=== PATIENT | female | born 1950 | race Caucasian/White ===

== ENCOUNTER 2016-06-11 10:02 | Inpatient (IN) | payer MEDICARE, BC, OTHER ==
[~2016-06-11] VITALS: Ht 154.9 cm; Wt 110.7 kg
[~2016-06-11 10:02] MED LIST: BETH25TA PO; CARB1TAB43 PO; CEPH-263 PO; COLE625T2 PO; DAPA5TAB PO; DIPH25CA58 PO; DOCU-27 PO; GLIP10TA13 PO; HYDR-2672 PO; INSU100C SQ; INSU100I27 SQ; INSU100V SQ; INSU100V13 SQ; INSU100V8 SQ; LEVO100T5 PO; LEVO125T5 PO; LIPA1CAP12 PO; LOVA40TA2 PO; MAGN400C PO; MULT-246 PO; Methocarbamol PO; OMEP40CA5 PO; Oxycodone Hcl/Acetaminophen PO; POTA10TA5 PO; PRAM0.255 PO; PROP60TA PO; SITA100T PO; TEMA30CA PO; TOPI100T90 PO; TORS20TA PO; TORS20TA2 PO
[2016-06-11] MEDS ORDERED: MORPHINE SULFATE 4 MG/ML DISP.SYRIN. IV/SQ PRN (10:45)
--- NOTE | 2016-06-11 10:54 | PHYS DOC ---
Past Medical History Past Medical History: Cancer, Diabetes-Type II, GERD, Hypothyroid, Pancreatitis , Other Additional Past Medical Histor: VERTIGO,PARKONISM,PSEUDO TUMOR CEREBI, breast cancer Past Surgical History: Cholecystectomy, Hysterectomy, Tonsillectomy, Other Additional Past Surgical Histo: SEE ATTACHED SHEET,MULTIPLE SURGERIES, BX MASTECTOMY 04/27/2016 Alcohol Use: None Drug Use: None Adult General Chief Complaint Chief Complaint: POST-OP PROBLEM HPI HPI Patient is a 66 year old female who had bilateral mastectomy on 04/27/16 who presents with post-op infection of the left mastectomy site. She has been on Keflex 500mg qid since 06/02/16. She saw Dr. Lima, her surgeon, yesterday. He did not feel that it was infected at that time. He instructed her to go to the hospital for evaluation if she felt that the pain, redness, or swelling worsened. The patient states that it has gotten worse. She denies fevers or drainage from the wounds. Both sides had been affected, but the right side is improving with the antibiotics. The left side, however, is worsening. She denies any shortness of breath or chest pain other than the chest wall pain. Her PCP is Dr. Betty Oropeza. Review of Systems Review of Systems Constitutional: Denies fever or chills. [] Respiratory: Denies cough or shortness of breath. Reports left chest wall pain. Cardiovascular: Denies chest pain, palpitations. Reports chronic, stable BLE edema. GI: Denies abdominal pain, nausea, vomiting, bloody stools or diarrhea. [] : Denies dysuria, hematuria or urinary frequency. [] Musculoskeletal: Denies back pain or joint pain. [] Integument: Reports increasing erythema of the left chest wall extending from surgical incision. Neurologic: Denies headache, focal weakness or sensory changes. [] All systems reviewed and negative unless otherwise stated in the HPI. Current Medications Current Medications Current Medications Medications (Trade) Dose Ordered Sig/Haim Start Time Stop Time Status Last Admin Dose Admin Morphine Sulfate 4 mg PRN Q15MIN PRN 06/11/16 10:45 06/12/16 10:44 06/11/16 10:45 4 MG Ondansetron HCl (Zofran) 4 mg 1X ONCE 06/11/16 11:00 06/11/16 11:01 DC 06/11/16 11:02 4 MG Allergies Allergies Allergies Coded Allergies Type Severity Reaction Last Updated Verified Sulfa (Sulfonamide Antibiotics) Allergy Severe 04/27/16 Yes insulin aspart Allergy Severe ANAPHYLAXIS 04/27/16 Yes venom-honey bee Allergy Severe Anaphylaxis 04/27/16 Yes escitalopram Allergy Intermediate 04/27/16 Yes lisinopril Allergy Intermediate Rash 04/27/16 Yes metformin Allergy Intermediate Diarrhea 04/27/16 Yes mold Allergy Intermediate 04/27/16 Yes pantoprazole Allergy Intermediate 04/27/16 Yes ranitidine Allergy Intermediate Nausea and Vomiting 04/27/16 Yes sertraline Allergy Intermediate 04/27/16 Yes Physical Exam Physical Exam Constitutional: Well developed, well nourished, no acute distress, non-toxic appearance. [] HENT: Normocephalic, atraumatic, oropharynx moist. [] Eyes: PERRLA, EOMI, conjunctiva normal, no discharge. [] Neck: Normal range of motion, no tenderness, supple, no stridor. [] Cardiovascular: Heart rate regular rhythm, no murmur. [] Lungs & Thorax: Bilateral breath sounds clear to auscultation without wheezes, rales, or rhonchi. Left chest wall tenderness over the area of erythema, extending into the left axilla. Abdomen: Bowel sounds normal, soft, no tenderness, no masses, no pulsatile masses. [] Skin: Warm, dry, no rash. There is an area of erythema and warmth on the left chest wall extending superiorly from the mastectomy incision, measuring 12 x 7 cm. Extremities: No tenderness, ROM intact, 1+ BLE edema, chronic according to the patient. 2+ DP pulses bilaterally. [] Neurologic: Alert and oriented X 3, normal motor function, normal sensory function, no focal deficits noted. [] Psychologic: Affect normal, judgement normal, mood normal. [] Current Patient Data Vital Signs Vital Signs Date Time Temp Pulse Resp B/P Pulse Ox O2 Delivery O2 Flow Rate FiO2 06/11/16 11:41 78 18 130/61 93 06/11/16 10:18 99.0 Room Air 99.0 Lab Values Laboratory Tests Test 06/11/16 10:35 White Blood Count 5.6x10^3/uL (4.0-11.0) Red Blood Count 4.00x10^6/uL (3.50-5.40) Hemoglobin 10.8g/dL (12.0-15.5) L Hematocrit 34.0% (36.0-47.0) L Mean Corpuscular Volume 85fL (79-100) Mean Corpuscular Hemoglobin 27pg (25-35) Mean Corpuscular Hemoglobin Concent 32g/dL (31-37) Red Cell Distribution Width 15.2% (11.5-14.5) H Platelet Count 133x10^3/uL (140-400) L Neutrophils (%) (Auto) 65% (31-73) Lymphocytes (%) (Auto) 21% (24-48) L Monocytes (%) (Auto) 9% (0-9) Eosinophils (%) (Auto) 5% (0-3) H Basophils (%) (Auto) 1% (0-3) Neutrophils # (Auto) 3.7x10^3uL (1.8-7.7) Lymphocytes # (Auto) 1.2x10^3/uL (1.0-4.8) Monocytes # (Auto) 0.5x10^3/uL (0.0-1.1) Eosinophils # (Auto) 0.3x10^3/uL (0.0-0.7) Basophils # (Auto) 0.1x10^3/uL (0.0-0.2) Sodium Level 143mmol/L (136-145) Potassium Level 4.0mmol/L (3.5-5.1) Chloride Level 108mmol/L (98-107) H Carbon Dioxide Level 27mmol/L (21-32) Anion Gap 8 (6-14) Blood Urea Nitrogen 13mg/dL (7-20) Creatinine 1.1mg/dL (0.6-1.0) H Estimated GFR (Cockcroft-Gault) 50.0 BUN/Creatinine Ratio 12 (6-20) Glucose Level 117mg/dL (70-99) H Lactic Acid Level 1.2mmol/L (0.4-2.0) Calcium Level 8.8mg/dL (8.5-10.1) Total Bilirubin 0.9mg/dL (0.2-1.0) Aspartate Amino Transferase (AST) 31U/L (15-37) Alanine Aminotransferase (ALT) 18U/L (14-59) Alkaline Phosphatase 250U/L (46-116) H Total Protein 6.2g/dL (6.4-8.2) L Albumin 2.6g/dL (3.4-5.0) L Albumin/Globulin Ratio 0.7 (1.0-1.7) L Laboratory Tests 06/11/16 10:35 Laboratory Tests 06/11/16 10:35 EKG EKG EKG at 1014. Heart rate 82 bpm. Sinus rhythm without acute ischemic changes or STEMI, as interpreted by Dr. Burnett. Radiology/Procedures Radiology/Procedures [] Course & Med Decision Making Course & Med Decision Making Pertinent Labs and Imaging studies reviewed. (See chart for details) Patient presents with increased pain and redness at left mastectomy postoperative incision after 9 days of oral antibiotics. On exam, there is a large area of erythema with induration and warmth over the left anterior chest wall consistent with cellulitis. Patient's vital signs are stable. There are no significant laboratory abnormalities. I discussed the patient's case with Dr. Reyes, on-call for the patient's surgeon, Dr. Lima. He agrees with plan to admit the patient to the hospital for outpatient treatment failure of post- operative wound infection. He requests infectious disease consultation with Dr. Kern initiation of IV vancomycin in the emergency department. She is admitted under Dr. Lima's service. The patient is in agreement with this plan. She remained stable in the emergency department. Dragon Disclaimer Dragon Disclaimer This electronic medical record was generated, in whole or in part, using a voice recognition dictation system. Departure Departure Impression: Primary Impression: Post-operative infection Additional Impression: Cellulitis of chest wall Disposition: ADMITTED INPATIENT Admitting Physician: Other (Dr. Lima) Condition: STABLE Referrals: BETTY OROPEZA MD (PCP) Problem Qualifiers VASQUEZ DICKSON Jun 11, 2016 10:54
[2016-06-11] MEDS ORDERED: ONDANSETRON PF 4 MG/2 ML VIAL. IV ONE (11:00)
[2016-06-11 11:15] LABS: BASO # 0.1 x10^3/uL (0.0-0.2); BASO % 1 % (0-3); EOS % 5 % (0-3); HEMOGLOBIN 10.8 g/dL (12.0-15.5); LYMPH # 1.2 x10^3/uL (1.0-4.8); LYMPH % 21 % (24-48); MEAN CORPUSCULAR HEMOGLOBIN 27 pg (25-35); MEAN CORPUSCULAR HGB CONC 32 g/dL (31-37); MEAN CORPUSCULAR VOLUME 85 fL (79-100); MONO % 9 % (0-9); NEUT % 65 % (31-73); PLATELET COUNT 133 x10^3/uL (140-400); RED CELL DISTRIBUTION WIDTH 15.2 % (11.5-14.5); WHITE BLOOD COUNT 5.6 x10^3/uL (4.0-11.0)
[2016-06-11 11:22] LABS: CALCIUM 8.8 mg/dL (8.5-10.1); CREATININE 1.1 mg/dL (0.6-1.0)
[2016-06-11 11:37] LABS: ALBUMIN 2.6 g/dL (3.4-5.0); ALBUMIN/GLOBULIN RATIO 0.7 (1.0-1.7); TOTAL BILIRUBIN 0.9 mg/dL (0.2-1.0); TOTAL PROTEIN 6.2 g/dL (6.4-8.2)
--- NOTE | 2016-06-11 12:29 | EKG ---
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
[2016-06-11] MEDS ORDERED: VANCOMYCIN 2 GM in IV NORMAL SALINE 500ML BAG 500 ML IV ONE (12:30)
[2016-06-11 13:00] VITALS: BP 164/75
[2016-06-11] MEDS: VANCOMYCIN PER PHARMACY MC PRN (14:06)
[2016-06-11] MEDS: MORPHINE SULFATE 4 MG/ML DISP.SYRIN. IV PRN ×2 (14:58→20:28)
[2016-06-11 15:00] VITALS: BP 108/49
[2016-06-11] MEDS: ONDANSETRON PF 4 MG/2 ML VIAL. IV PRN (15:02)
[2016-06-11] MEDS ORDERED: PIP/TAZO PER PHARMACY MC PRN (16:30)
[2016-06-11] MEDS ORDERED: INSU100C SQ (16:43)
--- NOTE | 2016-06-11 16:59 | ACF ---
Admission Forms Criteria WOUND COMPLICATIONS Clinical Indications for Inpatient Care (Place 'X' for any and all applicable criteria): Ongoing inpatient care may be indicated for wound complications with ANY ONE of the following (1) (15): [X]I. Infection with ANY ONE of the following(32)(33): [ ]a) Temperature greater than 38.5 C (101.3 F) [ ]b) Evidence of tissue necrosis [ ]c) Erythema diameter expanding around wound despite treatment [ ]d) Mental status changes [ ]e) Dehydration [ ]f) Bacteremia [ ]g) Hemodynamic instability [ ]h) Suspected necrotizing fasciitis [ ]i) Rapidly spreading lesions [ ]j) High-risk location (eg, perineum, sternum, orbit) [X]k) High-risk coexisting clinical condition as indicated by ANY ONE of the following: [X]i) Poorly controlled diabetes [ ]ii) Cirrhosis [ ]iii) Renal failure [ ]iv) Neutropenia [ ] v) Asplenia [ ]vi) Immunosuppression (eg, AIDS, chronic corticosteroid use) [ ]viii) Other high-risk medical comorbidities [ ] II. Dehiscence requiring frequent monitoring or immediate treatment [ ] III. Hematoma with ANY ONE of the following: [ ]a) Hemodynamic instability or acute anemia due to rapid development of hematoma [ ]b) Neck hematoma causing airway compression [ ]c) Retroperitoneal hematoma [ ]d) Uncontrolled coagulopathy [ ]IV. Seroma with evidence of secondary infection and requirement for IV antibiotics [D](31) [ ]V. Pain that cannot be managed at lower level of care Extended stay beyond goal length of stay for primary condition may be needed until ALL of the following are present(1)(33)(34): [ ]a) Afebrile or fever resolving [ ]b) Hemodynamic stability [ ]c) Pain resolving [ ]d) Wound closed, continuity adequately restored, or wound manageable at lower level of care [ ]e) No drain needed or drain care manageable at lower level of care [ ]f) Wound hematoma or seroma resolving [ ]g) Antibiotics not needed or regimen manageable at lower level of care(38) [ ]h) Dressing care manageable at lower level of care [ ]i) Coagulopathy absent, resolved, or treatable at lower level of care [ ]j) Medical comorbidities resolved or treatable at lower level of care The original [employer] content created by [facility] has been revised. The portions of the content which have been revised are identified through the use of italic text or in bold, and [facility] has neither reviewed nor approved the modified material. All other unmodified content is copyright [facility]. Please see references footnoted in the original [facility] edition 2016 Admission Criteria Met?: Yes SHANTA CROWELL. Jun 11, 2016 16:59
[2016-06-11] MEDS ORDERED: POTASSIUM CHLORIDE 20 MEQ TABLET.ER. PO SCH (17:00)
[2016-06-11] MEDS: PIPERACILLIN/TAZOBACTAM 3.375 GM in IV NORMAL SALINE 50ML 50 ML IV SCH (17:34)
[2016-06-11] MEDS: LIPASE/PROTEAS/AMYLAS 10/34/55 CAPSULE.DR. PO SCH (17:39)
[2016-06-11] MEDS: INSULIN LISPRO 30 UNIT SQ SCH (17:42)
[2016-06-11 19:20] VITALS: BP 104/49
[2016-06-11] MEDS: DIPHENHYDRAMINE HCL 25 MG CAPSULE PO SCH (21:10)
[2016-06-11] MEDS: BETHANECHOL CHLORIDE 25 MG TABLET PO SCH (21:10)
[2016-06-11] MEDS: TOPIRAMATE 100 MG TABLET. PO SCH (21:10)
[2016-06-11] MEDS: ATORVASTATIN CALCIUM 10 MG TABLET. PO SCH (21:10)
[2016-06-11] MEDS: POTASSIUM CHLORIDE 10 MEQ TABLET.ER. PO SCH (21:11)
[2016-06-11] MEDS: CARBIDOPA/LEVODOPA CR 25/100MG TABLET.SA PO SCH (21:11)
[2016-06-11] MEDS: PRAMIPEXOLE 0.25 MG TABLET. PO SCH (21:11)
[2016-06-11] MEDS: PROPRANOLOL ER 60 MG CAP.SA.24H. PO SCH (21:16)
[2016-06-11] MEDS: INSULIN DETEMIR 300 UNITS/3 ML INSULN.PEN. SQ SCH (21:19)
[2016-06-11 23:11] VITALS: BP 114/48
[2016-06-12] MEDS: PIPERACILLIN/TAZOBACTAM 3.375 GM in IV NORMAL SALINE 50ML 50 ML IV SCH ×4 (00:04→17:10)
[2016-06-12 03:28] VITALS: BP 123/62
[2016-06-12] MEDS: ONDANSETRON PF 4 MG/2 ML VIAL. IV PRN (04:52)
[2016-06-12] MEDS: MORPHINE SULFATE 4 MG/ML DISP.SYRIN. IV PRN ×2 (04:54→11:00)
[2016-06-12 07:00] VITALS: BP 107/41
[2016-06-12] MEDS ORDERED: PANTOPRAZOLE 40 MG TABLET. PO SCH (07:30)
[2016-06-12] MEDS: POTASSIUM CHLORIDE 20 MEQ TABLET.ER. PO SCH (08:03)
[2016-06-12] MEDS: LIPASE/PROTEAS/AMYLAS 10/34/55 CAPSULE.DR. PO SCH ×2 (08:03→17:07)
--- NOTE | 2016-06-12 08:22 | PDOC ---
Infectious Disease Note Vital Sign Vital Signs Vital Signs Date Time Temp Pulse Resp B/P Pulse Ox O2 Delivery O2 Flow Rate FiO2 06/12/16 07:00 98.7 86 20 107/41 96 Room Air 98.7 Labs Lab Laboratory Tests Test 06/11/16 10:35 06/11/16 17:40 06/11/16 21:06 06/12/16 07:40 White Blood Count 5.6x10^3/uL (4.0-11.0) Red Blood Count 4.00x10^6/uL (3.50-5.40) Hemoglobin 10.8g/dL (12.0-15.5) Hematocrit 34.0% (36.0-47.0) Mean Corpuscular Volume 85fL (79-100) Mean Corpuscular Hemoglobin 27pg (25-35) Mean Corpuscular Hemoglobin Concent 32g/dL (31-37) Red Cell Distribution Width 15.2% (11.5-14.5) Platelet Count 133x10^3/uL (140-400) Neutrophils (%) (Auto) 65% (31-73) Lymphocytes (%) (Auto) 21% (24-48) Monocytes (%) (Auto) 9% (0-9) Eosinophils (%) (Auto) 5% (0-3) Basophils (%) (Auto) 1% (0-3) Neutrophils # (Auto) 3.7x10^3uL (1.8-7.7) Lymphocytes # (Auto) 1.2x10^3/uL (1.0-4.8) Monocytes # (Auto) 0.5x10^3/uL (0.0-1.1) Eosinophils # (Auto) 0.3x10^3/uL (0.0-0.7) Basophils # (Auto) 0.1x10^3/uL (0.0-0.2) Sodium Level 143mmol/L (136-145) Potassium Level 4.0mmol/L (3.5-5.1) Chloride Level 108mmol/L (98-107) Carbon Dioxide Level 27mmol/L (21-32) Anion Gap 8 (6-14) Blood Urea Nitrogen 13mg/dL (7-20) Creatinine 1.1mg/dL (0.6-1.0) Estimated GFR (Cockcroft-Gault) 50.0 BUN/Creatinine Ratio 12 (6-20) Glucose Level 117mg/dL (70-99) Lactic Acid Level 1.2mmol/L (0.4-2.0) Calcium Level 8.8mg/dL (8.5-10.1) Total Bilirubin 0.9mg/dL (0.2-1.0) Aspartate Amino Transf (AST/SGOT) 31U/L (15-37) Alanine Aminotransferase (ALT/SGPT) 18U/L (14-59) Alkaline Phosphatase 250U/L (46-116) Total Protein 6.2g/dL (6.4-8.2) Albumin 2.6g/dL (3.4-5.0) Albumin/Globulin Ratio 0.7 (1.0-1.7) Glucose (Fingerstick) 193mg/dL (70-99) 157mg/dL (70-99) 147mg/dL (70-99) Objective Assessment Cellulitis of chest wall -Failed OP Keflex. Invasive lobular carcinoma of left breast s/p bilat simple mastectomies w/ left SLN bx, 04/27/2016. CKD Diabetes Obesity Plan Plan of Care Patient reports improvement since admission Continue vanc and Zosyn for now f/u Supportive care Thank you [id number] Attending Co-Sign Attending Co-Sign The patient was seen and interviewed as well as examined at the bedside. The chart was reviewed. The case was discussed. Agree with the plan of care. KELLEY AMARAL APRN Jun 12, 2016 08:22 AYESHA BROWN MD Jun 12, 2016 15:20
[2016-06-12] MEDS: OMEPRAZOLE 40 MG CAPSULE PO SCH (08:34)
[2016-06-12] MEDS: NON FORMULARY ITEM (Dapagliflozin Propanediol (Farxiga) 5 MG) PO SCH (08:35)
[2016-06-12] MEDS: LEVOTHYROXINE 100 MCG TABLET PO SCH (08:36)
[2016-06-12] MEDS: TOPIRAMATE 100 MG TABLET. PO SCH ×2 (08:36→21:26)
[2016-06-12] MEDS: BETHANECHOL CHLORIDE 25 MG TABLET PO SCH ×2 (08:36→21:26)
[2016-06-12] MEDS: CARBIDOPA/LEVODOPA CR 25/100MG TABLET.SA PO SCH ×2 (08:36→21:26)
[2016-06-12] MEDS: TORSEMIDE 20 MG TABLET. PO SCH (08:36)
[2016-06-12] MEDS: INSULIN LISPRO 30 UNIT SQ SCH (08:39)
[2016-06-12] MEDS: INSULIN DETEMIR 300 UNITS/3 ML INSULN.PEN. SQ SCH ×2 (08:41→21:35)
[2016-06-12] MEDS: INSULIN LISPRO 25 UNIT SQ SCH (08:42)
[2016-06-12] MEDS ORDERED: LIPASE/PROTEAS/AMYLAS 10/34/55 CAPSULE.DR. PO SCH (09:00)
--- NOTE | 2016-06-12 10:07 | PDOC1 ---
History and Physical Date of Admission Date of Admission DATE: 06/12/16 TIME: 10:02 History of Present Illness History of Present Illness The patient is a 66 year old female who underwent a bilateral mastectomy by Dr Lima in Apr 2016. She had been on keflex for several days but states the pain and redness of the left chest wound have worsened prompting her to report to the ER. Past Medical History Cardiovascular: HTN, Hyperlipidemia Pulmonary: Other GI: Diverticulosis, Peptic Ulcer disease, Other Heme/Onc: Other Hepatobiliary: Other Psych: Depression Endocrine: Diabetes Past Surgical History Past Surgical History: Other Family History Family History: No Significant Social History ALCOHOL: none Drugs: None Current Problem List Problem List Problems Medical Problems: (1) Cellulitis of chest wall Status: Acute (2) Post-operative infection Status: Acute Problems: Current Medications Current Medications Current Medications Morphine Sulfate 4 mg PRN Q15MIN PRN IV/SQ PAIN GREATER THAN 3/10 Last administered on 06/11/16 10:45; Start 06/11/16 at 10:45; Stop 06/12/16 at 10:44 Ondansetron HCl (Zofran) 4 mg 1X ONCE IV Last administered on 06/11/16 11:02 ; Start 06/11/16 at 11:00; Stop 06/11/16 at 11:01; Status DC Ondansetron HCl (Zofran) 4 mg PRN Q8HRS PRN IV NAUSEA/VOMITING Last administered on 06/12/16 04:52; Start 06/11/16 at 12:30; Stop 06/12/16 at 12:29 Morphine Sulfate 4 mg PRN Q2HR PRN IV PAIN Last administered on 06/12/16 04:54 ; Start 06/11/16 at 12:30; Stop 06/12/16 at 12:29 Vancomycin HCl 1 each 1 each PRN DAILY PRN MC SEE COMMENTS Last administered on 06/11/16 14:06; Start 06/11/16 at 12:30 Vancomycin HCl 2 gm/Sodium Chloride 500 ml @ 250 mls/hr 1X ONCE IV Last administered on 06/11/16 12:34; Start 06/11/16 at 12:30; Stop 06/11/16 at 14:29 ; Status DC Vancomycin HCl/ Sodium Chloride (Iv Sodium Chloride 0.9% 500ml Bag) 500 ml @ 250 mls/hr Q24H IV ; Start 06/12/16 at 12:00 Vancomycin HCl 1 each 1X ONCE MC ; Start 06/13/16 at 11:30; Stop 06/13/16 at 11 :31 Piperacillin Sod/ Tazobactam Sod 1 each 1 each PRN DAILY PRN MC SEE COMMENTS; Start 06/11/16 at 16:30 Piperacillin Sod/ Tazobactam Sod/ Sodium Chloride (Zosyn/Iv Sodium Chloride 0.9 % 50ml) 50 ml @ 100 mls/hr Q6HRS IV Last administered on 06/12/16 06:01; Start 06/11/16 at 17:00 Bethanechol Chloride (Urecholine) 25 mg BID PO Last administered on 06/12/16 08:36; Start 06/11/16 at 21:00 Carbidopa/Levodopa (Sinemet Cr) 1 tab.sa BID PO Last administered on 06/12/16 08:36; Start 06/11/16 at 21:00 Colesevelam HCl (Welchol) 625 mg PRN QID PRN PO DIARRHEA; Start 06/11/16 at 16: 45 Diphenhydramine HCl (Benadryl) 25 mg HS PO Last administered on 06/11/16 21:10 ; Start 06/11/16 at 21:00 Acetaminophen/ Hydrocodone Bitart (Lortab 10/325) 1 tab PRN Q4HRS PRN PO PAIN; Start 06/11/16 at 16:45 Levothyroxine Sodium (Synthroid) 100 mcg DAILY PO Last administered on 08:36; Start 06/12/16 at 09:00 Amylase/Lipase/ Protease (Zenpep 10,000) 1 cap DAILYWBKFT PO ; Start 06/12/16 at 09:00; Stop 06/12/16 at 09:00; Status DC Pramipexole Dihydrochloride (miraPEX) 1 mg HS PO Last administered on 21:11; Start 06/11/16 at 21:00 Topiramate (Topamax) 100 mg BID PO Last administered on 06/12/16 08:36; Start 06/11/16 at 21:00 Torsemide (Demadex) 20 mg DAILY PO Last administered on 06/12/16 08:36; Start 06/12/16 at 09:00 Non-Formulary Medication 5 mg DAILY PO blood sugar Last administered on 08:35; Start 06/12/16 at 09:00 Glipizide (Glucotrol) 10 mg BIDBFRMEAL PO ; Start 06/12/16 at 17:00 Insulin Detemir (Levemir) 40 units Q12H SQ Last administered on 06/12/16 08:41 ; Start 06/11/16 at 21:00 Non-Formulary Medication 25 units DAILY SQ Last administered on 06/12/16 08:42 ; Start 06/12/16 at 09:00 Atorvastatin Calcium (Lipitor) 10 mg QHS PO Last administered on 06/11/16 21: 10; Start 06/11/16 at 21:00 Pantoprazole Sodium (Protonix) 40 mg DAILYAC PO ; Start 06/12/16 at 07:30; Status Cancel Potassium Chloride (Klor-Con) 20 meq BIDWMEALS PO ; Start 06/11/16 at 17:00; Status Cancel Propranolol HCl (Inderal La) 60 mg HS PO Last administered on 06/11/16 21:16; Start 06/11/16 at 21:00 Non-Formulary Medication 30 unit DAILYWSUP SQ Last administered on 06/12/16 08 :39; Start 06/11/16 at 17:00 Non-Formulary Medication 1 ea DAILY PO Last administered on 06/12/16 08:34; Start 06/12/16 at 09:00 Amylase/Lipase/ Protease (Zenpep 10,000) 1 cap BIDWMEALS PO Last administered on 06/12/16 08:03; Start 06/11/16 at 17:30 Potassium Chloride (Klor-Con) 20 meq DAILYWBKFT PO Last administered on 08:03; Start 06/12/16 at 08:00 Potassium Chloride (Klor-Con) 10 meq HS PO Last administered on 06/11/16 21:11 ; Start 06/11/16 at 21:00 Active Scripts Active Demadex (Torsemide) 20 Mg Tablet 20 Mg PO DAILY Reported Humalog (Insulin Lispro) 100 Unit/1 Ml Cartridge 30 Unit SQ DAILYWSUP Omeprazole 40 Mg Capsule.dr 1 Cap PO DAILY Zenpep Dr 10,000 Units Capsule (Lipase/Protease/Amylase) 1 Each Capsule.dr 1 Each PO DAILY Humalog (Insulin Lispro) 100 Unit/1 Ml Cartridge 0 SQ 25UAM-30UPM Mirapex (Pramipexole Di-Hcl) 0.25 Mg Tablet 1 Mg PO HS Levothyroxine Sodium 100 Mcg Tablet 1 Tab PO DAILY Levemir (Insulin Detemir) 100 Unit/1 Ml Vial 40 Unit SQ BID-AM AND HS Farxiga (Dapagliflozin Propanediol) 5 Mg Tablet 5 Mg PO DAILY Carbidopa-Levo Er 25-100 Tab (Carbidopa/Levodopa) 1 Each Tablet.er 1 Each PO BID Hydrocodone-Apap 10-325 (Hydrocodone Bit/Acetaminophen) 1 Each Tablet 1 Tab PO PRN Benadryl (Diphenhydramine Hcl) 25 Mg Capsule 25 Mg PO HS Propranolol Hcl 60 Mg Tablet 60 Mg PO HS Bethanechol Chloride 25 Mg Tablet 25 Mg PO BID Klor-Con 10 (Potassium Chloride) 10 Meq Tablet.er 20 Meq PO BID Welchol (Colesevelam Hcl) 625 Mg Tablet 625 Mg PO PRN QID PRN Glipizide 10 Mg Tablet 10 Mg PO BID Topiramate 100 Mg Tablet 100 Mg PO BID Lovastatin 40 Mg Tablet 40 Mg PO HS Allergies Allergies: Coded Allergies: Sulfa (Sulfonamide Antibiotics) (Verified Allergy, Severe, 04/27/16) cough insulin aspart (Verified Allergy, Severe, ANAPHYLAXIS, 04/27/16) venom-honey bee (Verified Allergy, Severe, Anaphylaxis, 04/27/16) escitalopram (Verified Allergy, Intermediate, 04/27/16) lisinopril (Verified Allergy, Intermediate, Rash, 04/27/16) metformin (Verified Allergy, Intermediate, Diarrhea, 04/27/16) mold (Verified Allergy, Intermediate, 04/27/16) pantoprazole (Verified Allergy, Intermediate, 04/27/16) breast ranitidine (Verified Allergy, Intermediate, Nausea and Vomiting, 04/27/16) sertraline (Verified Allergy, Intermediate, 04/27/16) depression Physical Exam General: Alert, Oriented X3, Cooperative HEENT: Atraumatic Lungs: Clear to auscultation Heart: RRR Breasts: Surgical scars noted (erythema present in left chest at mastectomy wound, no fluctuance, no drainage) Abdomen: Soft, No tenderness Skin: No rashes, No breakdown Neuro: Normal speech Vitals Vitals Vital Signs Date Time Temp Pulse Resp B/P Pulse Ox O2 Delivery O2 Flow Rate FiO2 06/12/16 07:00 98.7 86 20 107/41 96 Room Air 98.7 Labs Labs Laboratory Tests Test 06/11/16 10:35 06/11/16 17:40 06/11/16 21:06 06/12/16 07:40 White Blood Count 5.6x10^3/uL (4.0-11.0) Red Blood Count 4.00x10^6/uL (3.50-5.40) Hemoglobin 10.8g/dL (12.0-15.5) Hematocrit 34.0% (36.0-47.0) Mean Corpuscular Volume 85fL (79-100) Mean Corpuscular Hemoglobin 27pg (25-35) Mean Corpuscular Hemoglobin Concent 32g/dL (31-37) Red Cell Distribution Width 15.2% (11.5-14.5) Platelet Count 133x10^3/uL (140-400) Neutrophils (%) (Auto) 65% (31-73) Lymphocytes (%) (Auto) 21% (24-48) Monocytes (%) (Auto) 9% (0-9) Eosinophils (%) (Auto) 5% (0-3) Basophils (%) (Auto) 1% (0-3) Neutrophils # (Auto) 3.7x10^3uL (1.8-7.7) Lymphocytes # (Auto) 1.2x10^3/uL (1.0-4.8) Monocytes # (Auto) 0.5x10^3/uL (0.0-1.1) Eosinophils # (Auto) 0.3x10^3/uL (0.0-0.7) Basophils # (Auto) 0.1x10^3/uL (0.0-0.2) Sodium Level 143mmol/L (136-145) Potassium Level 4.0mmol/L (3.5-5.1) Chloride Level 108mmol/L (98-107) Carbon Dioxide Level 27mmol/L (21-32) Anion Gap 8 (6-14) Blood Urea Nitrogen 13mg/dL (7-20) Creatinine 1.1mg/dL (0.6-1.0) Estimated GFR (Cockcroft-Gault) 50.0 BUN/Creatinine Ratio 12 (6-20) Glucose Level 117mg/dL (70-99) Lactic Acid Level 1.2mmol/L (0.4-2.0) Calcium Level 8.8mg/dL (8.5-10.1) Total Bilirubin 0.9mg/dL (0.2-1.0) Aspartate Amino Transf (AST/SGOT) 31U/L (15-37) Alanine Aminotransferase (ALT/SGPT) 18U/L (14-59) Alkaline Phosphatase 250U/L (46-116) Total Protein 6.2g/dL (6.4-8.2) Albumin 2.6g/dL (3.4-5.0) Albumin/Globulin Ratio 0.7 (1.0-1.7) Glucose (Fingerstick) 193mg/dL (70-99) 157mg/dL (70-99) 147mg/dL (70-99) Laboratory Tests Test 06/11/16 10:35 06/11/16 17:40 06/11/16 21:06 06/12/16 07:40 White Blood Count 5.6x10^3/uL (4.0-11.0) Red Blood Count 4.00x10^6/uL (3.50-5.40) Hemoglobin 10.8g/dL (12.0-15.5) Hematocrit 34.0% (36.0-47.0) Mean Corpuscular Volume 85fL (79-100) Mean Corpuscular Hemoglobin 27pg (25-35) Mean Corpuscular Hemoglobin Concent 32g/dL (31-37) Red Cell Distribution Width 15.2% (11.5-14.5) Platelet Count 133x10^3/uL (140-400) Neutrophils (%) (Auto) 65% (31-73) Lymphocytes (%) (Auto) 21% (24-48) Monocytes (%) (Auto) 9% (0-9) Eosinophils (%) (Auto) 5% (0-3) Basophils (%) (Auto) 1% (0-3) Neutrophils # (Auto) 3.7x10^3uL (1.8-7.7) Lymphocytes # (Auto) 1.2x10^3/uL (1.0-4.8) Monocytes # (Auto) 0.5x10^3/uL (0.0-1.1) Eosinophils # (Auto) 0.3x10^3/uL (0.0-0.7) Basophils # (Auto) 0.1x10^3/uL (0.0-0.2) Sodium Level 143mmol/L (136-145) Potassium Level 4.0mmol/L (3.5-5.1) Chloride Level 108mmol/L (98-107) Carbon Dioxide Level 27mmol/L (21-32) Anion Gap 8 (6-14) Blood Urea Nitrogen 13mg/dL (7-20) Creatinine 1.1mg/dL (0.6-1.0) Estimated GFR (Cockcroft-Gault) 50.0 BUN/Creatinine Ratio 12 (6-20) Glucose Level 117mg/dL (70-99) Lactic Acid Level 1.2mmol/L (0.4-2.0) Calcium Level 8.8mg/dL (8.5-10.1) Total Bilirubin 0.9mg/dL (0.2-1.0) Aspartate Amino Transf (AST/SGOT) 31U/L (15-37) Alanine Aminotransferase (ALT/SGPT) 18U/L (14-59) Alkaline Phosphatase 250U/L (46-116) Total Protein 6.2g/dL (6.4-8.2) Albumin 2.6g/dL (3.4-5.0) Albumin/Globulin Ratio 0.7 (1.0-1.7) Glucose (Fingerstick) 193mg/dL (70-99) 157mg/dL (70-99) 147mg/dL (70-99) VTE Prophylaxis Ordered VTE Prophylaxis Devices: No VTE Pharmacological Prophylaxi: Yes Assessment/Plan Assessment/Plan L chest cellulitis, S/P mastectomy; ID consulted, on vancomycin SUSANA BLUM MD Jun 12, 2016 10:07
[2016-06-12 11:00] VITALS: BP 136/61
[2016-06-12] MEDS ORDERED: VANCOMYCIN 2 GM in IV NORMAL SALINE 500ML BAG 500 ML IV SCH (12:00)
[2016-06-12] MEDS: VANCOMYCIN PER PHARMACY MC PRN (12:09)
[2016-06-12 15:00] VITALS: BP 163/66
[2016-06-12] MEDS: GLIPIZIDE 5 MG TABLET PO SCH (17:07)
[2016-06-12] MEDS: HYDROCODONE/APAP 10/325 TABLET. PO PRN (17:35)
[2016-06-12 19:15] VITALS: BP 118/60
[2016-06-12] MEDS: ATORVASTATIN CALCIUM 10 MG TABLET. PO SCH (21:26)
[2016-06-12] MEDS: POTASSIUM CHLORIDE 10 MEQ TABLET.ER. PO SCH (21:26)
[2016-06-12] MEDS: PRAMIPEXOLE 0.25 MG TABLET. PO SCH (21:26)
[2016-06-12] MEDS: DIPHENHYDRAMINE HCL 25 MG CAPSULE PO SCH (21:26)
[2016-06-12] MEDS: PROPRANOLOL ER 60 MG CAP.SA.24H. PO SCH (21:26)
[2016-06-12 22:59] VITALS: BP 107/48
[2016-06-13] MEDS: PIPERACILLIN/TAZOBACTAM 3.375 GM in IV NORMAL SALINE 50ML 50 ML IV SCH ×4 (00:07→18:28)
--- NOTE | 2016-06-13 01:07 | CONS ---
DATE OF CONSULTATION: 06/11/2016 INFECTIOUS DISEASE CONSULTATION REFERRING PHYSICIAN: Dr. Pendleton. REASON FOR CONSULTATION: Postop infection, chest wall cellulitis. HISTORY OF PRESENT ILLNESS: The patient is a 66-year-old woman with history of obesity, chronic kidney disease and diabetes mellitus. She underwent bilateral simple mastectomies with left sentinel lymph node biopsy for left invasive lobular carcinoma on 04/27/2016. She was to start on adjuvant radiation, when about 2 weeks ago, she noticed a small area of redness and warmth along the left surgical incision that progressively worsened and spread to the right side. She was prescribed Keflex without improvement. She denies having fevers, chills or sweats. She has since been admitted and was started on IV antibiotics consisting of vancomycin and Zosyn. She reports already seeing improvement. The area is less red, but still painful. PAST MEDICAL HISTORY: Recent diagnosis of left invasive lobular carcinoma. 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 PAST SURGICAL HISTORY: Bilateral simple mastectomies with left sentinel lymph node biopsy on 04/27/2016, tonsillectomy, adenoidectomy, ACD with fusion of C3, C5, C6 in 2014, cholecystectomy, hysterectomy, bilateral carpal tunnel repair, left thyroidectomy. SOCIAL HISTORY: The patient is and lives at home. Nonsmoker. FAMILY HISTORY: Positive for breast cancer, hepatitis C, hypertension, Graves disease, cardiovascular disease, chronic obstructive pulmonary disease, and diabetes mellitus. ALLERGIES: Sulfa causing welts. Escitalopram, insulin aspart, lisinopril, metformin, mold, pantoprazole, ranitidine, sertraline and venom honey bee. MEDICATIONS: Vancomycin, Zosyn. Other medications are available and have been reviewed on the JUN. REVIEW OF SYSTEMS: The patient denies headache, nasal/sinus congestion or sore throat. Denies cough, shortness of air or wheezing. Denies chest pain or palpitations. She notices that her legs swell on occasion and is currently on diuretics. Denies dysuria. Denies rash. Denies muscle aches or joint pains. Her appetite is okay. Denies significant weight loss. PHYSICAL EXAMINATION: GENERAL: Pleasant woman in no apparent distress. VITAL SIGNS: Temperature is 98.7, blood pressure 107/41, heart rate 86, respiratory rate 20, pulse oximetry is 96% on room air. Weight is 244 pounds. HEENT: Pupils equally round and reactive. Normal conjunctivae. She wears eyeglasses. Oropharynx and cavity pink and moist. No lesions seen. NECK: Supple, no adenopathy present. LUNGS: Clear to auscultation bilaterally. CHEST: There is well demarcated erythema on the left chest wall above the surgical incision. The area is warm and tender. No drainage noted. The right surgical incision is well approximated. There is no redness, swelling, drainage or warmth noted. HEART: Normal S1 and S2. ABDOMEN: Obese, bowel sounds are present, soft, nontender. EXTREMITIES: Bilateral lower extremity trace edema. No cyanosis. SKIN: Without rash. NEUROLOGIC: Alert and oriented x 3. Moves all extremities. She is ambulatory. LABORATORY DATA: WBC 5600, hemoglobin 10.8, hematocrit 34.0, platelet count 133,000. Sodium 143, potassium 4.0, creatinine 1.1, BUN 13, glucose 117. Lactic acid 1.2. Total bilirubin is 0.9, AST 31, ALT 18, albumin 2.6. Blood cultures pending. IMPRESSION: 1. Cellulitis of chest wall. 2. Invasive lobular carcinoma of left breast, status post bilateral simple mastectomies with left sentinel node biopsy on 04/27/2016. 3. Chronic kidney disease. 4. Diabetes mellitus. 5. Obesity. PLAN: The patient is reporting improvement of symptoms since admission. Continue the vancomycin and Zosyn for now. Await blood culture results. Supportive care. Thank you, Dr. Pendleton for asking us to participate in this patient's care. Should you have further questions or concerns, please call. AYESHA BROWN MD DR: MARLEY/elina JOB#: [id number] / [id number]
[2016-06-13] MEDS: HYDROCODONE/APAP 10/325 TABLET. PO PRN ×4 (02:04→21:43)
[2016-06-13 03:00] VITALS: BP 99/44
[2016-06-13 07:00] VITALS: BP 110/59
[2016-06-13] MEDS: LIPASE/PROTEAS/AMYLAS 10/34/55 CAPSULE.DR. PO SCH ×2 (08:18→18:28)
[2016-06-13] MEDS: CARBIDOPA/LEVODOPA CR 25/100MG TABLET.SA PO SCH ×2 (08:18→21:41)
[2016-06-13] MEDS: POTASSIUM CHLORIDE 20 MEQ TABLET.ER. PO SCH (08:19)
[2016-06-13] MEDS: GLIPIZIDE 5 MG TABLET PO SCH ×2 (08:19→18:28)
[2016-06-13] MEDS: BETHANECHOL CHLORIDE 25 MG TABLET PO SCH ×2 (08:20→21:42)
[2016-06-13] MEDS: TORSEMIDE 20 MG TABLET. PO SCH (08:20)
[2016-06-13] MEDS: TOPIRAMATE 100 MG TABLET. PO SCH ×2 (08:20→21:40)
[2016-06-13] MEDS: LEVOTHYROXINE 100 MCG TABLET PO SCH (08:20)
[2016-06-13] MEDS: OMEPRAZOLE 40 MG CAPSULE PO SCH (08:21)
[2016-06-13] MEDS: NON FORMULARY ITEM (Dapagliflozin Propanediol (Farxiga) 5 MG) PO SCH (08:21)
[2016-06-13] MEDS: INSULIN LISPRO 25 UNIT SQ SCH (09:00)
--- NOTE | 2016-06-13 09:07 | PDOC ---
LUZ MARIA MEDELLIN COLLAR SETTER OVERLOCK 06/13/16 0907: SURGICAL PROGRESS NOTE Subjective feeling better just showered reports the redness is greatly improved Vital Signs Vital Signs Date Time Temp Pulse Resp B/P Pulse Ox O2 Delivery O2 Flow Rate FiO2 06/13/16 03:04 18 Nasal Cannula 3.0 06/13/16 03:00 98.0 70 99/44 97 98.0 I&O Intake and Output 06/13/16 07:00 Intake Total 480 ml Balance 480 ml Intake Oral 480 ml # Voids 3 General: Alert, Oriented X3, Cooperative, No acute distress Skin: Other (left chest erythema, no induration) Labs Laboratory Tests Test 06/11/16 10:35 06/11/16 17:40 06/11/16 21:06 06/12/16 07:40 White Blood Count 5.6x10^3/uL (4.0-11.0) Red Blood Count 4.00x10^6/uL (3.50-5.40) Hemoglobin 10.8g/dL (12.0-15.5) Hematocrit 34.0% (36.0-47.0) Mean Corpuscular Volume 85fL (79-100) Mean Corpuscular Hemoglobin 27pg (25-35) Mean Corpuscular Hemoglobin Concent 32g/dL (31-37) Red Cell Distribution Width 15.2% (11.5-14.5) Platelet Count 133x10^3/uL (140-400) Neutrophils (%) (Auto) 65% (31-73) Lymphocytes (%) (Auto) 21% (24-48) Monocytes (%) (Auto) 9% (0-9) Eosinophils (%) (Auto) 5% (0-3) Basophils (%) (Auto) 1% (0-3) Neutrophils # (Auto) 3.7x10^3uL (1.8-7.7) Lymphocytes # (Auto) 1.2x10^3/uL (1.0-4.8) Monocytes # (Auto) 0.5x10^3/uL (0.0-1.1) Eosinophils # (Auto) 0.3x10^3/uL (0.0-0.7) Basophils # (Auto) 0.1x10^3/uL (0.0-0.2) Sodium Level 143mmol/L (136-145) Potassium Level 4.0mmol/L (3.5-5.1) Chloride Level 108mmol/L (98-107) Carbon Dioxide Level 27mmol/L (21-32) Anion Gap 8 (6-14) Blood Urea Nitrogen 13mg/dL (7-20) Creatinine 1.1mg/dL (0.6-1.0) Estimated GFR (Cockcroft-Gault) 50.0 BUN/Creatinine Ratio 12 (6-20) Glucose Level 117mg/dL (70-99) Lactic Acid Level 1.2mmol/L (0.4-2.0) Calcium Level 8.8mg/dL (8.5-10.1) Total Bilirubin 0.9mg/dL (0.2-1.0) Aspartate Amino Transf (AST/SGOT) 31U/L (15-37) Alanine Aminotransferase (ALT/SGPT) 18U/L (14-59) Alkaline Phosphatase 250U/L (46-116) Total Protein 6.2g/dL (6.4-8.2) Albumin 2.6g/dL (3.4-5.0) Albumin/Globulin Ratio 0.7 (1.0-1.7) Glucose (Fingerstick) 193mg/dL (70-99) 157mg/dL (70-99) 147mg/dL (70-99) Test 06/12/16 11:41 06/12/16 16:45 06/12/16 21:10 06/13/16 07:42 Glucose (Fingerstick) 221mg/dL (70-99) 163mg/dL (70-99) 163mg/dL (70-99) 59mg/dL (70-99) Laboratory Tests Test 06/12/16 11:41 06/12/16 16:45 06/12/16 21:10 06/13/16 07:42 Glucose (Fingerstick) 221mg/dL (70-99) 163mg/dL (70-99) 163mg/dL (70-99) 59mg/dL (70-99) Problem List Problems Medical Problems: (1) Cellulitis of chest wall Status: Acute (2) Post-operative infection Status: Acute Assessment/Plan continue abx improving Problems: NADJA MARY MD 06/13/16 1652: SURGICAL PROGRESS NOTE Assessment/Plan called by RN earlier she had concerns about Yesenia she woke up from a nap and was pleasantly confused, didn't know where she was did not recognize me despite being my surgical patient have asked IPC and neurology to see no new surgical recs her left chest looks a little less erythematous Problems: LUZ MARIA MEDELLIN APRN Jun 13, 2016 09:07 NADJA MARY MD Jun 13, 2016 16:52
[2016-06-13 11:00] VITALS: BP 90/31
--- NOTE | 2016-06-13 11:13 | PDOC ---
AYESHA BROWN MD Jun 13, 2016 11:13
[2016-06-13 11:35] LABS: CALCIUM 8.3 mg/dL (8.5-10.1); CREATININE 1.4 mg/dL (0.6-1.0); GFR 37.9; POTASSIUM 4.4 mmol/L (3.5-5.1)
--- NOTE | 2016-06-13 11:49 | PDOC ---
Infectious Disease Note Subjective Subjective Pt reports improving cellulitis. but not quite right today. States has episodes at home like this Has styie in right eye lid Denies fever, nausea, abd pain or diarrhea at this time. ROS ROS GEN: Denies fevers, chills, sweats HEENT: Denies blurred vision, sore throat CV: Denies chest pain RESP: Denies shortness of air, cough GI: Denies n/v/d NEURO: Denies confusion, dizziness MSK: Denies weakness, joint pain/swelling Vital Sign Vital Signs Vital Signs Date Time Temp Pulse Resp B/P Pulse Ox O2 Delivery O2 Flow Rate FiO2 06/13/16 11:00 98.3 64 14 90/31 95 Nasal Cannula 2.0 98.3 Physical Exam PHYSICAL EXAM GENERAL: NAD, Alert HEENT: PERRL, OC/OP -clear NECK: Supple, no JVD, no LN LUNGS: Clear HEART: S1S2, no gallop, no murmur ABD: Soft, NT, no organomegaly, no rebound, obese EXT: No edema, no cyanosis MATERIALS MANAGEMENT MANAGER: Alert, 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 Chest wall cellulitis improving with less erythema IV: ok Labs Lab Laboratory Tests Test 06/12/16 16:45 06/12/16 21:10 06/13/16 07:42 06/13/16 10:49 Glucose (Fingerstick) 163mg/dL (70-99) 163mg/dL (70-99) 59mg/dL (70-99) 138mg/dL (70-99) Test 06/13/16 11:15 Sodium Level 143mmol/L (136-145) Potassium Level 4.4mmol/L (3.5-5.1) Chloride Level 108mmol/L (98-107) Carbon Dioxide Level 27mmol/L (21-32) Anion Gap 8 (6-14) Blood Urea Nitrogen 19mg/dL (7-20) Creatinine 1.4mg/dL (0.6-1.0) Estimated GFR (Cockcroft-Gault) 37.9 Glucose Level 139mg/dL (70-99) Calcium Level 8.3mg/dL (8.5-10.1) Vancomycin Level Trough 17.9mcg/mL (10.0-20.0) Vancomycin Last Dose Date 06/12/16 Vancomycin Last Dose Time 1200 Objective Assessment Cellulitis of chest wall -Failed OP Keflex. Invasive lobular carcinoma of left breast s/p bilat simple mastectomies w/ left SLN bx, 04/27/2016. CKD Diabetes Obesity Plan Plan of Care Warm compress for Styie Consult Anthony bal begin Doxy Cont Zosyn f/u BC Supportive care AYESHA BROWN MD Jun 13, 2016 11:49
[2016-06-13] MEDS: DOXYCYCLINE HYCLATE 100 MG TABLET PO SCH ×2 (12:11→21:41)
[2016-06-13] MEDS: INSULIN DETEMIR 300 UNITS/3 ML INSULN.PEN. SQ SCH ×2 (12:17→21:00)
[2016-06-13 15:00] VITALS: BP 123/59
--- NOTE | 2016-06-13 15:31 | EKG ---
[facility] [address] [place] [address] Test Date: 2016-06-13 Test Time: 15:29:35 Pat Name: ERIN GUERRA Department: Room: [facility] Gender: F Arcade Technician: LUC : 1950 Requested By: NADJA MARY Order Number: [id number] Reading MD: Audra Lucio Measurements Intervals [place] Rate: 76 P: 47 OH: 148 QRS: 81 QRSD: 86 T: 24 QT: 382 QTc: 434 Interpretive Statements SINUS RHYTHM NORMAL ECG RI6.01 Compared to ECG 04/13/2016 03:39:00 No significant changes Electronically Signed On 06-18-2016 19:30:57 SOCIAL WELFARE ADMINISTRATOR by Audra Lucio
[2016-06-13] MEDS ORDERED: POLYETHYLENE GLYCOL 3350 17 GM PACKET. PO PRN (16:00)
[2016-06-13] MEDS ORDERED: MORPHINE SULFATE 2 MG/ML DISP.SYRIN. IV PRN (16:00)
--- NOTE | 2016-06-13 16:12 | PDOC2 ---
CONSULT Date of Consult Date of Consult DATE: 06/13/16 TIME: 16:12 Reason for Consult Reason for Consult: AMS Referring Physician Referring Physician: Clarence Identification/Chief Complaint Chief Complaint confusion Source Source: Chart review, Patient History of Present Illness Reason for Visit: Ms Amaya, s/p Bilat mastectomy 1 mo ago. Admit for infection, cellulitis. Today, post a nap, awoke confused to place and time, was disoriented. RN concerned, family reports mult similar instances in the past few months, and Ms. Amaya reports the same. "I get confused sometimes" she is aware of being in a hospital in , cannot name Past Medical History Cardiovascular: HTN, Hyperlipidemia Pulmonary: Other GI: Diverticulosis, Peptic Ulcer disease, Other Heme/Onc: Other Hepatobiliary: Other Psych: Depression Musculoskeletal: low back pain Infectious disease: No pertinent hx Endocrine: Diabetes Past Surgical History Past Surgical History: Other Family History Family History: No Significant Social History No ALCOHOL: none Drugs: None Lives: with Family Current Problem List Problem List Problems Medical Problems: (1) Cellulitis of chest wall Status: Acute (2) Post-operative infection Status: Acute Current Medications Current Medications Current Medications Morphine Sulfate 4 mg PRN Q15MIN PRN IV/SQ PAIN GREATER THAN 3/10 Last administered on 06/11/16 10:45; Start 06/11/16 at 10:45; Stop 06/12/16 at 10:44 ; Status DC Ondansetron HCl (Zofran) 4 mg 1X ONCE IV Last administered on 06/11/16 11:02 ; Start 06/11/16 at 11:00; Stop 06/11/16 at 11:01; Status DC Ondansetron HCl (Zofran) 4 mg PRN Q8HRS PRN IV NAUSEA/VOMITING Last administered on 06/12/16 04:52; Start 06/11/16 at 12:30; Stop 06/12/16 at 12:29 ; Status DC Morphine Sulfate 4 mg PRN Q2HR PRN IV PAIN Last administered on 06/12/16 11:00 ; Start 06/11/16 at 12:30; Stop 06/12/16 at 12:29; Status DC Vancomycin HCl 1 each 1 each PRN DAILY PRN MC SEE COMMENTS Last administered on 06/12/16 12:09; Start 06/11/16 at 12:30; Stop 06/13/16 at 11:47; Status DC Vancomycin HCl 2 gm/Sodium Chloride 500 ml @ 250 mls/hr 1X ONCE IV Last administered on 06/11/16 12:34; Start 06/11/16 at 12:30; Stop 06/11/16 at 14:29 ; Status DC Vancomycin HCl/ Sodium Chloride (Iv Sodium Chloride 0.9% 500ml Bag) 500 ml @ 250 mls/hr Q24H IV Last administered on 06/12/16 11:43; Start 06/12/16 at 12: 00; Stop 06/13/16 at 11:47; Status DC Vancomycin HCl 1 each 1X ONCE MC Last administered on 06/13/16 11:30; Start 06/13/16 at 11:30; Stop 06/13/16 at 11:31; Status DC Piperacillin Sod/ Tazobactam Sod 1 each 1 each PRN DAILY PRN MC SEE COMMENTS; Start 06/11/16 at 16:30; Stop 06/13/16 at 11:18; Status DC Piperacillin Sod/ Tazobactam Sod/ Sodium Chloride (Zosyn/Iv Sodium Chloride 0.9 % 50ml) 50 ml @ 100 mls/hr Q6HRS IV Last administered on 06/13/16 12:12; Start 06/11/16 at 17:00 Bethanechol Chloride (Urecholine) 25 mg BID PO Last administered on 06/13/16 08:20; Start 06/11/16 at 21:00 Carbidopa/Levodopa (Sinemet Cr) 1 tab.sa BID PO Last administered on 06/13/16 08:18; Start 06/11/16 at 21:00 Colesevelam HCl (Welchol) 625 mg PRN QID PRN PO DIARRHEA; Start 06/11/16 at 16: 45 Diphenhydramine HCl (Benadryl) 25 mg HS PO Last administered on 06/12/16 21:26 ; Start 06/11/16 at 21:00 Acetaminophen/ Hydrocodone Bitart (Lortab 10/325) 1 tab PRN Q4HRS PRN PO PAIN Last administered on 06/13/16 14:02; Start 06/11/16 at 16:45 Levothyroxine Sodium (Synthroid) 100 mcg DAILY PO Last administered on 08:20; Start 06/12/16 at 09:00 Amylase/Lipase/ Protease (Zenpep 10,000) 1 cap DAILYWBKFT PO ; Start 06/12/16 at 09:00; Stop 06/12/16 at 09:00; Status DC Pramipexole Dihydrochloride (miraPEX) 1 mg HS PO Last administered on 21:26; Start 06/11/16 at 21:00 Topiramate (Topamax) 100 mg BID PO Last administered on 06/13/16 08:20; Start 06/11/16 at 21:00 Torsemide (Demadex) 20 mg DAILY PO Last administered on 06/13/16 08:20; Start 06/12/16 at 09:00 Non-Formulary Medication 5 mg DAILY PO blood sugar Last administered on 08:21; Start 06/12/16 at 09:00 Glipizide (Glucotrol) 10 mg BIDBFRMEAL PO Last administered on 06/13/16 08:19 ; Start 06/12/16 at 17:00 Insulin Detemir (Levemir) 40 units Q12H SQ Last administered on 06/13/16 12:17 ; Start 06/11/16 at 21:00 Non-Formulary Medication 25 units DAILY SQ Last administered on 06/12/16 08:42 ; Start 06/12/16 at 09:00 Atorvastatin Calcium (Lipitor) 10 mg QHS PO Last administered on 06/12/16 21: 26; Start 06/11/16 at 21:00 Pantoprazole Sodium (Protonix) 40 mg DAILYAC PO ; Start 06/12/16 at 07:30; Status Cancel Potassium Chloride (Klor-Con) 20 meq BIDWMEALS PO ; Start 06/11/16 at 17:00; Status Cancel Propranolol HCl (Inderal La) 60 mg HS PO Last administered on 06/12/16 21:26; Start 06/11/16 at 21:00 Non-Formulary Medication 30 unit DAILYWSUP SQ Last administered on 06/12/16 08 :39; Start 06/11/16 at 17:00 Non-Formulary Medication 1 ea DAILY PO Last administered on 06/13/16 08:21; Start 06/12/16 at 09:00 Amylase/Lipase/ Protease (Zenpep 10,000) 1 cap BIDWMEALS PO Last administered on 06/13/16 08:18; Start 06/11/16 at 17:30 Potassium Chloride (Klor-Con) 20 meq DAILYWBKFT PO Last administered on 08:19; Start 06/12/16 at 08:00 Potassium Chloride (Klor-Con) 10 meq HS PO Last administered on 06/12/16 21:26 ; Start 06/11/16 at 21:00 Doxycycline Hyclate (Vibra-Tab) 100 mg BID PO Last administered on 06/13/16 12 :11; Start 06/13/16 at 12:00 Morphine Sulfate 2 mg PRN Q2HR PRN IV PAIN; Start 06/13/16 at 16:00 Polyethylene Glycol (miraLAX PACKET) 17 gm PRN DAILY PRN PO CONSTIPATION; Start 06/13/16 at 16:00 Active Scripts Active Demadex (Torsemide) 20 Mg Tablet 20 Mg PO DAILY Reported Humalog (Insulin Lispro) 100 Unit/1 Ml Cartridge 30 Unit SQ DAILYWSUP Omeprazole 40 Mg Capsule.dr 1 Cap PO DAILY Zenpep Dr 10,000 Units Capsule (Lipase/Protease/Amylase) 1 Each Capsule.dr 1 Each PO DAILY Humalog (Insulin Lispro) 100 Unit/1 Ml Cartridge 0 SQ 25UAM-30UPM Mirapex (Pramipexole Di-Hcl) 0.25 Mg Tablet 1 Mg PO HS Levothyroxine Sodium 100 Mcg Tablet 1 Tab PO DAILY Levemir (Insulin Detemir) 100 Unit/1 Ml Vial 40 Unit SQ BID-AM AND HS Farxiga (Dapagliflozin Propanediol) 5 Mg Tablet 5 Mg PO DAILY Carbidopa-Levo Er 25-100 Tab (Carbidopa/Levodopa) 1 Each Tablet.er 1 Each PO BID Hydrocodone-Apap 10-325 (Hydrocodone Bit/Acetaminophen) 1 Each Tablet 1 Tab PO PRN Benadryl (Diphenhydramine Hcl) 25 Mg Capsule 25 Mg PO HS Propranolol Hcl 60 Mg Tablet 60 Mg PO HS Bethanechol Chloride 25 Mg Tablet 25 Mg PO BID Klor-Con 10 (Potassium Chloride) 10 Meq Tablet.er 20 Meq PO BID Welchol (Colesevelam Hcl) 625 Mg Tablet 625 Mg PO PRN QID PRN Glipizide 10 Mg Tablet 10 Mg PO BID Topiramate 100 Mg Tablet 100 Mg PO BID Lovastatin 40 Mg Tablet 40 Mg PO HS Allergies Allergies: Coded Allergies: Sulfa (Sulfonamide Antibiotics) (Verified Allergy, Severe, 04/27/16) cough insulin aspart (Verified Allergy, Severe, ANAPHYLAXIS, 04/27/16) venom-honey bee (Verified Allergy, Severe, Anaphylaxis, 04/27/16) escitalopram (Verified Allergy, Intermediate, 04/27/16) lisinopril (Verified Allergy, Intermediate, Rash, 04/27/16) metformin (Verified Allergy, Intermediate, Diarrhea, 04/27/16) mold (Verified Allergy, Intermediate, 04/27/16) pantoprazole (Verified Allergy, Intermediate, 04/27/16) breast ranitidine (Verified Allergy, Intermediate, Nausea and Vomiting, 04/27/16) sertraline (Verified Allergy, Intermediate, 04/27/16) depression ROS General: YES: Fatigue, No: Appetite, Chills, Malaise, Night Sweats, Other PSYCHOLOGICAL ROS: YES: Memory difficulties, No: Behavioral Disorder, Concentration difficultie, Decreased libido, Depression, Disorientation, Hallucinations, Hostility, Irritablity, Mood Swings , Obsessive thoughts, Other, Physical abuse, Sexual abuse, Sleep disturbances, Suicidal ideation Eyes: No Blurry vision, No Decreased vision, No Double vision, No Dry eyes, No Excessive tearing, No Eye Pain, No Itchy Eyes, No Loss of vision, No Other, No Photophobia, No Scotomata, No Uses contacts, No Uses glasses HEENT: No: Epistaxis, Hearing change, Nasal congestion, Nasal discharge, Oral lesions, Other, Sinus pain, Sneezing, Snoring, Sore Throat, Tinnitus, Vertigo, Visual Changes, Vocal changes Respiratory: No: Cough, Hemoptysis, Orthopnea, Other, Pleuritic Pain, SOB with excertion, Shortness of breath, Sputum Changes, Stridor, Tachypnea, Wheezing Cardiovascular: yes Chest Pain, No Edema, No Lt Headedness, No Orthopnea, No Other, No Palpitations, No Paroxysmal Noc. Dyspnea Gastrointestinal: No Abdominal Pain, No Constipation, No Diarrhea, No Hematochezia, No Melena, No Nausea, No Other, No Vomiting Genitourinary: No , No , No , No , No , No , No , No Discharge, No Dysuria, No Flank Pain, No Frequency, No Hematuria, No Incontinence, No Other, No Pain, No Retention, No Urgency Musculoskeletal: Yes Joint Stiffness, Yes Pain In:, No Gait Disturbance, No Joint Pain, No Joint Swelling, No Muscle Pain, No Muscular Weakness, No Other, No Swelling In: Neurological: Yes Confusion, Yes Dizziness, Yes Gait Disturbance, No Behavorial Changes, No Headaches, No Impaired Coord/balance, No Memory Loss, No Numbness/Tingling, No Other, No Seizures, No Speech Problems, No Tremors, No Visual Changes, No Weakness Skin: No Acne, No Dry Skin, No Eczema, No Hair Changes, No Lumps, No Mole Changes, No Mottling, No Nail Changes, No Other, No Pruritus, No Rash, No Skin Lesion Changes Physical Exam General: Alert, Cooperative, No acute distress, Other (2/4 oriented) Lungs: Normal air movement Heart: No murmurs Abdomen: Normal bowel sounds, Soft, No tenderness Extremities: No clubbing, No edema Skin: No rashes, No significant lesion Psych/Mental Status: Mental status NL, Mood NL Vitals VITALS Vital Signs Date Time Temp Pulse Resp B/P Pulse Ox O2 Delivery O2 Flow Rate FiO2 06/13/16 15:25 Room Air 06/13/16 15:00 98.4 79 14 123/59 93 2.0 98.4 Labs Labs Laboratory Tests Test 06/11/16 17:40 06/11/16 21:06 06/12/16 07:40 06/12/16 11:41 Glucose (Fingerstick) 193mg/dL (70-99) 157mg/dL (70-99) 147mg/dL (70-99) 221mg/dL (70-99) Test 06/12/16 16:45 06/12/16 21:10 06/13/16 07:42 06/13/16 10:49 Glucose (Fingerstick) 163mg/dL (70-99) 163mg/dL (70-99) 59mg/dL (70-99) 138mg/dL (70-99) Test 06/13/16 11:15 06/13/16 14:51 Sodium Level 143mmol/L (136-145) Potassium Level 4.4mmol/L (3.5-5.1) Chloride Level 108mmol/L (98-107) Carbon Dioxide Level 27mmol/L (21-32) Anion Gap 8 (6-14) Blood Urea Nitrogen 19mg/dL (7-20) Creatinine 1.4mg/dL (0.6-1.0) Estimated GFR (Cockcroft-Gault) 37.9 Glucose Level 139mg/dL (70-99) Calcium Level 8.3mg/dL (8.5-10.1) Vancomycin Level Trough 17.9mcg/mL (10.0-20.0) Vancomycin Last Dose Date 06/12/16 Vancomycin Last Dose Time 1200 Glucose (Fingerstick) 155mg/dL (70-99) Laboratory Tests Test 06/12/16 16:45 06/12/16 21:10 06/13/16 07:42 06/13/16 10:49 Glucose (Fingerstick) 163mg/dL (70-99) 163mg/dL (70-99) 59mg/dL (70-99) 138mg/dL (70-99) Test 06/13/16 11:15 06/13/16 14:51 Sodium Level 143mmol/L (136-145) Potassium Level 4.4mmol/L (3.5-5.1) Chloride Level 108mmol/L (98-107) Carbon Dioxide Level 27mmol/L (21-32) Anion Gap 8 (6-14) Blood Urea Nitrogen 19mg/dL (7-20) Creatinine 1.4mg/dL (0.6-1.0) Estimated GFR (Cockcroft-Gault) 37.9 Glucose Level 139mg/dL (70-99) Calcium Level 8.3mg/dL (8.5-10.1) Vancomycin Level Trough 17.9mcg/mL (10.0-20.0) Vancomycin Last Dose Date 06/12/16 Vancomycin Last Dose Time 1200 Glucose (Fingerstick) 155mg/dL (70-99) Assessment/Plan Assessment/Plan Delirium, acute HX CVA, poss some cognitive decline, Cellulitis GERD Morbid obesity, BMI 46, w/ moderaet malnutrition on Admit DM2, w/ hypoglycemia Htn, transient hypotension CKD w. poss vasomotor nephropathy this AM Decrease doses of Lantus and glipizide, hypoglycemic this AM and afternoon Pain meds, I was called for additional, will do X1 TSH low, overdosed on synthroid, will decrease, will check T4, and t3 in AM needs TSH checked again in 6 wks will follow АЛЕКСАНДР HERNANDEZ MD Jun 13, 2016 16:12
--- NOTE | 2016-06-13 17:52 | PDOC2 ---
NEUROLOGY CONSULT Date of Admission Date of Admission DATE: 06/13/16 TIME: 17:40 Reason for Consult Reason for Consult: IMPRESSION: Acute mental status changes. Confusion. Hypotension event, BP 90/31 (50). Old right cerebellar lacunar infarct. Chest wall cellulitis. S/p bilateral mastectomy on 04/27/16; left site infection. Hypothyroidism DM Pancreatitis. GERD Cancer Obesity. RECOMMENDATIONS/PLAN: Brain MRI w/o contrast. ASA 81 mg daily Continue medical treatment. EEG in am. Lab: see orders. OT/PT HISTORY OF THE PRESENT ILLNESS: 66-y-old female patient with above medical diseases had left side chest wall infection s/p bilateral mastectomy on 04/27/16. She was reportedly to have acute MS changes, decreased response, confusion and decreased movements, so Neurology was called for consultation. She had an event of hypotension event and BP dropped to 90/31 mmHg. PAST MEDICAL HISTORY: Please see above. PAST SURGERY HISTORY: Tonsillectomy Bilateral mastectomy Cholecystectomy Hysterectomy ALLERGY: Unknown MEDICATIONS: Refer to [facility] FAMILY HISTORY: H Non contributory. SOCIAL HISTORY: Denies smoking, drinking, and illicit drug use. REVIEW OF SYSTEMS: Constitutional: No malnutrition, weight loss, cachexia. Head: No traumatic brain or head injury. Skin: No edema, or rash. Ear: No infection, tinnitus. Eyes: No vision loss or color blindness. Nose: No bleeding or purulent discharges. Hearing: No hearing decrease. Neck: No injury. Breast: NS/p mastectomy Cardiac: No OH, arrhythmia. Pulmonary: No COPD. GI: ERD. Urinary/genital: UTI. Endocrinologic: Diabetes Mellitus, obesity Skeletomuscular: No muscular atrophy, deformity. Neurological: see HP. Psychiatric: Denies drug use/abuse. Otherwise, not -gkhkc review of systems. PHYSICAL EXAMINATION: General appearance is in subacute distress. HEENT: Normocephalic and nontraumatic. Eyes, nose, ears, and throat are unremarkable. Neck is supple. No lymphadenopathy. No crepitus. Cardiovascular: S1, S2, regular rate and rhythm. Pulmonary: Clear to auscultation bilaterally. Abdomen: Bowel sounds are positive. Extremities: No rash, lesions, or edema. No restriction of range of motion NEUROLOGICAL EXAMINATION: Drowsiness but able to communicate. Oriented to place and person but not accurate to time. PERRL. EOMI. CN: no focal findings. Muscle tone: within normal. Muscle strength: 4+ DTR: 1 Plantar reflex: Flexor response bilaterally Gait: not examined in bed. Sensory exam: no abnormal findings. No obvious cerebellar signs elicited. F-T-N test fine. Current Medications Current Medications Current Medications Morphine Sulfate 4 mg PRN Q15MIN PRN IV/SQ PAIN GREATER THAN 3/10 Last administered on 06/11/16 10:45; Start 06/11/16 at 10:45; Stop 06/12/16 at 10:44 ; Status DC Ondansetron HCl (Zofran) 4 mg 1X ONCE IV Last administered on 06/11/16 11:02 ; Start 06/11/16 at 11:00; Stop 06/11/16 at 11:01; Status DC Ondansetron HCl (Zofran) 4 mg PRN Q8HRS PRN IV NAUSEA/VOMITING Last administered on 06/12/16 04:52; Start 06/11/16 at 12:30; Stop 06/12/16 at 12:29 ; Status DC Morphine Sulfate 4 mg PRN Q2HR PRN IV PAIN Last administered on 06/12/16 11:00 ; Start 06/11/16 at 12:30; Stop 06/12/16 at 12:29; Status DC Vancomycin HCl 1 each 1 each PRN DAILY PRN MC SEE COMMENTS Last administered on 06/12/16 12:09; Start 06/11/16 at 12:30; Stop 06/13/16 at 11:47; Status DC Vancomycin HCl 2 gm/Sodium Chloride 500 ml @ 250 mls/hr 1X ONCE IV Last administered on 06/11/16 12:34; Start 06/11/16 at 12:30; Stop 06/11/16 at 14:29 ; Status DC Vancomycin HCl/ Sodium Chloride (Iv Sodium Chloride 0.9% 500ml Bag) 500 ml @ 250 mls/hr Q24H IV Last administered on 06/12/16 11:43; Start 06/12/16 at 12: 00; Stop 06/13/16 at 11:47; Status DC Vancomycin HCl 1 each 1X ONCE MC Last administered on 06/13/16 11:30; Start 06/13/16 at 11:30; Stop 06/13/16 at 11:31; Status DC Piperacillin Sod/ Tazobactam Sod 1 each 1 each PRN DAILY PRN MC SEE COMMENTS; Start 06/11/16 at 16:30; Stop 06/13/16 at 11:18; Status DC Piperacillin Sod/ Tazobactam Sod/ Sodium Chloride (Zosyn/Iv Sodium Chloride 0.9 % 50ml) 50 ml @ 100 mls/hr Q6HRS IV Last administered on 06/13/16 12:12; Start 06/11/16 at 17:00 Bethanechol Chloride (Urecholine) 25 mg BID PO Last administered on 06/13/16 08:20; Start 06/11/16 at 21:00 Carbidopa/Levodopa (Sinemet Cr) 1 tab.sa BID PO Last administered on 06/13/16 08:18; Start 06/11/16 at 21:00 Colesevelam HCl (Welchol) 625 mg PRN QID PRN PO DIARRHEA; Start 06/11/16 at 16: 45 Diphenhydramine HCl (Benadryl) 25 mg HS PO Last administered on 06/12/16 21:26 ; Start 06/11/16 at 21:00 Acetaminophen/ Hydrocodone Bitart (Lortab 10/325) 1 tab PRN Q4HRS PRN PO PAIN Last administered on 06/13/16 14:02; Start 06/11/16 at 16:45 Levothyroxine Sodium (Synthroid) 100 mcg DAILY PO Last administered on 08:20; Start 06/12/16 at 09:00 Amylase/Lipase/ Protease (Zenpep 10,000) 1 cap DAILYWBKFT PO ; Start 06/12/16 at 09:00; Stop 06/12/16 at 09:00; Status DC Pramipexole Dihydrochloride (miraPEX) 1 mg HS PO Last administered on 21:26; Start 06/11/16 at 21:00 Topiramate (Topamax) 100 mg BID PO Last administered on 06/13/16 08:20; Start 06/11/16 at 21:00 Torsemide (Demadex) 20 mg DAILY PO Last administered on 06/13/16 08:20; Start 06/12/16 at 09:00 Non-Formulary Medication 5 mg DAILY PO blood sugar Last administered on 08:21; Start 06/12/16 at 09:00 Glipizide (Glucotrol) 10 mg BIDBFRMEAL PO Last administered on 06/13/16 08:19 ; Start 06/12/16 at 17:00 Insulin Detemir (Levemir) 40 units Q12H SQ Last administered on 06/13/16 12:17 ; Start 06/11/16 at 21:00 Non-Formulary Medication 25 units DAILY SQ Last administered on 06/12/16 08:42 ; Start 06/12/16 at 09:00 Atorvastatin Calcium (Lipitor) 10 mg QHS PO Last administered on 06/12/16 21: 26; Start 06/11/16 at 21:00 Pantoprazole Sodium (Protonix) 40 mg DAILYAC PO ; Start 06/12/16 at 07:30; Status Cancel Potassium Chloride (Klor-Con) 20 meq BIDWMEALS PO ; Start 06/11/16 at 17:00; Status Cancel Propranolol HCl (Inderal La) 60 mg HS PO Last administered on 06/12/16 21:26; Start 06/11/16 at 21:00 Non-Formulary Medication 30 unit DAILYWSUP SQ Last administered on 06/12/16 08 :39; Start 06/11/16 at 17:00 Non-Formulary Medication 1 ea DAILY PO Last administered on 06/13/16 08:21; Start 06/12/16 at 09:00 Amylase/Lipase/ Protease (Zenpep 10,000) 1 cap BIDWMEALS PO Last administered on 06/13/16 08:18; Start 06/11/16 at 17:30 Potassium Chloride (Klor-Con) 20 meq DAILYWBKFT PO Last administered on 08:19; Start 06/12/16 at 08:00 Potassium Chloride (Klor-Con) 10 meq HS PO Last administered on 06/12/16 21:26 ; Start 06/11/16 at 21:00 Doxycycline Hyclate (Vibra-Tab) 100 mg BID PO Last administered on 06/13/16 12 :11; Start 06/13/16 at 12:00 Morphine Sulfate 2 mg PRN Q2HR PRN IV PAIN; Start 06/13/16 at 16:00 Polyethylene Glycol (miraLAX PACKET) 17 gm PRN DAILY PRN PO CONSTIPATION; Start 06/13/16 at 16:00 Active Scripts Active Demadex (Torsemide) 20 Mg Tablet 20 Mg PO DAILY Reported Humalog (Insulin Lispro) 100 Unit/1 Ml Cartridge 30 Unit SQ DAILYWSUP Omeprazole 40 Mg Capsule.dr 1 Cap PO DAILY Zenpep Dr 10,000 Units Capsule (Lipase/Protease/Amylase) 1 Each Capsule.dr 1 Each PO DAILY Humalog (Insulin Lispro) 100 Unit/1 Ml Cartridge 0 SQ 25UAM-30UPM Mirapex (Pramipexole Di-Hcl) 0.25 Mg Tablet 1 Mg PO HS Levothyroxine Sodium 100 Mcg Tablet 1 Tab PO DAILY Levemir (Insulin Detemir) 100 Unit/1 Ml Vial 40 Unit SQ BID-AM AND HS Farxiga (Dapagliflozin Propanediol) 5 Mg Tablet 5 Mg PO DAILY Carbidopa-Levo Er 25-100 Tab (Carbidopa/Levodopa) 1 Each Tablet.er 1 Each PO BID Hydrocodone-Apap 10-325 (Hydrocodone Bit/Acetaminophen) 1 Each Tablet 1 Tab PO PRN Benadryl (Diphenhydramine Hcl) 25 Mg Capsule 25 Mg PO HS Propranolol Hcl 60 Mg Tablet 60 Mg PO HS Bethanechol Chloride 25 Mg Tablet 25 Mg PO BID Klor-Con 10 (Potassium Chloride) 10 Meq Tablet.er 20 Meq PO BID Welchol (Colesevelam Hcl) 625 Mg Tablet 625 Mg PO PRN QID PRN Glipizide 10 Mg Tablet 10 Mg PO BID Topiramate 100 Mg Tablet 100 Mg PO BID Lovastatin 40 Mg Tablet 40 Mg PO HS Allergies Allergies: Coded Allergies: Sulfa (Sulfonamide Antibiotics) (Verified Allergy, Severe, 04/27/16) cough insulin aspart (Verified Allergy, Severe, ANAPHYLAXIS, 04/27/16) venom-honey bee (Verified Allergy, Severe, Anaphylaxis, 04/27/16) escitalopram (Verified Allergy, Intermediate, 04/27/16) lisinopril (Verified Allergy, Intermediate, Rash, 04/27/16) metformin (Verified Allergy, Intermediate, Diarrhea, 04/27/16) mold (Verified Allergy, Intermediate, 04/27/16) pantoprazole (Verified Allergy, Intermediate, 04/27/16) breast ranitidine (Verified Allergy, Intermediate, Nausea and Vomiting, 04/27/16) sertraline (Verified Allergy, Intermediate, 04/27/16) depression Vitals VITALS Vital Signs Date Time Temp Pulse Resp B/P Pulse Ox O2 Delivery O2 Flow Rate FiO2 06/13/16 15:25 Room Air 06/13/16 15:00 98.4 79 14 123/59 93 2.0 98.4 Labs Labs Laboratory Tests Test 06/11/16 21:06 06/12/16 07:40 06/12/16 11:41 06/12/16 16:45 Glucose (Fingerstick) 157mg/dL (70-99) 147mg/dL (70-99) 221mg/dL (70-99) 163mg/dL (70-99) Test 06/12/16 21:10 06/13/16 07:42 06/13/16 10:49 06/13/16 11:15 Glucose (Fingerstick) 163mg/dL (70-99) 59mg/dL (70-99) 138mg/dL (70-99) Sodium Level 143mmol/L (136-145) Potassium Level 4.4mmol/L (3.5-5.1) Chloride Level 108mmol/L (98-107) Carbon Dioxide Level 27mmol/L (21-32) Anion Gap 8 (6-14) Blood Urea Nitrogen 19mg/dL (7-20) Creatinine 1.4mg/dL (0.6-1.0) Estimated GFR (Cockcroft-Gault) 37.9 Glucose Level 139mg/dL (70-99) Calcium Level 8.3mg/dL (8.5-10.1) Thyroid Stimulating Hormone (TSH) 0.009uIU/mL (0.358-3.74) Vancomycin Level Trough 17.9mcg/mL (10.0-20.0) Vancomycin Last Dose Date 06/12/16 Vancomycin Last Dose Time 1200 Test 06/13/16 14:51 06/13/16 16:15 Glucose (Fingerstick) 155mg/dL (70-99) 141mg/dL (70-99) Laboratory Tests Test 06/12/16 21:10 06/13/16 07:42 06/13/16 10:49 06/13/16 11:15 Glucose (Fingerstick) 163mg/dL (70-99) 59mg/dL (70-99) 138mg/dL (70-99) Sodium Level 143mmol/L (136-145) Potassium Level 4.4mmol/L (3.5-5.1) Chloride Level 108mmol/L (98-107) Carbon Dioxide Level 27mmol/L (21-32) Anion Gap 8 (6-14) Blood Urea Nitrogen 19mg/dL (7-20) Creatinine 1.4mg/dL (0.6-1.0) Estimated GFR (Cockcroft-Gault) 37.9 Glucose Level 139mg/dL (70-99) Calcium Level 8.3mg/dL (8.5-10.1) Thyroid Stimulating Hormone (TSH) 0.009uIU/mL (0.358-3.74) Vancomycin Level Trough 17.9mcg/mL (10.0-20.0) Vancomycin Last Dose Date 06/12/16 Vancomycin Last Dose Time 1200 Test 06/13/16 14:51 06/13/16 16:15 Glucose (Fingerstick) 155mg/dL (70-99) 141mg/dL (70-99) SERGIO CARTER MD Jun 13, 2016 17:51
[2016-06-13] MEDS: INSULIN LISPRO 30 UNIT SQ SCH (18:29)
[2016-06-13 19:15] VITALS: BP 110/55
[2016-06-13 21:30] LABS: BARBITURATES NEG (NEG); BENZODIAZEPINES NEG (NEG); CANNABINOIDS NEG (NEG); COCAINE NEG (NEG); ETHANOL, URINE NEG (NEG); METHADONE NEG (NEG); OPIATES POS (NEG); PHENCYCLIDINE NEG (NEG)
[2016-06-13] MEDS: DIPHENHYDRAMINE HCL 25 MG CAPSULE PO SCH (21:40)
[2016-06-13] MEDS: PROPRANOLOL ER 60 MG CAP.SA.24H. PO SCH (21:41)
[2016-06-13] MEDS: ATORVASTATIN CALCIUM 10 MG TABLET. PO SCH (21:41)
[2016-06-13] MEDS: POTASSIUM CHLORIDE 10 MEQ TABLET.ER. PO SCH (21:41)
[2016-06-13] MEDS: PRAMIPEXOLE 0.25 MG TABLET. PO SCH (21:42)
[2016-06-13] MEDS: COLESEVELAM HCL 625 MG TABLET PO PRN (21:59)
[2016-06-13] MEDS ORDERED: OXYCODONE IR 5 MG TABLET. PO ONE (22:15)
[2016-06-13 23:00] VITALS: BP 107/54
[2016-06-14] MEDS: PIPERACILLIN/TAZOBACTAM 3.375 GM in IV NORMAL SALINE 50ML 50 ML IV SCH ×5 (00:06→23:20)
[2016-06-14 01:11] LABS: VITAMIN D25(OH)TOTAL 10.6 ng/mL (30.0-100.0)
--- NOTE | 2016-06-14 03:05 | CONS ---
DATE OF CONSULTATION: 06/13/2016 REQUESTING PHYSICIAN: Dr. Kenneth Reyes. REASON FOR CONSULTATION: Breast cancer. HISTORY OF PRESENT ILLNESS: The patient is a 66-year-old female who was diagnosed with breast cancer in 2015. She noticed a mass in the left breast in 02/2016, measuring almost 9 cm. She underwent a biopsy by Dr. Lima on 04/06/2016 that revealed invasive mammary carcinoma with lobular features. 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 CT scan of the chest on 04/13/2016 revealed no acute abnormality and a bone scan on 04/13/2016 did not reveal any bone metastasis. She underwent left simple mastectomy and sentinel lymph node biopsy and right simple mastectomy on 04/27/[address] Lima. The pathology revealed invasive lobular carcinoma grade 2, T3 N1 Mi M0, stage 3A. ER positive 90%, NJ positive 22.8%, and HER2/josh negative. Oncotype DX revealed intermediate risk score of 24 and hence it was decided not to proceed with adjuvant chemotherapy. The plan was to proceed with radiation therapy followed by anastrozole. She developed cellulitis of the left chest wall area and she was given Keflex, which did not help her and hence [facility] and started on IV antibiotics. She was initially started on vancomycin and Zosyn and subsequently she continues on Zosyn. Infectious Disease consultation has been obtained. I was asked to see the patient for further management of breast cancer. PAST MEDICAL HISTORY: Hyperlipidemia, hypertension, diverticulosis, peptic ulcer disease, depression, diabetes. FAMILY HISTORY: Positive for breast cancer in her sister at the age of 40. SOCIAL HISTORY: No smoking or alcohol abuse. REVIEW OF SYSTEMS: A 12-point review of system was performed. Pertinent positives are mentioned in the history of present illness. Rest of the system review is negative. PHYSICAL EXAMINATION: GENERAL APPEARANCE: The patient is a 66-year-old female who is in no acute cardiorespiratory distress. VITAL SIGNS: Blood pressure 123/59, temperature 98.4. HEENT: Head atraumatic, normocephalic. Eyes: No icterus. NECK: Supple. CHEST: Bilaterally symmetrical. HEART: S1, S2 normal. ABDOMEN: Soft, nontender. CENTRAL NERVOUS SYSTEM: No focal deficits. LYMPHATICS: No lymphadenopathy. SKIN: She has cellulitis of the left chest wall. MUSCULOSKELETAL: No joint effusions. LABORATORY DATA: WBC 5.6, hemoglobin 10.8, platelet count 133. Creatinine 1.4. IMPRESSION AND PLAN: 1. T3 N1 Mi M0, stage 3A invasive lobular carcinoma of the left breast, outer lower quadrant, status post biopsy on 04/06/2016 and followed by bilateral mastectomy on 04/27/2016, ER positive, NJ positive, HER-2/josh negative. Oncotype DX score reveals an intermediate risk score of 24. She has multiple comorbid conditions and low benefit with intermediate score Oncotype DX, and hence chemotherapy was not offered after detailed discussion with the patient and her . My plan was to proceed with anastrozole after radiation therapy. The patient is now concerned with the radiation has been delayed because of cellulitis. Hence, I offered her the option of starting anastrozole. I reviewed the risks and benefits. She wants to discuss with her and then make a decision. 2. Cellulitis of the left mastectomy site. Appreciate ID consultation, she is on antibiotics. 3. Splenomegaly, thought to be due to fatty liver disease. 4. Thrombocytopenia due to splenomegaly. Continue to monitor platelet count. 5. Pseudotumor cerebri. DREW TALAMANTES MD DR: SANTO/elina JOB#: [id number] / [id number]
[2016-06-14 03:27] VITALS: BP 115/61
[2016-06-14] MEDS: LEVOTHYROXINE 88 MCG TABLET PO SCH (06:12)
[2016-06-14 06:13] LABS: BASO # 0.1 x10^3/uL (0.0-0.2); BASO % 1 % (0-3); EOS % 9 % (0-3); HEMATOCRIT 34.3 % (36.0-47.0); HEMOGLOBIN 10.7 g/dL (12.0-15.5); LYMPH # 1.1 x10^3/uL (1.0-4.8); LYMPH % 19 % (24-48); MEAN CORPUSCULAR HEMOGLOBIN 27 pg (25-35); MEAN CORPUSCULAR HGB CONC 31 g/dL (31-37); MEAN CORPUSCULAR VOLUME 87 fL (79-100); MONO % 13 % (0-9); NEUT % 58 % (31-73); PLATELET COUNT 121 x10^3/uL (140-400); RED BLOOD COUNT 3.94 x10^6/uL (3.50-5.40); RED CELL DISTRIBUTION WIDTH 16.1 % (11.5-14.5); WHITE BLOOD COUNT 5.8 x10^3/uL (4.0-11.0)
[2016-06-14 06:45] LABS: ALBUMIN 2.4 g/dL (3.4-5.0); ALBUMIN/GLOBULIN RATIO 0.5 (1.0-1.7); ALK PHOS 198 U/L (46-116); ANION GAP 10 (6-14); AST (SGOT) 32 U/L (15-37); BLOOD UREA NITROGEN 19 mg/dL (7-20); BUN/CREATININE RATIO 14 (6-20); CALCIUM 8.7 mg/dL (8.5-10.1); CARBON DIOXIDE 24 mmol/L (21-32); CHLORIDE 109 mmol/L (98-107); CREATININE 1.4 mg/dL (0.6-1.0); GFR 37.9; GLUCOSE 41 mg/dL (70-99); POTASSIUM 4.2 mmol/L (3.5-5.1); SODIUM 143 mmol/L (136-145); TOTAL BILIRUBIN 0.9 mg/dL (0.2-1.0); TOTAL PROTEIN 6.8 g/dL (6.4-8.2)
[2016-06-14 06:58] LABS: ALT (SGPT) < 6 U/L (14-59)
[2016-06-14 07:00] VITALS: BP 108/59
[2016-06-14 07:26] LABS: FREE T4 1.1 ng/dL (0.76-1.46)
[2016-06-14] MEDS: DEXTROSE 50% 25 GM / 50ML DISP.SYRIN. IV ONE ×2 (07:28→23:12)
[2016-06-14] MEDS ORDERED: DEXTROSE 50% 25 GM / 50ML DISP.SYRIN. IV ONE ×2 (07:30→23:30)
[2016-06-14] MEDS ORDERED: GLIPIZIDE 5 MG TABLET PO SCH (07:30)
[2016-06-14] MEDS: ASPIRIN 81 MG TAB.CHEW PO SCH (08:00)
--- NOTE | 2016-06-14 08:21 | PDOC ---
Infectious Disease Note Subjective Subjective Had episode of dizziness and confusion. Has happened before. States thought it was 1969 for 4 days before Mild SOA ROS ROS GEN: Denies fevers, chills, sweats HEENT: Denies blurred vision, sore throat CV: Denies chest pain RESP: Denies shortness of air, cough GI: Denies n/v/d NEURO: Denies confusion, dizziness MSK: Denies weakness, joint pain/swelling Vital Sign Vital Signs Vital Signs Date Time Temp Pulse Resp B/P Pulse Ox O2 Delivery O2 Flow Rate FiO2 06/14/16 03:27 98.5 66 18 115/61 98 Room Air 2.0 98.5 Physical Exam PHYSICAL EXAM GENERAL: NAD, Alert, in chair and eating HEENT: PERRL, OC/OP -clear NECK: Supple, no JVD, no LN LUNGS: Clear HEART: S1S2, no gallop, no murmur ABD: Soft, NT, no organomegaly, no rebound, obese EXT: trace edema, no cyanosis [employer]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 Chest wall cellulitis improving with less erythema IV: ok Labs Lab Laboratory Tests Test 06/13/16 10:49 06/13/16 11:15 06/13/16 14:51 06/13/16 16:15 Glucose (Fingerstick) 138mg/dL (70-99) 155mg/dL (70-99) 141mg/dL (70-99) Sodium Level 143mmol/L (136-145) Potassium Level 4.4mmol/L (3.5-5.1) Chloride Level 108mmol/L (98-107) Carbon Dioxide Level 27mmol/L (21-32) Anion Gap 8 (6-14) Blood Urea Nitrogen 19mg/dL (7-20) Creatinine 1.4mg/dL (0.6-1.0) Estimated GFR (Cockcroft-Gault) 37.9 Glucose Level 139mg/dL (70-99) Calcium Level 8.3mg/dL (8.5-10.1) Vitamin B12 Level 563pg/mL (211-946) 25-Hydroxy Vitamin D Total 10.6ng/mL (30.0-100.0) Thyroid Stimulating Hormone (TSH) 0.009uIU/mL (0.358-3.74) Vancomycin Level Trough 17.9mcg/mL (10.0-20.0) Vancomycin Last Dose Date 06/12/16 Vancomycin Last Dose Time 1200 Test 06/13/16 20:30 06/13/16 21:34 06/13/16 22:16 06/14/16 05:15 Urine Opiates Screen Pos (NEG) Urine Methadone Screen Neg (NEG) Urine Barbiturates Neg (NEG) Urine Phencyclidine Screen Neg (NEG) Urine Amphetamine/Methamphetamine Neg (NEG) Urine Benzodiazepines Screen Neg (NEG) Urine Cocaine Screen Neg (NEG) Urine Cannabinoids Screen Neg (NEG) Urine Ethyl Alcohol Neg (NEG) Glucose (Fingerstick) 67mg/dL (70-99) 71mg/dL (70-99) White Blood Count 5.8x10^3/uL (4.0-11.0) Red Blood Count 3.94x10^6/uL (3.50-5.40) Hemoglobin 10.7g/dL (12.0-15.5) Hematocrit 34.3% (36.0-47.0) Mean Corpuscular Volume 87fL (79-100) Mean Corpuscular Hemoglobin 27pg (25-35) Mean Corpuscular Hemoglobin Concent 31g/dL (31-37) Red Cell Distribution Width 16.1% (11.5-14.5) Platelet Count 121x10^3/uL (140-400) Neutrophils (%) (Auto) 58% (31-73) Lymphocytes (%) (Auto) 19% (24-48) Monocytes (%) (Auto) 13% (0-9) Eosinophils (%) (Auto) 9% (0-3) Basophils (%) (Auto) 1% (0-3) Neutrophils # (Auto) 3.4x10^3uL (1.8-7.7) Lymphocytes # (Auto) 1.1x10^3/uL (1.0-4.8) Monocytes # (Auto) 0.8x10^3/uL (0.0-1.1) Eosinophils # (Auto) 0.5x10^3/uL (0.0-0.7) Basophils # (Auto) 0.1x10^3/uL (0.0-0.2) Sodium Level 143mmol/L (136-145) Potassium Level 4.2mmol/L (3.5-5.1) Chloride Level 109mmol/L (98-107) Carbon Dioxide Level 24mmol/L (21-32) Anion Gap 10 (6-14) Blood Urea Nitrogen 19mg/dL (7-20) Creatinine 1.4mg/dL (0.6-1.0) Estimated GFR (Cockcroft-Gault) 37.9 BUN/Creatinine Ratio 14 (6-20) Glucose Level 41mg/dL (70-99) Calcium Level 8.7mg/dL (8.5-10.1) Total Bilirubin 0.9mg/dL (0.2-1.0) Aspartate Amino Transf (AST/SGOT) 32U/L (15-37) Alanine Aminotransferase (ALT/SGPT) < 6U/L (14-59) Alkaline Phosphatase 198U/L (46-116) Total Protein 6.8g/dL (6.4-8.2) Albumin 2.4g/dL (3.4-5.0) Albumin/Globulin Ratio 0.5 (1.0-1.7) Free Thyroxine 1.10ng/dL (0.76-1.46) Free Triiodothyronine (T3) pg/mL 1.71pg/mL (2.18-3.98) Test 06/14/16 07:23 Glucose (Fingerstick) 34mg/dL (70-99) Objective Assessment Cellulitis of chest wall - some better -Failed OP Keflex. Invasive lobular carcinoma of left breast s/p bilat simple mastectomies w/ left SLN bx, 04/27/2016. CKD Diabetes- hypoglycemia Obesity Plan Plan of Care F/u MRI and w/u Cont Zosyn/Doxy f/u Supportive care AYESHA BROWN MD Jun 14, 2016 08:21
[2016-06-14] MEDS: DOXYCYCLINE HYCLATE 100 MG TABLET PO SCH ×2 (08:42→22:04)
[2016-06-14] MEDS: TORSEMIDE 20 MG TABLET. PO SCH (08:42)
[2016-06-14] MEDS: LIPASE/PROTEAS/AMYLAS 10/34/55 CAPSULE.DR. PO SCH ×2 (08:42→17:32)
[2016-06-14] MEDS: TOPIRAMATE 100 MG TABLET. PO SCH ×2 (08:42→22:04)
[2016-06-14] MEDS: HYDROCODONE/APAP 10/325 TABLET. PO PRN ×3 (08:42→22:04)
[2016-06-14] MEDS: POTASSIUM CHLORIDE 20 MEQ TABLET.ER. PO SCH (08:42)
[2016-06-14] MEDS: BETHANECHOL CHLORIDE 25 MG TABLET PO SCH ×2 (08:42→22:16)
[2016-06-14] MEDS: CARBIDOPA/LEVODOPA CR 25/100MG TABLET.SA PO SCH ×2 (08:42→22:06)
[2016-06-14] MEDS: OMEPRAZOLE 40 MG CAPSULE PO SCH (08:43)
[2016-06-14] MEDS: NON FORMULARY ITEM (Dapagliflozin Propanediol (Farxiga) 5 MG) PO SCH (08:43)
--- NOTE | 2016-06-14 08:44 | RAD ---
BRAIN W/O CONTRAST Indication: prior study sent...PT C/O HEADACHE WITH MEMORY LOSS...PT HAS HX PSUEDOTUMOR CERIBRI Reason: Change in mental status / Spl. Instructions: / History: COMPARISON: July 17, 2014 TECHNIQUE: Axial diffusion weighted imaging was obtained. Additional sagittal T1, axial T1, axial FLAIR, and axial T2 weighted imaging of the brain was also performed. FINDINGS: There is some increased T1 signal within the basal ganglia which is an unchanged finding compared to the previous exam from July 17, 2014. no evidence of acute intracranial hemorrhage. No restricted diffusion to indicate acute infarct. No extra-axial fluid collections. No midline shift or mass effect. Ventricular size is appropriate. Midline structures have a normal anatomic configuration. Basal cisterns are patent. Arterial flow voids at the skull base and major dural venous sinuses are maintained. Globes and orbits are unremarkable. Paranasal sinuses and mastoid air cells are clear. IMPRESSION: - No acute or recent infarct. No acute intracranial abnormality. - There is unchanged T1 hyperintense signal within the basal ganglia in a symmetric fashion. This is nonspecific but can be associated with chronic liver disease, mineral deposition, or calcification. Electronically signed by: Porfirio Carlton (Jun 14, 2016 08:42:32)
[2016-06-14] MEDS: INSULIN LISPRO 25 UNIT SQ SCH (08:58)
[2016-06-14] MEDS ORDERED: INSULIN DETEMIR 300 UNITS/3 ML INSULN.PEN. SQ SCH (09:00)
--- NOTE | 2016-06-14 10:51 | PDOC ---
SURGICAL PROGRESS NOTE Subjective remembers me from yesterday, not from before and daughter at bedside Vital Signs Vital Signs Date Time Temp Pulse Resp B/P Pulse Ox O2 Delivery O2 Flow Rate FiO2 06/14/16 08:42 18 Room Air 06/14/16 07:00 97.8 75 108/59 97 97.8 06/14/16 03:27 2.0 I&O Intake and Output 06/14/16 07:00 Intake Total 50 ml Output Total 800 ml Balance -750 ml IV Total 50 ml Tube Feeding 0 ml Output Urine Total 800 ml # Voids 1 # Bowel Movements 1 PATIENT HAS A RAMIREZ: No General: Alert, Cooperative Skin: Other (left chest erythema persists but looks a little less angry) Labs Laboratory Tests Test 06/12/16 11:41 06/12/16 16:45 06/12/16 21:10 06/13/16 07:42 Glucose (Fingerstick) 221mg/dL (70-99) 163mg/dL (70-99) 163mg/dL (70-99) 59mg/dL (70-99) Test 06/13/16 10:49 06/13/16 11:15 06/13/16 14:51 06/13/16 16:15 Glucose (Fingerstick) 138mg/dL (70-99) 155mg/dL (70-99) 141mg/dL (70-99) Sodium Level 143mmol/L (136-145) Potassium Level 4.4mmol/L (3.5-5.1) Chloride Level 108mmol/L (98-107) Carbon Dioxide Level 27mmol/L (21-32) Anion Gap 8 (6-14) Blood Urea Nitrogen 19mg/dL (7-20) Creatinine 1.4mg/dL (0.6-1.0) Estimated GFR (Cockcroft-Gault) 37.9 Glucose Level 139mg/dL (70-99) Calcium Level 8.3mg/dL (8.5-10.1) Vitamin B12 Level 563pg/mL (211-946) 25-Hydroxy Vitamin D Total 10.6ng/mL (30.0-100.0) Thyroid Stimulating Hormone (TSH) 0.009uIU/mL (0.358-3.74) Vancomycin Level Trough 17.9mcg/mL (10.0-20.0) Vancomycin Last Dose Date 06/12/16 Vancomycin Last Dose Time 1200 Test 06/13/16 20:30 06/13/16 21:34 06/13/16 22:16 06/14/16 05:15 Urine Opiates Screen Pos (NEG) Urine Methadone Screen Neg (NEG) Urine Barbiturates Neg (NEG) Urine Phencyclidine Screen Neg (NEG) Urine Amphetamine/Methamphetamine Neg (NEG) Urine Benzodiazepines Screen Neg (NEG) Urine Cocaine Screen Neg (NEG) Urine Cannabinoids Screen Neg (NEG) Urine Ethyl Alcohol Neg (NEG) Glucose (Fingerstick) 67mg/dL (70-99) 71mg/dL (70-99) White Blood Count 5.8x10^3/uL (4.0-11.0) Red Blood Count 3.94x10^6/uL (3.50-5.40) Hemoglobin 10.7g/dL (12.0-15.5) Hematocrit 34.3% (36.0-47.0) Mean Corpuscular Volume 87fL (79-100) Mean Corpuscular Hemoglobin 27pg (25-35) Mean Corpuscular Hemoglobin Concent 31g/dL (31-37) Red Cell Distribution Width 16.1% (11.5-14.5) Platelet Count 121x10^3/uL (140-400) Neutrophils (%) (Auto) 58% (31-73) Lymphocytes (%) (Auto) 19% (24-48) Monocytes (%) (Auto) 13% (0-9) Eosinophils (%) (Auto) 9% (0-3) Basophils (%) (Auto) 1% (0-3) Neutrophils # (Auto) 3.4x10^3uL (1.8-7.7) Lymphocytes # (Auto) 1.1x10^3/uL (1.0-4.8) Monocytes # (Auto) 0.8x10^3/uL (0.0-1.1) Eosinophils # (Auto) 0.5x10^3/uL (0.0-0.7) Basophils # (Auto) 0.1x10^3/uL (0.0-0.2) Sodium Level 143mmol/L (136-145) Potassium Level 4.2mmol/L (3.5-5.1) Chloride Level 109mmol/L (98-107) Carbon Dioxide Level 24mmol/L (21-32) Anion Gap 10 (6-14) Blood Urea Nitrogen 19mg/dL (7-20) Creatinine 1.4mg/dL (0.6-1.0) Estimated GFR (Cockcroft-Gault) 37.9 BUN/Creatinine Ratio 14 (6-20) Glucose Level 41mg/dL (70-99) Calcium Level 8.7mg/dL (8.5-10.1) Total Bilirubin 0.9mg/dL (0.2-1.0) Aspartate Amino Transf (AST/SGOT) 32U/L (15-37) Alanine Aminotransferase (ALT/SGPT) < 6U/L (14-59) Alkaline Phosphatase 198U/L (46-116) Total Protein 6.8g/dL (6.4-8.2) Albumin 2.4g/dL (3.4-5.0) Albumin/Globulin Ratio 0.5 (1.0-1.7) Free Thyroxine 1.10ng/dL (0.76-1.46) Free Triiodothyronine (T3) pg/mL 1.71pg/mL (2.18-3.98) Test 06/14/16 07:23 06/14/16 08:16 Glucose (Fingerstick) 34mg/dL (70-99) 241mg/dL (70-99) Laboratory Tests Test 06/13/16 11:15 06/13/16 14:51 06/13/16 16:15 06/13/16 20:30 Sodium Level 143mmol/L (136-145) Potassium Level 4.4mmol/L (3.5-5.1) Chloride Level 108mmol/L (98-107) Carbon Dioxide Level 27mmol/L (21-32) Anion Gap 8 (6-14) Blood Urea Nitrogen 19mg/dL (7-20) Creatinine 1.4mg/dL (0.6-1.0) Estimated GFR (Cockcroft-Gault) 37.9 Glucose Level 139mg/dL (70-99) Calcium Level 8.3mg/dL (8.5-10.1) Vitamin B12 Level 563pg/mL (211-946) 25-Hydroxy Vitamin D Total 10.6ng/mL (30.0-100.0) Thyroid Stimulating Hormone (TSH) 0.009uIU/mL (0.358-3.74) Vancomycin Level Trough 17.9mcg/mL (10.0-20.0) Vancomycin Last Dose Date 06/12/16 Vancomycin Last Dose Time 1200 Glucose (Fingerstick) 155mg/dL (70-99) 141mg/dL (70-99) Urine Opiates Screen Pos (NEG) Urine Methadone Screen Neg (NEG) Urine Barbiturates Neg (NEG) Urine Phencyclidine Screen Neg (NEG) Urine Amphetamine/Methamphetamine Neg (NEG) Urine Benzodiazepines Screen Neg (NEG) Urine Cocaine Screen Neg (NEG) Urine Cannabinoids Screen Neg (NEG) Urine Ethyl Alcohol Neg (NEG) Test 06/13/16 21:34 06/13/16 22:16 06/14/16 05:15 06/14/16 07:23 Glucose (Fingerstick) 67mg/dL (70-99) 71mg/dL (70-99) 34mg/dL (70-99) White Blood Count 5.8x10^3/uL (4.0-11.0) Red Blood Count 3.94x10^6/uL (3.50-5.40) Hemoglobin 10.7g/dL (12.0-15.5) Hematocrit 34.3% (36.0-47.0) Mean Corpuscular Volume 87fL (79-100) Mean Corpuscular Hemoglobin 27pg (25-35) Mean Corpuscular Hemoglobin Concent 31g/dL (31-37) Red Cell Distribution Width 16.1% (11.5-14.5) Platelet Count 121x10^3/uL (140-400) Neutrophils (%) (Auto) 58% (31-73) Lymphocytes (%) (Auto) 19% (24-48) Monocytes (%) (Auto) 13% (0-9) Eosinophils (%) (Auto) 9% (0-3) Basophils (%) (Auto) 1% (0-3) Neutrophils # (Auto) 3.4x10^3uL (1.8-7.7) Lymphocytes # (Auto) 1.1x10^3/uL (1.0-4.8) Monocytes # (Auto) 0.8x10^3/uL (0.0-1.1) Eosinophils # (Auto) 0.5x10^3/uL (0.0-0.7) Basophils # (Auto) 0.1x10^3/uL (0.0-0.2) Sodium Level 143mmol/L (136-145) Potassium Level 4.2mmol/L (3.5-5.1) Chloride Level 109mmol/L (98-107) Carbon Dioxide Level 24mmol/L (21-32) Anion Gap 10 (6-14) Blood Urea Nitrogen 19mg/dL (7-20) Creatinine 1.4mg/dL (0.6-1.0) Estimated GFR (Cockcroft-Gault) 37.9 BUN/Creatinine Ratio 14 (6-20) Glucose Level 41mg/dL (70-99) Calcium Level 8.7mg/dL (8.5-10.1) Total Bilirubin 0.9mg/dL (0.2-1.0) Aspartate Amino Transf (AST/SGOT) 32U/L (15-37) Alanine Aminotransferase (ALT/SGPT) < 6U/L (14-59) Alkaline Phosphatase 198U/L (46-116) Total Protein 6.8g/dL (6.4-8.2) Albumin 2.4g/dL (3.4-5.0) Albumin/Globulin Ratio 0.5 (1.0-1.7) Free Thyroxine 1.10ng/dL (0.76-1.46) Free Triiodothyronine (T3) pg/mL 1.71pg/mL (2.18-3.98) Test 06/14/16 08:16 Glucose (Fingerstick) 241mg/dL (70-99) Problem List Problems Medical Problems: (1) Cellulitis of chest wall Status: Acute (2) Post-operative infection Status: Acute Assessment/Plan s/p bilateral mastectomies, cellulitis left chest upper skin flap continue present care appreciate consultants input Problems: NADJA MARY MD Jun 14, 2016 10:50
[2016-06-14 11:00] VITALS: BP 97/46
[2016-06-14] MEDS ORDERED: CHOLECALCIFEROL (VITAMIN D3) 5,000 UNIT CAPSULE PO SCH (11:00)
--- NOTE | 2016-06-14 11:23 | PDOC ---
PROGRESS NOTES Subjective Subjective c/c - f/u of breast ca Objective Objective Vital Signs Date Time Temp Pulse Resp B/P Pulse Ox O2 Delivery O2 Flow Rate FiO2 06/14/16 08:42 18 Room Air 06/14/16 07:00 97.8 75 108/59 97 97.8 06/14/16 03:27 2.0 Intake and Output 06/14/16 07:00 Intake Total 50 ml Output Total 800 ml Balance -750 ml IV Total 50 ml Tube Feeding 0 ml Output Urine Total 800 ml # Voids 1 # Bowel Movements 1 Physical Exam General: Alert, Oriented X3 Neuro: Normal speech Psych/Mental Status: Mental status NL Assessment Assessment Problems Medical Problems: (1) Cellulitis of chest wall Status: Acute (2) Post-operative infection Status: Acute IMPRESSION AND PLAN: 1. T3 N1 Mi M0, stage 3A invasive lobular carcinoma of the left breast, outer lower quadrant, status post biopsy on 04/06/2016 and followed by bilateral mastectomy on 04/27/2016, ER positive, DC positive, HER-2/josh negative. Oncotype DX score reveals an intermediate risk score of 24. She has multiple comorbid conditions and low benefit with intermediate score Oncotype DX, and hence chemotherapy was not offered after detailed discussion with the patient and her . My plan was to proceed with anastrozole after radiation therapy. The patient is now concerned with the radiation has been delayed because of cellulitis. Hence, I offered her the option of starting anastrozole. I reviewed the risks and benefits. She wants to discuss with her and then make a decision. 2. Cellulitis of the left mastectomy site. Appreciate ID consultation, she is on antibiotics. 3. Splenomegaly, thought to be due to fatty liver disease. 4. Thrombocytopenia due to splenomegaly. Continue to monitor platelet count. 5. Pseudotumor cerebri. MRI brain 06/13/16 is negative for mets. Comment Review of Relevant I have reviewed the following items halle (where applicable) has been applied. Labs Laboratory Tests Test 06/12/16 11:41 06/12/16 16:45 06/12/16 21:10 06/13/16 07:42 Glucose (Fingerstick) 221mg/dL (70-99) 163mg/dL (70-99) 163mg/dL (70-99) 59mg/dL (70-99) Test 06/13/16 10:49 06/13/16 11:15 06/13/16 14:51 06/13/16 16:15 Glucose (Fingerstick) 138mg/dL (70-99) 155mg/dL (70-99) 141mg/dL (70-99) Sodium Level 143mmol/L (136-145) Potassium Level 4.4mmol/L (3.5-5.1) Chloride Level 108mmol/L (98-107) Carbon Dioxide Level 27mmol/L (21-32) Anion Gap 8 (6-14) Blood Urea Nitrogen 19mg/dL (7-20) Creatinine 1.4mg/dL (0.6-1.0) Estimated GFR (Cockcroft-Gault) 37.9 Glucose Level 139mg/dL (70-99) Calcium Level 8.3mg/dL (8.5-10.1) Vitamin B12 Level 563pg/mL (211-946) 25-Hydroxy Vitamin D Total 10.6ng/mL (30.0-100.0) Thyroid Stimulating Hormone (TSH) 0.009uIU/mL (0.358-3.74) Vancomycin Level Trough 17.9mcg/mL (10.0-20.0) Vancomycin Last Dose Date 06/12/16 Vancomycin Last Dose Time 1200 Test 06/13/16 20:30 06/13/16 21:34 06/13/16 22:16 06/14/16 05:15 Urine Opiates Screen Pos (NEG) Urine Methadone Screen Neg (NEG) Urine Barbiturates Neg (NEG) Urine Phencyclidine Screen Neg (NEG) Urine Amphetamine/Methamphetamine Neg (NEG) Urine Benzodiazepines Screen Neg (NEG) Urine Cocaine Screen Neg (NEG) Urine Cannabinoids Screen Neg (NEG) Urine Ethyl Alcohol Neg (NEG) Glucose (Fingerstick) 67mg/dL (70-99) 71mg/dL (70-99) White Blood Count 5.8x10^3/uL (4.0-11.0) Red Blood Count 3.94x10^6/uL (3.50-5.40) Hemoglobin 10.7g/dL (12.0-15.5) Hematocrit 34.3% (36.0-47.0) Mean Corpuscular Volume 87fL (79-100) Mean Corpuscular Hemoglobin 27pg (25-35) Mean Corpuscular Hemoglobin Concent 31g/dL (31-37) Red Cell Distribution Width 16.1% (11.5-14.5) Platelet Count 121x10^3/uL (140-400) Neutrophils (%) (Auto) 58% (31-73) Lymphocytes (%) (Auto) 19% (24-48) Monocytes (%) (Auto) 13% (0-9) Eosinophils (%) (Auto) 9% (0-3) Basophils (%) (Auto) 1% (0-3) Neutrophils # (Auto) 3.4x10^3uL (1.8-7.7) Lymphocytes # (Auto) 1.1x10^3/uL (1.0-4.8) Monocytes # (Auto) 0.8x10^3/uL (0.0-1.1) Eosinophils # (Auto) 0.5x10^3/uL (0.0-0.7) Basophils # (Auto) 0.1x10^3/uL (0.0-0.2) Sodium Level 143mmol/L (136-145) Potassium Level 4.2mmol/L (3.5-5.1) Chloride Level 109mmol/L (98-107) Carbon Dioxide Level 24mmol/L (21-32) Anion Gap 10 (6-14) Blood Urea Nitrogen 19mg/dL (7-20) Creatinine 1.4mg/dL (0.6-1.0) Estimated GFR (Cockcroft-Gault) 37.9 BUN/Creatinine Ratio 14 (6-20) Glucose Level 41mg/dL (70-99) Calcium Level 8.7mg/dL (8.5-10.1) Total Bilirubin 0.9mg/dL (0.2-1.0) Aspartate Amino Transf (AST/SGOT) 32U/L (15-37) Alanine Aminotransferase (ALT/SGPT) < 6U/L (14-59) Alkaline Phosphatase 198U/L (46-116) Total Protein 6.8g/dL (6.4-8.2) Albumin 2.4g/dL (3.4-5.0) Albumin/Globulin Ratio 0.5 (1.0-1.7) Free Thyroxine 1.10ng/dL (0.76-1.46) Free Triiodothyronine (T3) pg/mL 1.71pg/mL (2.18-3.98) Test 06/14/16 07:23 06/14/16 08:16 Glucose (Fingerstick) 34mg/dL (70-99) 241mg/dL (70-99) Laboratory Tests Test 06/13/16 14:51 06/13/16 16:15 06/13/16 20:30 06/13/16 21:34 Glucose (Fingerstick) 155mg/dL (70-99) 141mg/dL (70-99) 67mg/dL (70-99) Urine Opiates Screen Pos (NEG) Urine Methadone Screen Neg (NEG) Urine Barbiturates Neg (NEG) Urine Phencyclidine Screen Neg (NEG) Urine Amphetamine/Methamphetamine Neg (NEG) Urine Benzodiazepines Screen Neg (NEG) Urine Cocaine Screen Neg (NEG) Urine Cannabinoids Screen Neg (NEG) Urine Ethyl Alcohol Neg (NEG) Test 06/13/16 22:16 06/14/16 05:15 06/14/16 07:23 06/14/16 08:16 Glucose (Fingerstick) 71mg/dL (70-99) 34mg/dL (70-99) 241mg/dL (70-99) White Blood Count 5.8x10^3/uL (4.0-11.0) Red Blood Count 3.94x10^6/uL (3.50-5.40) Hemoglobin 10.7g/dL (12.0-15.5) Hematocrit 34.3% (36.0-47.0) Mean Corpuscular Volume 87fL (79-100) Mean Corpuscular Hemoglobin 27pg (25-35) Mean Corpuscular Hemoglobin Concent 31g/dL (31-37) Red Cell Distribution Width 16.1% (11.5-14.5) Platelet Count 121x10^3/uL (140-400) Neutrophils (%) (Auto) 58% (31-73) Lymphocytes (%) (Auto) 19% (24-48) Monocytes (%) (Auto) 13% (0-9) Eosinophils (%) (Auto) 9% (0-3) Basophils (%) (Auto) 1% (0-3) Neutrophils # (Auto) 3.4x10^3uL (1.8-7.7) Lymphocytes # (Auto) 1.1x10^3/uL (1.0-4.8) Monocytes # (Auto) 0.8x10^3/uL (0.0-1.1) Eosinophils # (Auto) 0.5x10^3/uL (0.0-0.7) Basophils # (Auto) 0.1x10^3/uL (0.0-0.2) Sodium Level 143mmol/L (136-145) Potassium Level 4.2mmol/L (3.5-5.1) Chloride Level 109mmol/L (98-107) Carbon Dioxide Level 24mmol/L (21-32) Anion Gap 10 (6-14) Blood Urea Nitrogen 19mg/dL (7-20) Creatinine 1.4mg/dL (0.6-1.0) Estimated GFR (Cockcroft-Gault) 37.9 BUN/Creatinine Ratio 14 (6-20) Glucose Level 41mg/dL (70-99) Calcium Level 8.7mg/dL (8.5-10.1) Total Bilirubin 0.9mg/dL (0.2-1.0) Aspartate Amino Transf (AST/SGOT) 32U/L (15-37) Alanine Aminotransferase (ALT/SGPT) < 6U/L (14-59) Alkaline Phosphatase 198U/L (46-116) Total Protein 6.8g/dL (6.4-8.2) Albumin 2.4g/dL (3.4-5.0) Albumin/Globulin Ratio 0.5 (1.0-1.7) Free Thyroxine 1.10ng/dL (0.76-1.46) Free Triiodothyronine (T3) pg/mL 1.71pg/mL (2.18-3.98) Microbiology 06/11/16 Blood Culture - Preliminary, Resulted NO GROWTH AFTER 2 DAYS Medications Current Medications Morphine Sulfate 4 mg PRN Q15MIN PRN IV/SQ PAIN GREATER THAN 3/10 Last administered on 06/11/16 10:45; Start 06/11/16 at 10:45; Stop 06/12/16 at 10:44 ; Status DC Ondansetron HCl (Zofran) 4 mg 1X ONCE IV Last administered on 06/11/16 11:02 ; Start 06/11/16 at 11:00; Stop 06/11/16 at 11:01; Status DC Ondansetron HCl (Zofran) 4 mg PRN Q8HRS PRN IV NAUSEA/VOMITING Last administered on 06/12/16 04:52; Start 06/11/16 at 12:30; Stop 06/12/16 at 12:29 ; Status DC Morphine Sulfate 4 mg PRN Q2HR PRN IV PAIN Last administered on 06/12/16 11:00 ; Start 06/11/16 at 12:30; Stop 06/12/16 at 12:29; Status DC Vancomycin HCl 1 each 1 each PRN DAILY PRN MC SEE COMMENTS Last administered on 06/12/16 12:09; Start 06/11/16 at 12:30; Stop 06/13/16 at 11:47; Status DC Vancomycin HCl 2 gm/Sodium Chloride 500 ml @ 250 mls/hr 1X ONCE IV Last administered on 06/11/16 12:34; Start 06/11/16 at 12:30; Stop 06/11/16 at 14:29 ; Status DC Vancomycin HCl/ Sodium Chloride (Iv Sodium Chloride 0.9% 500ml Bag) 500 ml @ 250 mls/hr Q24H IV Last administered on 06/12/16 11:43; Start 06/12/16 at 12: 00; Stop 06/13/16 at 11:47; Status DC Vancomycin HCl 1 each 1X ONCE MC Last administered on 06/13/16 11:30; Start 06/13/16 at 11:30; Stop 06/13/16 at 11:31; Status DC Piperacillin Sod/ Tazobactam Sod 1 each 1 each PRN DAILY PRN MC SEE COMMENTS; Start 06/11/16 at 16:30; Stop 06/13/16 at 11:18; Status DC Piperacillin Sod/ Tazobactam Sod/ Sodium Chloride (Zosyn/Iv Sodium Chloride 0.9 % 50ml) 50 ml @ 100 mls/hr Q6HRS IV Last administered on 06/14/16 06:13; Start 06/11/16 at 17:00 Bethanechol Chloride (Urecholine) 25 mg BID PO Last administered on 06/14/16 08:42; Start 06/11/16 at 21:00 Carbidopa/Levodopa (Sinemet Cr) 1 tab.sa BID PO Last administered on 06/14/16 08:42; Start 06/11/16 at 21:00 Colesevelam HCl (Welchol) 625 mg PRN QID PRN PO DIARRHEA Last administered on 21:59; Start 06/11/16 at 16:45 Diphenhydramine HCl (Benadryl) 25 mg HS PO Last administered on 06/13/16 21:40 ; Start 06/11/16 at 21:00 Acetaminophen/ Hydrocodone Bitart (Lortab 10/325) 1 tab PRN Q4HRS PRN PO PAIN Last administered on 06/14/16 08:42; Start 06/11/16 at 16:45 Levothyroxine Sodium (Synthroid) 100 mcg DAILY PO Last administered on 08:20; Start 06/12/16 at 09:00; Stop 06/13/16 at 22:07; Status DC Amylase/Lipase/ Protease (Zenpep 10,000) 1 cap DAILYWBKFT PO ; Start 06/12/16 at 09:00; Stop 06/12/16 at 09:00; Status DC Pramipexole Dihydrochloride (miraPEX) 1 mg HS PO Last administered on 21:42; Start 06/11/16 at 21:00 Topiramate (Topamax) 100 mg BID PO Last administered on 06/14/16 08:42; Start 06/11/16 at 21:00 Torsemide (Demadex) 20 mg DAILY PO Last administered on 06/14/16 08:42; Start 06/12/16 at 09:00 Non-Formulary Medication 5 mg DAILY PO blood sugar Last administered on 08:43; Start 06/12/16 at 09:00 Glipizide (Glucotrol) 10 mg BIDBFRMEAL PO Last administered on 06/13/16 18:28 ; Start 06/12/16 at 17:00; Stop 06/13/16 at 21:54; Status DC Insulin Detemir (Levemir) 40 units Q12H SQ Last administered on 06/13/16 12:17 ; Start 06/11/16 at 21:00; Stop 06/13/16 at 21:53; Status DC Non-Formulary Medication 25 units DAILY SQ Last administered on 06/14/16 08:58 ; Start 06/12/16 at 09:00 Atorvastatin Calcium (Lipitor) 10 mg QHS PO Last administered on 06/13/16 21: 41; Start 06/11/16 at 21:00 Pantoprazole Sodium (Protonix) 40 mg DAILYAC PO ; Start 06/12/16 at 07:30; Status Cancel Potassium Chloride (Klor-Con) 20 meq BIDWMEALS PO ; Start 06/11/16 at 17:00; Status Cancel Propranolol HCl (Inderal La) 60 mg HS PO Last administered on 06/13/16 21:41; Start 06/11/16 at 21:00 Non-Formulary Medication 30 unit DAILYWSUP SQ Last administered on 06/13/16 18 :29; Start 06/11/16 at 17:00 Non-Formulary Medication 1 ea DAILY PO Last administered on 06/14/16 08:43; Start 06/12/16 at 09:00 Amylase/Lipase/ Protease (Zenpep 10,000) 1 cap BIDWMEALS PO Last administered on 06/14/16 08:42; Start 06/11/16 at 17:30 Potassium Chloride (Klor-Con) 20 meq DAILYWBKFT PO Last administered on 08:42; Start 06/12/16 at 08:00 Potassium Chloride (Klor-Con) 10 meq HS PO Last administered on 06/13/16 21:41 ; Start 06/11/16 at 21:00 Doxycycline Hyclate (Vibra-Tab) 100 mg BID PO Last administered on 06/14/16 08 :42; Start 06/13/16 at 12:00 Morphine Sulfate 2 mg PRN Q2HR PRN IV PAIN; Start 06/13/16 at 16:00 Polyethylene Glycol (miraLAX PACKET) 17 gm PRN DAILY PRN PO CONSTIPATION; Start 06/13/16 at 16:00 Aspirin (Children'S Aspirin) 81 mg DAILYWBKFT PO ; Start 06/14/16 at 08:00 Insulin Detemir (Levemir) 35 units Q12H SQ Last administered on 06/14/16 08:53 ; Start 06/14/16 at 09:00; Stop 06/14/16 at 11:15; Status DC Glipizide (Glucotrol) 5 mg BIDBFRMEAL PO Last administered on 06/14/16 08:42; Start 06/14/16 at 07:30; Stop 06/14/16 at 11:15; Status DC Oxycodone HCl (Roxicodone) 10 mg 1X ONCE PO Last administered on 06/13/16 22: 00; Start 06/13/16 at 22:15; Stop 06/13/16 at 22:16; Status DC Levothyroxine Sodium (Synthroid) 88 mcg DAILY07 PO Last administered on 06:12; Start 06/14/16 at 07:00 Dextrose 25 gm 1X ONCE IV Last administered on 06/14/16 07:29; Start at 07:30; Stop 06/14/16 at 07:31; Status DC Dextrose 25 gm STK-MED ONCE IV ; Start 06/14/16 at 07:28; Stop 06/14/16 at 10:08 ; Status DC Vitamin D (Vitamin D3) 5,000 unit DAILY PO ; Start 06/14/16 at 11:00; Stop 06/14 at 11:17; Status DC Calcium Carbonate/ Glycine (Oscal) 500 mg BIDAFTMEAL PO ; Start 06/14/16 at 11: 00 Insulin Detemir (Levemir) 15 units HS SQ ; Start 06/14/16 at 21:00 Ergocalciferol (Vitamin D2) 50,000 unit WEEKLY PO ; Start 06/14/16 at 11:30 Active Scripts Active Demadex (Torsemide) 20 Mg Tablet 20 Mg PO DAILY Reported Humalog (Insulin Lispro) 100 Unit/1 Ml Cartridge 30 Unit SQ DAILYWSUP Omeprazole 40 Mg Capsule.dr 1 Cap PO DAILY Zenpep Dr 10,000 Units Capsule (Lipase/Protease/Amylase) 1 Each Capsule.dr 1 Each PO DAILY Humalog (Insulin Lispro) 100 Unit/1 Ml Cartridge 0 SQ 25UAM-30UPM Mirapex (Pramipexole Di-Hcl) 0.25 Mg Tablet 1 Mg PO HS Levothyroxine Sodium 100 Mcg Tablet 1 Tab PO DAILY Levemir (Insulin Detemir) 100 Unit/1 Ml Vial 40 Unit SQ BID-AM AND HS Farxiga (Dapagliflozin Propanediol) 5 Mg Tablet 5 Mg PO DAILY Carbidopa-Levo Er 25-100 Tab (Carbidopa/Levodopa) 1 Each Tablet.er 1 Each PO BID Hydrocodone-Apap 10-325 (Hydrocodone Bit/Acetaminophen) 1 Each Tablet 1 Tab PO PRN Benadryl (Diphenhydramine Hcl) 25 Mg Capsule 25 Mg PO HS Propranolol Hcl 60 Mg Tablet 60 Mg PO HS Bethanechol Chloride 25 Mg Tablet 25 Mg PO BID Klor-Con 10 (Potassium Chloride) 10 Meq Tablet.er 20 Meq PO BID Welchol (Colesevelam Hcl) 625 Mg Tablet 625 Mg PO PRN QID PRN Glipizide 10 Mg Tablet 10 Mg PO BID Topiramate 100 Mg Tablet 100 Mg PO BID Lovastatin 40 Mg Tablet 40 Mg PO HS Vitals/I & O Vital Sign - Last 24 Hours 06/13/16 06/13/16 06/13/16 06/13/16 14:02 15:00 15:25 19:15 Temp 98.4 98.6 98.4 98.6 Pulse 79 79 Resp 14 18 B/P 123/59 110/55 Pulse Ox 93 95 O2 Delivery Room Air Nasal Cannula Room Air Room Air O2 Flow Rate 2.0 06/13/16 06/13/16 06/13/16 06/13/16 20:00 21:41 21:43 22:00 Pulse 79 Resp 18 18 B/P 110/55 O2 Delivery Room Air Room Air Room Air 06/13/16 06/14/16 06/14/16 06/14/16 23:00 03:27 07:00 07:50 Temp 98.6 98.5 97.8 98.6 98.5 97.8 Pulse 73 66 75 Resp 18 18 18 B/P 107/54 115/61 108/59 Pulse Ox 96 98 97 O2 Delivery Nasal Cannula Room Air Room Air Room Air O2 Flow Rate 2.0 2.0 06/14/16 08:42 Resp 18 O2 Delivery Room Air Intake and Output 06/13/16 06/13/16 06/14/16 15:00 23:00 07:00 Intake Total 50 ml Output Total 300 ml 500 ml Balance -300 ml -450 ml DREW TALAMANTES MD Jun 14, 2016 11:23
[2016-06-14] MEDS ORDERED: ERGOCALCIFEROL (VITAMIN D2) 50,000 UNIT CAPSULE PO SCH (11:30)
[2016-06-14] MEDS: CALCIUM CARBONATE 500 MG TABLET PO SCH ×2 (13:18→17:32)
--- NOTE | 2016-06-14 13:50 | PDOC ---
PROGRESS NOTES Assessment Assessment Metabolic encephalopathy. Confusion episodes. Hypotension event, BP 90/31 (50). Hypoglycemia, glucose 34 Hyperglycemia, glucose 241 Old right cerebellar lacunar infarct. Chest wall cellulitis. S/p bilateral mastectomy on 04/27/16; left site infection. Hypothyroidism DM Pancreatitis. GERD Cancer Obesity. Vit D deficiency. No evidence of acute CVA this time. RECOMMENDATIONS/PLAN: Continue medical and surgical treatment. Vit D and calcium supplement. ASA 81 mg daily Continue medical treatment. EEG on 06/14. Lab for ceruloplasmin, zinc and copper. OT/PT Brain MRI: No evidence of acute CVA, but increased signal in GB bilaterally. HISTORY OF THE PRESENT ILLNESS: 66-y-old female patient with above medical diseases had left side chest wall infection s/p bilateral mastectomy on 04/27/16. She was reportedly to have acute MS changes, decreased response, confusion and decreased movements, so Neurology was called for consultation. She had an event of hypotension event and BP dropped to 90/31 mmHg. She stated she is doing better on 06/14. PAST MEDICAL HISTORY: Please see above. PAST SURGERY HISTORY: Tonsillectomy Bilateral mastectomy Cholecystectomy Hysterectomy ALLERGY: Unknown MEDICATIONS: Refer to [facility] FAMILY HISTORY: H Non contributory. SOCIAL HISTORY: Denies smoking, drinking, and illicit drug use. REVIEW OF SYSTEMS: Constitutional: No malnutrition, weight loss, cachexia. Head: No traumatic brain or head injury. Skin: No edema, or rash. Ear: No infection, tinnitus. Eyes: No vision loss or color blindness. Nose: No bleeding or purulent discharges. Hearing: No hearing decrease. Neck: No injury. Breast: NS/p mastectomy Cardiac: No MT, arrhythmia. Pulmonary: No COPD. GI: ERD. Urinary/genital: UTI. Endocrinologic: Diabetes Mellitus, obesity Skeletomuscular: No muscular atrophy, deformity. Neurological: see HP. Psychiatric: Denies drug use/abuse. Otherwise, not [id number] review of systems. PHYSICAL EXAMINATION: General appearance is in subacute distress. HEENT: Normocephalic and nontraumatic. Eyes, nose, ears, and throat are unremarkable. Neck is supple. No lymphadenopathy. No crepitus. Cardiovascular: S1, S2, regular rate and rhythm. Pulmonary: Clear to auscultation bilaterally. Abdomen: Bowel sounds are positive. Extremities: No rash, lesions, or edema. No restriction of range of motion NEUROLOGICAL EXAMINATION: Awake Oriented to place and person but not to time. PERRL. EOMI. CN: no focal findings. Muscle tone: within normal. Muscle strength: 4+ DTR: 1 Plantar reflex: Flexor response bilaterally Gait: not examined in bed. Sensory exam: no abnormal findings. No obvious cerebellar signs elicited. F-T-N test fine. Objective Objective Vital Signs Date Time Temp Pulse Resp B/P Pulse Ox O2 Delivery O2 Flow Rate FiO2 06/14/16 13:19 20 Room Air 06/14/16 11:00 98.4 73 97/46 91 98.4 06/14/16 03:27 2.0 Intake and Output 06/14/16 07:00 Intake Total 50 ml Output Total 800 ml Balance -750 ml IV Total 50 ml Tube Feeding 0 ml Output Urine Total 800 ml # Voids 1 # Bowel Movements 1 Vitals Signs Vitals VS - Last 72 Hours, by Label Date Time Temp Pulse Resp B/P Pulse Ox O2 Delivery O2 Flow Rate FiO2 06/14/16 13:19 20 Room Air 06/14/16 11:00 98.4 73 18 97/46 91 Room Air 98.4 06/14/16 09:45 20 Room Air 06/14/16 08:42 18 Room Air 06/14/16 07:50 Room Air 06/14/16 07:00 97.8 75 18 108/59 97 Room Air 97.8 06/14/16 03:27 98.5 66 18 115/61 98 Room Air 2.0 98.5 06/13/16 23:00 98.6 73 18 107/54 96 Nasal Cannula 2.0 98.6 06/13/16 22:00 18 Room Air 06/13/16 21:43 18 Room Air 06/13/16 21:41 79 110/55 06/13/16 20:00 Room Air 06/13/16 19:15 98.6 79 18 110/55 95 Room Air 98.6 06/13/16 15:00 98.4 79 14 123/59 93 Nasal Cannula 2.0 98.4 06/13/16 14:02 Room Air 06/13/16 11:00 98.3 64 14 90/31 95 Nasal Cannula 2.0 98.3 06/13/16 10:10 Room Air 06/13/16 08:00 Nasal Cannula 2.0 06/13/16 07:00 98.1 75 14 110/59 91 Nasal Cannula 2.0 98.1 Laboratory Laboratory Laboratory Tests Test 06/13/16 14:51 06/13/16 16:15 06/13/16 20:30 06/13/16 21:34 Glucose (Fingerstick) 155mg/dL (70-99) 141mg/dL (70-99) 67mg/dL (70-99) Urine Opiates Screen Pos (NEG) Urine Methadone Screen Neg (NEG) Urine Barbiturates Neg (NEG) Urine Phencyclidine Screen Neg (NEG) Urine Amphetamine/Methamphetamine Neg (NEG) Urine Benzodiazepines Screen Neg (NEG) Urine Cocaine Screen Neg (NEG) Urine Cannabinoids Screen Neg (NEG) Urine Ethyl Alcohol Neg (NEG) Test 06/13/16 22:16 06/14/16 05:15 06/14/16 07:23 06/14/16 08:16 Glucose (Fingerstick) 71mg/dL (70-99) 34mg/dL (70-99) 241mg/dL (70-99) White Blood Count 5.8x10^3/uL (4.0-11.0) Red Blood Count 3.94x10^6/uL (3.50-5.40) Hemoglobin 10.7g/dL (12.0-15.5) Hematocrit 34.3% (36.0-47.0) Mean Corpuscular Volume 87fL (79-100) Mean Corpuscular Hemoglobin 27pg (25-35) Mean Corpuscular Hemoglobin Concent 31g/dL (31-37) Red Cell Distribution Width 16.1% (11.5-14.5) Platelet Count 121x10^3/uL (140-400) Neutrophils (%) (Auto) 58% (31-73) Lymphocytes (%) (Auto) 19% (24-48) Monocytes (%) (Auto) 13% (0-9) Eosinophils (%) (Auto) 9% (0-3) Basophils (%) (Auto) 1% (0-3) Neutrophils # (Auto) 3.4x10^3uL (1.8-7.7) Lymphocytes # (Auto) 1.1x10^3/uL (1.0-4.8) Monocytes # (Auto) 0.8x10^3/uL (0.0-1.1) Eosinophils # (Auto) 0.5x10^3/uL (0.0-0.7) Basophils # (Auto) 0.1x10^3/uL (0.0-0.2) Sodium Level 143mmol/L (136-145) Potassium Level 4.2mmol/L (3.5-5.1) Chloride Level 109mmol/L (98-107) Carbon Dioxide Level 24mmol/L (21-32) Anion Gap 10 (6-14) Blood Urea Nitrogen 19mg/dL (7-20) Creatinine 1.4mg/dL (0.6-1.0) Estimated GFR (Cockcroft-Gault) 37.9 BUN/Creatinine Ratio 14 (6-20) Glucose Level 41mg/dL (70-99) Calcium Level 8.7mg/dL (8.5-10.1) Total Bilirubin 0.9mg/dL (0.2-1.0) Aspartate Amino Transf (AST/SGOT) 32U/L (15-37) Alanine Aminotransferase (ALT/SGPT) < 6U/L (14-59) Alkaline Phosphatase 198U/L (46-116) Total Protein 6.8g/dL (6.4-8.2) Albumin 2.4g/dL (3.4-5.0) Albumin/Globulin Ratio 0.5 (1.0-1.7) Free Thyroxine 1.10ng/dL (0.76-1.46) Free Triiodothyronine (T3) pg/mL 1.71pg/mL (2.18-3.98) Test 06/14/16 11:32 Glucose (Fingerstick) 162mg/dL (70-99) Microbiology 06/11/16 Blood Culture - Preliminary, Resulted NO GROWTH AFTER 3 DAYS Medication Medications Current Medications Aspirin (Children'S Aspirin) 81 mg DAILYWBKFT PO ; Start 06/14/16 at 08:00 Calcium Carbonate/ Glycine (Oscal) 500 mg BIDAFTMEAL PO Last administered on 13:18; Start 06/14/16 at 11:00 Dextrose 25 gm 1X ONCE IV Last administered on 06/14/16 07:29; Start at 07:30; Stop 06/14/16 at 07:31; Status DC Dextrose 25 gm STK-MED ONCE IV ; Start 06/14/16 at 07:28; Stop 06/14/16 at 10:08 ; Status DC Ergocalciferol (Vitamin D2) 50,000 unit WEEKLY PO Last administered on 13:19; Start 06/14/16 at 11:30 Glipizide (Glucotrol) 5 mg BIDBFRMEAL PO Last administered on 06/14/16 08:42; Start 06/14/16 at 07:30; Stop 06/14/16 at 11:15; Status DC Insulin Detemir (Levemir) 15 units HS SQ ; Start 06/14/16 at 21:00 Insulin Detemir (Levemir) 35 units Q12H SQ Last administered on 06/14/16 08:53 ; Start 06/14/16 at 09:00; Stop 06/14/16 at 11:15; Status DC Levothyroxine Sodium (Synthroid) 88 mcg DAILY07 PO Last administered on 06:12; Start 06/14/16 at 07:00 Morphine Sulfate 2 mg PRN Q2HR PRN IV PAIN; Start 06/13/16 at 16:00 Oxycodone HCl (Roxicodone) 10 mg 1X ONCE PO Last administered on 06/13/16 22: 00; Start 06/13/16 at 22:15; Stop 06/13/16 at 22:16; Status DC Polyethylene Glycol (miraLAX PACKET) 17 gm PRN DAILY PRN PO CONSTIPATION; Start 06/13/16 at 16:00 Vitamin D (Vitamin D3) 5,000 unit DAILY PO ; Start 06/14/16 at 11:00; Stop 06/14 at 11:17; Status DC Comment Review of Relevant I have reviewed the following items halle (where applicable) has been applied. SERGIO CARTER MD Jun 14, 2016 13:50
--- NOTE | 2016-06-14 14:47 | PDOC ---
PROGRESS NOTES Chief Complaint Chief Complaint metabolic encephalopathy, hypoglycemia Delirium, acute HX CVA, poss some cognitive decline, Cellulitis GERD Morbid obesity, BMI 46, w/ moderaet malnutrition on Admit DM2, w/ hypoglycemia Htn, transient hypotension hypothyroid, had been over treated CKD 3 History of Present Illness History of Present Illness Decrease doses of Lantus and DC glipizide, hypoglycemic again this AM mental status today about the same w/u heme, liver Vitals Vitals Vital Signs Date Time Temp Pulse Resp B/P Pulse Ox O2 Delivery O2 Flow Rate FiO2 06/14/16 14:20 18 Room Air 06/14/16 11:00 98.4 73 97/46 91 98.4 06/14/16 03:27 2.0 Physical Exam General: Alert, Oriented X3, Cooperative, No acute distress Heart: Regular rate, No murmurs Lungs: Clear, Other Abdomen: Normal bowel sounds, Soft, No tenderness Extremities: No clubbing, No edema Skin: Other (left chest erythema persists but looks a little less angry) Labs LABS Laboratory Tests Test 06/13/16 14:51 06/13/16 16:15 06/13/16 20:30 06/13/16 21:34 Glucose (Fingerstick) 155mg/dL (70-99) 141mg/dL (70-99) 67mg/dL (70-99) Urine Opiates Screen Pos (NEG) Urine Methadone Screen Neg (NEG) Urine Barbiturates Neg (NEG) Urine Phencyclidine Screen Neg (NEG) Urine Amphetamine/Methamphetamine Neg (NEG) Urine Benzodiazepines Screen Neg (NEG) Urine Cocaine Screen Neg (NEG) Urine Cannabinoids Screen Neg (NEG) Urine Ethyl Alcohol Neg (NEG) Test 06/13/16 22:16 06/14/16 05:15 06/14/16 07:23 06/14/16 08:16 Glucose (Fingerstick) 71mg/dL (70-99) 34mg/dL (70-99) 241mg/dL (70-99) White Blood Count 5.8x10^3/uL (4.0-11.0) Red Blood Count 3.94x10^6/uL (3.50-5.40) Hemoglobin 10.7g/dL (12.0-15.5) Hematocrit 34.3% (36.0-47.0) Mean Corpuscular Volume 87fL (79-100) Mean Corpuscular Hemoglobin 27pg (25-35) Mean Corpuscular Hemoglobin Concent 31g/dL (31-37) Red Cell Distribution Width 16.1% (11.5-14.5) Platelet Count 121x10^3/uL (140-400) Neutrophils (%) (Auto) 58% (31-73) Lymphocytes (%) (Auto) 19% (24-48) Monocytes (%) (Auto) 13% (0-9) Eosinophils (%) (Auto) 9% (0-3) Basophils (%) (Auto) 1% (0-3) Neutrophils # (Auto) 3.4x10^3uL (1.8-7.7) Lymphocytes # (Auto) 1.1x10^3/uL (1.0-4.8) Monocytes # (Auto) 0.8x10^3/uL (0.0-1.1) Eosinophils # (Auto) 0.5x10^3/uL (0.0-0.7) Basophils # (Auto) 0.1x10^3/uL (0.0-0.2) Sodium Level 143mmol/L (136-145) Potassium Level 4.2mmol/L (3.5-5.1) Chloride Level 109mmol/L (98-107) Carbon Dioxide Level 24mmol/L (21-32) Anion Gap 10 (6-14) Blood Urea Nitrogen 19mg/dL (7-20) Creatinine 1.4mg/dL (0.6-1.0) Estimated GFR (Cockcroft-Gault) 37.9 BUN/Creatinine Ratio 14 (6-20) Glucose Level 41mg/dL (70-99) Calcium Level 8.7mg/dL (8.5-10.1) Total Bilirubin 0.9mg/dL (0.2-1.0) Aspartate Amino Transf (AST/SGOT) 32U/L (15-37) Alanine Aminotransferase (ALT/SGPT) < 6U/L (14-59) Alkaline Phosphatase 198U/L (46-116) Total Protein 6.8g/dL (6.4-8.2) Albumin 2.4g/dL (3.4-5.0) Albumin/Globulin Ratio 0.5 (1.0-1.7) Free Thyroxine 1.10ng/dL (0.76-1.46) Free Triiodothyronine (T3) pg/mL 1.71pg/mL (2.18-3.98) Test 06/14/16 11:32 Glucose (Fingerstick) 162mg/dL (70-99) Review of Systems Review of Systems no n,.v + lethargy, and weakness Assessment and Plan Assessmemt and Plan Problems Medical Problems: (1) Cellulitis of chest wall Status: Acute (2) Post-operative infection Status: Acute Problems: Comment Review of Relevant I have reviewed the following items halle (where applicable) has been applied. Labs Laboratory Tests Test 06/12/16 16:45 06/12/16 21:10 06/13/16 07:42 06/13/16 10:49 Glucose (Fingerstick) 163mg/dL (70-99) 163mg/dL (70-99) 59mg/dL (70-99) 138mg/dL (70-99) Test 06/13/16 11:15 06/13/16 14:51 06/13/16 16:15 06/13/16 20:30 Sodium Level 143mmol/L (136-145) Potassium Level 4.4mmol/L (3.5-5.1) Chloride Level 108mmol/L (98-107) Carbon Dioxide Level 27mmol/L (21-32) Anion Gap 8 (6-14) Blood Urea Nitrogen 19mg/dL (7-20) Creatinine 1.4mg/dL (0.6-1.0) Estimated GFR (Cockcroft-Gault) 37.9 Glucose Level 139mg/dL (70-99) Calcium Level 8.3mg/dL (8.5-10.1) Vitamin B12 Level 563pg/mL (211-946) 25-Hydroxy Vitamin D Total 10.6ng/mL (30.0-100.0) Thyroid Stimulating Hormone (TSH) 0.009uIU/mL (0.358-3.74) Vancomycin Level Trough 17.9mcg/mL (10.0-20.0) Vancomycin Last Dose Date 06/12/16 Vancomycin Last Dose Time 1200 Glucose (Fingerstick) 155mg/dL (70-99) 141mg/dL (70-99) Urine Opiates Screen Pos (NEG) Urine Methadone Screen Neg (NEG) Urine Barbiturates Neg (NEG) Urine Phencyclidine Screen Neg (NEG) Urine Amphetamine/Methamphetamine Neg (NEG) Urine Benzodiazepines Screen Neg (NEG) Urine Cocaine Screen Neg (NEG) Urine Cannabinoids Screen Neg (NEG) Urine Ethyl Alcohol Neg (NEG) Test 06/13/16 21:34 06/13/16 22:16 06/14/16 05:15 06/14/16 07:23 Glucose (Fingerstick) 67mg/dL (70-99) 71mg/dL (70-99) 34mg/dL (70-99) White Blood Count 5.8x10^3/uL (4.0-11.0) Red Blood Count 3.94x10^6/uL (3.50-5.40) Hemoglobin 10.7g/dL (12.0-15.5) Hematocrit 34.3% (36.0-47.0) Mean Corpuscular Volume 87fL (79-100) Mean Corpuscular Hemoglobin 27pg (25-35) Mean Corpuscular Hemoglobin Concent 31g/dL (31-37) Red Cell Distribution Width 16.1% (11.5-14.5) Platelet Count 121x10^3/uL (140-400) Neutrophils (%) (Auto) 58% (31-73) Lymphocytes (%) (Auto) 19% (24-48) Monocytes (%) (Auto) 13% (0-9) Eosinophils (%) (Auto) 9% (0-3) Basophils (%) (Auto) 1% (0-3) Neutrophils # (Auto) 3.4x10^3uL (1.8-7.7) Lymphocytes # (Auto) 1.1x10^3/uL (1.0-4.8) Monocytes # (Auto) 0.8x10^3/uL (0.0-1.1) Eosinophils # (Auto) 0.5x10^3/uL (0.0-0.7) Basophils # (Auto) 0.1x10^3/uL (0.0-0.2) Sodium Level 143mmol/L (136-145) Potassium Level 4.2mmol/L (3.5-5.1) Chloride Level 109mmol/L (98-107) Carbon Dioxide Level 24mmol/L (21-32) Anion Gap 10 (6-14) Blood Urea Nitrogen 19mg/dL (7-20) Creatinine 1.4mg/dL (0.6-1.0) Estimated GFR (Cockcroft-Gault) 37.9 BUN/Creatinine Ratio 14 (6-20) Glucose Level 41mg/dL (70-99) Calcium Level 8.7mg/dL (8.5-10.1) Total Bilirubin 0.9mg/dL (0.2-1.0) Aspartate Amino Transf (AST/SGOT) 32U/L (15-37) Alanine Aminotransferase (ALT/SGPT) < 6U/L (14-59) Alkaline Phosphatase 198U/L (46-116) Total Protein 6.8g/dL (6.4-8.2) Albumin 2.4g/dL (3.4-5.0) Albumin/Globulin Ratio 0.5 (1.0-1.7) Free Thyroxine 1.10ng/dL (0.76-1.46) Free Triiodothyronine (T3) pg/mL 1.71pg/mL (2.18-3.98) Test 06/14/16 08:16 06/14/16 11:32 Glucose (Fingerstick) 241mg/dL (70-99) 162mg/dL (70-99) Laboratory Tests Test 06/13/16 14:51 06/13/16 16:15 06/13/16 20:30 06/13/16 21:34 Glucose (Fingerstick) 155mg/dL (70-99) 141mg/dL (70-99) 67mg/dL (70-99) Urine Opiates Screen Pos (NEG) Urine Methadone Screen Neg (NEG) Urine Barbiturates Neg (NEG) Urine Phencyclidine Screen Neg (NEG) Urine Amphetamine/Methamphetamine Neg (NEG) Urine Benzodiazepines Screen Neg (NEG) Urine Cocaine Screen Neg (NEG) Urine Cannabinoids Screen Neg (NEG) Urine Ethyl Alcohol Neg (NEG) Test 06/13/16 22:16 06/14/16 05:15 06/14/16 07:23 06/14/16 08:16 Glucose (Fingerstick) 71mg/dL (70-99) 34mg/dL (70-99) 241mg/dL (70-99) White Blood Count 5.8x10^3/uL (4.0-11.0) Red Blood Count 3.94x10^6/uL (3.50-5.40) Hemoglobin 10.7g/dL (12.0-15.5) Hematocrit 34.3% (36.0-47.0) Mean Corpuscular Volume 87fL (79-100) Mean Corpuscular Hemoglobin 27pg (25-35) Mean Corpuscular Hemoglobin Concent 31g/dL (31-37) Red Cell Distribution Width 16.1% (11.5-14.5) Platelet Count 121x10^3/uL (140-400) Neutrophils (%) (Auto) 58% (31-73) Lymphocytes (%) (Auto) 19% (24-48) Monocytes (%) (Auto) 13% (0-9) Eosinophils (%) (Auto) 9% (0-3) Basophils (%) (Auto) 1% (0-3) Neutrophils # (Auto) 3.4x10^3uL (1.8-7.7) Lymphocytes # (Auto) 1.1x10^3/uL (1.0-4.8) Monocytes # (Auto) 0.8x10^3/uL (0.0-1.1) Eosinophils # (Auto) 0.5x10^3/uL (0.0-0.7) Basophils # (Auto) 0.1x10^3/uL (0.0-0.2) Sodium Level 143mmol/L (136-145) Potassium Level 4.2mmol/L (3.5-5.1) Chloride Level 109mmol/L (98-107) Carbon Dioxide Level 24mmol/L (21-32) Anion Gap 10 (6-14) Blood Urea Nitrogen 19mg/dL (7-20) Creatinine 1.4mg/dL (0.6-1.0) Estimated GFR (Cockcroft-Gault) 37.9 BUN/Creatinine Ratio 14 (6-20) Glucose Level 41mg/dL (70-99) Calcium Level 8.7mg/dL (8.5-10.1) Total Bilirubin 0.9mg/dL (0.2-1.0) Aspartate Amino Transf (AST/SGOT) 32U/L (15-37) Alanine Aminotransferase (ALT/SGPT) < 6U/L (14-59) Alkaline Phosphatase 198U/L (46-116) Total Protein 6.8g/dL (6.4-8.2) Albumin 2.4g/dL (3.4-5.0) Albumin/Globulin Ratio 0.5 (1.0-1.7) Free Thyroxine 1.10ng/dL (0.76-1.46) Free Triiodothyronine (T3) pg/mL 1.71pg/mL (2.18-3.98) Test 06/14/16 11:32 Glucose (Fingerstick) 162mg/dL (70-99) Microbiology 06/11/16 Blood Culture - Preliminary, Resulted NO GROWTH AFTER 3 DAYS Medications Current Medications Morphine Sulfate 4 mg PRN Q15MIN PRN IV/SQ PAIN GREATER THAN 3/10 Last administered on 06/11/16 10:45; Start 06/11/16 at 10:45; Stop 06/12/16 at 10:44 ; Status DC Ondansetron HCl (Zofran) 4 mg 1X ONCE IV Last administered on 06/11/16 11:02 ; Start 06/11/16 at 11:00; Stop 06/11/16 at 11:01; Status DC Ondansetron HCl (Zofran) 4 mg PRN Q8HRS PRN IV NAUSEA/VOMITING Last administered on 06/12/16 04:52; Start 06/11/16 at 12:30; Stop 06/12/16 at 12:29 ; Status DC Morphine Sulfate 4 mg PRN Q2HR PRN IV PAIN Last administered on 06/12/16 11:00 ; Start 06/11/16 at 12:30; Stop 06/12/16 at 12:29; Status DC Vancomycin HCl 1 each 1 each PRN DAILY PRN MC SEE COMMENTS Last administered on 06/12/16 12:09; Start 06/11/16 at 12:30; Stop 06/13/16 at 11:47; Status DC Vancomycin HCl 2 gm/Sodium Chloride 500 ml @ 250 mls/hr 1X ONCE IV Last administered on 06/11/16 12:34; Start 06/11/16 at 12:30; Stop 06/11/16 at 14:29 ; Status DC Vancomycin HCl/ Sodium Chloride (Iv Sodium Chloride 0.9% 500ml Bag) 500 ml @ 250 mls/hr Q24H IV Last administered on 06/12/16 11:43; Start 06/12/16 at 12: 00; Stop 06/13/16 at 11:47; Status DC Vancomycin HCl 1 each 1X ONCE MC Last administered on 06/13/16 11:30; Start 06/13/16 at 11:30; Stop 06/13/16 at 11:31; Status DC Piperacillin Sod/ Tazobactam Sod 1 each 1 each PRN DAILY PRN MC SEE COMMENTS; Start 06/11/16 at 16:30; Stop 06/13/16 at 11:18; Status DC Piperacillin Sod/ Tazobactam Sod/ Sodium Chloride (Zosyn/Iv Sodium Chloride 0.9 % 50ml) 50 ml @ 100 mls/hr Q6HRS IV Last administered on 06/14/16 12:20; Start 06/11/16 at 17:00 Bethanechol Chloride (Urecholine) 25 mg BID PO Last administered on 06/14/16 08:42; Start 06/11/16 at 21:00 Carbidopa/Levodopa (Sinemet Cr) 1 tab.sa BID PO Last administered on 06/14/16 08:42; Start 06/11/16 at 21:00 Colesevelam HCl (Welchol) 625 mg PRN QID PRN PO DIARRHEA Last administered on 21:59; Start 06/11/16 at 16:45 Diphenhydramine HCl (Benadryl) 25 mg HS PO Last administered on 06/13/16 21:40 ; Start 06/11/16 at 21:00 Acetaminophen/ Hydrocodone Bitart (Lortab 10/325) 1 tab PRN Q4HRS PRN PO PAIN Last administered on 06/14/16 13:19; Start 06/11/16 at 16:45 Levothyroxine Sodium (Synthroid) 100 mcg DAILY PO Last administered on 08:20; Start 06/12/16 at 09:00; Stop 06/13/16 at 22:07; Status DC Amylase/Lipase/ Protease (Zenpep 10,000) 1 cap DAILYWBKFT PO ; Start 06/12/16 at 09:00; Stop 06/12/16 at 09:00; Status DC Pramipexole Dihydrochloride (miraPEX) 1 mg HS PO Last administered on 21:42; Start 06/11/16 at 21:00 Topiramate (Topamax) 100 mg BID PO Last administered on 06/14/16 08:42; Start 06/11/16 at 21:00 Torsemide (Demadex) 20 mg DAILY PO Last administered on 06/14/16 08:42; Start 06/12/16 at 09:00 Non-Formulary Medication 5 mg DAILY PO blood sugar Last administered on 08:43; Start 06/12/16 at 09:00 Glipizide (Glucotrol) 10 mg BIDBFRMEAL PO Last administered on 06/13/16 18:28 ; Start 06/12/16 at 17:00; Stop 06/13/16 at 21:54; Status DC Insulin Detemir (Levemir) 40 units Q12H SQ Last administered on 06/13/16 12:17 ; Start 06/11/16 at 21:00; Stop 06/13/16 at 21:53; Status DC Non-Formulary Medication 25 units DAILY SQ Last administered on 06/14/16 08:58 ; Start 06/12/16 at 09:00 Atorvastatin Calcium (Lipitor) 10 mg QHS PO Last administered on 06/13/16 21: 41; Start 06/11/16 at 21:00 Pantoprazole Sodium (Protonix) 40 mg DAILYAC PO ; Start 06/12/16 at 07:30; Status Cancel Potassium Chloride (Klor-Con) 20 meq BIDWMEALS PO ; Start 06/11/16 at 17:00; Status Cancel Propranolol HCl (Inderal La) 60 mg HS PO Last administered on 06/13/16 21:41; Start 06/11/16 at 21:00 Non-Formulary Medication 30 unit DAILYWSUP SQ Last administered on 06/13/16 18 :29; Start 06/11/16 at 17:00 Non-Formulary Medication 1 ea DAILY PO Last administered on 06/14/16 08:43; Start 06/12/16 at 09:00 Amylase/Lipase/ Protease (Zenpep 10,000) 1 cap BIDWMEALS PO Last administered on 06/14/16 08:42; Start 06/11/16 at 17:30 Potassium Chloride (Klor-Con) 20 meq DAILYWBKFT PO Last administered on 08:42; Start 06/12/16 at 08:00 Potassium Chloride (Klor-Con) 10 meq HS PO Last administered on 06/13/16 21:41 ; Start 06/11/16 at 21:00 Doxycycline Hyclate (Vibra-Tab) 100 mg BID PO Last administered on 06/14/16 08 :42; Start 06/13/16 at 12:00 Morphine Sulfate 2 mg PRN Q2HR PRN IV PAIN; Start 06/13/16 at 16:00 Polyethylene Glycol (miraLAX PACKET) 17 gm PRN DAILY PRN PO CONSTIPATION; Start 06/13/16 at 16:00 Aspirin (Children'S Aspirin) 81 mg DAILYWBKFT PO ; Start 06/14/16 at 08:00 Insulin Detemir (Levemir) 35 units Q12H SQ Last administered on 06/14/16 08:53 ; Start 06/14/16 at 09:00; Stop 06/14/16 at 11:15; Status DC Glipizide (Glucotrol) 5 mg BIDBFRMEAL PO Last administered on 06/14/16 08:42; Start 06/14/16 at 07:30; Stop 06/14/16 at 11:15; Status DC Oxycodone HCl (Roxicodone) 10 mg 1X ONCE PO Last administered on 06/13/16 22: 00; Start 06/13/16 at 22:15; Stop 06/13/16 at 22:16; Status DC Levothyroxine Sodium (Synthroid) 88 mcg DAILY07 PO Last administered on 06:12; Start 06/14/16 at 07:00 Dextrose 25 gm 1X ONCE IV Last administered on 06/14/16 07:29; Start at 07:30; Stop 06/14/16 at 07:31; Status DC Dextrose 25 gm STK-MED ONCE IV ; Start 06/14/16 at 07:28; Stop 06/14/16 at 10:08 ; Status DC Vitamin D (Vitamin D3) 5,000 unit DAILY PO ; Start 06/14/16 at 11:00; Stop 06/14 at 11:17; Status DC Calcium Carbonate/ Glycine (Oscal) 500 mg BIDAFTMEAL PO Last administered on t 13:18; Start 06/14/16 at 11:00 Insulin Detemir (Levemir) 15 units HS SQ ; Start 06/14/16 at 21:00 Ergocalciferol (Vitamin D2) 50,000 unit WEEKLY PO Last administered on t 13:19; Start 06/14/16 at 11:30 Active Scripts Active Demadex (Torsemide) 20 Mg Tablet 20 Mg PO DAILY Reported Humalog (Insulin Lispro) 100 Unit/1 Ml Cartridge 30 Unit SQ DAILYWSUP Omeprazole 40 Mg Capsule.dr 1 Cap PO DAILY Zenpep Dr 10,000 Units Capsule (Lipase/Protease/Amylase) 1 Each Capsule.dr 1 Each PO DAILY Humalog (Insulin Lispro) 100 Unit/1 Ml Cartridge 0 SQ 25UAM-30UPM Mirapex (Pramipexole Di-Hcl) 0.25 Mg Tablet 1 Mg PO HS Levothyroxine Sodium 100 Mcg Tablet 1 Tab PO DAILY Levemir (Insulin Detemir) 100 Unit/1 Ml Vial 40 Unit SQ BID-AM AND HS Farxiga (Dapagliflozin Propanediol) 5 Mg Tablet 5 Mg PO DAILY Carbidopa-Levo Er 25-100 Tab (Carbidopa/Levodopa) 1 Each Tablet.er 1 Each PO BID Hydrocodone-Apap 10-325 (Hydrocodone Bit/Acetaminophen) 1 Each Tablet 1 Tab PO PRN Benadryl (Diphenhydramine Hcl) 25 Mg Capsule 25 Mg PO HS Propranolol Hcl 60 Mg Tablet 60 Mg PO HS Bethanechol Chloride 25 Mg Tablet 25 Mg PO BID Klor-Con 10 (Potassium Chloride) 10 Meq Tablet.er 20 Meq PO BID Welchol (Colesevelam Hcl) 625 Mg Tablet 625 Mg PO PRN QID PRN Glipizide 10 Mg Tablet 10 Mg PO BID Topiramate 100 Mg Tablet 100 Mg PO BID Lovastatin 40 Mg Tablet 40 Mg PO HS Vitals/I & O Vital Sign - Last 24 Hours 06/13/16 06/13/16 06/13/16 06/13/16 15:00 19:15 20:00 21:41 Temp 98.4 98.6 98.4 98.6 Pulse 79 79 79 Resp 14 18 B/P 123/59 110/55 110/55 Pulse Ox 93 95 O2 Delivery Nasal Cannula Room Air Room Air O2 Flow Rate 2.0 06/13/16 06/13/16 06/13/16 06/14/16 21:43 22:00 23:00 03:27 Temp 98.6 98.5 98.6 98.5 Pulse 73 66 Resp 18 18 18 18 B/P 107/54 115/61 Pulse Ox 96 98 O2 Delivery Room Air Room Air Nasal Cannula Room Air O2 Flow Rate 2.0 2.0 06/14/16 06/14/16 06/14/16 06/14/16 07:00 07:50 08:42 11:00 Temp 97.8 98.4 97.8 98.4 Pulse 75 73 Resp 18 B/P 108/59 97/46 Pulse Ox 97 91 O2 Delivery Room Air Room Air Room Air Room Air 06/14/16 06/14/16 13:19 14:20 Resp 18 O2 Delivery Room Air Room Air Intake and Output 06/13/16 06/13/16 06/14/16 15:00 23:00 07:00 Intake Total 50 ml Output Total 300 ml 500 ml Balance -300 ml -450 ml [id number] HERNANDEZ MD Jun 14, 2016 14:47
[2016-06-14 15:00] VITALS: BP 107/53
--- NOTE | 2016-06-14 15:48 | PDOC ---
Provider Note Provider Note 66 yo s/p bilateral mastectomies on 04/27/[address] IIIA (T3 N1 micro M0) lobular carcinoma of left breast. Developed post op cellulitis along left mastectomy incision and chest wall superiorly. Treated with oral Keflex 500mg QQID with progression. Now hospitalized since 06/11/2016. No IV Zosyn and oral doxycycline. She si feeling better with less left chest wall and shoulder pain. Some headache and memory loss. MRI brain 06/14/2016 was clear. PE Left chest wall erythema around mastectomy incision and superiorly Non-tender to palpation. Impression: Post-mastectomy cellulitis. Doing better on broad spectrum ATB. Anticipate beginning post operative chest wall radiation by Monday06/20/2016 if ok with other services. AMITA MAST MD Jun 14, 2016 15:48
[2016-06-14] MEDS: INSULIN LISPRO 30 UNIT SQ SCH (17:40)
[2016-06-14 19:00] VITALS: BP 105/52
--- NOTE | 2016-06-14 19:48 | EEG ---
DATE OF SERVICE: 06/14/2016 EEG NUMBER: [id number] OBJECTIVE: This is a 66-year-old female patient with history of mental status changes and confusion. EEG was requested to evaluate cerebral activity. METHOD: 20 electrodes were applied according to the International 10-20 electrode placement system. EKG monitoring, hyperventilation, intermittent photic stimulation, monopolar and bipolar montages are routinely utilized. The record was obtained on a digital system with video monitoring. FINDINGS: 1. Background: The patient was recorded in the awake, drowsy and sleep states. The overall background amplitude is 10-20 microvolts. A posterior dominant rhythm of 6-7 Hz is observed. 2. Abnormalities: No specific epileptiform discharge or electrographic seizure is seen. No focal or diffuse slowing. 3. Activation: Hyperventilation was performed with good efforts and normal response. Intermittent photic stimulation was performed with photic driving. IMPRESSION: This EEG is an abnormal study for the awake, drowsy and sleep states. The posterior dominant rhythm of 6-7 Hz is slow for age. No focal, lateralizing, specific epileptiform discharge, or electrographic seizure is seen. SERGIO CARTER MD DR: ARABELLA/elina JOB#: [id number] / [id number] PRASANNA
[2016-06-14] MEDS: INSULIN DETEMIR 300 UNITS/3 ML INSULN.PEN. SQ SCH (21:00)
[2016-06-14] MEDS: ATORVASTATIN CALCIUM 10 MG TABLET. PO SCH (22:02)
[2016-06-14] MEDS: PRAMIPEXOLE 0.25 MG TABLET. PO SCH (22:03)
[2016-06-14] MEDS: COLESEVELAM HCL 625 MG TABLET PO PRN (22:03)
[2016-06-14] MEDS: PROPRANOLOL ER 60 MG CAP.SA.24H. PO SCH (22:05)
[2016-06-14] MEDS: DIPHENHYDRAMINE HCL 25 MG CAPSULE PO SCH (22:07)
[2016-06-14] MEDS: POTASSIUM CHLORIDE 10 MEQ TABLET.ER. PO SCH (22:11)
[2016-06-14 23:00] VITALS: BP 103/52
[2016-06-14] MEDS ORDERED: DEXTROSE 50% 25 GM / 50ML DISP.SYRIN. IV PRN (23:15)
[2016-06-15 03:00] VITALS: BP 136/55
[2016-06-15] MEDS: HYDROCODONE/APAP 10/325 TABLET. PO PRN (03:32)
[2016-06-15] MEDS: PIPERACILLIN/TAZOBACTAM 3.375 GM in IV NORMAL SALINE 50ML 50 ML IV SCH ×3 (06:08→17:41)
[2016-06-15] MEDS: LEVOTHYROXINE 88 MCG TABLET PO SCH (06:08)
[2016-06-15 07:00] VITALS: BP 166/60
[2016-06-15] MEDS: ASPIRIN 81 MG TAB.CHEW PO SCH (08:00)
--- NOTE | 2016-06-15 08:36 | PDOC ---
Infectious Disease Note Subjective Subjective at bedside. Doing well this am. Reports feeling bloated all over. + BM times 2 Denies fever, pain or abd issues Mild nausea ROS ROS GEN: Denies fevers, chills, sweats HEENT: Denies blurred vision, sore throat CV: Denies chest pain RESP: Denies shortness of air, cough GI: Denies v/d NEURO: Denies confusion, dizziness MSK: Generalized swelling; Denies weakness, joint pain Sugars better Vital Sign Vital Signs Vital Signs Date Time Temp Pulse Resp B/P Pulse Ox O2 Delivery O2 Flow Rate FiO2 06/15/16 07:00 98.5 76 12 166/60 90 Room Air 98.5 06/15/16 03:32 2.0 Physical Exam PHYSICAL EXAM GENERAL: NAD, Alert HEENT: PERRL, OC/OP - clear NECK: Supple, no JVD, no LN LUNGS: Clear HEART: S1S2, no gallop, no murmur ABD: Soft, NT, no organomegaly, no rebound, obese EXT: B/l UE and LE edema, no cyanosis 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 Left breast area slowly resolving IV: ok Labs Lab Laboratory Tests Test 06/14/16 11:32 06/14/16 16:25 06/14/16 20:45 06/14/16 22:51 Glucose (Fingerstick) 162mg/dL (70-99) 123mg/dL (70-99) 82mg/dL (70-99) 43mg/dL (70-99) Test 06/14/16 23:10 06/14/16 23:35 06/15/16 02:11 06/15/16 07:07 Glucose (Fingerstick) 62mg/dL (70-99) 105mg/dL (70-99) 110mg/dL (70-99) 77mg/dL (70-99) Objective Assessment Cellulitis of chest wall - some better. Abx may have some difficulty penetrating scar tissue but is resolving -Failed OP Keflex. Invasive lobular carcinoma of left breast s/p bilat simple mastectomies w/ left SLN bx, 04/27/2016. CKD Diabetes- hypoglycemia Obesity H/o Pseudotumor Cerebrii MS change - MRI neg for acute Plan Plan of Care Cont Zosyn/Doxy F/u nausea Supportive care D/w AYESHA BROWN MD Jun 15, 2016 08:36
[2016-06-15] MEDS: COLESEVELAM HCL 625 MG TABLET PO PRN ×2 (08:54→21:31)
[2016-06-15] MEDS: CARBIDOPA/LEVODOPA CR 25/100MG TABLET.SA PO SCH ×2 (08:54→21:32)
[2016-06-15] MEDS: LIPASE/PROTEAS/AMYLAS 10/34/55 CAPSULE.DR. PO SCH ×2 (08:55→17:40)
[2016-06-15] MEDS: DOXYCYCLINE HYCLATE 100 MG TABLET PO SCH ×2 (08:55→21:32)
[2016-06-15] MEDS: CALCIUM CARBONATE 500 MG TABLET PO SCH ×2 (08:55→17:40)
[2016-06-15] MEDS: POTASSIUM CHLORIDE 20 MEQ TABLET.ER. PO SCH (08:55)
[2016-06-15] MEDS: OMEPRAZOLE 40 MG CAPSULE PO SCH (08:56)
[2016-06-15] MEDS: NON FORMULARY ITEM (Dapagliflozin Propanediol (Farxiga) 5 MG) PO SCH (08:56)
[2016-06-15] MEDS: BETHANECHOL CHLORIDE 25 MG TABLET PO SCH ×2 (08:56→21:33)
[2016-06-15] MEDS: INSULIN LISPRO 25 UNIT SQ SCH (08:57)
[2016-06-15] MEDS: TORSEMIDE 20 MG TABLET. PO SCH (08:58)
[2016-06-15] MEDS: TOPIRAMATE 100 MG TABLET. PO SCH ×2 (08:58→21:32)
--- NOTE | 2016-06-15 09:35 | PDOC ---
PROGRESS NOTES Chief Complaint Chief Complaint a/p metabolic encephalopathy, hypoglycemia A/P HX CVA, poss some cognitive decline, Cellulitis chest GERD Morbid obesity, BMI 46, DM2, w/ hypoglycemia HTN transient hypotension hypothyroid, CKD 3 Plan UA check for protein CBC/BMP IV ABX US LE R/O DVT OLD RECORDS REVIEWED, RENAL US NO HYDRONEPHROSIS CONTINUE CURRENT ABX ID/NEPHROLOGY/NEUROLOGY FOLLOWING LABS REVIEWED. History of Present Illness History of Present Illness Decrease doses of Lantus and DC glipizide, hypoglycemic again this AM mental status today about the same w/u heme, liver Vitals Vitals Vital Signs Date Time Temp Pulse Resp B/P Pulse Ox O2 Delivery O2 Flow Rate FiO2 06/15/16 07:00 98.5 76 12 166/60 90 Room Air 98.5 06/15/16 03:32 2.0 Physical Exam General: Alert, Oriented X3, Cooperative, No acute distress Heart: Regular rate, No murmurs Lungs: Clear, Other Abdomen: Normal bowel sounds, Soft, No tenderness Extremities: No clubbing, No edema Skin: Other (left chest erythema persists but looks a little less angry) Labs LABS Laboratory Tests Test 06/14/16 11:32 06/14/16 16:25 06/14/16 20:45 06/14/16 22:51 Glucose (Fingerstick) 162mg/dL (70-99) 123mg/dL (70-99) 82mg/dL (70-99) 43mg/dL (70-99) Test 06/14/16 23:10 06/14/16 23:35 06/15/16 02:11 06/15/16 07:07 Glucose (Fingerstick) 62mg/dL (70-99) 105mg/dL (70-99) 110mg/dL (70-99) 77mg/dL (70-99) Assessment and Plan Assessmemt and Plan Problems Medical Problems: (1) Cellulitis of chest wall Status: Acute (2) Post-operative infection Status: Acute Problems: Comment Review of Relevant I have reviewed the following items halle (where applicable) has been applied. Labs Laboratory Tests Test 06/13/16 10:49 06/13/16 11:15 06/13/16 14:51 06/13/16 16:15 Glucose (Fingerstick) 138mg/dL (70-99) 155mg/dL (70-99) 141mg/dL (70-99) Sodium Level 143mmol/L (136-145) Potassium Level 4.4mmol/L (3.5-5.1) Chloride Level 108mmol/L (98-107) Carbon Dioxide Level 27mmol/L (21-32) Anion Gap 8 (6-14) Blood Urea Nitrogen 19mg/dL (7-20) Creatinine 1.4mg/dL (0.6-1.0) Estimated GFR (Cockcroft-Gault) 37.9 Glucose Level 139mg/dL (70-99) Calcium Level 8.3mg/dL (8.5-10.1) Vitamin B12 Level 563pg/mL (211-946) 25-Hydroxy Vitamin D Total 10.6ng/mL (30.0-100.0) Thyroid Stimulating Hormone (TSH) 0.009uIU/mL (0.358-3.74) Vancomycin Level Trough 17.9mcg/mL (10.0-20.0) Vancomycin Last Dose Date 06/12/16 Vancomycin Last Dose Time 1200 Test 06/13/16 20:30 06/13/16 21:34 06/13/16 22:16 06/14/16 05:15 Urine Opiates Screen Pos (NEG) Urine Methadone Screen Neg (NEG) Urine Barbiturates Neg (NEG) Urine Phencyclidine Screen Neg (NEG) Urine Amphetamine/Methamphetamine Neg (NEG) Urine Benzodiazepines Screen Neg (NEG) Urine Cocaine Screen Neg (NEG) Urine Cannabinoids Screen Neg (NEG) Urine Ethyl Alcohol Neg (NEG) Glucose (Fingerstick) 67mg/dL (70-99) 71mg/dL (70-99) White Blood Count 5.8x10^3/uL (4.0-11.0) Red Blood Count 3.94x10^6/uL (3.50-5.40) Hemoglobin 10.7g/dL (12.0-15.5) Hematocrit 34.3% (36.0-47.0) Mean Corpuscular Volume 87fL (79-100) Mean Corpuscular Hemoglobin 27pg (25-35) Mean Corpuscular Hemoglobin Concent 31g/dL (31-37) Red Cell Distribution Width 16.1% (11.5-14.5) Platelet Count 121x10^3/uL (140-400) Neutrophils (%) (Auto) 58% (31-73) Lymphocytes (%) (Auto) 19% (24-48) Monocytes (%) (Auto) 13% (0-9) Eosinophils (%) (Auto) 9% (0-3) Basophils (%) (Auto) 1% (0-3) Neutrophils # (Auto) 3.4x10^3uL (1.8-7.7) Lymphocytes # (Auto) 1.1x10^3/uL (1.0-4.8) Monocytes # (Auto) 0.8x10^3/uL (0.0-1.1) Eosinophils # (Auto) 0.5x10^3/uL (0.0-0.7) Basophils # (Auto) 0.1x10^3/uL (0.0-0.2) Sodium Level 143mmol/L (136-145) Potassium Level 4.2mmol/L (3.5-5.1) Chloride Level 109mmol/L (98-107) Carbon Dioxide Level 24mmol/L (21-32) Anion Gap 10 (6-14) Blood Urea Nitrogen 19mg/dL (7-20) Creatinine 1.4mg/dL (0.6-1.0) Estimated GFR (Cockcroft-Gault) 37.9 BUN/Creatinine Ratio 14 (6-20) Glucose Level 41mg/dL (70-99) Calcium Level 8.7mg/dL (8.5-10.1) Total Bilirubin 0.9mg/dL (0.2-1.0) Aspartate Amino Transf (AST/SGOT) 32U/L (15-37) Alanine Aminotransferase (ALT/SGPT) < 6U/L (14-59) Alkaline Phosphatase 198U/L (46-116) Total Protein 6.8g/dL (6.4-8.2) Albumin 2.4g/dL (3.4-5.0) Albumin/Globulin Ratio 0.5 (1.0-1.7) Free Thyroxine 1.10ng/dL (0.76-1.46) Free Triiodothyronine (T3) pg/mL 1.71pg/mL (2.18-3.98) Test 06/14/16 07:23 06/14/16 08:16 06/14/16 11:32 06/14/16 16:25 Glucose (Fingerstick) 34mg/dL (70-99) 241mg/dL (70-99) 162mg/dL (70-99) 123mg/dL (70-99) Test 06/14/16 20:45 06/14/16 22:51 06/14/16 23:10 06/14/16 23:35 Glucose (Fingerstick) 82mg/dL (70-99) 43mg/dL (70-99) 62mg/dL (70-99) 105mg/dL (70-99) Test 06/15/16 02:11 06/15/16 07:07 Glucose (Fingerstick) 110mg/dL (70-99) 77mg/dL (70-99) Laboratory Tests Test 06/14/16 11:32 06/14/16 16:25 06/14/16 20:45 06/14/16 22:51 Glucose (Fingerstick) 162mg/dL (70-99) 123mg/dL (70-99) 82mg/dL (70-99) 43mg/dL (70-99) Test 06/14/16 23:10 06/14/16 23:35 06/15/16 02:11 06/15/16 07:07 Glucose (Fingerstick) 62mg/dL (70-99) 105mg/dL (70-99) 110mg/dL (70-99) 77mg/dL (70-99) Microbiology 06/11/16 Blood Culture - Preliminary, Resulted NO GROWTH AFTER 3 DAYS Medications Current Medications Morphine Sulfate 4 mg PRN Q15MIN PRN IV/SQ PAIN GREATER THAN 3/10 Last administered on 06/11/16 10:45; Start 06/11/16 at 10:45; Stop 06/12/16 at 10:44 ; Status DC Ondansetron HCl (Zofran) 4 mg 1X ONCE IV Last administered on 06/11/16 11:02 ; Start 06/11/16 at 11:00; Stop 06/11/16 at 11:01; Status DC Ondansetron HCl (Zofran) 4 mg PRN Q8HRS PRN IV NAUSEA/VOMITING Last administered on 06/12/16 04:52; Start 06/11/16 at 12:30; Stop 06/12/16 at 12:29 ; Status DC Morphine Sulfate 4 mg PRN Q2HR PRN IV PAIN Last administered on 06/12/16 11:00 ; Start 06/11/16 at 12:30; Stop 06/12/16 at 12:29; Status DC Vancomycin HCl 1 each 1 each PRN DAILY PRN MC SEE COMMENTS Last administered on 06/12/16 12:09; Start 06/11/16 at 12:30; Stop 06/13/16 at 11:47; Status DC Vancomycin HCl 2 gm/Sodium Chloride 500 ml @ 250 mls/hr 1X ONCE IV Last administered on 06/11/16 12:34; Start 06/11/16 at 12:30; Stop 06/11/16 at 14:29 ; Status DC Vancomycin HCl/ Sodium Chloride (Iv Sodium Chloride 0.9% 500ml Bag) 500 ml @ 250 mls/hr Q24H IV Last administered on 06/12/16 11:43; Start 06/12/16 at 12: 00; Stop 06/13/16 at 11:47; Status DC Vancomycin HCl 1 each 1X ONCE MC Last administered on 06/13/16 11:30; Start 06/13/16 at 11:30; Stop 06/13/16 at 11:31; Status DC Piperacillin Sod/ Tazobactam Sod 1 each 1 each PRN DAILY PRN MC SEE COMMENTS; Start 06/11/16 at 16:30; Stop 06/13/16 at 11:18; Status DC Piperacillin Sod/ Tazobactam Sod/ Sodium Chloride (Zosyn/Iv Sodium Chloride 0.9 % 50ml) 50 ml @ 100 mls/hr Q6HRS IV Last administered on 06/15/16 06:08; Start 06/11/16 at 17:00 Bethanechol Chloride (Urecholine) 25 mg BID PO Last administered on 06/15/16 08:56; Start 06/11/16 at 21:00 Carbidopa/Levodopa (Sinemet Cr) 1 tab.sa BID PO Last administered on 06/15/16 08:54; Start 06/11/16 at 21:00 Colesevelam HCl (Welchol) 625 mg PRN QID PRN PO DIARRHEA Last administered on 08:54; Start 06/11/16 at 16:45 Diphenhydramine HCl (Benadryl) 25 mg HS PO Last administered on 06/14/16 22:07 ; Start 06/11/16 at 21:00 Acetaminophen/ Hydrocodone Bitart (Lortab 10/325) 1 tab PRN Q4HRS PRN PO PAIN Last administered on 06/15/16 03:32; Start 06/11/16 at 16:45 Levothyroxine Sodium (Synthroid) 100 mcg DAILY PO Last administered on 08:20; Start 06/12/16 at 09:00; Stop 06/13/16 at 22:07; Status DC Amylase/Lipase/ Protease (Zenpep 10,000) 1 cap DAILYWBKFT PO ; Start 06/12/16 at 09:00; Stop 06/12/16 at 09:00; Status DC Pramipexole Dihydrochloride (miraPEX) 1 mg HS PO Last administered on 22:03; Start 06/11/16 at 21:00 Topiramate (Topamax) 100 mg BID PO Last administered on 06/15/16 08:58; Start 06/11/16 at 21:00 Torsemide (Demadex) 20 mg DAILY PO Last administered on 06/15/16 08:58; Start 06/12/16 at 09:00 Non-Formulary Medication 5 mg DAILY PO blood sugar Last administered on 08:56; Start 06/12/16 at 09:00 Glipizide (Glucotrol) 10 mg BIDBFRMEAL PO Last administered on 06/13/16 18:28 ; Start 06/12/16 at 17:00; Stop 06/13/16 at 21:54; Status DC Insulin Detemir (Levemir) 40 units Q12H SQ Last administered on 06/13/16 12:17 ; Start 06/11/16 at 21:00; Stop 06/13/16 at 21:53; Status DC Non-Formulary Medication 25 units DAILY SQ Last administered on 06/14/16 08:58 ; Start 06/12/16 at 09:00 Atorvastatin Calcium (Lipitor) 10 mg QHS PO Last administered on 06/14/16 22: 02; Start 06/11/16 at 21:00 Pantoprazole Sodium (Protonix) 40 mg DAILYAC PO ; Start 06/12/16 at 07:30; Status Cancel Potassium Chloride (Klor-Con) 20 meq BIDWMEALS PO ; Start 06/11/16 at 17:00; Status Cancel Propranolol HCl (Inderal La) 60 mg HS PO Last administered on 06/14/16 22:05; Start 06/11/16 at 21:00 Non-Formulary Medication 30 unit DAILYWSUP SQ Last administered on 06/14/16 17 :40; Start 06/11/16 at 17:00 Non-Formulary Medication 1 ea DAILY PO Last administered on 06/15/16 08:56; Start 06/12/16 at 09:00 Amylase/Lipase/ Protease (Zenpep 10,000) 1 cap BIDWMEALS PO Last administered on 06/15/16 08:55; Start 06/11/16 at 17:30 Potassium Chloride (Klor-Con) 20 meq DAILYWBKFT PO Last administered on 08:55; Start 06/12/16 at 08:00 Potassium Chloride (Klor-Con) 10 meq HS PO Last administered on 06/14/16 22:11 ; Start 06/11/16 at 21:00 Doxycycline Hyclate (Vibra-Tab) 100 mg BID PO Last administered on 06/15/16 08 :55; Start 06/13/16 at 12:00 Morphine Sulfate 2 mg PRN Q2HR PRN IV PAIN; Start 06/13/16 at 16:00 Polyethylene Glycol (miraLAX PACKET) 17 gm PRN DAILY PRN PO CONSTIPATION; Start 06/13/16 at 16:00 Aspirin (Children'S Aspirin) 81 mg DAILYWBKFT PO ; Start 06/14/16 at 08:00 Insulin Detemir (Levemir) 35 units Q12H SQ Last administered on 06/14/16 08:53 ; Start 06/14/16 at 09:00; Stop 06/14/16 at 11:15; Status DC Glipizide (Glucotrol) 5 mg BIDBFRMEAL PO Last administered on 06/14/16 08:42; Start 06/14/16 at 07:30; Stop 06/14/16 at 11:15; Status DC Oxycodone HCl (Roxicodone) 10 mg 1X ONCE PO Last administered on 06/13/16 22: 00; Start 06/13/16 at 22:15; Stop 06/13/16 at 22:16; Status DC Levothyroxine Sodium (Synthroid) 88 mcg DAILY07 PO Last administered on 06:08; Start 06/14/16 at 07:00 Dextrose 25 gm 1X ONCE IV Last administered on 06/14/16 07:29; Start at 07:30; Stop 06/14/16 at 07:31; Status DC Dextrose 25 gm STK-MED ONCE IV ; Start 06/14/16 at 07:28; Stop 06/14/16 at 10:08 ; Status DC Vitamin D (Vitamin D3) 5,000 unit DAILY PO ; Start 06/14/16 at 11:00; Stop 06/14 at 11:17; Status DC Calcium Carbonate/ Glycine (Oscal) 500 mg BIDAFTMEAL PO Last administered on 08:55; Start 06/14/16 at 11:00 Insulin Detemir (Levemir) 15 units HS SQ ; Start 06/14/16 at 21:00 Ergocalciferol (Vitamin D2) 50,000 unit WEEKLY PO Last administered on 13:19; Start 06/14/16 at 11:30 Dextrose 25 gm 1X ONCE IV Last administered on 06/14/16 23:18; Start at 23:30; Stop 06/14/16 at 23:31; Status DC Dextrose 12.5 gm PRN Q15MIN PRN IV LOW BLOOD SUGAR; Start 06/14/16 at 23:15 Active Scripts Active Demadex (Torsemide) 20 Mg Tablet 20 Mg PO DAILY Reported Humalog (Insulin Lispro) 100 Unit/1 Ml Cartridge 30 Unit SQ DAILYWSUP Omeprazole 40 Mg Capsule.dr 1 Cap PO DAILY Zenpep 10,000 Units Capsule (Lipase/Protease/Amylase) 1 Each Capsule.dr 1 Each PO DAILY Humalog (Insulin Lispro) 100 Unit/1 Ml Cartridge 0 SQ 25UAM-30UPM Mirapex (Pramipexole Di-Hcl) 0.25 Mg Tablet 1 Mg PO HS Levothyroxine Sodium 100 Mcg Tablet 1 Tab PO DAILY Levemir (Insulin Detemir) 100 Unit/1 Ml Vial 40 Unit SQ BID-AM AND HS Farxiga (Dapagliflozin Propanediol) 5 Mg Tablet 5 Mg PO DAILY Carbidopa-Levo Er 25-100 Tab (Carbidopa/Levodopa) 1 Each Tablet.er 1 Each PO BID Hydrocodone-Apap 10-325 (Hydrocodone Bit/Acetaminophen) 1 Each Tablet 1 Tab PO PRN Benadryl (Diphenhydramine Hcl) 25 Mg Capsule 25 Mg PO HS Propranolol Hcl 60 Mg Tablet 60 Mg PO HS Bethanechol Chloride 25 Mg Tablet 25 Mg PO BID Klor-Con 10 (Potassium Chloride) 10 Meq Tablet.er 20 Meq PO BID Welchol (Colesevelam Hcl) 625 Mg Tablet 625 Mg PO PRN QID PRN Glipizide 10 Mg Tablet 10 Mg PO BID Topiramate 100 Mg Tablet 100 Mg PO BID Lovastatin 40 Mg Tablet 40 Mg PO HS Vitals/I & O Vital Sign - Last 24 Hours 06/14/16 06/14/16 06/14/16 06/14/16 11:00 13:19 15:00 19:00 Temp 98.4 98.3 98.6 98.4 98.3 98.6 Pulse 73 74 79 Resp 18 20 18 20 B/P 97/46 107/53 105/52 Pulse Ox 91 97 96 O2 Delivery Room Air Room Air Room Air Room Air 06/14/16 06/14/16 06/14/16 06/14/16 20:00 22:04 22:05 23:00 Temp 98.4 98.4 Pulse 79 73 Resp 16 20 B/P 105/52 103/52 Pulse Ox 96 98 O2 Delivery Room Air Room Air Room Air 06/15/16 06/15/16 06/15/16 06/15/16 03:00 03:32 04:32 07:00 Temp 98.3 98.5 98.3 98.5 Pulse 78 76 Resp 20 16 16 12 B/P 136/55 166/60 Pulse Ox 91 98 98 90 O2 Delivery Room Air Room Air Room Air Room Air O2 Flow Rate 2.0 Intake and Output 06/14/16 06/14/16 06/15/16 15:00 23:00 07:00 Intake Total 120 ml Output Total 1300 ml Balance -1180 ml HERMAN RICHARD MD Jun 15, 2016 09:35
[2016-06-15 10:00] LABS: CALCIUM 8.4 mg/dL (8.5-10.1); CREATININE 1.5 mg/dL (0.6-1.0); POTASSIUM 4.3 mmol/L (3.5-5.1)
[2016-06-15 10:10] LABS: BASO # 0.1 x10^3/uL (0.0-0.2); BASO % 1 % (0-3); EOS % 9 % (0-3); HEMATOCRIT 30.4 % (36.0-47.0); HEMOGLOBIN 9.6 g/dL (12.0-15.5); LYMPH # 0.9 x10^3/uL (1.0-4.8); LYMPH % 18 % (24-48); MEAN CORPUSCULAR HEMOGLOBIN 27 pg (25-35); MEAN CORPUSCULAR HGB CONC 32 g/dL (31-37); MEAN CORPUSCULAR VOLUME 85 fL (79-100); MONO % 11 % (0-9); NEUT % 61 % (31-73); PLATELET COUNT 118 x10^3/uL (140-400); RED BLOOD COUNT 3.56 x10^6/uL (3.50-5.40); RED CELL DISTRIBUTION WIDTH 16.2 % (11.5-14.5)
--- NOTE | 2016-06-15 10:50 | RAD ---
EXAM: Bilateral lower extremity venous Doppler. HISTORY: Bilateral lower extremity pain/swelling. COMPARISON: None. FINDINGS: Grayscale and Doppler analysis of the both lower extremity deep venous systems was performed with graded compression and augmentation. The common femoral, greater saphenous, superficial femoral, popliteal and calf veins were assessed. There is no evidence of deep venous thrombosis. IMPRESSION: 1. No evidence of deep venous thrombosis.
[2016-06-15 11:00] VITALS: BP 157/60
--- NOTE | 2016-06-15 11:25 | PDOC ---
PROGRESS NOTES Assessment Problems Medical Problems: (1) Cellulitis of chest wall Status: Acute (2) Post-operative infection Status: Acute Metabolic encephalopathy. No evidence of acute CVA this time. Plan Will follow Subjective No complaints Objective Vital Signs Date Time Temp Pulse Resp B/P Pulse Ox O2 Delivery O2 Flow Rate FiO2 06/15/16 11:00 98.3 81 14 157/60 91 Room Air 98.3 06/15/16 03:32 2.0 Intake and Output 06/15/16 07:00 Intake Total 120 ml Output Total 1300 ml Balance -1180 ml Intake Oral 120 ml Output Urine Total 1300 ml # Voids 3 # Bowel Movements 1 PHYSICAL EXAM Alert. Oriented to time, place and person. PERRL. EOMI. CN: no focal findings. Muscle tone: normal. Muscle strength: 4/5 DTR: 1+ Plantar reflex: flexor Gait: not examined in bed. Sensory exam: no abnormal findings. No cerebellar signs elicited. Review of Relevant I have reviewed the following items halle (where applicable) has been applied. Labs Laboratory Tests Test 06/13/16 14:51 06/13/16 16:15 06/13/16 20:30 06/13/16 21:34 Glucose (Fingerstick) 155mg/dL (70-99) 141mg/dL (70-99) 67mg/dL (70-99) Urine Opiates Screen Pos (NEG) Urine Methadone Screen Neg (NEG) Urine Barbiturates Neg (NEG) Urine Phencyclidine Screen Neg (NEG) Urine Amphetamine/Methamphetamine Neg (NEG) Urine Benzodiazepines Screen Neg (NEG) Urine Cocaine Screen Neg (NEG) Urine Cannabinoids Screen Neg (NEG) Urine Ethyl Alcohol Neg (NEG) Test 06/13/16 22:16 06/14/16 05:15 06/14/16 07:23 06/14/16 08:16 Glucose (Fingerstick) 71mg/dL (70-99) 34mg/dL (70-99) 241mg/dL (70-99) White Blood Count 5.8x10^3/uL (4.0-11.0) Red Blood Count 3.94x10^6/uL (3.50-5.40) Hemoglobin 10.7g/dL (12.0-15.5) Hematocrit 34.3% (36.0-47.0) Mean Corpuscular Volume 87fL (79-100) Mean Corpuscular Hemoglobin 27pg (25-35) Mean Corpuscular Hemoglobin Concent 31g/dL (31-37) Red Cell Distribution Width 16.1% (11.5-14.5) Platelet Count 121x10^3/uL (140-400) Neutrophils (%) (Auto) 58% (31-73) Lymphocytes (%) (Auto) 19% (24-48) Monocytes (%) (Auto) 13% (0-9) Eosinophils (%) (Auto) 9% (0-3) Basophils (%) (Auto) 1% (0-3) Neutrophils # (Auto) 3.4x10^3uL (1.8-7.7) Lymphocytes # (Auto) 1.1x10^3/uL (1.0-4.8) Monocytes # (Auto) 0.8x10^3/uL (0.0-1.1) Eosinophils # (Auto) 0.5x10^3/uL (0.0-0.7) Basophils # (Auto) 0.1x10^3/uL (0.0-0.2) Sodium Level 143mmol/L (136-145) Potassium Level 4.2mmol/L (3.5-5.1) Chloride Level 109mmol/L (98-107) Carbon Dioxide Level 24mmol/L (21-32) Anion Gap 10 (6-14) Blood Urea Nitrogen 19mg/dL (7-20) Creatinine 1.4mg/dL (0.6-1.0) Estimated GFR (Cockcroft-Gault) 37.9 BUN/Creatinine Ratio 14 (6-20) Glucose Level 41mg/dL (70-99) Calcium Level 8.7mg/dL (8.5-10.1) Total Bilirubin 0.9mg/dL (0.2-1.0) Aspartate Amino Transf (AST/SGOT) 32U/L (15-37) Alanine Aminotransferase (ALT/SGPT) < 6U/L (14-59) Alkaline Phosphatase 198U/L (46-116) Total Protein 6.8g/dL (6.4-8.2) Albumin 2.4g/dL (3.4-5.0) Albumin/Globulin Ratio 0.5 (1.0-1.7) Free Thyroxine 1.10ng/dL (0.76-1.46) Free Triiodothyronine (T3) pg/mL 1.71pg/mL (2.18-3.98) Test 06/14/16 11:32 06/14/16 16:25 06/14/16 20:45 06/14/16 22:51 Glucose (Fingerstick) 162mg/dL (70-99) 123mg/dL (70-99) 82mg/dL (70-99) 43mg/dL (70-99) Test 06/14/16 23:10 06/14/16 23:35 06/15/16 02:11 06/15/16 04:22 Glucose (Fingerstick) 62mg/dL (70-99) 105mg/dL (70-99) 110mg/dL (70-99) White Blood Count 5.0x10^3/uL (4.0-11.0) Red Blood Count 3.56x10^6/uL (3.50-5.40) Hemoglobin 9.6g/dL (12.0-15.5) Hematocrit 30.4% (36.0-47.0) Mean Corpuscular Volume 85fL (79-100) Mean Corpuscular Hemoglobin 27pg (25-35) Mean Corpuscular Hemoglobin Concent 32g/dL (31-37) Red Cell Distribution Width 16.2% (11.5-14.5) Platelet Count 118x10^3/uL (140-400) Neutrophils (%) (Auto) 61% (31-73) Lymphocytes (%) (Auto) 18% (24-48) Monocytes (%) (Auto) 11% (0-9) Eosinophils (%) (Auto) 9% (0-3) Basophils (%) (Auto) 1% (0-3) Neutrophils # (Auto) 3.0x10^3uL (1.8-7.7) Lymphocytes # (Auto) 0.9x10^3/uL (1.0-4.8) Monocytes # (Auto) 0.6x10^3/uL (0.0-1.1) Eosinophils # (Auto) 0.4x10^3/uL (0.0-0.7) Basophils # (Auto) 0.1x10^3/uL (0.0-0.2) Sodium Level 143mmol/L (136-145) Potassium Level 4.3mmol/L (3.5-5.1) Chloride Level 108mmol/L (98-107) Carbon Dioxide Level 24mmol/L (21-32) Anion Gap 11 (6-14) Blood Urea Nitrogen 20mg/dL (7-20) Creatinine 1.5mg/dL (0.6-1.0) Estimated GFR (Cockcroft-Gault) 35.0 Glucose Level 101mg/dL (70-99) Calcium Level 8.4mg/dL (8.5-10.1) Test 06/15/16 07:07 06/15/16 10:47 Glucose (Fingerstick) 77mg/dL (70-99) 145mg/dL (70-99) Laboratory Tests Test 06/14/16 11:32 06/14/16 16:25 06/14/16 20:45 06/14/16 22:51 Glucose (Fingerstick) 162mg/dL (70-99) 123mg/dL (70-99) 82mg/dL (70-99) 43mg/dL (70-99) Test 06/14/16 23:10 06/14/16 23:35 06/15/16 02:11 06/15/16 04:22 Glucose (Fingerstick) 62mg/dL (70-99) 105mg/dL (70-99) 110mg/dL (70-99) White Blood Count 5.0x10^3/uL (4.0-11.0) Red Blood Count 3.56x10^6/uL (3.50-5.40) Hemoglobin 9.6g/dL (12.0-15.5) Hematocrit 30.4% (36.0-47.0) Mean Corpuscular Volume 85fL (79-100) Mean Corpuscular Hemoglobin 27pg (25-35) Mean Corpuscular Hemoglobin Concent 32g/dL (31-37) Red Cell Distribution Width 16.2% (11.5-14.5) Platelet Count 118x10^3/uL (140-400) Neutrophils (%) (Auto) 61% (31-73) Lymphocytes (%) (Auto) 18% (24-48) Monocytes (%) (Auto) 11% (0-9) Eosinophils (%) (Auto) 9% (0-3) Basophils (%) (Auto) 1% (0-3) Neutrophils # (Auto) 3.0x10^3uL (1.8-7.7) Lymphocytes # (Auto) 0.9x10^3/uL (1.0-4.8) Monocytes # (Auto) 0.6x10^3/uL (0.0-1.1) Eosinophils # (Auto) 0.4x10^3/uL (0.0-0.7) Basophils # (Auto) 0.1x10^3/uL (0.0-0.2) Sodium Level 143mmol/L (136-145) Potassium Level 4.3mmol/L (3.5-5.1) Chloride Level 108mmol/L (98-107) Carbon Dioxide Level 24mmol/L (21-32) Anion Gap 11 (6-14) Blood Urea Nitrogen 20mg/dL (7-20) Creatinine 1.5mg/dL (0.6-1.0) Estimated GFR (Cockcroft-Gault) 35.0 Glucose Level 101mg/dL (70-99) Calcium Level 8.4mg/dL (8.5-10.1) Test 06/15/16 07:07 06/15/16 10:47 Glucose (Fingerstick) 77mg/dL (70-99) 145mg/dL (70-99) Microbiology 06/11/16 Blood Culture - Preliminary, Resulted NO GROWTH AFTER 3 DAYS Medications Current Medications Morphine Sulfate 4 mg PRN Q15MIN PRN IV/SQ PAIN GREATER THAN 3/10 Last administered on 06/11/16 10:45; Start 06/11/16 at 10:45; Stop 06/12/16 at 10:44 ; Status DC Ondansetron HCl (Zofran) 4 mg 1X ONCE IV Last administered on 06/11/16 11:02 ; Start 06/11/16 at 11:00; Stop 06/11/16 at 11:01; Status DC Ondansetron HCl (Zofran) 4 mg PRN Q8HRS PRN IV NAUSEA/VOMITING Last administered on 06/12/16 04:52; Start 06/11/16 at 12:30; Stop 06/12/16 at 12:29 ; Status DC Morphine Sulfate 4 mg PRN Q2HR PRN IV PAIN Last administered on 06/12/16 11:00 ; Start 06/11/16 at 12:30; Stop 06/12/16 at 12:29; Status DC Vancomycin HCl 1 each 1 each PRN DAILY PRN MC SEE COMMENTS Last administered on 06/12/16 12:09; Start 06/11/16 at 12:30; Stop 06/13/16 at 11:47; Status DC Vancomycin HCl 2 gm/Sodium Chloride 500 ml @ 250 mls/hr 1X ONCE IV Last administered on 06/11/16 12:34; Start 06/11/16 at 12:30; Stop 06/11/16 at 14:29 ; Status DC Vancomycin HCl/ Sodium Chloride (Iv Sodium Chloride 0.9% 500ml Bag) 500 ml @ 250 mls/hr Q24H IV Last administered on 06/12/16 11:43; Start 06/12/16 at 12: 00; Stop 06/13/16 at 11:47; Status DC Vancomycin HCl 1 each 1X ONCE MC Last administered on 06/13/16 11:30; Start 06/13/16 at 11:30; Stop 06/13/16 at 11:31; Status DC Piperacillin Sod/ Tazobactam Sod 1 each 1 each PRN DAILY PRN MC SEE COMMENTS; Start 06/11/16 at 16:30; Stop 06/13/16 at 11:18; Status DC Piperacillin Sod/ Tazobactam Sod/ Sodium Chloride (Zosyn/Iv Sodium Chloride 0.9 % 50ml) 50 ml @ 100 mls/hr Q6HRS IV Last administered on 06/15/16 06:08; Start 06/11/16 at 17:00 Bethanechol Chloride (Urecholine) 25 mg BID PO Last administered on 06/15/16 08:56; Start 06/11/16 at 21:00 Carbidopa/Levodopa (Sinemet Cr) 1 tab.sa BID PO Last administered on 06/15/16 08:54; Start 06/11/16 at 21:00 Colesevelam HCl (Welchol) 625 mg PRN QID PRN PO DIARRHEA Last administered on 08:54; Start 06/11/16 at 16:45 Diphenhydramine HCl (Benadryl) 25 mg HS PO Last administered on 06/14/16 22:07 ; Start 06/11/16 at 21:00 Acetaminophen/ Hydrocodone Bitart (Lortab 10/325) 1 tab PRN Q4HRS PRN PO PAIN Last administered on 06/15/16 03:32; Start 06/11/16 at 16:45 Levothyroxine Sodium (Synthroid) 100 mcg DAILY PO Last administered on 08:20; Start 06/12/16 at 09:00; Stop 06/13/16 at 22:07; Status DC Amylase/Lipase/ Protease (Zenpep 10,000) 1 cap DAILYWBKFT PO ; Start 06/12/16 at 09:00; Stop 06/12/16 at 09:00; Status DC Pramipexole Dihydrochloride (miraPEX) 1 mg HS PO Last administered on 22:03; Start 06/11/16 at 21:00 Topiramate (Topamax) 100 mg BID PO Last administered on 06/15/16 08:58; Start 06/11/16 at 21:00 Torsemide (Demadex) 20 mg DAILY PO Last administered on 06/15/16 08:58; Start 06/12/16 at 09:00 Non-Formulary Medication 5 mg DAILY PO blood sugar Last administered on 08:56; Start 06/12/16 at 09:00 Glipizide (Glucotrol) 10 mg BIDBFRMEAL PO Last administered on 06/13/16 18:28 ; Start 06/12/16 at 17:00; Stop 06/13/16 at 21:54; Status DC Insulin Detemir (Levemir) 40 units Q12H SQ Last administered on 06/13/16 12:17 ; Start 06/11/16 at 21:00; Stop 06/13/16 at 21:53; Status DC Non-Formulary Medication 25 units DAILY SQ Last administered on 06/14/16 08:58 ; Start 06/12/16 at 09:00 Atorvastatin Calcium (Lipitor) 10 mg QHS PO Last administered on 06/14/16 22: 02; Start 06/11/16 at 21:00 Pantoprazole Sodium (Protonix) 40 mg DAILYAC PO ; Start 06/12/16 at 07:30; Status Cancel Potassium Chloride (Klor-Con) 20 meq BIDWMEALS PO ; Start 06/11/16 at 17:00; Status Cancel Propranolol HCl (Inderal La) 60 mg HS PO Last administered on 06/14/16 22:05; Start 06/11/16 at 21:00 Non-Formulary Medication 30 unit DAILYWSUP SQ Last administered on 06/14/16 17 :40; Start 06/11/16 at 17:00 Non-Formulary Medication 1 ea DAILY PO Last administered on 06/15/16 08:56; Start 06/12/16 at 09:00 Amylase/Lipase/ Protease (Zenpep 10,000) 1 cap BIDWMEALS PO Last administered on 06/15/16 08:55; Start 06/11/16 at 17:30 Potassium Chloride (Klor-Con) 20 meq DAILYWBKFT PO Last administered on 08:55; Start 06/12/16 at 08:00 Potassium Chloride (Klor-Con) 10 meq HS PO Last administered on 06/14/16 22:11 ; Start 06/11/16 at 21:00 Doxycycline Hyclate (Vibra-Tab) 100 mg BID PO Last administered on 06/15/16 08 :55; Start 06/13/16 at 12:00 Morphine Sulfate 2 mg PRN Q2HR PRN IV PAIN; Start 06/13/16 at 16:00 Polyethylene Glycol (miraLAX PACKET) 17 gm PRN DAILY PRN PO CONSTIPATION; Start 06/13/16 at 16:00 Aspirin (Children'S Aspirin) 81 mg DAILYWBKFT PO ; Start 06/14/16 at 08:00 Insulin Detemir (Levemir) 35 units Q12H SQ Last administered on 06/14/16 08:53 ; Start 06/14/16 at 09:00; Stop 06/14/16 at 11:15; Status DC Glipizide (Glucotrol) 5 mg BIDBFRMEAL PO Last administered on 06/14/16 08:42; Start 06/14/16 at 07:30; Stop 06/14/16 at 11:15; Status DC Oxycodone HCl (Roxicodone) 10 mg 1X ONCE PO Last administered on 06/13/16 22: 00; Start 06/13/16 at 22:15; Stop 06/13/16 at 22:16; Status DC Levothyroxine Sodium (Synthroid) 88 mcg DAILY07 PO Last administered on 06:08; Start 06/14/16 at 07:00 Dextrose 25 gm 1X ONCE IV Last administered on 06/14/16 07:29; Start at 07:30; Stop 06/14/16 at 07:31; Status DC Dextrose 25 gm STK-MED ONCE IV ; Start 06/14/16 at 07:28; Stop 06/14/16 at 10:08 ; Status DC Vitamin D (Vitamin D3) 5,000 unit DAILY PO ; Start 06/14/16 at 11:00; Stop 06/14 at 11:17; Status DC Calcium Carbonate/ Glycine (Oscal) 500 mg BIDAFTMEAL PO Last administered on 08:55; Start 06/14/16 at 11:00 Insulin Detemir (Levemir) 15 units HS SQ ; Start 06/14/16 at 21:00 Ergocalciferol (Vitamin D2) 50,000 unit WEEKLY PO Last administered on 13:19; Start 06/14/16 at 11:30 Dextrose 25 gm 1X ONCE IV Last administered on 06/14/16 23:18; Start at 23:30; Stop 06/14/16 at 23:31; Status DC Dextrose 12.5 gm PRN Q15MIN PRN IV LOW BLOOD SUGAR; Start 06/14/16 at 23:15 Active Scripts Active Demadex (Torsemide) 20 Mg Tablet 20 Mg PO DAILY Reported Humalog (Insulin Lispro) 100 Unit/1 Ml Cartridge 30 Unit SQ DAILYWSUP Omeprazole 40 Mg Capsule.dr 1 Cap PO DAILY Nasirp 10,000 Units Capsule (Lipase/Protease/Amylase) 1 Each Capsule.dr 1 Each PO DAILY Humalog (Insulin Lispro) 100 Unit/1 Ml Cartridge 0 SQ 25UAM-30UPM Mirapex (Pramipexole Di-Hcl) 0.25 Mg Tablet 1 Mg PO HS Levothyroxine Sodium 100 Mcg Tablet 1 Tab PO DAILY Levemir (Insulin Detemir) 100 Unit/1 Ml Vial 40 Unit SQ BID-AM AND HS Farxiga (Dapagliflozin Propanediol) 5 Mg Tablet 5 Mg PO DAILY Carbidopa-Levo Er 25-100 Tab (Carbidopa/Levodopa) 1 Each Tablet.er 1 Each PO BID Hydrocodone-Apap 10-325 (Hydrocodone Bit/Acetaminophen) 1 Each Tablet 1 Tab PO PRN Benadryl (Diphenhydramine Hcl) 25 Mg Capsule 25 Mg PO HS Propranolol Hcl 60 Mg Tablet 60 Mg PO HS Bethanechol Chloride 25 Mg Tablet 25 Mg PO BID Klor-Con 10 (Potassium Chloride) 10 Meq Tablet.er 20 Meq PO BID Welchol (Colesevelam Hcl) 625 Mg Tablet 625 Mg PO PRN QID PRN Glipizide 10 Mg Tablet 10 Mg PO BID Topiramate 100 Mg Tablet 100 Mg PO BID Lovastatin 40 Mg Tablet 40 Mg PO HS Vitals/I & O Vital Sign - Last 24 Hours 06/14/16 06/14/16 06/14/16 06/14/16 13:19 15:00 19:00 20:00 Temp 98.3 98.6 98.3 98.6 Pulse 74 79 Resp 20 18 20 B/P 107/53 105/52 Pulse Ox 97 96 O2 Delivery Room Air Room Air Room Air Room Air 06/14/16 06/14/16 06/14/16 06/15/16 22:04 22:05 23:00 03:00 Temp 98.4 98.3 98.4 98.3 Pulse 79 73 78 Resp 16 20 20 B/P 105/52 103/52 136/55 Pulse Ox 96 98 91 O2 Delivery Room Air Room Air Room Air 06/15/16 06/15/16 06/15/16 06/15/16 03:32 04:32 07:00 11:00 Temp 98.5 98.3 98.5 98.3 Pulse 76 81 Resp 16 16 12 14 B/P 166/60 157/60 Pulse Ox 98 98 90 91 O2 Delivery Room Air Room Air Room Air Room Air O2 Flow Rate 2.0 Intake and Output 06/14/16 06/14/16 06/15/16 15:00 23:00 07:00 Intake Total 120 ml Output Total 1300 ml Balance -1180 ml MERLY JEFFERSON MD Jun 15, 2016 11:25
--- NOTE | 2016-06-15 14:26 | PDOC ---
SURGICAL PROGRESS NOTE Subjective a little more alert no new complaints Vital Signs Vital Signs Date Time Temp Pulse Resp B/P Pulse Ox O2 Delivery O2 Flow Rate FiO2 06/15/16 11:00 98.3 81 14 157/60 91 Room Air 98.3 06/15/16 03:32 2.0 I&O Intake and Output 06/15/16 07:00 Intake Total 120 ml Output Total 1300 ml Balance -1180 ml Intake Oral 120 ml Output Urine Total 1300 ml # Voids 3 # Bowel Movements 1 PATIENT HAS A RAMIREZ: No General: Alert, No acute distress Skin: Other (left chest cellulitis slowly improving) Labs Laboratory Tests Test 06/13/16 14:51 06/13/16 16:15 06/13/16 20:30 06/13/16 21:34 Glucose (Fingerstick) 155mg/dL (70-99) 141mg/dL (70-99) 67mg/dL (70-99) Urine Opiates Screen Pos (NEG) Urine Methadone Screen Neg (NEG) Urine Barbiturates Neg (NEG) Urine Phencyclidine Screen Neg (NEG) Urine Amphetamine/Methamphetamine Neg (NEG) Urine Benzodiazepines Screen Neg (NEG) Urine Cocaine Screen Neg (NEG) Urine Cannabinoids Screen Neg (NEG) Urine Ethyl Alcohol Neg (NEG) Test 06/13/16 22:16 06/14/16 05:15 06/14/16 07:23 06/14/16 08:16 Glucose (Fingerstick) 71mg/dL (70-99) 34mg/dL (70-99) 241mg/dL (70-99) White Blood Count 5.8x10^3/uL (4.0-11.0) Red Blood Count 3.94x10^6/uL (3.50-5.40) Hemoglobin 10.7g/dL (12.0-15.5) Hematocrit 34.3% (36.0-47.0) Mean Corpuscular Volume 87fL (79-100) Mean Corpuscular Hemoglobin 27pg (25-35) Mean Corpuscular Hemoglobin Concent 31g/dL (31-37) Red Cell Distribution Width 16.1% (11.5-14.5) Platelet Count 121x10^3/uL (140-400) Neutrophils (%) (Auto) 58% (31-73) Lymphocytes (%) (Auto) 19% (24-48) Monocytes (%) (Auto) 13% (0-9) Eosinophils (%) (Auto) 9% (0-3) Basophils (%) (Auto) 1% (0-3) Neutrophils # (Auto) 3.4x10^3uL (1.8-7.7) Lymphocytes # (Auto) 1.1x10^3/uL (1.0-4.8) Monocytes # (Auto) 0.8x10^3/uL (0.0-1.1) Eosinophils # (Auto) 0.5x10^3/uL (0.0-0.7) Basophils # (Auto) 0.1x10^3/uL (0.0-0.2) Sodium Level 143mmol/L (136-145) Potassium Level 4.2mmol/L (3.5-5.1) Chloride Level 109mmol/L (98-107) Carbon Dioxide Level 24mmol/L (21-32) Anion Gap 10 (6-14) Blood Urea Nitrogen 19mg/dL (7-20) Creatinine 1.4mg/dL (0.6-1.0) Estimated GFR (Cockcroft-Gault) 37.9 BUN/Creatinine Ratio 14 (6-20) Glucose Level 41mg/dL (70-99) Calcium Level 8.7mg/dL (8.5-10.1) Total Bilirubin 0.9mg/dL (0.2-1.0) Aspartate Amino Transf (AST/SGOT) 32U/L (15-37) Alanine Aminotransferase (ALT/SGPT) < 6U/L (14-59) Alkaline Phosphatase 198U/L (46-116) Total Protein 6.8g/dL (6.4-8.2) Albumin 2.4g/dL (3.4-5.0) Albumin/Globulin Ratio 0.5 (1.0-1.7) Free Thyroxine 1.10ng/dL (0.76-1.46) Free Triiodothyronine (T3) pg/mL 1.71pg/mL (2.18-3.98) Test 06/14/16 11:32 06/14/16 16:25 06/14/16 20:45 06/14/16 22:51 Glucose (Fingerstick) 162mg/dL (70-99) 123mg/dL (70-99) 82mg/dL (70-99) 43mg/dL (70-99) Test 06/14/16 23:10 06/14/16 23:35 06/15/16 02:11 06/15/16 04:22 Glucose (Fingerstick) 62mg/dL (70-99) 105mg/dL (70-99) 110mg/dL (70-99) White Blood Count 5.0x10^3/uL (4.0-11.0) Red Blood Count 3.56x10^6/uL (3.50-5.40) Hemoglobin 9.6g/dL (12.0-15.5) Hematocrit 30.4% (36.0-47.0) Mean Corpuscular Volume 85fL (79-100) Mean Corpuscular Hemoglobin 27pg (25-35) Mean Corpuscular Hemoglobin Concent 32g/dL (31-37) Red Cell Distribution Width 16.2% (11.5-14.5) Platelet Count 118x10^3/uL (140-400) Neutrophils (%) (Auto) 61% (31-73) Lymphocytes (%) (Auto) 18% (24-48) Monocytes (%) (Auto) 11% (0-9) Eosinophils (%) (Auto) 9% (0-3) Basophils (%) (Auto) 1% (0-3) Neutrophils # (Auto) 3.0x10^3uL (1.8-7.7) Lymphocytes # (Auto) 0.9x10^3/uL (1.0-4.8) Monocytes # (Auto) 0.6x10^3/uL (0.0-1.1) Eosinophils # (Auto) 0.4x10^3/uL (0.0-0.7) Basophils # (Auto) 0.1x10^3/uL (0.0-0.2) Sodium Level 143mmol/L (136-145) Potassium Level 4.3mmol/L (3.5-5.1) Chloride Level 108mmol/L (98-107) Carbon Dioxide Level 24mmol/L (21-32) Anion Gap 11 (6-14) Blood Urea Nitrogen 20mg/dL (7-20) Creatinine 1.5mg/dL (0.6-1.0) Estimated GFR (Cockcroft-Gault) 35.0 Glucose Level 101mg/dL (70-99) Calcium Level 8.4mg/dL (8.5-10.1) Test 06/15/16 07:07 06/15/16 10:47 Glucose (Fingerstick) 77mg/dL (70-99) 145mg/dL (70-99) Laboratory Tests Test 06/14/16 16:25 06/14/16 20:45 06/14/16 22:51 06/14/16 23:10 Glucose (Fingerstick) 123mg/dL (70-99) 82mg/dL (70-99) 43mg/dL (70-99) 62mg/dL (70-99) Test 06/14/16 23:35 06/15/16 02:11 06/15/16 04:22 06/15/16 07:07 Glucose (Fingerstick) 105mg/dL (70-99) 110mg/dL (70-99) 77mg/dL (70-99) White Blood Count 5.0x10^3/uL (4.0-11.0) Red Blood Count 3.56x10^6/uL (3.50-5.40) Hemoglobin 9.6g/dL (12.0-15.5) Hematocrit 30.4% (36.0-47.0) Mean Corpuscular Volume 85fL (79-100) Mean Corpuscular Hemoglobin 27pg (25-35) Mean Corpuscular Hemoglobin Concent 32g/dL (31-37) Red Cell Distribution Width 16.2% (11.5-14.5) Platelet Count 118x10^3/uL (140-400) Neutrophils (%) (Auto) 61% (31-73) Lymphocytes (%) (Auto) 18% (24-48) Monocytes (%) (Auto) 11% (0-9) Eosinophils (%) (Auto) 9% (0-3) Basophils (%) (Auto) 1% (0-3) Neutrophils # (Auto) 3.0x10^3uL (1.8-7.7) Lymphocytes # (Auto) 0.9x10^3/uL (1.0-4.8) Monocytes # (Auto) 0.6x10^3/uL (0.0-1.1) Eosinophils # (Auto) 0.4x10^3/uL (0.0-0.7) Basophils # (Auto) 0.1x10^3/uL (0.0-0.2) Sodium Level 143mmol/L (136-145) Potassium Level 4.3mmol/L (3.5-5.1) Chloride Level 108mmol/L (98-107) Carbon Dioxide Level 24mmol/L (21-32) Anion Gap 11 (6-14) Blood Urea Nitrogen 20mg/dL (7-20) Creatinine 1.5mg/dL (0.6-1.0) Estimated GFR (Cockcroft-Gault) 35.0 Glucose Level 101mg/dL (70-99) Calcium Level 8.4mg/dL (8.5-10.1) Test 06/15/16 10:47 Glucose (Fingerstick) 145mg/dL (70-99) Problem List Problems Medical Problems: (1) Cellulitis of chest wall Status: Acute (2) Post-operative infection Status: Acute Assessment/Plan s/p bilateral mastectomies left chest cellulitis continue abx Problems: NADJA MARY MD Jun 15, 2016 14:26
[2016-06-15 14:50] LABS: BILIRUBIN,URINE NEGATIVE (NEG); GLUCOSE,URINE 500 mg/dL (NEG); NITRITE,URINE NEGATIVE (NEG); PROTEIN,URINE NEGATIVE (NEG-TRACE); UROBILINOGEN,URINE 0.2 mg/dL (0.2 mg/dL)
[2016-06-15 15:00] VITALS: BP 149/63
[2016-06-15] MEDS ORDERED: hydrALAZINE 20 MG/ML VIAL. IVP PRN (15:00)
--- NOTE | 2016-06-15 15:10 | PDOC2 ---
CONSULT Date of Consult Date of Consult DATE: 06/15/16 TIME: 15:00 Reason for Consult Reason for Consult: HENRRY Referring Physician Referring Physician: Dr Davis Identification/Chief Complaint Chief Complaint Breast area cellulitis post mastectomy Problems: Source Source: Chart review, Patient History of Present Illness Reason for Visit: as dictated Past Medical History Cardiovascular: HTN, Hyperlipidemia Pulmonary: Other GI: Diverticulosis, Peptic Ulcer disease, Other Heme/Onc: Other Hepatobiliary: Other Psych: Depression Musculoskeletal: low back pain Infectious disease: No pertinent hx Endocrine: Diabetes Past Surgical History Past Surgical History: Other Family History Family History: No Significant, Kidney Disease Social History No ALCOHOL: none Drugs: None Lives: with Family Current Problem List Problem List Problems Medical Problems: (1) Cellulitis of chest wall Status: Acute (2) Post-operative infection Status: Acute Current Medications Current Medications Current Medications Morphine Sulfate 4 mg PRN Q15MIN PRN IV/SQ PAIN GREATER THAN 3/10 Last administered on 06/11/16 10:45; Start 06/11/16 at 10:45; Stop 06/12/16 at 10:44 ; Status DC Ondansetron HCl (Zofran) 4 mg 1X ONCE IV Last administered on 06/11/16 11:02 ; Start 06/11/16 at 11:00; Stop 06/11/16 at 11:01; Status DC Ondansetron HCl (Zofran) 4 mg PRN Q8HRS PRN IV NAUSEA/VOMITING Last administered on 06/12/16 04:52; Start 06/11/16 at 12:30; Stop 06/12/16 at 12:29 ; Status DC Morphine Sulfate 4 mg PRN Q2HR PRN IV PAIN Last administered on 06/12/16 11:00 ; Start 06/11/16 at 12:30; Stop 06/12/16 at 12:29; Status DC Vancomycin HCl 1 each 1 each PRN DAILY PRN MC SEE COMMENTS Last administered on 06/12/16 12:09; Start 06/11/16 at 12:30; Stop 06/13/16 at 11:47; Status DC Vancomycin HCl 2 gm/Sodium Chloride 500 ml @ 250 mls/hr 1X ONCE IV Last administered on 06/11/16 12:34; Start 06/11/16 at 12:30; Stop 06/11/16 at 14:29 ; Status DC Vancomycin HCl/ Sodium Chloride (Iv Sodium Chloride 0.9% 500ml Bag) 500 ml @ 250 mls/hr Q24H IV Last administered on 06/12/16 11:43; Start 06/12/16 at 12: 00; Stop 06/13/16 at 11:47; Status DC Vancomycin HCl 1 each 1X ONCE MC Last administered on 06/13/16 11:30; Start 06/13/16 at 11:30; Stop 06/13/16 at 11:31; Status DC Piperacillin Sod/ Tazobactam Sod 1 each 1 each PRN DAILY PRN MC SEE COMMENTS; Start 06/11/16 at 16:30; Stop 06/13/16 at 11:18; Status DC Piperacillin Sod/ Tazobactam Sod/ Sodium Chloride (Zosyn/Iv Sodium Chloride 0.9 % 50ml) 50 ml @ 100 mls/hr Q6HRS IV Last administered on 06/15/16 13:12; Start 06/11/16 at 17:00 Bethanechol Chloride (Urecholine) 25 mg BID PO Last administered on 06/15/16 08:56; Start 06/11/16 at 21:00 Carbidopa/Levodopa (Sinemet Cr) 1 tab.sa BID PO Last administered on 06/15/16 08:54; Start 06/11/16 at 21:00 Colesevelam HCl (Welchol) 625 mg PRN QID PRN PO DIARRHEA Last administered on 08:54; Start 06/11/16 at 16:45 Diphenhydramine HCl (Benadryl) 25 mg HS PO Last administered on 06/14/16 22:07 ; Start 06/11/16 at 21:00 Acetaminophen/ Hydrocodone Bitart (Lortab 10/325) 1 tab PRN Q4HRS PRN PO PAIN Last administered on 06/15/16 03:32; Start 06/11/16 at 16:45 Levothyroxine Sodium (Synthroid) 100 mcg DAILY PO Last administered on 08:20; Start 06/12/16 at 09:00; Stop 06/13/16 at 22:07; Status DC Amylase/Lipase/ Protease (Zenpep 10,000) 1 cap DAILYWBKFT PO ; Start 06/12/16 at 09:00; Stop 06/12/16 at 09:00; Status DC Pramipexole Dihydrochloride (miraPEX) 1 mg HS PO Last administered on 22:03; Start 06/11/16 at 21:00 Topiramate (Topamax) 100 mg BID PO Last administered on 06/15/16 08:58; Start 06/11/16 at 21:00 Torsemide (Demadex) 20 mg DAILY PO Last administered on 06/15/16 08:58; Start 06/12/16 at 09:00 Non-Formulary Medication 5 mg DAILY PO blood sugar Last administered on 08:56; Start 06/12/16 at 09:00 Glipizide (Glucotrol) 10 mg BIDBFRMEAL PO Last administered on 06/13/16 18:28 ; Start 06/12/16 at 17:00; Stop 06/13/16 at 21:54; Status DC Insulin Detemir (Levemir) 40 units Q12H SQ Last administered on 06/13/16 12:17 ; Start 06/11/16 at 21:00; Stop 06/13/16 at 21:53; Status DC Non-Formulary Medication 25 units DAILY SQ Last administered on 06/14/16 08:58 ; Start 06/12/16 at 09:00 Atorvastatin Calcium (Lipitor) 10 mg QHS PO Last administered on 06/14/16 22: 02; Start 06/11/16 at 21:00 Pantoprazole Sodium (Protonix) 40 mg DAILYAC PO ; Start 06/12/16 at 07:30; Status Cancel Potassium Chloride (Klor-Con) 20 meq BIDWMEALS PO ; Start 06/11/16 at 17:00; Status Cancel Propranolol HCl (Inderal La) 60 mg HS PO Last administered on 06/14/16 22:05; Start 06/11/16 at 21:00 Non-Formulary Medication 30 unit DAILYWSUP SQ Last administered on 06/14/16 17 :40; Start 06/11/16 at 17:00 Non-Formulary Medication 1 ea DAILY PO Last administered on 06/15/16 08:56; Start 06/12/16 at 09:00 Amylase/Lipase/ Protease (Zenpep 10,000) 1 cap BIDWMEALS PO Last administered on 06/15/16 08:55; Start 06/11/16 at 17:30 Potassium Chloride (Klor-Con) 20 meq DAILYWBKFT PO Last administered on 08:55; Start 06/12/16 at 08:00 Potassium Chloride (Klor-Con) 10 meq HS PO Last administered on 06/14/16 22:11 ; Start 06/11/16 at 21:00 Doxycycline Hyclate (Vibra-Tab) 100 mg BID PO Last administered on 06/15/16 08 :55; Start 06/13/16 at 12:00 Morphine Sulfate 2 mg PRN Q2HR PRN IV PAIN; Start 06/13/16 at 16:00 Polyethylene Glycol (miraLAX PACKET) 17 gm PRN DAILY PRN PO CONSTIPATION; Start 06/13/16 at 16:00 Aspirin (Children'S Aspirin) 81 mg DAILYWBKFT PO ; Start 06/14/16 at 08:00 Insulin Detemir (Levemir) 35 units Q12H SQ Last administered on 06/14/16 08:53 ; Start 06/14/16 at 09:00; Stop 06/14/16 at 11:15; Status DC Glipizide (Glucotrol) 5 mg BIDBFRMEAL PO Last administered on 06/14/16 08:42; Start 06/14/16 at 07:30; Stop 06/14/16 at 11:15; Status DC Oxycodone HCl (Roxicodone) 10 mg 1X ONCE PO Last administered on 06/13/16 22: 00; Start 06/13/16 at 22:15; Stop 06/13/16 at 22:16; Status DC Levothyroxine Sodium (Synthroid) 88 mcg DAILY07 PO Last administered on 06:08; Start 06/14/16 at 07:00 Dextrose 25 gm 1X ONCE IV Last administered on 06/14/16 07:29; Start at 07:30; Stop 06/14/16 at 07:31; Status DC Dextrose 25 gm STK-MED ONCE IV ; Start 06/14/16 at 07:28; Stop 06/14/16 at 10:08 ; Status DC Vitamin D (Vitamin D3) 5,000 unit DAILY PO ; Start 06/14/16 at 11:00; Stop 06/14 at 11:17; Status DC Calcium Carbonate/ Glycine (Oscal) 500 mg BIDAFTMEAL PO Last administered on 08:55; Start 06/14/16 at 11:00 Insulin Detemir (Levemir) 15 units HS SQ ; Start 06/14/16 at 21:00 Ergocalciferol (Vitamin D2) 50,000 unit WEEKLY PO Last administered on 13:19; Start 06/14/16 at 11:30 Dextrose 25 gm 1X ONCE IV Last administered on 06/14/16 23:18; Start at 23:30; Stop 06/14/16 at 23:31; Status DC Dextrose 12.5 gm PRN Q15MIN PRN IV LOW BLOOD SUGAR; Start 06/14/16 at 23:15 Active Scripts Active Demadex (Torsemide) 20 Mg Tablet 20 Mg PO DAILY Reported Humalog (Insulin Lispro) 100 Unit/1 Ml Cartridge 30 Unit SQ DAILYWSUP Omeprazole 40 Mg Capsule.dr 1 Cap PO DAILY Zenpep Dr 10,000 Units Capsule (Lipase/Protease/Amylase) 1 Each Capsule.dr 1 Each PO DAILY Humalog (Insulin Lispro) 100 Unit/1 Ml Cartridge 0 SQ 25UAM-30UPM Mirapex (Pramipexole Di-Hcl) 0.25 Mg Tablet 1 Mg PO HS Levothyroxine Sodium 100 Mcg Tablet 1 Tab PO DAILY Levemir (Insulin Detemir) 100 Unit/1 Ml Vial 40 Unit SQ BID-AM AND HS Farxiga (Dapagliflozin Propanediol) 5 Mg Tablet 5 Mg PO DAILY Carbidopa-Levo Er 25-100 Tab (Carbidopa/Levodopa) 1 Each Tablet.er 1 Each PO BID Hydrocodone-Apap 10-325 (Hydrocodone Bit/Acetaminophen) 1 Each Tablet 1 Tab PO PRN Benadryl (Diphenhydramine Hcl) 25 Mg Capsule 25 Mg PO HS Propranolol Hcl 60 Mg Tablet 60 Mg PO HS Bethanechol Chloride 25 Mg Tablet 25 Mg PO BID Klor-Con 10 (Potassium Chloride) 10 Meq Tablet.er 20 Meq PO BID Welchol (Colesevelam Hcl) 625 Mg Tablet 625 Mg PO PRN QID PRN Glipizide 10 Mg Tablet 10 Mg PO BID Topiramate 100 Mg Tablet 100 Mg PO BID Lovastatin 40 Mg Tablet 40 Mg PO HS Allergies Allergies: Coded Allergies: Sulfa (Sulfonamide Antibiotics) (Verified Allergy, Severe, 04/27/16) cough insulin aspart (Verified Allergy, Severe, ANAPHYLAXIS, 04/27/16) venom-honey bee (Verified Allergy, Severe, Anaphylaxis, 04/27/16) escitalopram (Verified Allergy, Intermediate, 04/27/16) lisinopril (Verified Allergy, Intermediate, Rash, 04/27/16) metformin (Verified Allergy, Intermediate, Diarrhea, 04/27/16) mold (Verified Allergy, Intermediate, 04/27/16) pantoprazole (Verified Allergy, Intermediate, 04/27/16) breast ranitidine (Verified Allergy, Intermediate, Nausea and Vomiting, 04/27/16) sertraline (Verified Allergy, Intermediate, 04/27/16) depression ROS Review of System GEN: no Fevers no Chills EYES: no new Visual Complaints ENT: no EN Drainage no Hearing deficiets CVS: no Orthopnea no CP RESP: no SOB no DANG GI: no Nausea no Vomiting : no Dysuria no Urgency HEME: no easy bruising no Palp Ly Nodes NEURO no Focal Weakness no Sz PSYCH: on Suicidal Ideation no Depression SKIN: no Rashes; Cellulitits as noted elsewhere ENDO: no Polyuria or Polydipsia no Hot/Cold Intolerance MU SK: no Arthraigia no Myalgia Physical Exam Physical Exam General Appearance: Awake Alert Oriented x 3 In no Distress; morbidly obese, flat affect Eyes: VIsion Unchanged Conjunctiva Normal EN: No EN Drainage Mucous Memb. moist Neck: no JVD no JVP Supple no Thyromegaly; shrot thick nececk CVS: S1 S2 no Murmur No Gallop No Rub tr Edema vs pretibilal fat Resp: no Rales no Rhonchi no Acc. Muscle use - distal BS GI: BAS +ve NO Bruit Non Tender Non Distended; Obese abd : no CVA tenderness; no Suprapubic Tenderness SKIN: no Rashes X in breast area. S/p Gautam Mastectomey Mu.Sk: Adequate ROM no Muscle Atrophy Heme: Unable to palpate Obvious LAD n opalp Splenomegaly NEURO: Good Strength and Tone Cranial Nerves II - XII grossly intact Psych: ? Depressed no Active hallucination; flat affect Vital Signs Vital Signs Date Time Temp Pulse Resp B/P Pulse Ox O2 Delivery O2 Flow Rate FiO2 06/15/16 11:00 98.3 81 14 157/60 91 Room Air 98.3 06/15/16 03:32 2.0 Assessment & Plan Henrry - suspect VMN due to Diuretics use while pt is known to have a self imposed fluid restriction - hold Torsemide and K for now. Dehydration - HOld diuretics - pt is concerned that she will swell and so no IVF were ordered HTN: Current BP meds reviewed. prn Hydralazine as ordered Anemia - check [place] Suspect edema more liekly due to Obesity and SWANN - consider Aldactone use. Discussed Plan of Care and prognosis etc. at length with pt Labs Labs Laboratory Tests Test 06/13/16 16:15 06/13/16 20:30 06/13/16 21:34 06/13/16 22:16 Glucose (Fingerstick) 141mg/dL (70-99) 67mg/dL (70-99) 71mg/dL (70-99) Urine Opiates Screen Pos (NEG) Urine Methadone Screen Neg (NEG) Urine Barbiturates Neg (NEG) Urine Phencyclidine Screen Neg (NEG) Urine Amphetamine/Methamphetamine Neg (NEG) Urine Benzodiazepines Screen Neg (NEG) Urine Cocaine Screen Neg (NEG) Urine Cannabinoids Screen Neg (NEG) Urine Ethyl Alcohol Neg (NEG) Test 06/14/16 05:15 06/14/16 07:23 06/14/16 08:16 06/14/16 11:32 White Blood Count 5.8x10^3/uL (4.0-11.0) Red Blood Count 3.94x10^6/uL (3.50-5.40) Hemoglobin 10.7g/dL (12.0-15.5) Hematocrit 34.3% (36.0-47.0) Mean Corpuscular Volume 87fL (79-100) Mean Corpuscular Hemoglobin 27pg (25-35) Mean Corpuscular Hemoglobin Concent 31g/dL (31-37) Red Cell Distribution Width 16.1% (11.5-14.5) Platelet Count 121x10^3/uL (140-400) Neutrophils (%) (Auto) 58% (31-73) Lymphocytes (%) (Auto) 19% (24-48) Monocytes (%) (Auto) 13% (0-9) Eosinophils (%) (Auto) 9% (0-3) Basophils (%) (Auto) 1% (0-3) Neutrophils # (Auto) 3.4x10^3uL (1.8-7.7) Lymphocytes # (Auto) 1.1x10^3/uL (1.0-4.8) Monocytes # (Auto) 0.8x10^3/uL (0.0-1.1) Eosinophils # (Auto) 0.5x10^3/uL (0.0-0.7) Basophils # (Auto) 0.1x10^3/uL (0.0-0.2) Sodium Level 143mmol/L (136-145) Potassium Level 4.2mmol/L (3.5-5.1) Chloride Level 109mmol/L (98-107) Carbon Dioxide Level 24mmol/L (21-32) Anion Gap 10 (6-14) Blood Urea Nitrogen 19mg/dL (7-20) Creatinine 1.4mg/dL (0.6-1.0) Estimated GFR (Cockcroft-Gault) 37.9 BUN/Creatinine Ratio 14 (6-20) Glucose Level 41mg/dL (70-99) Calcium Level 8.7mg/dL (8.5-10.1) Total Bilirubin 0.9mg/dL (0.2-1.0) Aspartate Amino Transf (AST/SGOT) 32U/L (15-37) Alanine Aminotransferase (ALT/SGPT) < 6U/L (14-59) Alkaline Phosphatase 198U/L (46-116) Total Protein 6.8g/dL (6.4-8.2) Albumin 2.4g/dL (3.4-5.0) Albumin/Globulin Ratio 0.5 (1.0-1.7) Free Thyroxine 1.10ng/dL (0.76-1.46) Free Triiodothyronine (T3) pg/mL 1.71pg/mL (2.18-3.98) Glucose (Fingerstick) 34mg/dL (70-99) 241mg/dL (70-99) 162mg/dL (70-99) Test 06/14/16 16:25 06/14/16 20:45 06/14/16 22:51 06/14/16 23:10 Glucose (Fingerstick) 123mg/dL (70-99) 82mg/dL (70-99) 43mg/dL (70-99) 62mg/dL (70-99) Test 06/14/16 23:35 06/15/16 02:11 06/15/16 04:22 06/15/16 07:07 Glucose (Fingerstick) 105mg/dL (70-99) 110mg/dL (70-99) 77mg/dL (70-99) White Blood Count 5.0x10^3/uL (4.0-11.0) Red Blood Count 3.56x10^6/uL (3.50-5.40) Hemoglobin 9.6g/dL (12.0-15.5) Hematocrit 30.4% (36.0-47.0) Mean Corpuscular Volume 85fL (79-100) Mean Corpuscular Hemoglobin 27pg (25-35) Mean Corpuscular Hemoglobin Concent 32g/dL (31-37) Red Cell Distribution Width 16.2% (11.5-14.5) Platelet Count 118x10^3/uL (140-400) Neutrophils (%) (Auto) 61% (31-73) Lymphocytes (%) (Auto) 18% (24-48) Monocytes (%) (Auto) 11% (0-9) Eosinophils (%) (Auto) 9% (0-3) Basophils (%) (Auto) 1% (0-3) Neutrophils # (Auto) 3.0x10^3uL (1.8-7.7) Lymphocytes # (Auto) 0.9x10^3/uL (1.0-4.8) Monocytes # (Auto) 0.6x10^3/uL (0.0-1.1) Eosinophils # (Auto) 0.4x10^3/uL (0.0-0.7) Basophils # (Auto) 0.1x10^3/uL (0.0-0.2) Sodium Level 143mmol/L (136-145) Potassium Level 4.3mmol/L (3.5-5.1) Chloride Level 108mmol/L (98-107) Carbon Dioxide Level 24mmol/L (21-32) Anion Gap 11 (6-14) Blood Urea Nitrogen 20mg/dL (7-20) Creatinine 1.5mg/dL (0.6-1.0) Estimated GFR (Cockcroft-Gault) 35.0 Glucose Level 101mg/dL (70-99) Calcium Level 8.4mg/dL (8.5-10.1) Test 06/15/16 10:47 Glucose (Fingerstick) 145mg/dL (70-99) Laboratory Tests Test 06/14/16 16:25 06/14/16 20:45 06/14/16 22:51 06/14/16 23:10 Glucose (Fingerstick) 123mg/dL (70-99) 82mg/dL (70-99) 43mg/dL (70-99) 62mg/dL (70-99) Test 06/14/16 23:35 06/15/16 02:11 06/15/16 04:22 06/15/16 07:07 Glucose (Fingerstick) 105mg/dL (70-99) 110mg/dL (70-99) 77mg/dL (70-99) White Blood Count 5.0x10^3/uL (4.0-11.0) Red Blood Count 3.56x10^6/uL (3.50-5.40) Hemoglobin 9.6g/dL (12.0-15.5) Hematocrit 30.4% (36.0-47.0) Mean Corpuscular Volume 85fL (79-100) Mean Corpuscular Hemoglobin 27pg (25-35) Mean Corpuscular Hemoglobin Concent 32g/dL (31-37) Red Cell Distribution Width 16.2% (11.5-14.5) Platelet Count 118x10^3/uL (140-400) Neutrophils (%) (Auto) 61% (31-73) Lymphocytes (%) (Auto) 18% (24-48) Monocytes (%) (Auto) 11% (0-9) Eosinophils (%) (Auto) 9% (0-3) Basophils (%) (Auto) 1% (0-3) Neutrophils # (Auto) 3.0x10^3uL (1.8-7.7) Lymphocytes # (Auto) 0.9x10^3/uL (1.0-4.8) Monocytes # (Auto) 0.6x10^3/uL (0.0-1.1) Eosinophils # (Auto) 0.4x10^3/uL (0.0-0.7) Basophils # (Auto) 0.1x10^3/uL (0.0-0.2) Sodium Level 143mmol/L (136-145) Potassium Level 4.3mmol/L (3.5-5.1) Chloride Level 108mmol/L (98-107) Carbon Dioxide Level 24mmol/L (21-32) Anion Gap 11 (6-14) Blood Urea Nitrogen 20mg/dL (7-20) Creatinine 1.5mg/dL (0.6-1.0) Estimated GFR (Cockcroft-Gault) 35.0 Glucose Level 101mg/dL (70-99) Calcium Level 8.4mg/dL (8.5-10.1) Test 06/15/16 10:47 Glucose (Fingerstick) 145mg/dL (70-99) MARGARITA COOPER MD Jun 15, 2016 15:10
[2016-06-15] MEDS ORDERED: MAGNESIUM SULFATE 2GM 50 ML IV PRN (15:15)
[2016-06-15 15:29] LABS: CERULOPLASMIN 39.3 mg/dL (19.0-39.0)
[2016-06-15 15:30] LABS: BACTERIA,URINE 0 /HPF (0-FEW); RBC,URINE 0 /HPF (0-2); SQUAMOUS EPITHELIAL CELL,UR FEW /LPF; WBC,URINE 0 /HPF (0-4)
[2016-06-15 15:31] LABS: YEAST,URINE PRESENT /HPF
[2016-06-15 16:04] LABS: BILIRUBIN,URINE NEGATIVE (NEG); GLUCOSE,URINE 500 mg/dL (NEG)
[2016-06-15 16:05] LABS: BACTERIA,URINE 0 /HPF (0-FEW); NITRITE,URINE NEGATIVE (NEG); PROTEIN,URINE NEGATIVE (NEG-TRACE); RBC,URINE 0 /HPF (0-2); SQUAMOUS EPITHELIAL CELL,UR FEW /LPF; UROBILINOGEN,URINE 0.2 mg/dL (0.2 mg/dL); WBC,URINE 0 /HPF (0-4); YEAST,URINE PRESENT /HPF
[2016-06-15] MEDS: INSULIN LISPRO 30 UNIT SQ SCH (17:42)
[2016-06-15 19:00] VITALS: BP 134/63
[2016-06-15] MEDS: ONDANSETRON ODT 4 MG TAB.RAPDIS PO PRN (19:47)
[2016-06-15] MEDS: PRAMIPEXOLE 0.25 MG TABLET. PO SCH (21:31)
[2016-06-15] MEDS: ATORVASTATIN CALCIUM 10 MG TABLET. PO SCH (21:31)
[2016-06-15] MEDS: DIPHENHYDRAMINE HCL 25 MG CAPSULE PO SCH (21:32)
[2016-06-15] MEDS: PROPRANOLOL ER 60 MG CAP.SA.24H. PO SCH (21:32)
[2016-06-15] MEDS: POTASSIUM CHLORIDE 10 MEQ TABLET.ER. PO SCH (21:32)
[2016-06-15] MEDS: INSULIN DETEMIR 300 UNITS/3 ML INSULN.PEN. SQ SCH (21:38)
[2016-06-15 23:00] VITALS: BP 151/67
[2016-06-16] MEDS: PIPERACILLIN/TAZOBACTAM 3.375 GM in IV NORMAL SALINE 50ML 50 ML IV SCH ×2 (00:07→06:03)
[2016-06-16] MEDS: ONDANSETRON ODT 4 MG TAB.RAPDIS PO PRN (00:11)
[2016-06-16] MEDS: HYDROCODONE/APAP 10/325 TABLET. PO PRN ×3 (00:50→22:41)
[2016-06-16 03:00] VITALS: BP 151/67
[2016-06-16] MEDS: LEVOTHYROXINE 88 MCG TABLET PO SCH (06:02)
[2016-06-16] MEDS: ACETAMINOPHEN 325 MG TABLET. PO PRN (06:02)
[2016-06-16 07:00] VITALS: BP 124/55
[2016-06-16] MEDS: ASPIRIN 81 MG TAB.CHEW PO SCH (08:00)
--- NOTE | 2016-06-16 08:59 | PDOC ---
PROGRESS NOTES Subjective Subjective c/c - f/u of breast ca Objective Objective Vital Signs Date Time Temp Pulse Resp B/P Pulse Ox O2 Delivery O2 Flow Rate FiO2 06/16/16 07:50 Room Air 06/16/16 07:00 97.7 69 18 124/55 92 97.7 06/15/16 03:32 2.0 Intake and Output 06/16/16 07:00 Intake Total 400 ml Output Total 2003 ml Balance -1603 ml Intake Oral 400 ml Output Urine Total 2001 ml Stool Total 2 ml # Voids 2 # Bowel Movements 1 Physical Exam Heart: Normal S1, Normal S2 General: Alert, Oriented X3 Neuro: Normal speech Psych/Mental Status: Mental status NL Assessment Assessment Problems Medical Problems: (1) Cellulitis of chest wall Status: Acute (2) Post-operative infection Status: Acute IMPRESSION AND PLAN: 1. T3 N1 Mi M0, stage 3A invasive lobular carcinoma of the left breast, outer lower quadrant, status post biopsy on 04/06/2016 and followed by bilateral mastectomy on 04/27/2016, ER positive, LA positive, HER-2/josh negative. Oncotype DX score reveals an intermediate risk score of 24. She has multiple comorbid conditions and low benefit with intermediate score Oncotype DX, and hence chemotherapy was not offered after detailed discussion with the patient and her . My plan was to proceed with anastrozole after radiation therapy. The patient is now concerned with the radiation has been delayed because of cellulitis. Hence, I offered her the option of starting anastrozole. I reviewed the risks and benefits. She wants to wait till after radiation. 2. Cellulitis of the left mastectomy site. Appreciate ID consultation, she is on antibiotics. 3. Splenomegaly, thought to be due to fatty liver disease. 4. Thrombocytopenia due to splenomegaly. Continue to monitor platelet count. 5. Pseudotumor cerebri. MRI brain 06/13/16 is negative for mets. Comment Review of Relevant I have reviewed the following items halle (where applicable) has been applied. Labs Laboratory Tests Test 06/14/16 11:32 06/14/16 14:45 06/14/16 16:25 06/14/16 20:45 Glucose (Fingerstick) 162mg/dL (70-99) 123mg/dL (70-99) 82mg/dL (70-99) Ceruloplasmin 39.3mg/dL (19.0-39.0) Test 06/14/16 22:51 06/14/16 23:10 06/14/16 23:35 06/15/16 02:11 Glucose (Fingerstick) 43mg/dL (70-99) 62mg/dL (70-99) 105mg/dL (70-99) 110mg/dL (70-99) Test 06/15/16 04:22 06/15/16 07:07 06/15/16 10:47 06/15/16 14:17 White Blood Count 5.0x10^3/uL (4.0-11.0) Red Blood Count 3.56x10^6/uL (3.50-5.40) Hemoglobin 9.6g/dL (12.0-15.5) Hematocrit 30.4% (36.0-47.0) Mean Corpuscular Volume 85fL (79-100) Mean Corpuscular Hemoglobin 27pg (25-35) Mean Corpuscular Hemoglobin Concent 32g/dL (31-37) Red Cell Distribution Width 16.2% (11.5-14.5) Platelet Count 118x10^3/uL (140-400) Neutrophils (%) (Auto) 61% (31-73) Lymphocytes (%) (Auto) 18% (24-48) Monocytes (%) (Auto) 11% (0-9) Eosinophils (%) (Auto) 9% (0-3) Basophils (%) (Auto) 1% (0-3) Neutrophils # (Auto) 3.0x10^3uL (1.8-7.7) Lymphocytes # (Auto) 0.9x10^3/uL (1.0-4.8) Monocytes # (Auto) 0.6x10^3/uL (0.0-1.1) Eosinophils # (Auto) 0.4x10^3/uL (0.0-0.7) Basophils # (Auto) 0.1x10^3/uL (0.0-0.2) Reticulocyte Count (auto) 1.7% (0.5-2.5) Sodium Level 143mmol/L (136-145) Potassium Level 4.3mmol/L (3.5-5.1) Chloride Level 108mmol/L (98-107) Carbon Dioxide Level 24mmol/L (21-32) Anion Gap 11 (6-14) Blood Urea Nitrogen 20mg/dL (7-20) Creatinine 1.5mg/dL (0.6-1.0) Estimated GFR (Cockcroft-Gault) 35.0 Glucose Level 101mg/dL (70-99) Hemoglobin A1c 7.6% (4.8-5.6) Uric Acid 3.0mg/dL (2.6-6.0) Calcium Level 8.4mg/dL (8.5-10.1) Glucose (Fingerstick) 77mg/dL (70-99) 145mg/dL (70-99) Urine Collection Type Unknown Urine Color Yellow Urine Clarity Clear Urine pH 5.0 Urine Specific [place] 1.010 Urine Protein Negativemg/dL (NEG-TRACE) Urine Glucose (UA) 500mg/dL (NEG) Urine Ketones (Stick) Negativemg/dL (NEG) Urine Blood Negative (NEG) Urine Nitrite Negative (NEG) Urine Bilirubin Negative (NEG) Urine Urobilinogen Dipstick 0.2mg/dL (0.2 mg/dL) Urine Leukocyte Esterase Negative (NEG) Urine RBC 0/HPF (0-2) Urine WBC 0/HPF (0-4) Urine Squamous Epithelial Cells Few/LPF Urine Bacteria 0/HPF (0-FEW) Urine Mucus Slight/LPF Urine Yeast Present/HPF Urine Random Sodium 69mmol/L (Not Estab.) Test 06/15/16 16:06 06/15/16 20:38 06/16/16 04:05 06/16/16 07:12 Glucose (Fingerstick) 234mg/dL (70-99) 251mg/dL (70-99) 99mg/dL (70-99) Hemoglobin 9.5g/dL (12.0-15.5) Magnesium Level 2.0mg/dL (1.8-2.4) Laboratory Tests Test 06/15/16 10:47 06/15/16 14:17 06/15/16 16:06 06/15/16 20:38 Glucose (Fingerstick) 145mg/dL (70-99) 234mg/dL (70-99) 251mg/dL (70-99) Urine Collection Type Unknown Urine Color Yellow Urine Clarity Clear Urine pH 5.0 Urine Specific [place] 1.010 Urine Protein Negativemg/dL (NEG-TRACE) Urine Glucose (UA) 500mg/dL (NEG) Urine Ketones (Stick) Negativemg/dL (NEG) Urine Blood Negative (NEG) Urine Nitrite Negative (NEG) Urine Bilirubin Negative (NEG) Urine Urobilinogen Dipstick 0.2mg/dL (0.2 mg/dL) Urine Leukocyte Esterase Negative (NEG) Urine RBC 0/HPF (0-2) Urine WBC 0/HPF (0-4) Urine Squamous Epithelial Cells Few/LPF Urine Bacteria 0/HPF (0-FEW) Urine Mucus Slight/LPF Urine Yeast Present/HPF Urine Random Sodium 69mmol/L (Not Estab.) Test 06/16/16 04:05 06/16/16 07:12 Hemoglobin 9.5g/dL (12.0-15.5) Magnesium Level 2.0mg/dL (1.8-2.4) Glucose (Fingerstick) 99mg/dL (70-99) Microbiology 06/11/16 Blood Culture - Preliminary, Resulted NO GROWTH AFTER 4 DAYS Medications Current Medications Morphine Sulfate 4 mg PRN Q15MIN PRN IV/SQ PAIN GREATER THAN 3/10 Last administered on 06/11/16 10:45; Start 06/11/16 at 10:45; Stop 06/12/16 at 10:44 ; Status DC Ondansetron HCl (Zofran) 4 mg 1X ONCE IV Last administered on 06/11/16 11:02 ; Start 06/11/16 at 11:00; Stop 06/11/16 at 11:01; Status DC Ondansetron HCl (Zofran) 4 mg PRN Q8HRS PRN IV NAUSEA/VOMITING Last administered on 06/12/16 04:52; Start 06/11/16 at 12:30; Stop 06/12/16 at 12:29 ; Status DC Morphine Sulfate 4 mg PRN Q2HR PRN IV PAIN Last administered on 06/12/16 11:00 ; Start 06/11/16 at 12:30; Stop 06/12/16 at 12:29; Status DC Vancomycin HCl 1 each 1 each PRN DAILY PRN MC SEE COMMENTS Last administered on 06/12/16 12:09; Start 06/11/16 at 12:30; Stop 06/13/16 at 11:47; Status DC Vancomycin HCl 2 gm/Sodium Chloride 500 ml @ 250 mls/hr 1X ONCE IV Last administered on 06/11/16 12:34; Start 06/11/16 at 12:30; Stop 06/11/16 at 14:29 ; Status DC Vancomycin HCl/ Sodium Chloride (Iv Sodium Chloride 0.9% 500ml Bag) 500 ml @ 250 mls/hr Q24H IV Last administered on 06/12/16 11:43; Start 06/12/16 at 12: 00; Stop 06/13/16 at 11:47; Status DC Vancomycin HCl 1 each 1X ONCE MC Last administered on 06/13/16 11:30; Start 06/13/16 at 11:30; Stop 06/13/16 at 11:31; Status DC Piperacillin Sod/ Tazobactam Sod 1 each 1 each PRN DAILY PRN MC SEE COMMENTS; Start 06/11/16 at 16:30; Stop 06/13/16 at 11:18; Status DC Piperacillin Sod/ Tazobactam Sod/ Sodium Chloride (Zosyn/Iv Sodium Chloride 0.9 % 50ml) 50 ml @ 100 mls/hr Q6HRS IV Last administered on 06/16/16 06:03; Start 06/11/16 at 17:00 Bethanechol Chloride (Urecholine) 25 mg BID PO Last administered on 06/15/16 21:33; Start 06/11/16 at 21:00 Carbidopa/Levodopa (Sinemet Cr) 1 tab.sa BID PO Last administered on 06/15/16 21:32; Start 06/11/16 at 21:00 Colesevelam HCl (Welchol) 625 mg PRN QID PRN PO DIARRHEA Last administered on 21:31; Start 06/11/16 at 16:45 Diphenhydramine HCl (Benadryl) 25 mg HS PO Last administered on 06/15/16 21:32 ; Start 06/11/16 at 21:00 Acetaminophen/ Hydrocodone Bitart (Lortab 10/325) 1 tab PRN Q4HRS PRN PO PAIN Last administered on 06/16/16 00:50; Start 06/11/16 at 16:45 Levothyroxine Sodium (Synthroid) 100 mcg DAILY PO Last administered on 08:20; Start 06/12/16 at 09:00; Stop 06/13/16 at 22:07; Status DC Amylase/Lipase/ Protease (Zenpep 10,000) 1 cap DAILYWBKFT PO ; Start 06/12/16 at 09:00; Stop 06/12/16 at 09:00; Status DC Pramipexole Dihydrochloride (miraPEX) 1 mg HS PO Last administered on 21:31; Start 06/11/16 at 21:00 Topiramate (Topamax) 100 mg BID PO Last administered on 06/15/16 21:32; Start 06/11/16 at 21:00 Torsemide (Demadex) 20 mg DAILY PO Last administered on 06/15/16 08:58; Start 06/12/16 at 09:00; Stop 06/15/16 at 15:09; Status DC Non-Formulary Medication 5 mg DAILY PO blood sugar Last administered on 08:56; Start 06/12/16 at 09:00 Glipizide (Glucotrol) 10 mg BIDBFRMEAL PO Last administered on 06/13/16 18:28 ; Start 06/12/16 at 17:00; Stop 06/13/16 at 21:54; Status DC Insulin Detemir (Levemir) 40 units Q12H SQ Last administered on 06/13/16 12:17 ; Start 06/11/16 at 21:00; Stop 06/13/16 at 21:53; Status DC Non-Formulary Medication 25 units DAILY SQ Last administered on 06/14/16 08:58 ; Start 06/12/16 at 09:00 Atorvastatin Calcium (Lipitor) 10 mg QHS PO Last administered on 06/15/16 21: 31; Start 06/11/16 at 21:00 Pantoprazole Sodium (Protonix) 40 mg DAILYAC PO ; Start 06/12/16 at 07:30; Status Cancel Potassium Chloride (Klor-Con) 20 meq BIDWMEALS PO ; Start 06/11/16 at 17:00; Status Cancel Propranolol HCl (Inderal La) 60 mg HS PO Last administered on 06/15/16 21:32; Start 06/11/16 at 21:00 Non-Formulary Medication 30 unit DAILYWSUP SQ Last administered on 06/15/16 17 :42; Start 06/11/16 at 17:00 Non-Formulary Medication 1 ea DAILY PO Last administered on 06/15/16 08:56; Start 06/12/16 at 09:00 Amylase/Lipase/ Protease (Zenpep 10,000) 1 cap BIDWMEALS PO Last administered on 06/15/16 17:40; Start 06/11/16 at 17:30 Potassium Chloride (Klor-Con) 20 meq DAILYWBKFT PO Last administered on 08:55; Start 06/12/16 at 08:00; Stop 06/15/16 at 15:09; Status DC Potassium Chloride (Klor-Con) 10 meq HS PO Last administered on 06/15/16 21:32 ; Start 06/11/16 at 21:00 Doxycycline Hyclate (Vibra-Tab) 100 mg BID PO Last administered on 06/15/16 21 :32; Start 06/13/16 at 12:00 Morphine Sulfate 2 mg PRN Q2HR PRN IV PAIN; Start 06/13/16 at 16:00 Polyethylene Glycol (miraLAX PACKET) 17 gm PRN DAILY PRN PO CONSTIPATION; Start 06/13/16 at 16:00 Aspirin (Children'S Aspirin) 81 mg DAILYWBKFT PO ; Start 06/14/16 at 08:00 Insulin Detemir (Levemir) 35 units Q12H SQ Last administered on 06/14/16 08:53 ; Start 06/14/16 at 09:00; Stop 06/14/16 at 11:15; Status DC Glipizide (Glucotrol) 5 mg BIDBFRMEAL PO Last administered on 06/14/16 08:42; Start 06/14/16 at 07:30; Stop 06/14/16 at 11:15; Status DC Oxycodone HCl (Roxicodone) 10 mg 1X ONCE PO Last administered on 06/13/16 22: 00; Start 06/13/16 at 22:15; Stop 06/13/16 at 22:16; Status DC Levothyroxine Sodium (Synthroid) 88 mcg DAILY07 PO Last administered on 06:02; Start 06/14/16 at 07:00 Dextrose 25 gm 1X ONCE IV Last administered on 06/14/16 07:29; Start at 07:30; Stop 06/14/16 at 07:31; Status DC Dextrose 25 gm STK-MED ONCE IV ; Start 06/14/16 at 07:28; Stop 06/14/16 at 10:08 ; Status DC Vitamin D (Vitamin D3) 5,000 unit DAILY PO ; Start 06/14/16 at 11:00; Stop 06/14 at 11:17; Status DC Calcium Carbonate/ Glycine (Oscal) 500 mg BIDAFTMEAL PO Last administered on 17:40; Start 06/14/16 at 11:00 Insulin Detemir (Levemir) 15 units HS SQ Last administered on 06/15/16 21:38; Start 06/14/16 at 21:00 Ergocalciferol (Vitamin D2) 50,000 unit WEEKLY PO Last administered on 13:19; Start 06/14/16 at 11:30 Dextrose 25 gm 1X ONCE IV Last administered on 06/14/16 23:18; Start at 23:30; Stop 06/14/16 at 23:31; Status DC Dextrose 12.5 gm PRN Q15MIN PRN IV LOW BLOOD SUGAR; Start 06/14/16 at 23:15 Hydralazine HCl 10 mg 10 mg PRN Q4HRS PRN IVP ELEVATED BP, SEE COMMENTS; Start 06/15/16 at 15:00 Magnesium Sulfate/ Dextrose (Magnesium Sulfate PREMIX 2GM) 50 ml @ 25 mls/hr PRN DAILY PRN IV for Mag < 1.7 on am labs; Start 06/15/16 at 15:15 Ondansetron HCl (Zofran Odt) 4 mg PRN Q6HRS PRN PO NAUSEA/VOMITING Last administered on 06/16/16 00:11; Start 06/15/16 at 19:30 Acetaminophen (Tylenol) 650 mg PRN Q6HRS PRN PO MILD PAIN / TEMP Last administered on 06/16/16 06:02; Start 06/16/16 at 06:00 Active Scripts Active Demadex (Torsemide) 20 Mg Tablet 20 Mg PO DAILY Reported Humalog (Insulin Lispro) 100 Unit/1 Ml Cartridge 30 Unit SQ DAILYWSUP Omeprazole 40 Mg Capsule.dr 1 Cap PO DAILY Zenpep Dr 10,000 Units Capsule (Lipase/Protease/Amylase) 1 Each Capsule.dr 1 Each PO DAILY Humalog (Insulin Lispro) 100 Unit/1 Ml Cartridge 0 SQ 25UAM-30UPM Mirapex (Pramipexole Di-Hcl) 0.25 Mg Tablet 1 Mg PO HS Levothyroxine Sodium 100 Mcg Tablet 1 Tab PO DAILY Levemir (Insulin Detemir) 100 Unit/1 Ml Vial 40 Unit SQ BID-AM AND HS Farxiga (Dapagliflozin Propanediol) 5 Mg Tablet 5 Mg PO DAILY Carbidopa-Levo Er 25-100 Tab (Carbidopa/Levodopa) 1 Each Tablet.er 1 Each PO BID Hydrocodone-Apap 10-325 (Hydrocodone Bit/Acetaminophen) 1 Each Tablet 1 Tab PO PRN Benadryl (Diphenhydramine Hcl) 25 Mg Capsule 25 Mg PO HS Propranolol Hcl 60 Mg Tablet 60 Mg PO HS Bethanechol Chloride 25 Mg Tablet 25 Mg PO BID Klor-Con 10 (Potassium Chloride) 10 Meq Tablet.er 20 Meq PO BID Welchol (Colesevelam Hcl) 625 Mg Tablet 625 Mg PO PRN QID PRN Glipizide 10 Mg Tablet 10 Mg PO BID Topiramate 100 Mg Tablet 100 Mg PO BID Lovastatin 40 Mg Tablet 40 Mg PO HS Vitals/I & O Vital Sign - Last 24 Hours 06/15/16 06/15/16 06/15/16 06/15/16 11:00 15:00 19:00 20:10 Temp 98.3 98.7 98.9 98.3 98.7 98.9 Pulse 81 81 89 Resp 14 14 20 B/P 157/60 149/63 134/63 Pulse Ox 91 93 98 O2 Delivery Room Air Room Air Room Air Room Air 06/15/16 06/15/16 06/16/16 06/16/16 21:32 23:00 00:50 01:50 Temp 98.5 98.5 Pulse 89 81 Resp 16 B/P 134/63 151/67 Pulse Ox 93 O2 Delivery Room Air Room Air Room Air 06/16/16 06/16/16 06/16/16 03:00 07:00 07:50 Temp 98.5 97.7 98.5 97.7 Pulse 75 69 Resp 16 18 B/P 151/67 124/55 Pulse Ox 94 92 O2 Delivery Room Air Room Air Room Air Intake and Output 06/15/16 06/15/16 06/16/16 15:00 23:00 07:00 Intake Total 400 ml Output Total 902 ml 1101 ml Balance -902 ml -701 ml DREW TALAMANTES MD Jun 16, 2016 08:59
[2016-06-16] MEDS: INSULIN LISPRO 25 UNIT SQ SCH (09:00)
--- NOTE | 2016-06-16 09:39 | PDOC ---
Infectious Disease Note Subjective Subjective at bedside. Nausea better Reports feeling bloated all over still. + BM times 2 Denies fever, pain or abd issues Mild nausea ROS ROS GEN: Denies fevers, chills, sweats HEENT: Denies blurred vision, sore throat CV: Denies chest pain RESP: Denies shortness of air, cough GI: Denies n/v/d NEURO: Denies confusion, dizziness MSK: Denies weakness, joint pain/swelling Vital Sign Vital Signs Vital Signs Date Time Temp Pulse Resp B/P Pulse Ox O2 Delivery O2 Flow Rate FiO2 06/16/16 07:50 Room Air 06/16/16 07:00 97.7 69 18 124/55 92 97.7 Physical Exam PHYSICAL EXAM GENERAL: NAD, Alert HEENT: PERRL, OC/OP -clear NECK: Supple, no JVD, no LN LUNGS: Clear HEART: S1S2, no gallop, no murmur ABD: Soft, NT, no organomegaly, no rebound EXT: No edema, no cyanosis RECYCLABLE MATERIALS SORTER: Alert, oriented x 3, no focal neurologic deficit SKIN: Improving IV: ok Labs Lab Laboratory Tests Test 06/15/16 10:47 06/15/16 14:17 06/15/16 16:06 06/15/16 20:38 Glucose (Fingerstick) 145mg/dL (70-99) 234mg/dL (70-99) 251mg/dL (70-99) Urine Collection Type Unknown Urine Color Yellow Urine Clarity Clear Urine pH 5.0 Urine Specific [place] 1.010 Urine Protein Negativemg/dL (NEG-TRACE) Urine Glucose (UA) 500mg/dL (NEG) Urine Ketones (Stick) Negativemg/dL (NEG) Urine Blood Negative (NEG) Urine Nitrite Negative (NEG) Urine Bilirubin Negative (NEG) Urine Urobilinogen Dipstick 0.2mg/dL (0.2 mg/dL) Urine Leukocyte Esterase Negative (NEG) Urine RBC 0/HPF (0-2) Urine WBC 0/HPF (0-4) Urine Squamous Epithelial Cells Few/LPF Urine Bacteria 0/HPF (0-FEW) Urine Mucus Slight/LPF Urine Yeast Present/HPF Urine Random Sodium 69mmol/L (Not Estab.) Test 06/16/16 04:05 06/16/16 07:12 Hemoglobin 9.5g/dL (12.0-15.5) Magnesium Level 2.0mg/dL (1.8-2.4) Glucose (Fingerstick) 99mg/dL (70-99) Objective Assessment Cellulitis of chest wall - some better. Abx may have some difficulty penetrating scar tissue but is resolving -Failed OP Keflex. Invasive lobular carcinoma of left breast s/p bilat simple mastectomies w/ left SLN bx, 04/27/2016. CKD Diabetes- hypoglycemia Obesity H/o Pseudotumor Cerebrii MS change - MRI neg for acute Edema Plan Plan of Care Discont Zosyn begin Augmentin. Home from ID standpoint 06/17 if stable Cont Doxy Add Probiotics Needs compression to LE F/u nausea Supportive care D/w AYESHA BROWN MD Jun 16, 2016 09:39
[2016-06-16] MEDS: NON FORMULARY ITEM (Dapagliflozin Propanediol (Farxiga) 5 MG) PO SCH (09:41)
[2016-06-16] MEDS: CALCIUM CARBONATE 500 MG TABLET PO SCH ×2 (09:41→17:53)
[2016-06-16] MEDS: LIPASE/PROTEAS/AMYLAS 10/34/55 CAPSULE.DR. PO SCH ×2 (09:41→17:53)
[2016-06-16] MEDS: COLESEVELAM HCL 625 MG TABLET PO PRN ×2 (09:41→21:03)
[2016-06-16] MEDS: OMEPRAZOLE 40 MG CAPSULE PO SCH (09:41)
[2016-06-16] MEDS: CARBIDOPA/LEVODOPA CR 25/100MG TABLET.SA PO SCH ×2 (09:42→21:01)
[2016-06-16] MEDS: TOPIRAMATE 100 MG TABLET. PO SCH ×2 (09:42→21:03)
[2016-06-16] MEDS: DOXYCYCLINE HYCLATE 100 MG TABLET PO SCH ×2 (09:42→21:01)
[2016-06-16] MEDS: BETHANECHOL CHLORIDE 25 MG TABLET PO SCH ×2 (09:43→21:02)
[2016-06-16] MEDS: AMOXICILLIN/K CLAV 875/125MG TABLET. PO SCH ×2 (09:47→21:03)
--- NOTE | 2016-06-16 09:59 | PDOC ---
PROGRESS NOTES Assessment Problems Medical Problems: (1) Cellulitis of chest wall Status: Acute (2) Post-operative infection Status: Acute Metabolic encephalopathy. No evidence of acute CVA this time. Perhaps episodes of amnesia and headaches represent complex migraines. Current problem was metabolic encephalopathy, though Plan Will follow No additional neurological studies needed Subjective No complaints Objective Vital Signs Date Time Temp Pulse Resp B/P Pulse Ox O2 Delivery O2 Flow Rate FiO2 06/16/16 09:42 Room Air 06/16/16 07:00 97.7 69 18 124/55 92 97.7 Intake and Output 06/16/16 07:00 Intake Total 400 ml Output Total 2002 ml Balance -1603 ml Intake Oral 400 ml Output Urine Total 2000 ml Stool Total 2 ml # Voids 2 # Bowel Movements 1 PHYSICAL EXAM Alert. Oriented to time, place and person. PERRL. EOMI. CN: no focal findings. Muscle tone: normal. Muscle strength: 4/5 DTR: 1+ Plantar reflex: flexor Gait: not examined in bed. Sensory exam: no abnormal findings. No cerebellar signs elicited. Review of Relevant I have reviewed the following items halle (where applicable) has been applied. Labs Laboratory Tests Test 06/14/16 11:32 06/14/16 14:45 06/14/16 16:25 06/14/16 20:45 Glucose (Fingerstick) 162mg/dL (70-99) 123mg/dL (70-99) 82mg/dL (70-99) Ceruloplasmin 39.3mg/dL (19.0-39.0) Test 06/14/16 22:51 06/14/16 23:10 06/14/16 23:35 06/15/16 02:11 Glucose (Fingerstick) 43mg/dL (70-99) 62mg/dL (70-99) 105mg/dL (70-99) 110mg/dL (70-99) Test 06/15/16 04:22 06/15/16 07:07 06/15/16 10:47 06/15/16 14:17 White Blood Count 5.0x10^3/uL (4.0-11.0) Red Blood Count 3.56x10^6/uL (3.50-5.40) Hemoglobin 9.6g/dL (12.0-15.5) Hematocrit 30.4% (36.0-47.0) Mean Corpuscular Volume 85fL (79-100) Mean Corpuscular Hemoglobin 27pg (25-35) Mean Corpuscular Hemoglobin Concent 32g/dL (31-37) Red Cell Distribution Width 16.2% (11.5-14.5) Platelet Count 118x10^3/uL (140-400) Neutrophils (%) (Auto) 61% (31-73) Lymphocytes (%) (Auto) 18% (24-48) Monocytes (%) (Auto) 11% (0-9) Eosinophils (%) (Auto) 9% (0-3) Basophils (%) (Auto) 1% (0-3) Neutrophils # (Auto) 3.0x10^3uL (1.8-7.7) Lymphocytes # (Auto) 0.9x10^3/uL (1.0-4.8) Monocytes # (Auto) 0.6x10^3/uL (0.0-1.1) Eosinophils # (Auto) 0.4x10^3/uL (0.0-0.7) Basophils # (Auto) 0.1x10^3/uL (0.0-0.2) Reticulocyte Count (auto) 1.7% (0.5-2.5) Sodium Level 143mmol/L (136-145) Potassium Level 4.3mmol/L (3.5-5.1) Chloride Level 108mmol/L (98-107) Carbon Dioxide Level 24mmol/L (21-32) Anion Gap 11 (6-14) Blood Urea Nitrogen 20mg/dL (7-20) Creatinine 1.5mg/dL (0.6-1.0) Estimated GFR (Cockcroft-Gault) 35.0 Glucose Level 101mg/dL (70-99) Hemoglobin A1c 7.6% (4.8-5.6) Uric Acid 3.0mg/dL (2.6-6.0) Calcium Level 8.4mg/dL (8.5-10.1) Glucose (Fingerstick) 77mg/dL (70-99) 145mg/dL (70-99) Urine Collection Type Unknown Urine Color Yellow Urine Clarity Clear Urine pH 5.0 Urine Specific [place] 1.010 Urine Protein Negativemg/dL (NEG-TRACE) Urine Glucose (UA) 500mg/dL (NEG) Urine Ketones (Stick) Negativemg/dL (NEG) Urine Blood Negative (NEG) Urine Nitrite Negative (NEG) Urine Bilirubin Negative (NEG) Urine Urobilinogen Dipstick 0.2mg/dL (0.2 mg/dL) Urine Leukocyte Esterase Negative (NEG) Urine RBC 0/HPF (0-2) Urine WBC 0/HPF (0-4) Urine Squamous Epithelial Cells Few/LPF Urine Bacteria 0/HPF (0-FEW) Urine Mucus Slight/LPF Urine Yeast Present/HPF Urine Random Sodium 69mmol/L (Not Estab.) Test 06/15/16 16:06 06/15/16 20:38 06/16/16 04:05 06/16/16 07:12 Glucose (Fingerstick) 234mg/dL (70-99) 251mg/dL (70-99) 99mg/dL (70-99) Hemoglobin 9.5g/dL (12.0-15.5) Magnesium Level 2.0mg/dL (1.8-2.4) Laboratory Tests Test 06/15/16 10:47 06/15/16 14:17 06/15/16 16:06 06/15/16 20:38 Glucose (Fingerstick) 145mg/dL (70-99) 234mg/dL (70-99) 251mg/dL (70-99) Urine Collection Type Unknown Urine Color Yellow Urine Clarity Clear Urine pH 5.0 Urine Specific [place] 1.010 Urine Protein Negativemg/dL (NEG-TRACE) Urine Glucose (UA) 500mg/dL (NEG) Urine Ketones (Stick) Negativemg/dL (NEG) Urine Blood Negative (NEG) Urine Nitrite Negative (NEG) Urine Bilirubin Negative (NEG) Urine Urobilinogen Dipstick 0.2mg/dL (0.2 mg/dL) Urine Leukocyte Esterase Negative (NEG) Urine RBC 0/HPF (0-2) Urine WBC 0/HPF (0-4) Urine Squamous Epithelial Cells Few/LPF Urine Bacteria 0/HPF (0-FEW) Urine Mucus Slight/LPF Urine Yeast Present/HPF Urine Random Sodium 69mmol/L (Not Estab.) Test 06/16/16 04:05 06/16/16 07:12 Hemoglobin 9.5g/dL (12.0-15.5) Magnesium Level 2.0mg/dL (1.8-2.4) Glucose (Fingerstick) 99mg/dL (70-99) Microbiology 06/11/16 Blood Culture - Preliminary, Resulted NO GROWTH AFTER 4 DAYS Medications Current Medications Morphine Sulfate 4 mg PRN Q15MIN PRN IV/SQ PAIN GREATER THAN 3/10 Last administered on 06/11/16 10:45; Start 06/11/16 at 10:45; Stop 06/12/16 at 10:44 ; Status DC Ondansetron HCl (Zofran) 4 mg 1X ONCE IV Last administered on 06/11/16 11:02 ; Start 06/11/16 at 11:00; Stop 06/11/16 at 11:01; Status DC Ondansetron HCl (Zofran) 4 mg PRN Q8HRS PRN IV NAUSEA/VOMITING Last administered on 06/12/16 04:52; Start 06/11/16 at 12:30; Stop 06/12/16 at 12:29 ; Status DC Morphine Sulfate 4 mg PRN Q2HR PRN IV PAIN Last administered on 06/12/16 11:00 ; Start 06/11/16 at 12:30; Stop 06/12/16 at 12:29; Status DC Vancomycin HCl 1 each 1 each PRN DAILY PRN MC SEE COMMENTS Last administered on 06/12/16 12:09; Start 06/11/16 at 12:30; Stop 06/13/16 at 11:47; Status DC Vancomycin HCl 2 gm/Sodium Chloride 500 ml @ 250 mls/hr 1X ONCE IV Last administered on 06/11/16 12:34; Start 06/11/16 at 12:30; Stop 06/11/16 at 14:29 ; Status DC Vancomycin HCl/ Sodium Chloride (Iv Sodium Chloride 0.9% 500ml Bag) 500 ml @ 250 mls/hr Q24H IV Last administered on 06/12/16 11:43; Start 06/12/16 at 12: 00; Stop 06/13/16 at 11:47; Status DC Vancomycin HCl 1 each 1X ONCE MC Last administered on 06/13/16 11:30; Start 06/13/16 at 11:30; Stop 06/13/16 at 11:31; Status DC Piperacillin Sod/ Tazobactam Sod 1 each 1 each PRN DAILY PRN MC SEE COMMENTS; Start 06/11/16 at 16:30; Stop 06/13/16 at 11:18; Status DC Piperacillin Sod/ Tazobactam Sod/ Sodium Chloride (Zosyn/Iv Sodium Chloride 0.9 % 50ml) 50 ml @ 100 mls/hr Q6HRS IV Last administered on 06/16/16 06:03; Start 06/11/16 at 17:00; Stop 06/16/16 at 09:38; Status DC Bethanechol Chloride (Urecholine) 25 mg BID PO Last administered on 06/16/16 09:43; Start 06/11/16 at 21:00 Carbidopa/Levodopa (Sinemet Cr) 1 tab.sa BID PO Last administered on 06/16/16 09:42; Start 06/11/16 at 21:00 Colesevelam HCl (Welchol) 625 mg PRN QID PRN PO DIARRHEA Last administered on 09:41; Start 06/11/16 at 16:45 Diphenhydramine HCl (Benadryl) 25 mg HS PO Last administered on 06/15/16 21:32 ; Start 06/11/16 at 21:00 Acetaminophen/ Hydrocodone Bitart (Lortab 10/325) 1 tab PRN Q4HRS PRN PO PAIN Last administered on 06/16/16 09:42; Start 06/11/16 at 16:45 Levothyroxine Sodium (Synthroid) 100 mcg DAILY PO Last administered on 08:20; Start 06/12/16 at 09:00; Stop 06/13/16 at 22:07; Status DC Amylase/Lipase/ Protease (Zenpep 10,000) 1 cap DAILYWBKFT PO ; Start 06/12/16 at 09:00; Stop 06/12/16 at 09:00; Status DC Pramipexole Dihydrochloride (miraPEX) 1 mg HS PO Last administered on 21:31; Start 06/11/16 at 21:00 Topiramate (Topamax) 100 mg BID PO Last administered on 06/16/16 09:42; Start 06/11/16 at 21:00 Torsemide (Demadex) 20 mg DAILY PO Last administered on 06/15/16 08:58; Start 06/12/16 at 09:00; Stop 06/15/16 at 15:09; Status DC Non-Formulary Medication 5 mg DAILY PO blood sugar Last administered on 09:41; Start 06/12/16 at 09:00 Glipizide (Glucotrol) 10 mg BIDBFRMEAL PO Last administered on 06/13/16 18:28 ; Start 06/12/16 at 17:00; Stop 06/13/16 at 21:54; Status DC Insulin Detemir (Levemir) 40 units Q12H SQ Last administered on 06/13/16 12:17 ; Start 06/11/16 at 21:00; Stop 06/13/16 at 21:53; Status DC Non-Formulary Medication 25 units DAILY SQ Last administered on 06/14/16 08:58 ; Start 06/12/16 at 09:00 Atorvastatin Calcium (Lipitor) 10 mg QHS PO Last administered on 06/15/16 21: 31; Start 06/11/16 at 21:00 Pantoprazole Sodium (Protonix) 40 mg DAILYAC PO ; Start 06/12/16 at 07:30; Status Cancel Potassium Chloride (Klor-Con) 20 meq BIDWMEALS PO ; Start 06/11/16 at 17:00; Status Cancel Propranolol HCl (Inderal La) 60 mg HS PO Last administered on 06/15/16 21:32; Start 06/11/16 at 21:00 Non-Formulary Medication 30 unit DAILYWSUP SQ Last administered on 06/15/16 17 :42; Start 06/11/16 at 17:00 Non-Formulary Medication 1 ea DAILY PO Last administered on 06/16/16 09:41; Start 06/12/16 at 09:00 Amylase/Lipase/ Protease (Zenpep 10,000) 1 cap BIDWMEALS PO Last administered on 06/16/16 09:41; Start 06/11/16 at 17:30 Potassium Chloride (Klor-Con) 20 meq DAILYWBKFT PO Last administered on 08:55; Start 06/12/16 at 08:00; Stop 06/15/16 at 15:09; Status DC Potassium Chloride (Klor-Con) 10 meq HS PO Last administered on 06/15/16 21:32 ; Start 06/11/16 at 21:00 Doxycycline Hyclate (Vibra-Tab) 100 mg BID PO Last administered on 06/16/16 09 :42; Start 06/13/16 at 12:00 Morphine Sulfate 2 mg PRN Q2HR PRN IV PAIN; Start 06/13/16 at 16:00 Polyethylene Glycol (miraLAX PACKET) 17 gm PRN DAILY PRN PO CONSTIPATION; Start 06/13/16 at 16:00 Aspirin (Children'S Aspirin) 81 mg DAILYWBKFT PO ; Start 06/14/16 at 08:00 Insulin Detemir (Levemir) 35 units Q12H SQ Last administered on 06/14/16 08:53 ; Start 06/14/16 at 09:00; Stop 06/14/16 at 11:15; Status DC Glipizide (Glucotrol) 5 mg BIDBFRMEAL PO Last administered on 06/14/16 08:42; Start 06/14/16 at 07:30; Stop 06/14/16 at 11:15; Status DC Oxycodone HCl (Roxicodone) 10 mg 1X ONCE PO Last administered on 06/13/16 22: 00; Start 06/13/16 at 22:15; Stop 06/13/16 at 22:16; Status DC Levothyroxine Sodium (Synthroid) 88 mcg DAILY07 PO Last administered on 06:02; Start 06/14/16 at 07:00 Dextrose 25 gm 1X ONCE IV Last administered on 06/14/16 07:29; Start at 07:30; Stop 06/14/16 at 07:31; Status DC Dextrose 25 gm STK-MED ONCE IV ; Start 06/14/16 at 07:28; Stop 06/14/16 at 10:08 ; Status DC Vitamin D (Vitamin D3) 5,000 unit DAILY PO ; Start 06/14/16 at 11:00; Stop 06/14 at 11:17; Status DC Calcium Carbonate/ Glycine (Oscal) 500 mg BIDAFTMEAL PO Last administered on 09:41; Start 06/14/16 at 11:00 Insulin Detemir (Levemir) 15 units HS SQ Last administered on 06/15/16 21:38; Start 06/14/16 at 21:00 Ergocalciferol (Vitamin D2) 50,000 unit WEEKLY PO Last administered on 13:19; Start 06/14/16 at 11:30 Dextrose 25 gm 1X ONCE IV Last administered on 06/14/16 23:18; Start at 23:30; Stop 06/14/16 at 23:31; Status DC Dextrose 12.5 gm PRN Q15MIN PRN IV LOW BLOOD SUGAR; Start 06/14/16 at 23:15 Hydralazine HCl 10 mg 10 mg PRN Q4HRS PRN IVP ELEVATED BP, SEE COMMENTS; Start 06/15/16 at 15:00 Magnesium Sulfate/ Dextrose (Magnesium Sulfate PREMIX 2GM) 50 ml @ 25 mls/hr PRN DAILY PRN IV for Mag < 1.7 on am labs; Start 06/15/16 at 15:15 Ondansetron HCl (Zofran Odt) 4 mg PRN Q6HRS PRN PO NAUSEA/VOMITING Last administered on 06/16/16 00:11; Start 06/15/16 at 19:30 Acetaminophen (Tylenol) 650 mg PRN Q6HRS PRN PO MILD PAIN / TEMP Last administered on 06/16/16 06:02; Start 06/16/16 at 06:00 Amoxicillin/ Clavulanate Potassium (Augmentin 875/ 125mg) 1 tab BID PO Last administered on 06/16/16 09:47; Start 06/16/16 at 10:00 Lactobacillus Acidophilus (Bacid, Fide-Bid) 1 tab TIDWMEALS PO ; Start 06/16/16 at 12:00 Active Scripts Active Demadex (Torsemide) 20 Mg Tablet 20 Mg PO DAILY Reported Humalog (Insulin Lispro) 100 Unit/1 Ml Cartridge 30 Unit SQ DAILYWSUP Omeprazole 40 Mg Capsule. 1 Cap PO DAILY Zenpep 10,000 Units Capsule (Lipase/Protease/Amylase) 1 Each Capsule.dr 1 Each PO DAILY Humalog (Insulin Lispro) 100 Unit/1 Ml Cartridge 0 SQ 25UAM-30UPM Mirapex (Pramipexole Di-Hcl) 0.25 Mg Tablet 1 Mg PO HS Levothyroxine Sodium 100 Mcg Tablet 1 Tab PO DAILY Levemir (Insulin Detemir) 100 Unit/1 Ml Vial 40 Unit SQ BID-AM AND HS Farxiga (Dapagliflozin Propanediol) 5 Mg Tablet 5 Mg PO DAILY Carbidopa-Levo Er 25-100 Tab (Carbidopa/Levodopa) 1 Each Tablet.er 1 Each PO BID Hydrocodone-Apap 10-325 (Hydrocodone Bit/Acetaminophen) 1 Each Tablet 1 Tab PO PRN Benadryl (Diphenhydramine Hcl) 25 Mg Capsule 25 Mg PO HS Propranolol Hcl 60 Mg Tablet 60 Mg PO HS Bethanechol Chloride 25 Mg Tablet 25 Mg PO BID Klor-Con 10 (Potassium Chloride) 10 Meq Tablet.er 20 Meq PO BID Welchol (Colesevelam Hcl) 625 Mg Tablet 625 Mg PO PRN QID PRN Glipizide 10 Mg Tablet 10 Mg PO BID Topiramate 100 Mg Tablet 100 Mg PO BID Lovastatin 40 Mg Tablet 40 Mg PO HS Vitals/I & O Vital Sign - Last 24 Hours 06/15/16 06/15/16 06/15/16 06/15/16 11:00 15:00 19:00 20:10 Temp 98.3 98.7 98.9 98.3 98.7 98.9 Pulse 81 81 89 Resp 14 14 20 B/P 157/60 149/63 134/63 Pulse Ox 91 93 98 O2 Delivery Room Air Room Air Room Air Room Air 06/15/16 06/15/16 06/16/16 06/16/16 21:32 23:00 00:50 01:50 Temp 98.5 98.5 Pulse 89 81 Resp 16 B/P 134/63 151/67 Pulse Ox 93 O2 Delivery Room Air Room Air Room Air 06/16/16 06/16/16 06/16/16 06/16/16 03:00 07:00 07:50 09:42 Temp 98.5 97.7 98.5 97.7 Pulse 75 69 Resp 16 18 B/P 151/67 124/55 Pulse Ox 94 92 O2 Delivery Room Air Room Air Room Air Room Air Intake and Output 06/15/16 06/15/16 06/16/16 15:00 23:00 07:00 Intake Total 400 ml Output Total 902 ml 1101 ml Balance -902 ml -701 ml MERLY JEFFERSON MD Jun 16, 2016 09:59
[2016-06-16 10:01] LABS: ALBUMIN 2.4 g/dL (3.4-5.0); CALCIUM 8.7 mg/dL (8.5-10.1); CREATININE 1.5 mg/dL (0.6-1.0); PHOSPHORUS 3.1 mg/dL (2.6-4.7); POTASSIUM 3.9 mmol/L (3.5-5.1)
--- NOTE | 2016-06-16 10:07 | PDOC ---
LUZ MARIA MEDELLIN DEADENER 06/16/16 1007: SURGICAL PROGRESS NOTE Subjective doing ok reports swelling and pain, PK abdomen, under breast Vital Signs Vital Signs Date Time Temp Pulse Resp B/P Pulse Ox O2 Delivery O2 Flow Rate FiO2 06/16/16 09:42 Room Air 06/16/16 07:00 97.7 69 18 124/55 92 97.7 I&O Intake and Output 06/16/16 07:00 Intake Total 400 ml Output Total 2003 ml Balance -1603 ml Intake Oral 400 ml Output Urine Total 2001 ml Stool Total 2 ml # Voids 2 # Bowel Movements 1 General: Alert, Oriented X3, Cooperative, No acute distress Abdomen: Soft, Other (swelling, firmness to left abdomen--appears fluid, no erythema or induration ) Skin: Other (left breast erythema gradually improving ) Labs Laboratory Tests Test 06/14/16 11:32 06/14/16 14:45 06/14/16 16:25 06/14/16 20:45 Glucose (Fingerstick) 162mg/dL (70-99) 123mg/dL (70-99) 82mg/dL (70-99) Ceruloplasmin 39.3mg/dL (19.0-39.0) Test 06/14/16 22:51 06/14/16 23:10 06/14/16 23:35 06/15/16 02:11 Glucose (Fingerstick) 43mg/dL (70-99) 62mg/dL (70-99) 105mg/dL (70-99) 110mg/dL (70-99) Test 06/15/16 04:22 06/15/16 07:07 06/15/16 10:47 06/15/16 14:17 White Blood Count 5.0x10^3/uL (4.0-11.0) Red Blood Count 3.56x10^6/uL (3.50-5.40) Hemoglobin 9.6g/dL (12.0-15.5) Hematocrit 30.4% (36.0-47.0) Mean Corpuscular Volume 85fL (79-100) Mean Corpuscular Hemoglobin 27pg (25-35) Mean Corpuscular Hemoglobin Concent 32g/dL (31-37) Red Cell Distribution Width 16.2% (11.5-14.5) Platelet Count 118x10^3/uL (140-400) Neutrophils (%) (Auto) 61% (31-73) Lymphocytes (%) (Auto) 18% (24-48) Monocytes (%) (Auto) 11% (0-9) Eosinophils (%) (Auto) 9% (0-3) Basophils (%) (Auto) 1% (0-3) Neutrophils # (Auto) 3.0x10^3uL (1.8-7.7) Lymphocytes # (Auto) 0.9x10^3/uL (1.0-4.8) Monocytes # (Auto) 0.6x10^3/uL (0.0-1.1) Eosinophils # (Auto) 0.4x10^3/uL (0.0-0.7) Basophils # (Auto) 0.1x10^3/uL (0.0-0.2) Reticulocyte Count (auto) 1.7% (0.5-2.5) Sodium Level 143mmol/L (136-145) Potassium Level 4.3mmol/L (3.5-5.1) Chloride Level 108mmol/L (98-107) Carbon Dioxide Level 24mmol/L (21-32) Anion Gap 11 (6-14) Blood Urea Nitrogen 20mg/dL (7-20) Creatinine 1.5mg/dL (0.6-1.0) Estimated GFR (Cockcroft-Gault) 35.0 Glucose Level 101mg/dL (70-99) Hemoglobin A1c 7.6% (4.8-5.6) Uric Acid 3.0mg/dL (2.6-6.0) Calcium Level 8.4mg/dL (8.5-10.1) Glucose (Fingerstick) 77mg/dL (70-99) 145mg/dL (70-99) Urine Collection Type Unknown Urine Color Yellow Urine Clarity Clear Urine pH 5.0 Urine Specific [place] 1.010 Urine Protein Negativemg/dL (NEG-TRACE) Urine Glucose (UA) 500mg/dL (NEG) Urine Ketones (Stick) Negativemg/dL (NEG) Urine Blood Negative (NEG) Urine Nitrite Negative (NEG) Urine Bilirubin Negative (NEG) Urine Urobilinogen Dipstick 0.2mg/dL (0.2 mg/dL) Urine Leukocyte Esterase Negative (NEG) Urine RBC 0/HPF (0-2) Urine WBC 0/HPF (0-4) Urine Squamous Epithelial Cells Few/LPF Urine Bacteria 0/HPF (0-FEW) Urine Mucus Slight/LPF Urine Yeast Present/HPF Urine Random Sodium 69mmol/L (Not Estab.) Test 06/15/16 16:06 06/15/16 20:38 06/16/16 04:05 06/16/16 07:12 Glucose (Fingerstick) 234mg/dL (70-99) 251mg/dL (70-99) 99mg/dL (70-99) Hemoglobin 9.5g/dL (12.0-15.5) Sodium Level 145mmol/L (136-145) Potassium Level 3.9mmol/L (3.5-5.1) Chloride Level 109mmol/L (98-107) Carbon Dioxide Level 27mmol/L (21-32) Anion Gap 9 (6-14) Blood Urea Nitrogen 18mg/dL (7-20) Creatinine 1.5mg/dL (0.6-1.0) Estimated GFR (Cockcroft-Gault) 35.0 Glucose Level 125mg/dL (70-99) Calcium Level 8.7mg/dL (8.5-10.1) Phosphorus Level 3.1mg/dL (2.6-4.7) Magnesium Level 2.0mg/dL (1.8-2.4) Albumin 2.4g/dL (3.4-5.0) Laboratory Tests Test 06/15/16 10:47 06/15/16 14:17 06/15/16 16:06 06/15/16 20:38 Glucose (Fingerstick) 145mg/dL (70-99) 234mg/dL (70-99) 251mg/dL (70-99) Urine Collection Type Unknown Urine Color Yellow Urine Clarity Clear Urine pH 5.0 Urine Specific [place] 1.010 Urine Protein Negativemg/dL (NEG-TRACE) Urine Glucose (UA) 500mg/dL (NEG) Urine Ketones (Stick) Negativemg/dL (NEG) Urine Blood Negative (NEG) Urine Nitrite Negative (NEG) Urine Bilirubin Negative (NEG) Urine Urobilinogen Dipstick 0.2mg/dL (0.2 mg/dL) Urine Leukocyte Esterase Negative (NEG) Urine RBC 0/HPF (0-2) Urine WBC 0/HPF (0-4) Urine Squamous Epithelial Cells Few/LPF Urine Bacteria 0/HPF (0-FEW) Urine Mucus Slight/LPF Urine Yeast Present/HPF Urine Random Sodium 69mmol/L (Not Estab.) Test 06/16/16 04:05 06/16/16 07:12 Hemoglobin 9.5g/dL (12.0-15.5) Sodium Level 145mmol/L (136-145) Potassium Level 3.9mmol/L (3.5-5.1) Chloride Level 109mmol/L (98-107) Carbon Dioxide Level 27mmol/L (21-32) Anion Gap 9 (6-14) Blood Urea Nitrogen 18mg/dL (7-20) Creatinine 1.5mg/dL (0.6-1.0) Estimated GFR (Cockcroft-Gault) 35.0 Glucose Level 125mg/dL (70-99) Calcium Level 8.7mg/dL (8.5-10.1) Phosphorus Level 3.1mg/dL (2.6-4.7) Magnesium Level 2.0mg/dL (1.8-2.4) Albumin 2.4g/dL (3.4-5.0) Glucose (Fingerstick) 99mg/dL (70-99) Problem List Problems Medical Problems: (1) Cellulitis of chest wall Status: Acute (2) Post-operative infection Status: Acute Assessment/Plan supportive care, fluid retention will review with Dr Mary Problems: NADJA MARY MD 06/16/16 1620: SURGICAL PROGRESS NOTE Assessment/Plan pt seen and examined hopefully home tomorrow Problems: LUZ MARIA MEDELLIN APRN Jun 16, 2016 10:07 NADJA MARY MD Jun 16, 2016 16:20
--- NOTE | 2016-06-16 10:34 | PDOC ---
SUBJECTIVE ROS CKD III DOign OK Overall CVS: no Orthopnea, no CP RESP: no SOB, no DANG GI: no Nausea, no Vomiting : no Dysuria, no Urgency OBJECTIVE Vital Signs Vital Signs Date Time Temp Pulse Resp B/P Pulse Ox O2 Delivery O2 Flow Rate FiO2 06/16/16 09:42 Room Air 06/16/16 07:00 97.7 69 18 124/55 92 97.7 I & 0 Intake and Output 06/16/16 07:00 Intake Total 400 ml Output Total 2002 ml Balance -1603 ml Intake Oral 400 ml Output Urine Total 2001 ml Stool Total 2 ml # Voids 2 # Bowel Movements 1 PHYSICAL EXAM Physical Exam General Appearance: Awake Alert Oriented x 3 In no Distress; morbidly obese, flat affect Eyes: VIsion Unchanged Conjunctiva Normal EN: No EN Drainage Mucous Memb. moist Neck: no JVD no JVP Supple no Thyromegaly; shrot thick nececk CVS: S1 S2 no Murmur No Gallop No Rub tr Edema vs pretibilal fat Resp: no Rales no Rhonchi no Acc. Muscle use - distal BS GI: BAS +ve NO Bruit Non Tender Non Distended; Obese abd : no CVA tenderness; no Suprapubic Tenderness Assessment & Plan Henrry - suspect VMN due to Diuretics, Farxiga ? use while pt is known to have a self imposed fluid restriction - hold Torsemide and K for now Creat is stable and not climbing yet. UO is good for now and this may be her new baseline with CKD III Dehydration - HOld diuretics - pt is concerned that she will swell and so no IVF were ordered HTN: Current BP meds reviewed. prn Hydralazine as ordered Anemia - check Iron Suspect edema more liekly due to Obesity and SWANN - consider Aldactone use 9will defer to OP GI MD ) Vit D Def - now on ERGO Discussed Plan of Care and prognosis etc. at length with pt COMMENT/RELEVANT DATA Meds Current Medications Medications (Trade) Dose Ordered Sig/Haim Start Time Stop Time Status Last Admin Dose Admin Acetaminophen (Tylenol) 650 mg PRN Q6HRS PRN 06/16/16 06:00 06/16/16 06:02 650 MG Acetaminophen/ Hydrocodone Bitart (Lortab 10/325) 1 tab PRN Q4HRS PRN 06/11/16 16:45 06/16/16 09:42 1 TAB Amoxicillin/ Clavulanate Potassium (Augmentin 875/ 125mg) 1 tab BID 06/16/16 10:00 06/16/16 09:47 1 TAB Amylase/Lipase/ Protease (Zenpep 10,000) 1 cap BIDWMEALS 06/11/16 17:30 06/16/16 09:41 1 CAP Aspirin (Children'S Aspirin) 81 mg DAILYWBKFT 06/14/16 08:00 Atorvastatin Calcium (Lipitor) 10 mg QHS 06/11/16 21:00 06/15/16 21:31 10 MG Bethanechol Chloride (Urecholine) 25 mg BID 06/11/16 21:00 06/16/16 09:43 25 MG Calcium Carbonate/ Glycine (Oscal) 500 mg BIDAFTMEAL 06/14/16 11:00 06/16/16 09:41 500 MG Carbidopa/Levodopa (Sinemet Cr) 1 tab.sa BID 06/11/16 21:00 06/16/16 09:42 1 TAB.SA Colesevelam HCl (Welchol) 625 mg PRN QID PRN 06/11/16 16:45 06/16/16 09:41 625 MG Dextrose 12.5 gm PRN Q15MIN PRN 06/14/16 23:15 Diphenhydramine HCl (Benadryl) 25 mg HS 06/11/16 21:00 06/15/16 21:32 25 MG Doxycycline Hyclate (Vibra-Tab) 100 mg BID 06/13/16 12:00 06/16/16 09:42 100 MG Ergocalciferol (Vitamin D2) 50,000 unit WEEKLY 06/14/16 11:30 06/14/16 13:19 50,000 UNIT Glipizide (Glucotrol) 5 mg BIDBFRMEAL 06/14/16 07:30 06/14/16 11:15 DC 06/14/16 08:42 5 MG Hydralazine HCl 10 mg 10 mg PRN Q4HRS PRN 06/15/16 15:00 Insulin Detemir (Levemir) 15 units HS 06/14/16 21:00 06/15/16 21:38 15 UNITS Lactobacillus Acidophilus (Bacid, Fide-Bid) 1 tab TIDWMEALS 06/16/16 12:00 Levothyroxine Sodium (Synthroid) 88 mcg DAILY07 06/14/16 07:00 06/16/16 06:02 88 MCG Magnesium Sulfate/ Dextrose (Magnesium Sulfate PREMIX 2GM) 50 ml @ 25 mls/hr PRN DAILY PRN 06/15/16 15:15 Morphine Sulfate 2 mg PRN Q2HR PRN 06/13/16 16:00 Non-Formulary Medication 1 ea DAILY 06/12/16 09:00 06/16/16 09:41 1 EA Ondansetron HCl (Zofran Odt) 4 mg PRN Q6HRS PRN 06/15/16 19:30 06/16/16 00:11 4 MG Ondansetron HCl (Zofran) 4 mg PRN Q8HRS PRN 06/11/16 12:30 06/12/16 12:29 DC 06/12/16 04:52 4 MG Oxycodone HCl (Roxicodone) 10 mg 1X ONCE 06/13/16 22:15 06/13/16 22:16 DC 06/13/16 22:00 10 MG Pantoprazole Sodium (Protonix) 40 mg DAILYAC 06/12/16 07:30 Cancel Piperacillin Sod/ Tazobactam Sod 1 each 1 each PRN DAILY PRN 06/11/16 16:30 06/13/16 11:18 DC Piperacillin Sod/ Tazobactam Sod/ Sodium Chloride (Zosyn/Iv Sodium Chloride 0.9% 50ml) 50 ml @ 100 mls/hr Q6HRS 06/11/16 17:00 06/16/16 09:38 DC 06/16/16 06:03 100 MLS/HR Polyethylene Glycol (miraLAX PACKET) 17 gm PRN DAILY PRN 06/13/16 16:00 Potassium Chloride (Klor-Con) 10 meq HS 06/11/16 21:00 06/15/16 21:32 10 MEQ Pramipexole Dihydrochloride (miraPEX) 1 mg HS 06/11/16 21:00 06/15/16 21:31 1 MG Propranolol HCl (Inderal La) 60 mg HS 06/11/16 21:00 06/15/16 21:32 60 MG Topiramate (Topamax) 100 mg BID 06/11/16 21:00 06/16/16 09:42 100 MG Torsemide (Demadex) 20 mg DAILY 06/12/16 09:00 06/15/16 15:09 DC 06/15/16 08:58 20 MG Vancomycin HCl 1 each 1X ONCE 06/13/16 11:30 06/13/16 11:31 DC 06/13/16 11:30 1 EACH Vancomycin HCl 1 each 1 each PRN DAILY PRN 06/11/16 12:30 06/13/16 11:47 DC 06/12/16 12:09 1 EACH Vancomycin HCl 2 gm/Sodium Chloride 500 ml @ 250 mls/hr 1X ONCE 06/11/16 12:30 06/11/16 14:29 DC 06/11/16 12:34 250 MLS/HR Vancomycin HCl/ Sodium Chloride (Iv Sodium Chloride 0.9% 500ml Bag) 500 ml @ 250 mls/hr Q24H 06/12/16 12:00 06/13/16 11:47 DC 06/12/16 11:43 250 MLS/HR Vitamin D (Vitamin D3) 5,000 unit DAILY 06/14/16 11:00 06/14/16 11:17 DC Lab Laboratory Tests Test 06/15/16 10:47 06/15/16 14:17 06/15/16 16:06 06/15/16 20:38 Glucose (Fingerstick) 145mg/dL (70-99) 234mg/dL (70-99) 251mg/dL (70-99) Urine Collection Type Unknown Urine Color Yellow Urine Clarity Clear Urine pH 5.0 Urine Specific [place] 1.010 Urine Protein Negativemg/dL (NEG-TRACE) Urine Glucose (UA) 500mg/dL (NEG) Urine Ketones (Stick) Negativemg/dL (NEG) Urine Blood Negative (NEG) Urine Nitrite Negative (NEG) Urine Bilirubin Negative (NEG) Urine Urobilinogen Dipstick 0.2mg/dL (0.2 mg/dL) Urine Leukocyte Esterase Negative (NEG) Urine RBC 0/HPF (0-2) Urine WBC 0/HPF (0-4) Urine Squamous Epithelial Cells Few/LPF Urine Bacteria 0/HPF (0-FEW) Urine Mucus Slight/LPF Urine Yeast Present/HPF Urine Random Sodium 69mmol/L (Not Estab.) Test 06/16/16 04:05 06/16/16 07:12 Hemoglobin 9.5g/dL (12.0-15.5) Sodium Level 145mmol/L (136-145) Potassium Level 3.9mmol/L (3.5-5.1) Chloride Level 109mmol/L (98-107) Carbon Dioxide Level 27mmol/L (21-32) Anion Gap 9 (6-14) Blood Urea Nitrogen 18mg/dL (7-20) Creatinine 1.5mg/dL (0.6-1.0) Estimated GFR (Cockcroft-Gault) 35.0 Glucose Level 125mg/dL (70-99) Calcium Level 8.7mg/dL (8.5-10.1) Phosphorus Level 3.1mg/dL (2.6-4.7) Magnesium Level 2.0mg/dL (1.8-2.4) Albumin 2.4g/dL (3.4-5.0) Glucose (Fingerstick) 99mg/dL (70-99) MARGARITA COOPER MD Jun 16, 2016 10:34
[2016-06-16 11:00] VITALS: BP 132/68
[2016-06-16] MEDS: LACTOBACILLUS ACIDOPH & BULGAR 1 TABLET. PO SCH ×2 (12:57→17:53)
[2016-06-16 13:57] LABS: % SAT IRON 11 % (15-34); IRON,SERUM 28 ug/dL (50-170)
[2016-06-16 15:00] VITALS: BP 139/72
[2016-06-16] MEDS: INSULIN LISPRO 30 UNIT SQ SCH (17:55)
[2016-06-16 19:00] VITALS: BP 173/56
[2016-06-16] MEDS: POTASSIUM CHLORIDE 10 MEQ TABLET.ER. PO SCH (21:01)
[2016-06-16] MEDS: PROPRANOLOL ER 60 MG CAP.SA.24H. PO SCH (21:02)
[2016-06-16] MEDS: ATORVASTATIN CALCIUM 10 MG TABLET. PO SCH (21:02)
[2016-06-16] MEDS: PRAMIPEXOLE 0.25 MG TABLET. PO SCH (21:02)
[2016-06-16] MEDS: DIPHENHYDRAMINE HCL 25 MG CAPSULE PO SCH (21:03)
[2016-06-16] MEDS: INSULIN DETEMIR 300 UNITS/3 ML INSULN.PEN. SQ SCH (21:08)
[2016-06-16 23:00] VITALS: BP 115/53
[2016-06-17] MEDS: ACETAMINOPHEN 325 MG TABLET. PO PRN (01:30)
[2016-06-17 03:00] VITALS: BP 140/55
[2016-06-17] MEDS: HYDROCODONE/APAP 10/325 TABLET. PO PRN ×2 (03:04→10:11)
[2016-06-17] MEDS: LEVOTHYROXINE 88 MCG TABLET PO SCH (06:27)
[2016-06-17 07:00] VITALS: BP 131/71
[2016-06-17] MEDS: ASPIRIN 81 MG TAB.CHEW PO SCH (08:00)
[2016-06-17] MEDS: LACTOBACILLUS ACIDOPH & BULGAR 1 TABLET. PO SCH ×2 (08:00→11:48)
--- NOTE | 2016-06-17 08:45 | PDOC ---
Infectious Disease Note Subjective Subjective Doing better. Reports improved swelling and abd pain. Woke up with night sweats last night x3 but not unusual for her. but denies fever or chills. Ready to go home ROS ROS GEN: Denies fevers, chills, sweats HEENT: Denies blurred vision, sore throat CV: Denies chest pain RESP: Denies shortness of air, cough GI: Denies n/v/d NEURO: Denies confusion, dizziness MSK: Denies weakness, joint pain/swelling Vital Sign Vital Signs Vital Signs Date Time Temp Pulse Resp B/P Pulse Ox O2 Delivery O2 Flow Rate FiO2 06/17/16 07:00 97.9 68 18 131/71 95 Room Air 97.9 06/16/16 22:41 2.0 Physical Exam PHYSICAL EXAM GENERAL: NAD, Alert HEENT: PERRL, OC/OP -clear NECK: Supple, no JVD, no LN LUNGS: Clear HEART: S1S2, no gallop, no murmur ABD: Soft, NT, no organomegaly, no rebound EXT: No edema, no cyanosis [employer]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 Improved tight chest IV: ok Labs Lab Laboratory Tests Test 06/16/16 11:19 06/16/16 16:51 06/16/16 20:37 06/17/16 03:16 Glucose (Fingerstick) 164mg/dL (70-99) 182mg/dL (70-99) 210mg/dL (70-99) Magnesium Level 2.0mg/dL (1.8-2.4) Objective Assessment Cellulitis of chest wall - some better. Abx may have some difficulty penetrating scar tissue but is resolving -Failed OP Keflex. Invasive lobular carcinoma of left breast s/p bilat simple mastectomies w/ left SLN bx, 04/27/2016. CKD Diabetes- hypoglycemia Obesity H/o Pseudotumor Cerebrii MS change - MRI neg for acute Edema - improving Plan Plan of Care Cont Doxy and Augmentin thru 06/23 Cont Probiotics Needs compression to LE Supportive care D/w AYESHA BROWN MD Jun 17, 2016 08:45
[2016-06-17] MEDS: NON FORMULARY ITEM (Dapagliflozin Propanediol (Farxiga) 5 MG) PO SCH (08:53)
[2016-06-17] MEDS: OMEPRAZOLE 40 MG CAPSULE PO SCH (08:53)
[2016-06-17] MEDS: AMOXICILLIN/K CLAV 875/125MG TABLET. PO SCH (08:54)
[2016-06-17] MEDS: CARBIDOPA/LEVODOPA CR 25/100MG TABLET.SA PO SCH (08:54)
[2016-06-17] MEDS: LIPASE/PROTEAS/AMYLAS 10/34/55 CAPSULE.DR. PO SCH (08:54)
[2016-06-17] MEDS: DOXYCYCLINE HYCLATE 100 MG TABLET PO SCH (08:54)
[2016-06-17] MEDS: CALCIUM CARBONATE 500 MG TABLET PO SCH (08:55)
[2016-06-17] MEDS: TOPIRAMATE 100 MG TABLET. PO SCH (08:55)
[2016-06-17] MEDS: BETHANECHOL CHLORIDE 25 MG TABLET PO SCH (08:55)
[2016-06-17] MEDS: COLESEVELAM HCL 625 MG TABLET PO PRN (08:58)
[2016-06-17] MEDS: INSULIN LISPRO 25 UNIT SQ SCH (09:00)
--- NOTE | 2016-06-17 09:28 | PDOC ---
PROGRESS NOTES Assessment Problems Medical Problems: (1) Cellulitis of chest wall Status: Acute (2) Post-operative infection Status: Acute Metabolic encephalopathy. No evidence of acute CVA this time. Complex migraines. Plan Okay for discharge No additional neurological studies needed Patient will follow up with me or Dr. Combs regarding the complex migraines Subjective No complaints, wants to go home Objective Vital Signs Date Time Temp Pulse Resp B/P Pulse Ox O2 Delivery O2 Flow Rate FiO2 06/17/16 07:00 97.9 68 18 131/71 95 Room Air 97.9 06/16/16 22:41 2.0 Intake and Output 06/17/16 07:00 Intake Total 410 ml Output Total 1625 ml Balance -1215 ml Intake Oral 360 ml IV Total 50 ml Output Urine Total 1625 ml # Bowel Movements 2 PHYSICAL EXAM Alert. Oriented to time, place and person. PERRL. EOMI. CN: no focal findings. Muscle tone: normal. Muscle strength: 4/5 DTR: 1+ Plantar reflex: flexor Gait: not examined in bed. Sensory exam: no abnormal findings. No cerebellar signs elicited. Review of Relevant I have reviewed the following items halle (where applicable) has been applied. Labs Laboratory Tests Test 06/15/16 10:47 06/15/16 14:17 06/15/16 16:06 06/15/16 20:38 Glucose (Fingerstick) 145mg/dL (70-99) 234mg/dL (70-99) 251mg/dL (70-99) Urine Collection Type Unknown Urine Color Yellow Urine Clarity Clear Urine pH 5.0 Urine Specific [place] 1.010 Urine Protein Negativemg/dL (NEG-TRACE) Urine Glucose (UA) 500mg/dL (NEG) Urine Ketones (Stick) Negativemg/dL (NEG) Urine Blood Negative (NEG) Urine Nitrite Negative (NEG) Urine Bilirubin Negative (NEG) Urine Urobilinogen Dipstick 0.2mg/dL (0.2 mg/dL) Urine Leukocyte Esterase Negative (NEG) Urine RBC 0/HPF (0-2) Urine WBC 0/HPF (0-4) Urine Squamous Epithelial Cells Few/LPF Urine Bacteria 0/HPF (0-FEW) Urine Mucus Slight/LPF Urine Yeast Present/HPF Urine Random Sodium 69mmol/L (Not Estab.) Test 06/16/16 04:05 06/16/16 07:12 06/16/16 11:19 06/16/16 16:51 Hemoglobin 9.5g/dL (12.0-15.5) Sodium Level 145mmol/L (136-145) Potassium Level 3.9mmol/L (3.5-5.1) Chloride Level 109mmol/L (98-107) Carbon Dioxide Level 27mmol/L (21-32) Anion Gap 9 (6-14) Blood Urea Nitrogen 18mg/dL (7-20) Creatinine 1.5mg/dL (0.6-1.0) Estimated GFR (Cockcroft-Gault) 35.0 Glucose Level 125mg/dL (70-99) Calcium Level 8.7mg/dL (8.5-10.1) Phosphorus Level 3.1mg/dL (2.6-4.7) Magnesium Level 2.0mg/dL (1.8-2.4) Albumin 2.4g/dL (3.4-5.0) Glucose (Fingerstick) 99mg/dL (70-99) 164mg/dL (70-99) 182mg/dL (70-99) Test 06/16/16 20:37 06/17/16 03:16 Glucose (Fingerstick) 210mg/dL (70-99) Magnesium Level 2.0mg/dL (1.8-2.4) Laboratory Tests Test 06/16/16 11:19 06/16/16 16:51 06/16/16 20:37 06/17/16 03:16 Glucose (Fingerstick) 164mg/dL (70-99) 182mg/dL (70-99) 210mg/dL (70-99) Magnesium Level 2.0mg/dL (1.8-2.4) Microbiology 06/11/16 Blood Culture - Final, Complete NO GROWTH AFTER 5 DAYS Medications Current Medications Morphine Sulfate 4 mg PRN Q15MIN PRN IV/SQ PAIN GREATER THAN 3/10 Last administered on 06/11/16 10:45; Start 06/11/16 at 10:45; Stop 06/12/16 at 10:44 ; Status DC Ondansetron HCl (Zofran) 4 mg 1X ONCE IV Last administered on 06/11/16 11:02 ; Start 06/11/16 at 11:00; Stop 06/11/16 at 11:01; Status DC Ondansetron HCl (Zofran) 4 mg PRN Q8HRS PRN IV NAUSEA/VOMITING Last administered on 06/12/16 04:52; Start 06/11/16 at 12:30; Stop 06/12/16 at 12:29 ; Status DC Morphine Sulfate 4 mg PRN Q2HR PRN IV PAIN Last administered on 06/12/16 11:00 ; Start 06/11/16 at 12:30; Stop 06/12/16 at 12:29; Status DC Vancomycin HCl 1 each 1 each PRN DAILY PRN MC SEE COMMENTS Last administered on 06/12/16 12:09; Start 06/11/16 at 12:30; Stop 06/13/16 at 11:47; Status DC Vancomycin HCl 2 gm/Sodium Chloride 500 ml @ 250 mls/hr 1X ONCE IV Last administered on 06/11/16 12:34; Start 06/11/16 at 12:30; Stop 06/11/16 at 14:29 ; Status DC Vancomycin HCl/ Sodium Chloride (Iv Sodium Chloride 0.9% 500ml Bag) 500 ml @ 250 mls/hr Q24H IV Last administered on 06/12/16 11:43; Start 06/12/16 at 12: 00; Stop 06/13/16 at 11:47; Status DC Vancomycin HCl 1 each 1X ONCE MC Last administered on 06/13/16 11:30; Start 06/13/16 at 11:30; Stop 06/13/16 at 11:31; Status DC Piperacillin Sod/ Tazobactam Sod 1 each 1 each PRN DAILY PRN MC SEE COMMENTS; Start 06/11/16 at 16:30; Stop 06/13/16 at 11:18; Status DC Piperacillin Sod/ Tazobactam Sod/ Sodium Chloride (Zosyn/Iv Sodium Chloride 0.9 % 50ml) 50 ml @ 100 mls/hr Q6HRS IV Last administered on 06/16/16 06:03; Start 06/11/16 at 17:00; Stop 06/16/16 at 09:38; Status DC Bethanechol Chloride (Urecholine) 25 mg BID PO Last administered on 06/17/16 08:55; Start 06/11/16 at 21:00 Carbidopa/Levodopa (Sinemet Cr) 1 tab.sa BID PO Last administered on 06/17/16 08:54; Start 06/11/16 at 21:00 Colesevelam HCl (Welchol) 625 mg PRN QID PRN PO DIARRHEA Last administered on 08:58; Start 06/11/16 at 16:45 Diphenhydramine HCl (Benadryl) 25 mg HS PO Last administered on 06/16/16 21:03 ; Start 06/11/16 at 21:00 Acetaminophen/ Hydrocodone Bitart (Lortab 10/325) 1 tab PRN Q4HRS PRN PO PAIN Last administered on 06/17/16 03:04; Start 06/11/16 at 16:45 Levothyroxine Sodium (Synthroid) 100 mcg DAILY PO Last administered on 08:20; Start 06/12/16 at 09:00; Stop 06/13/16 at 22:07; Status DC Amylase/Lipase/ Protease (Zenpep 10,000) 1 cap DAILYWBKFT PO ; Start 06/12/16 at 09:00; Stop 06/12/16 at 09:00; Status DC Pramipexole Dihydrochloride (miraPEX) 1 mg HS PO Last administered on 21:02; Start 06/11/16 at 21:00 Topiramate (Topamax) 100 mg BID PO Last administered on 06/17/16 08:55; Start 06/11/16 at 21:00 Torsemide (Demadex) 20 mg DAILY PO Last administered on 06/15/16 08:58; Start 06/12/16 at 09:00; Stop 06/15/16 at 15:09; Status DC Non-Formulary Medication 5 mg DAILY PO blood sugar Last administered on 08:53; Start 06/12/16 at 09:00 Glipizide (Glucotrol) 10 mg BIDBFRMEAL PO Last administered on 06/13/16 18:28 ; Start 06/12/16 at 17:00; Stop 06/13/16 at 21:54; Status DC Insulin Detemir (Levemir) 40 units Q12H SQ Last administered on 06/13/16 12:17 ; Start 06/11/16 at 21:00; Stop 06/13/16 at 21:53; Status DC Non-Formulary Medication 25 units DAILY SQ Last administered on 06/17/16 09:00 ; Start 06/12/16 at 09:00 Atorvastatin Calcium (Lipitor) 10 mg QHS PO Last administered on 06/16/16 21: 02; Start 06/11/16 at 21:00 Pantoprazole Sodium (Protonix) 40 mg DAILYAC PO ; Start 06/12/16 at 07:30; Status Cancel Potassium Chloride (Klor-Con) 20 meq BIDWMEALS PO ; Start 06/11/16 at 17:00; Status Cancel Propranolol HCl (Inderal La) 60 mg HS PO Last administered on 06/16/16 21:02; Start 06/11/16 at 21:00 Non-Formulary Medication 30 unit DAILYWSUP SQ Last administered on 06/16/16 17 :55; Start 06/11/16 at 17:00 Non-Formulary Medication 1 ea DAILY PO Last administered on 06/17/16 08:53; Start 06/12/16 at 09:00 Amylase/Lipase/ Protease (Zenpep 10,000) 1 cap BIDWMEALS PO Last administered on 06/17/16 08:54; Start 06/11/16 at 17:30 Potassium Chloride (Klor-Con) 20 meq DAILYWBKFT PO Last administered on 08:55; Start 06/12/16 at 08:00; Stop 06/15/16 at 15:09; Status DC Potassium Chloride (Klor-Con) 10 meq HS PO Last administered on 06/16/16 21:01 ; Start 06/11/16 at 21:00 Doxycycline Hyclate (Vibra-Tab) 100 mg BID PO Last administered on 06/17/16 08 :54; Start 06/13/16 at 12:00 Morphine Sulfate 2 mg PRN Q2HR PRN IV PAIN; Start 06/13/16 at 16:00 Polyethylene Glycol (miraLAX PACKET) 17 gm PRN DAILY PRN PO CONSTIPATION; Start 06/13/16 at 16:00 Aspirin (Children'S Aspirin) 81 mg DAILYWBKFT PO ; Start 06/14/16 at 08:00 Insulin Detemir (Levemir) 35 units Q12H SQ Last administered on 06/14/16 08:53 ; Start 06/14/16 at 09:00; Stop 06/14/16 at 11:15; Status DC Glipizide (Glucotrol) 5 mg BIDBFRMEAL PO Last administered on 06/14/16 08:42; Start 06/14/16 at 07:30; Stop 06/14/16 at 11:15; Status DC Oxycodone HCl (Roxicodone) 10 mg 1X ONCE PO Last administered on 06/13/16 22: 00; Start 06/13/16 at 22:15; Stop 06/13/16 at 22:16; Status DC Levothyroxine Sodium (Synthroid) 88 mcg DAILY07 PO Last administered on 06:27; Start 06/14/16 at 07:00 Dextrose 25 gm 1X ONCE IV Last administered on 06/14/16 07:29; Start at 07:30; Stop 06/14/16 at 07:31; Status DC Dextrose 25 gm STK-MED ONCE IV ; Start 06/14/16 at 07:28; Stop 06/14/16 at 10:08 ; Status DC Vitamin D (Vitamin D3) 5,000 unit DAILY PO ; Start 06/14/16 at 11:00; Stop 06/14 at 11:17; Status DC Calcium Carbonate/ Glycine (Oscal) 500 mg BIDAFTMEAL PO Last administered on 08:55; Start 06/14/16 at 11:00 Insulin Detemir (Levemir) 15 units HS SQ Last administered on 06/16/16 21:08; Start 06/14/16 at 21:00 Ergocalciferol (Vitamin D2) 50,000 unit WEEKLY PO Last administered on 13:19; Start 06/14/16 at 11:30 Dextrose 25 gm 1X ONCE IV Last administered on 06/14/16 23:18; Start at 23:30; Stop 06/14/16 at 23:31; Status DC Dextrose 12.5 gm PRN Q15MIN PRN IV LOW BLOOD SUGAR; Start 06/14/16 at 23:15 Hydralazine HCl 10 mg 10 mg PRN Q4HRS PRN IVP ELEVATED BP, SEE COMMENTS; Start 06/15/16 at 15:00 Magnesium Sulfate/ Dextrose (Magnesium Sulfate PREMIX 2GM) 50 ml @ 25 mls/hr PRN DAILY PRN IV for Mag < 1.7 on am labs; Start 06/15/16 at 15:15 Ondansetron HCl (Zofran Odt) 4 mg PRN Q6HRS PRN PO NAUSEA/VOMITING Last administered on 06/16/16 00:11; Start 06/15/16 at 19:30 Acetaminophen (Tylenol) 650 mg PRN Q6HRS PRN PO MILD PAIN / TEMP Last administered on 06/17/16 01:30; Start 06/16/16 at 06:00 Amoxicillin/ Clavulanate Potassium (Augmentin 875/ 125mg) 1 tab BID PO Last administered on 06/17/16 08:54; Start 06/16/16 at 10:00 Lactobacillus Acidophilus (Bacid, Fide-Bid) 1 tab TIDWMEALS PO Last administered on 06/16/16 17:53; Start 06/16/16 at 12:00 Active Scripts Active Demadex (Torsemide) 20 Mg Tablet 20 Mg PO DAILY Reported Humalog (Insulin Lispro) 100 Unit/1 Ml Cartridge 30 Unit SQ DAILYWSUP Omeprazole 40 Mg Capsule.dr 1 Cap PO DAILY Zenpep Dr 10,000 Units Capsule (Lipase/Protease/Amylase) 1 Each Capsule.dr 1 Each PO DAILY Humalog (Insulin Lispro) 100 Unit/1 Ml Cartridge 0 SQ 25UAM-30UPM Mirapex (Pramipexole Di-Hcl) 0.25 Mg Tablet 1 Mg PO HS Levothyroxine Sodium 100 Mcg Tablet 1 Tab PO DAILY Levemir (Insulin Detemir) 100 Unit/1 Ml Vial 40 Unit SQ BID-AM AND HS Farxiga (Dapagliflozin Propanediol) 5 Mg Tablet 5 Mg PO DAILY Carbidopa-Levo Er 25-100 Tab (Carbidopa/Levodopa) 1 Each Tablet.er 1 Each PO BID Hydrocodone-Apap 10-325 (Hydrocodone Bit/Acetaminophen) 1 Each Tablet 1 Tab PO PRN Benadryl (Diphenhydramine Hcl) 25 Mg Capsule 25 Mg PO HS Propranolol Hcl 60 Mg Tablet 60 Mg PO HS Bethanechol Chloride 25 Mg Tablet 25 Mg PO BID Klor-Con 10 (Potassium Chloride) 10 Meq Tablet.er 20 Meq PO BID Welchol (Colesevelam Hcl) 625 Mg Tablet 625 Mg PO PRN QID PRN Glipizide 10 Mg Tablet 10 Mg PO BID Topiramate 100 Mg Tablet 100 Mg PO BID Lovastatin 40 Mg Tablet 40 Mg PO HS Vitals/I & O Vital Sign - Last 24 Hours 06/16/16 06/16/16 06/16/16 06/16/16 09:42 11:00 15:00 19:00 Temp 97.9 98.0 98.6 97.9 98.0 98.6 Pulse 74 76 88 Resp 18 18 20 B/P 132/68 139/72 173/56 Pulse Ox 93 94 91 O2 Delivery Room Air Room Air Room Air Room Air 06/16/16 06/16/16 06/16/16 06/16/16 20:00 21:02 22:41 23:00 Temp 97.8 97.8 Pulse 88 87 Resp 16 18 B/P 173/56 115/53 Pulse Ox 91 91 O2 Delivery Room Air Room Air Room Air O2 Flow Rate 2.0 06/17/16 06/17/16 06/17/16 06/17/16 03:00 03:04 04:00 07:00 Temp 97.4 97.9 97.4 97.9 Pulse 87 68 Resp 18 B/P 140/55 131/71 Pulse Ox 91 91 91 95 O2 Delivery Room Air Room Air Room Air Room Air Intake and Output 06/16/16 06/16/16 06/17/16 15:00 23:00 07:00 Intake Total 170 ml 240 ml Output Total 1025 ml 600 ml Balance -855 ml -600 ml 240 ml MERLY JEFFERSON MD Jun 17, 2016 09:28
--- NOTE | 2016-06-17 09:37 | PDOC ---
SURGICAL PROGRESS NOTE Subjective feeling better, reports less swelling Vital Signs Vital Signs Date Time Temp Pulse Resp B/P Pulse Ox O2 Delivery O2 Flow Rate FiO2 06/17/16 07:00 97.9 68 18 131/71 95 Room Air 97.9 06/16/16 22:41 2.0 I&O Intake and Output 06/17/16 07:00 Intake Total 410 ml Output Total 1625 ml Balance -1215 ml Intake Oral 360 ml IV Total 50 ml Output Urine Total 1625 ml # Bowel Movements 2 General: Alert, Oriented X3, Cooperative, No acute distress Abdomen: Soft Skin: Other (left chest improved ) Labs Laboratory Tests Test 06/15/16 10:47 06/15/16 14:17 06/15/16 16:06 06/15/16 20:38 Glucose (Fingerstick) 145mg/dL (70-99) 234mg/dL (70-99) 251mg/dL (70-99) Urine Collection Type Unknown Urine Color Yellow Urine Clarity Clear Urine pH 5.0 Urine Specific [place] 1.010 Urine Protein Negativemg/dL (NEG-TRACE) Urine Glucose (UA) 500mg/dL (NEG) Urine Ketones (Stick) Negativemg/dL (NEG) Urine Blood Negative (NEG) Urine Nitrite Negative (NEG) Urine Bilirubin Negative (NEG) Urine Urobilinogen Dipstick 0.2mg/dL (0.2 mg/dL) Urine Leukocyte Esterase Negative (NEG) Urine RBC 0/HPF (0-2) Urine WBC 0/HPF (0-4) Urine Squamous Epithelial Cells Few/LPF Urine Bacteria 0/HPF (0-FEW) Urine Mucus Slight/LPF Urine Yeast Present/HPF Urine Random Sodium 69mmol/L (Not Estab.) Test 06/16/16 04:05 06/16/16 07:12 06/16/16 11:19 06/16/16 16:51 Hemoglobin 9.5g/dL (12.0-15.5) Sodium Level 145mmol/L (136-145) Potassium Level 3.9mmol/L (3.5-5.1) Chloride Level 109mmol/L (98-107) Carbon Dioxide Level 27mmol/L (21-32) Anion Gap 9 (6-14) Blood Urea Nitrogen 18mg/dL (7-20) Creatinine 1.5mg/dL (0.6-1.0) Estimated GFR (Cockcroft-Gault) 35.0 Glucose Level 125mg/dL (70-99) Calcium Level 8.7mg/dL (8.5-10.1) Phosphorus Level 3.1mg/dL (2.6-4.7) Magnesium Level 2.0mg/dL (1.8-2.4) Albumin 2.4g/dL (3.4-5.0) Glucose (Fingerstick) 99mg/dL (70-99) 164mg/dL (70-99) 182mg/dL (70-99) Test 06/16/16 20:37 06/17/16 03:16 Glucose (Fingerstick) 210mg/dL (70-99) Magnesium Level 2.0mg/dL (1.8-2.4) Laboratory Tests Test 06/16/16 11:19 06/16/16 16:51 06/16/16 20:37 06/17/16 03:16 Glucose (Fingerstick) 164mg/dL (70-99) 182mg/dL (70-99) 210mg/dL (70-99) Magnesium Level 2.0mg/dL (1.8-2.4) Problem List Problems Medical Problems: (1) Cellulitis of chest wall Status: Acute (2) Post-operative infection Status: Acute Assessment/Plan plans for DC home FU in clinic with Dr Lima Problems: LUZ MARIA MEDELLIN APRN Jun 17, 2016 09:37
[2016-06-17 10:50] VITALS: BP 128/56
[2016-06-17 10:55] LABS: ALBUMIN 2.5 g/dL (3.4-5.0); CALCIUM 8.5 mg/dL (8.5-10.1); CREATININE 1.3 mg/dL (0.6-1.0); GFR 41.2; PHOSPHORUS 3.2 mg/dL (2.6-4.7); POTASSIUM 4.2 mmol/L (3.5-5.1)
--- NOTE | 2016-06-17 11:52 | PDOC ---
PROGRESS NOTES Chief Complaint Chief Complaint 1. Breast Cellulitis s/p bilateral Mastectomy (04/27/2016) 2. Metabolic encephalopathy 3. 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 Hypoglycemia 5. GERD 6. Type 2 DM 7. HTN 8. Morbid Obesity 9. Hypothyroid 10. CKD 3 11. HX CVA- poss some cognitive decline History of Present Illness History of Present Illness Pt doing well this AM upon arrival to her room. Up talking with in room. Still complaining of some discomfort at the site of the cellulitis near the left breast incision site and under skin fold. Redness improved per pt report and husbands report. [facility] Team- Discharge today on oral medications Vitals Vitals Vital Signs Date Time Temp Pulse Resp B/P Pulse Ox O2 Delivery O2 Flow Rate FiO2 06/17/16 11:23 Room Air 06/17/16 10:50 97.9 75 18 128/56 93 97.9 06/16/16 22:41 2.0 Physical Exam General: Alert, Oriented X3, Cooperative, No acute distress Heart: Regular rate, Normal S1, Normal S2, No murmurs Lungs: Clear, Other (no wheezes) Abdomen: Normal bowel sounds, Soft, No tenderness Extremities: No clubbing, No edema Skin: No breakdown, Other (left chest- erythema improving per pt and at bedside; Pain with light palpation) Labs LABS Laboratory Tests Test 06/16/16 16:51 06/16/16 20:37 06/17/16 03:16 06/17/16 07:49 Glucose (Fingerstick) 182mg/dL (70-99) 210mg/dL (70-99) 120mg/dL (70-99) Sodium Level 142mmol/L (136-145) Potassium Level 4.2mmol/L (3.5-5.1) Chloride Level 107mmol/L (98-107) Carbon Dioxide Level 26mmol/L (21-32) Anion Gap 9 (6-14) Blood Urea Nitrogen 19mg/dL (7-20) Creatinine 1.3mg/dL (0.6-1.0) Estimated GFR (Cockcroft-Gault) 41.2 Glucose Level 151mg/dL (70-99) Calcium Level 8.5mg/dL (8.5-10.1) Phosphorus Level 3.2mg/dL (2.6-4.7) Magnesium Level 2.0mg/dL (1.8-2.4) Albumin 2.5g/dL (3.4-5.0) Review of Systems Review of Systems Complaining of Redness at site of left breast incision- improved Complaining of pain at left breast under skin fold All other ROS negative Assessment and Plan Assessmemt and Plan Problems Medical Problems: (1) Cellulitis of chest wall Status: Acute (2) Post-operative infection Status: Acute 1. Breast Cellulitis s/p bilateral Mastectomy (04/27/2016) 2. Metabolic encephalopathy 3. 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 Hypoglycemia 5. GERD 6. Type 2 DM 7. HTN 8. Morbid Obesity 9. Hypothyroid 10. CKD 3 11. HX CVA- poss some cognitive decline Plan: - Continue Abxs on discharge: - Continue Doxycycline - Started on PO Augmentin per ID recommendations - ID Consulted- Appreciate Recommendations - Stable for discharge - Nephrology Consulted- Appreciate Recommendations - BONIFACIO likely VMN secondary to diuresis - Held fluids because of retention issue - OLD RECORDS REVIEWED, RENAL US NO HYDRONEPHROSIS - US LE ruled out DVT - Continue Regular home medications now and on discharge - Labs Reviewed and normal - VSS - F/u with Radiation Oncologists to start radiation therapy - Disposition: Discharge Home with PO Antibiotics Problems: Comment Review of Relevant I have reviewed the following items halle (where applicable) has been applied. Labs Laboratory Tests Test 06/15/16 14:17 06/15/16 16:06 06/15/16 20:38 06/16/16 04:05 Urine Collection Type Unknown Urine Color Yellow Urine Clarity Clear Urine pH 5.0 Urine Specific [place] 1.010 Urine Protein Negativemg/dL (NEG-TRACE) Urine Glucose (UA) 500mg/dL (NEG) Urine Ketones (Stick) Negativemg/dL (NEG) Urine Blood Negative (NEG) Urine Nitrite Negative (NEG) Urine Bilirubin Negative (NEG) Urine Urobilinogen Dipstick 0.2mg/dL (0.2 mg/dL) Urine Leukocyte Esterase Negative (NEG) Urine RBC 0/HPF (0-2) Urine WBC 0/HPF (0-4) Urine Squamous Epithelial Cells Few/LPF Urine Bacteria 0/HPF (0-FEW) Urine Mucus Slight/LPF Urine Yeast Present/HPF Urine Random Sodium 69mmol/L (Not Estab.) Glucose (Fingerstick) 234mg/dL (70-99) 251mg/dL (70-99) Hemoglobin 9.5g/dL (12.0-15.5) Sodium Level 145mmol/L (136-145) Potassium Level 3.9mmol/L (3.5-5.1) Chloride Level 109mmol/L (98-107) Carbon Dioxide Level 27mmol/L (21-32) Anion Gap 9 (6-14) Blood Urea Nitrogen 18mg/dL (7-20) Creatinine 1.5mg/dL (0.6-1.0) Estimated GFR (Cockcroft-Gault) 35.0 Glucose Level 125mg/dL (70-99) Calcium Level 8.7mg/dL (8.5-10.1) Phosphorus Level 3.1mg/dL (2.6-4.7) Magnesium Level 2.0mg/dL (1.8-2.4) Albumin 2.4g/dL (3.4-5.0) Test 06/16/16 07:12 06/16/16 11:19 06/16/16 16:51 06/16/16 20:37 Glucose (Fingerstick) 99mg/dL (70-99) 164mg/dL (70-99) 182mg/dL (70-99) 210mg/dL (70-99) Test 06/17/16 03:16 06/17/16 07:49 Sodium Level 142mmol/L (136-145) Potassium Level 4.2mmol/L (3.5-5.1) Chloride Level 107mmol/L (98-107) Carbon Dioxide Level 26mmol/L (21-32) Anion Gap 9 (6-14) Blood Urea Nitrogen 19mg/dL (7-20) Creatinine 1.3mg/dL (0.6-1.0) Estimated GFR (Cockcroft-Gault) 41.2 Glucose Level 151mg/dL (70-99) Calcium Level 8.5mg/dL (8.5-10.1) Phosphorus Level 3.2mg/dL (2.6-4.7) Magnesium Level 2.0mg/dL (1.8-2.4) Albumin 2.5g/dL (3.4-5.0) Glucose (Fingerstick) 120mg/dL (70-99) Laboratory Tests Test 06/16/16 16:51 06/16/16 20:37 06/17/16 03:16 06/17/16 07:49 Glucose (Fingerstick) 182mg/dL (70-99) 210mg/dL (70-99) 120mg/dL (70-99) Sodium Level 142mmol/L (136-145) Potassium Level 4.2mmol/L (3.5-5.1) Chloride Level 107mmol/L (98-107) Carbon Dioxide Level 26mmol/L (21-32) Anion Gap 9 (6-14) Blood Urea Nitrogen 19mg/dL (7-20) Creatinine 1.3mg/dL (0.6-1.0) Estimated GFR (Cockcroft-Gault) 41.2 Glucose Level 151mg/dL (70-99) Calcium Level 8.5mg/dL (8.5-10.1) Phosphorus Level 3.2mg/dL (2.6-4.7) Magnesium Level 2.0mg/dL (1.8-2.4) Albumin 2.5g/dL (3.4-5.0) Microbiology 06/11/16 Blood Culture - Final, Complete NO GROWTH AFTER 5 DAYS Medications Current Medications Morphine Sulfate 4 mg PRN Q15MIN PRN IV/SQ PAIN GREATER THAN 3/10 Last administered on 06/11/16 10:45; Start 06/11/16 at 10:45; Stop 06/12/16 at 10:44 ; Status DC Ondansetron HCl (Zofran) 4 mg 1X ONCE IV Last administered on 06/11/16 11:02 ; Start 06/11/16 at 11:00; Stop 06/11/16 at 11:01; Status DC Ondansetron HCl (Zofran) 4 mg PRN Q8HRS PRN IV NAUSEA/VOMITING Last administered on 06/12/16 04:52; Start 06/11/16 at 12:30; Stop 06/12/16 at 12:29 ; Status DC Morphine Sulfate 4 mg PRN Q2HR PRN IV PAIN Last administered on 06/12/16 11:00 ; Start 06/11/16 at 12:30; Stop 06/12/16 at 12:29; Status DC Vancomycin HCl 1 each 1 each PRN DAILY PRN MC SEE COMMENTS Last administered on 06/12/16 12:09; Start 06/11/16 at 12:30; Stop 06/13/16 at 11:47; Status DC Vancomycin HCl 2 gm/Sodium Chloride 500 ml @ 250 mls/hr 1X ONCE IV Last administered on 06/11/16 12:34; Start 06/11/16 at 12:30; Stop 06/11/16 at 14:29 ; Status DC Vancomycin HCl/ Sodium Chloride (Iv Sodium Chloride 0.9% 500ml Bag) 500 ml @ 250 mls/hr Q24H IV Last administered on 06/12/16 11:43; Start 06/12/16 at 12: 00; Stop 06/13/16 at 11:47; Status DC Vancomycin HCl 1 each 1X ONCE MC Last administered on 06/13/16 11:30; Start 06/13/16 at 11:30; Stop 06/13/16 at 11:31; Status DC Piperacillin Sod/ Tazobactam Sod 1 each 1 each PRN DAILY PRN MC SEE COMMENTS; Start 06/11/16 at 16:30; Stop 06/13/16 at 11:18; Status DC Piperacillin Sod/ Tazobactam Sod/ Sodium Chloride (Zosyn/Iv Sodium Chloride 0.9 % 50ml) 50 ml @ 100 mls/hr Q6HRS IV Last administered on 06/16/16 06:03; Start 06/11/16 at 17:00; Stop 06/16/16 at 09:38; Status DC Bethanechol Chloride (Urecholine) 25 mg BID PO Last administered on 06/17/16 08:55; Start 06/11/16 at 21:00 Carbidopa/Levodopa (Sinemet Cr) 1 tab.sa BID PO Last administered on 06/17/16 08:54; Start 06/11/16 at 21:00 Colesevelam HCl (Welchol) 625 mg PRN QID PRN PO DIARRHEA Last administered on 08:58; Start 06/11/16 at 16:45 Diphenhydramine HCl (Benadryl) 25 mg HS PO Last administered on 06/16/16 21:03 ; Start 06/11/16 at 21:00 Acetaminophen/ Hydrocodone Bitart (Lortab 10/325) 1 tab PRN Q4HRS PRN PO PAIN Last administered on 06/17/16 10:11; Start 06/11/16 at 16:45 Levothyroxine Sodium (Synthroid) 100 mcg DAILY PO Last administered on 08:20; Start 06/12/16 at 09:00; Stop 06/13/16 at 22:07; Status DC Amylase/Lipase/ Protease (Zenpep 10,000) 1 cap DAILYWBKFT PO ; Start 06/12/16 at 09:00; Stop 06/12/16 at 09:00; Status DC Pramipexole Dihydrochloride (miraPEX) 1 mg HS PO Last administered on 21:02; Start 06/11/16 at 21:00 Topiramate (Topamax) 100 mg BID PO Last administered on 06/17/16 08:55; Start 06/11/16 at 21:00 Torsemide (Demadex) 20 mg DAILY PO Last administered on 06/15/16 08:58; Start 06/12/16 at 09:00; Stop 06/15/16 at 15:09; Status DC Non-Formulary Medication 5 mg DAILY PO blood sugar Last administered on 08:53; Start 06/12/16 at 09:00 Glipizide (Glucotrol) 10 mg BIDBFRMEAL PO Last administered on 06/13/16 18:28 ; Start 06/12/16 at 17:00; Stop 06/13/16 at 21:54; Status DC Insulin Detemir (Levemir) 40 units Q12H SQ Last administered on 06/13/16 12:17 ; Start 06/11/16 at 21:00; Stop 06/13/16 at 21:53; Status DC Non-Formulary Medication 25 units DAILY SQ Last administered on 06/17/16 09:00 ; Start 06/12/16 at 09:00 Atorvastatin Calcium (Lipitor) 10 mg QHS PO Last administered on 06/16/16 21: 02; Start 06/11/16 at 21:00 Pantoprazole Sodium (Protonix) 40 mg DAILYAC PO ; Start 06/12/16 at 07:30; Status Cancel Potassium Chloride (Klor-Con) 20 meq BIDWMEALS PO ; Start 06/11/16 at 17:00; Status Cancel Propranolol HCl (Inderal La) 60 mg HS PO Last administered on 06/16/16 21:02; Start 06/11/16 at 21:00 Non-Formulary Medication 30 unit DAILYWSUP SQ Last administered on 06/16/16 17 :55; Start 06/11/16 at 17:00 Non-Formulary Medication 1 ea DAILY PO Last administered on 06/17/16 08:53; Start 06/12/16 at 09:00 Amylase/Lipase/ Protease (Zenpep 10,000) 1 cap BIDWMEALS PO Last administered on 06/17/16 08:54; Start 06/11/16 at 17:30 Potassium Chloride (Klor-Con) 20 meq DAILYWBKFT PO Last administered on 08:55; Start 06/12/16 at 08:00; Stop 06/15/16 at 15:09; Status DC Potassium Chloride (Klor-Con) 10 meq HS PO Last administered on 06/16/16 21:01 ; Start 06/11/16 at 21:00 Doxycycline Hyclate (Vibra-Tab) 100 mg BID PO Last administered on 06/17/16 08 :54; Start 06/13/16 at 12:00 Morphine Sulfate 2 mg PRN Q2HR PRN IV PAIN; Start 06/13/16 at 16:00 Polyethylene Glycol (miraLAX PACKET) 17 gm PRN DAILY PRN PO CONSTIPATION; Start 06/13/16 at 16:00 Aspirin (Children'S Aspirin) 81 mg DAILYWBKFT PO ; Start 06/14/16 at 08:00 Insulin Detemir (Levemir) 35 units Q12H SQ Last administered on 06/14/16 08:53 ; Start 06/14/16 at 09:00; Stop 06/14/16 at 11:15; Status DC Glipizide (Glucotrol) 5 mg BIDBFRMEAL PO Last administered on 06/14/16 08:42; Start 06/14/16 at 07:30; Stop 06/14/16 at 11:15; Status DC Oxycodone HCl (Roxicodone) 10 mg 1X ONCE PO Last administered on 06/13/16 22: 00; Start 06/13/16 at 22:15; Stop 06/13/16 at 22:16; Status DC Levothyroxine Sodium (Synthroid) 88 mcg DAILY07 PO Last administered on 06:27; Start 06/14/16 at 07:00 Dextrose 25 gm 1X ONCE IV Last administered on 06/14/16 07:29; Start at 07:30; Stop 06/14/16 at 07:31; Status DC Dextrose 25 gm STK-MED ONCE IV ; Start 06/14/16 at 07:28; Stop 06/14/16 at 10:08 ; Status DC Vitamin D (Vitamin D3) 5,000 unit DAILY PO ; Start 06/14/16 at 11:00; Stop 06/14 at 11:17; Status DC Calcium Carbonate/ Glycine (Oscal) 500 mg BIDAFTMEAL PO Last administered on 08:55; Start 06/14/16 at 11:00 Insulin Detemir (Levemir) 15 units HS SQ Last administered on 06/16/16 21:08; Start 06/14/16 at 21:00 Ergocalciferol (Vitamin D2) 50,000 unit WEEKLY PO Last administered on 13:19; Start 06/14/16 at 11:30 Dextrose 25 gm 1X ONCE IV Last administered on 06/14/16 23:18; Start at 23:30; Stop 06/14/16 at 23:31; Status DC Dextrose 12.5 gm PRN Q15MIN PRN IV LOW BLOOD SUGAR; Start 06/14/16 at 23:15 Hydralazine HCl 10 mg 10 mg PRN Q4HRS PRN IVP ELEVATED BP, SEE COMMENTS; Start 06/15/16 at 15:00 Magnesium Sulfate/ Dextrose (Magnesium Sulfate PREMIX 2GM) 50 ml @ 25 mls/hr PRN DAILY PRN IV for Mag < 1.7 on am labs; Start 06/15/16 at 15:15 Ondansetron HCl (Zofran Odt) 4 mg PRN Q6HRS PRN PO NAUSEA/VOMITING Last administered on 06/16/16 00:11; Start 06/15/16 at 19:30 Acetaminophen (Tylenol) 650 mg PRN Q6HRS PRN PO MILD PAIN / TEMP Last administered on 06/17/16 01:30; Start 06/16/16 at 06:00 Amoxicillin/ Clavulanate Potassium (Augmentin 875/ 125mg) 1 tab BID PO Last administered on 06/17/16 08:54; Start 06/16/16 at 10:00 Lactobacillus Acidophilus (Bacid, Fide-Bid) 1 tab TIDWMEALS PO Last administered on 06/16/16 17:53; Start 06/16/16 at 12:00 Active Scripts Active Demadex (Torsemide) 20 Mg Tablet 20 Mg PO DAILY Reported Humalog (Insulin Lispro) 100 Unit/1 Ml Cartridge 30 Unit SQ DAILYWSUP Omeprazole 40 Mg Capsule.dr 1 Cap PO DAILY Zenpep Dr 10,000 Units Capsule (Lipase/Protease/Amylase) 1 Each Capsule.dr 1 Each PO DAILY Humalog (Insulin Lispro) 100 Unit/1 Ml Cartridge 0 SQ 25UAM-30UPM Mirapex (Pramipexole Di-Hcl) 0.25 Mg Tablet 1 Mg PO HS Levothyroxine Sodium 100 Mcg Tablet 1 Tab PO DAILY Levemir (Insulin Detemir) 100 Unit/1 Ml Vial 40 Unit SQ BID-AM AND HS Farxiga (Dapagliflozin Propanediol) 5 Mg Tablet 5 Mg PO DAILY Carbidopa-Levo Er 25-100 Tab (Carbidopa/Levodopa) 1 Each Tablet.er 1 Each PO BID Hydrocodone-Apap 10-325 (Hydrocodone Bit/Acetaminophen) 1 Each Tablet 1 Tab PO PRN Benadryl (Diphenhydramine Hcl) 25 Mg Capsule 25 Mg PO HS Propranolol Hcl 60 Mg Tablet 60 Mg PO HS Bethanechol Chloride 25 Mg Tablet 25 Mg PO BID Klor-Con 10 (Potassium Chloride) 10 Meq Tablet.er 20 Meq PO BID Welchol (Colesevelam Hcl) 625 Mg Tablet 625 Mg PO PRN QID PRN Glipizide 10 Mg Tablet 10 Mg PO BID Topiramate 100 Mg Tablet 100 Mg PO BID Lovastatin 40 Mg Tablet 40 Mg PO HS Vitals/I & O Vital Sign - Last 24 Hours 06/16/16 06/16/16 06/16/16 06/16/16 15:00 19:00 20:00 21:02 Temp 98.0 98.6 98.0 98.6 Pulse 76 88 88 Resp 18 20 B/P 139/72 173/56 173/56 Pulse Ox 94 91 O2 Delivery Room Air Room Air Room Air 06/16/16 06/16/16 06/17/16 06/17/16 22:41 23:00 03:00 03:04 Temp 97.8 97.4 97.8 97.4 Pulse 87 87 Resp 16 18 18 16 B/P 115/53 140/55 Pulse Ox 91 91 91 91 O2 Delivery Room Air Room Air Room Air Room Air O2 Flow Rate 2.0 06/17/16 06/17/16 06/17/16 06/17/16 04:00 07:00 08:05 10:11 Temp 97.9 97.9 Pulse 68 Resp 12 18 B/P 131/71 Pulse Ox 91 95 O2 Delivery Room Air Room Air Room Air 06/17/16 06/17/16 10:50 11:23 Temp 97.9 97.9 Pulse 75 Resp 18 B/P 128/56 Pulse Ox 93 O2 Delivery Room Air Room Air Intake and Output 06/16/16 06/16/16 06/17/16 15:00 23:00 07:00 Intake Total 170 ml 240 ml Output Total 1025 ml 600 ml Balance -855 ml -600 ml 240 ml HEATH WADE III DO Jun 17, 2016 11:52
--- NOTE | 2016-06-17 12:21 | PDOC ---
PROGRESS NOTES Subjective Subjective c/c - f/u of breast cancer Objective Objective Vital Signs Date Time Temp Pulse Resp B/P Pulse Ox O2 Delivery O2 Flow Rate FiO2 06/17/16 11:23 Room Air 06/17/16 10:50 97.9 75 18 128/56 93 97.9 06/16/16 22:41 2.0 Intake and Output 06/17/16 07:00 Intake Total 410 ml Output Total 1625 ml Balance -1215 ml Intake Oral 360 ml IV Total 50 ml Output Urine Total 1625 ml # Bowel Movements 2 Physical Exam Heart: Normal S1, Normal S2 General: Alert, Oriented X3 Lungs: Clear to auscultation Neuro: Normal speech Psych/Mental Status: Mental status NL Assessment Assessment Problems Medical Problems: (1) Cellulitis of chest wall Status: Acute (2) Post-operative infection Status: Acute IMPRESSION AND PLAN: 1. T3 N1 Mi M0, stage 3A invasive lobular carcinoma of the left breast, outer lower quadrant, status post biopsy on 04/06/2016 and followed by bilateral mastectomy on 04/27/2016, ER positive, TN positive, HER-2/josh negative. Oncotype DX score reveals an intermediate risk score of 24. Plan to proceed with anastrozole after radiation 2. Cellulitis of the left mastectomy site. Appreciate ID consultation, she is on antibiotics. Improving. 3. Splenomegaly, thought to be due to fatty liver disease. 4. Thrombocytopenia due to splenomegaly. Continue to monitor platelet count. 5. Pseudotumor cerebri. MRI brain 06/13/16 is negative for mets. Comment Review of Relevant I have reviewed the following items halle (where applicable) has been applied. Labs Laboratory Tests Test 06/15/16 14:17 06/15/16 16:06 06/15/16 20:38 06/16/16 04:05 Urine Collection Type Unknown Urine Color Yellow Urine Clarity Clear Urine pH 5.0 Urine Specific Rowan 1.010 Urine Protein Negativemg/dL (NEG-TRACE) Urine Glucose (UA) 500mg/dL (NEG) Urine Ketones (Stick) Negativemg/dL (NEG) Urine Blood Negative (NEG) Urine Nitrite Negative (NEG) Urine Bilirubin Negative (NEG) Urine Urobilinogen Dipstick 0.2mg/dL (0.2 mg/dL) Urine Leukocyte Esterase Negative (NEG) Urine RBC 0/HPF (0-2) Urine WBC 0/HPF (0-4) Urine Squamous Epithelial Cells Few/LPF Urine Bacteria 0/HPF (0-FEW) Urine Mucus Slight/LPF Urine Yeast Present/HPF Urine Random Sodium 69mmol/L (Not Estab.) Glucose (Fingerstick) 234mg/dL (70-99) 251mg/dL (70-99) Hemoglobin 9.5g/dL (12.0-15.5) Sodium Level 145mmol/L (136-145) Potassium Level 3.9mmol/L (3.5-5.1) Chloride Level 109mmol/L (98-107) Carbon Dioxide Level 27mmol/L (21-32) Anion Gap 9 (6-14) Blood Urea Nitrogen 18mg/dL (7-20) Creatinine 1.5mg/dL (0.6-1.0) Estimated GFR (Cockcroft-Gault) 35.0 Glucose Level 125mg/dL (70-99) Calcium Level 8.7mg/dL (8.5-10.1) Phosphorus Level 3.1mg/dL (2.6-4.7) Magnesium Level 2.0mg/dL (1.8-2.4) Albumin 2.4g/dL (3.4-5.0) Test 06/16/16 07:12 06/16/16 11:19 06/16/16 16:51 06/16/16 20:37 Glucose (Fingerstick) 99mg/dL (70-99) 164mg/dL (70-99) 182mg/dL (70-99) 210mg/dL (70-99) Test 06/17/16 03:16 06/17/16 07:49 06/17/16 11:32 Sodium Level 142mmol/L (136-145) Potassium Level 4.2mmol/L (3.5-5.1) Chloride Level 107mmol/L (98-107) Carbon Dioxide Level 26mmol/L (21-32) Anion Gap 9 (6-14) Blood Urea Nitrogen 19mg/dL (7-20) Creatinine 1.3mg/dL (0.6-1.0) Estimated GFR (Cockcroft-Gault) 41.2 Glucose Level 151mg/dL (70-99) Calcium Level 8.5mg/dL (8.5-10.1) Phosphorus Level 3.2mg/dL (2.6-4.7) Magnesium Level 2.0mg/dL (1.8-2.4) Albumin 2.5g/dL (3.4-5.0) Glucose (Fingerstick) 120mg/dL (70-99) 182mg/dL (70-99) Laboratory Tests Test 06/16/16 16:51 06/16/16 20:37 06/17/16 03:16 06/17/16 07:49 Glucose (Fingerstick) 182mg/dL (70-99) 210mg/dL (70-99) 120mg/dL (70-99) Sodium Level 142mmol/L (136-145) Potassium Level 4.2mmol/L (3.5-5.1) Chloride Level 107mmol/L (98-107) Carbon Dioxide Level 26mmol/L (21-32) Anion Gap 9 (6-14) Blood Urea Nitrogen 19mg/dL (7-20) Creatinine 1.3mg/dL (0.6-1.0) Estimated GFR (Cockcroft-Gault) 41.2 Glucose Level 151mg/dL (70-99) Calcium Level 8.5mg/dL (8.5-10.1) Phosphorus Level 3.2mg/dL (2.6-4.7) Magnesium Level 2.0mg/dL (1.8-2.4) Albumin 2.5g/dL (3.4-5.0) Test 06/17/16 11:32 Glucose (Fingerstick) 182mg/dL (70-99) Microbiology 06/11/16 Blood Culture - Final, Complete NO GROWTH AFTER 5 DAYS Medications Current Medications Morphine Sulfate 4 mg PRN Q15MIN PRN IV/SQ PAIN GREATER THAN 3/10 Last administered on 06/11/16 10:45; Start 06/11/16 at 10:45; Stop 06/12/16 at 10:44 ; Status DC Ondansetron HCl (Zofran) 4 mg 1X ONCE IV Last administered on 06/11/16 11:02 ; Start 06/11/16 at 11:00; Stop 06/11/16 at 11:01; Status DC Ondansetron HCl (Zofran) 4 mg PRN Q8HRS PRN IV NAUSEA/VOMITING Last administered on 06/12/16 04:52; Start 06/11/16 at 12:30; Stop 06/12/16 at 12:29 ; Status DC Morphine Sulfate 4 mg PRN Q2HR PRN IV PAIN Last administered on 06/12/16 11:00 ; Start 06/11/16 at 12:30; Stop 06/12/16 at 12:29; Status DC Vancomycin HCl 1 each 1 each PRN DAILY PRN MC SEE COMMENTS Last administered on 06/12/16 12:09; Start 06/11/16 at 12:30; Stop 06/13/16 at 11:47; Status DC Vancomycin HCl 2 gm/Sodium Chloride 500 ml @ 250 mls/hr 1X ONCE IV Last administered on 06/11/16 12:34; Start 06/11/16 at 12:30; Stop 06/11/16 at 14:29 ; Status DC Vancomycin HCl/ Sodium Chloride (Iv Sodium Chloride 0.9% 500ml Bag) 500 ml @ 250 mls/hr Q24H IV Last administered on 06/12/16 11:43; Start 06/12/16 at 12: 00; Stop 06/13/16 at 11:47; Status DC Vancomycin HCl 1 each 1X ONCE MC Last administered on 06/13/16 11:30; Start 06/13/16 at 11:30; Stop 06/13/16 at 11:31; Status DC Piperacillin Sod/ Tazobactam Sod 1 each 1 each PRN DAILY PRN MC SEE COMMENTS; Start 06/11/16 at 16:30; Stop 06/13/16 at 11:18; Status DC Piperacillin Sod/ Tazobactam Sod/ Sodium Chloride (Zosyn/Iv Sodium Chloride 0.9 % 50ml) 50 ml @ 100 mls/hr Q6HRS IV Last administered on 06/16/16 06:03; Start 06/11/16 at 17:00; Stop 06/16/16 at 09:38; Status DC Bethanechol Chloride (Urecholine) 25 mg BID PO Last administered on 06/17/16 08:55; Start 06/11/16 at 21:00 Carbidopa/Levodopa (Sinemet Cr) 1 tab.sa BID PO Last administered on 06/17/16 08:54; Start 06/11/16 at 21:00 Colesevelam HCl (Welchol) 625 mg PRN QID PRN PO DIARRHEA Last administered on 08:58; Start 06/11/16 at 16:45 Diphenhydramine HCl (Benadryl) 25 mg HS PO Last administered on 06/16/16 21:03 ; Start 06/11/16 at 21:00 Acetaminophen/ Hydrocodone Bitart (Lortab 10/325) 1 tab PRN Q4HRS PRN PO PAIN Last administered on 06/17/16 10:11; Start 06/11/16 at 16:45 Levothyroxine Sodium (Synthroid) 100 mcg DAILY PO Last administered on 08:20; Start 06/12/16 at 09:00; Stop 06/13/16 at 22:07; Status DC Amylase/Lipase/ Protease (Zenpep 10,000) 1 cap DAILYWBKFT PO ; Start 06/12/16 at 09:00; Stop 06/12/16 at 09:00; Status DC Pramipexole Dihydrochloride (miraPEX) 1 mg HS PO Last administered on 21:02; Start 06/11/16 at 21:00 Topiramate (Topamax) 100 mg BID PO Last administered on 06/17/16 08:55; Start 06/11/16 at 21:00 Torsemide (Demadex) 20 mg DAILY PO Last administered on 06/15/16 08:58; Start 06/12/16 at 09:00; Stop 06/15/16 at 15:09; Status DC Non-Formulary Medication 5 mg DAILY PO blood sugar Last administered on 08:53; Start 06/12/16 at 09:00 Glipizide (Glucotrol) 10 mg BIDBFRMEAL PO Last administered on 06/13/16 18:28 ; Start 06/12/16 at 17:00; Stop 06/13/16 at 21:54; Status DC Insulin Detemir (Levemir) 40 units Q12H SQ Last administered on 06/13/16 12:17 ; Start 06/11/16 at 21:00; Stop 06/13/16 at 21:53; Status DC Non-Formulary Medication 25 units DAILY SQ Last administered on 06/17/16 09:00 ; Start 06/12/16 at 09:00 Atorvastatin Calcium (Lipitor) 10 mg QHS PO Last administered on 06/16/16 21: 02; Start 06/11/16 at 21:00 Pantoprazole Sodium (Protonix) 40 mg DAILYAC PO ; Start 06/12/16 at 07:30; Status Cancel Potassium Chloride (Klor-Con) 20 meq BIDWMEALS PO ; Start 06/11/16 at 17:00; Status Cancel Propranolol HCl (Inderal La) 60 mg HS PO Last administered on 06/16/16 21:02; Start 06/11/16 at 21:00 Non-Formulary Medication 30 unit DAILYWSUP SQ Last administered on 06/16/16 17 :55; Start 06/11/16 at 17:00 Non-Formulary Medication 1 ea DAILY PO Last administered on 06/17/16 08:53; Start 06/12/16 at 09:00 Amylase/Lipase/ Protease (Zenpep 10,000) 1 cap BIDWMEALS PO Last administered on 06/17/16 08:54; Start 06/11/16 at 17:30 Potassium Chloride (Klor-Con) 20 meq DAILYWBKFT PO Last administered on 08:55; Start 06/12/16 at 08:00; Stop 06/15/16 at 15:09; Status DC Potassium Chloride (Klor-Con) 10 meq HS PO Last administered on 06/16/16 21:01 ; Start 06/11/16 at 21:00 Doxycycline Hyclate (Vibra-Tab) 100 mg BID PO Last administered on 06/17/16 08 :54; Start 06/13/16 at 12:00 Morphine Sulfate 2 mg PRN Q2HR PRN IV PAIN; Start 06/13/16 at 16:00 Polyethylene Glycol (miraLAX PACKET) 17 gm PRN DAILY PRN PO CONSTIPATION; Start 06/13/16 at 16:00 Aspirin (Children'S Aspirin) 81 mg DAILYWBKFT PO ; Start 06/14/16 at 08:00 Insulin Detemir (Levemir) 35 units Q12H SQ Last administered on 06/14/16 08:53 ; Start 06/14/16 at 09:00; Stop 06/14/16 at 11:15; Status DC Glipizide (Glucotrol) 5 mg BIDBFRMEAL PO Last administered on 06/14/16 08:42; Start 06/14/16 at 07:30; Stop 06/14/16 at 11:15; Status DC Oxycodone HCl (Roxicodone) 10 mg 1X ONCE PO Last administered on 06/13/16 22: 00; Start 06/13/16 at 22:15; Stop 06/13/16 at 22:16; Status DC Levothyroxine Sodium (Synthroid) 88 mcg DAILY07 PO Last administered on 06:27; Start 06/14/16 at 07:00 Dextrose 25 gm 1X ONCE IV Last administered on 06/14/16 07:29; Start at 07:30; Stop 06/14/16 at 07:31; Status DC Dextrose 25 gm STK-MED ONCE IV ; Start 06/14/16 at 07:28; Stop 06/14/16 at 10:08 ; Status DC Vitamin D (Vitamin D3) 5,000 unit DAILY PO ; Start 06/14/16 at 11:00; Stop 06/14 at 11:17; Status DC Calcium Carbonate/ Glycine (Oscal) 500 mg BIDAFTMEAL PO Last administered on 08:55; Start 06/14/16 at 11:00 Insulin Detemir (Levemir) 15 units HS SQ Last administered on 06/16/16 21:08; Start 06/14/16 at 21:00 Ergocalciferol (Vitamin D2) 50,000 unit WEEKLY PO Last administered on 13:19; Start 06/14/16 at 11:30 Dextrose 25 gm 1X ONCE IV Last administered on 06/14/16 23:18; Start at 23:30; Stop 06/14/16 at 23:31; Status DC Dextrose 12.5 gm PRN Q15MIN PRN IV LOW BLOOD SUGAR; Start 06/14/16 at 23:15 Hydralazine HCl 10 mg 10 mg PRN Q4HRS PRN IVP ELEVATED BP, SEE COMMENTS; Start 06/15/16 at 15:00 Magnesium Sulfate/ Dextrose (Magnesium Sulfate PREMIX 2GM) 50 ml @ 25 mls/hr PRN DAILY PRN IV for Mag < 1.7 on am labs; Start 06/15/16 at 15:15 Ondansetron HCl (Zofran Odt) 4 mg PRN Q6HRS PRN PO NAUSEA/VOMITING Last administered on 06/16/16 00:11; Start 06/15/16 at 19:30 Acetaminophen (Tylenol) 650 mg PRN Q6HRS PRN PO MILD PAIN / TEMP Last administered on 06/17/16 01:30; Start 06/16/16 at 06:00 Amoxicillin/ Clavulanate Potassium (Augmentin 875/ 125mg) 1 tab BID PO Last administered on 06/17/16 08:54; Start 06/16/16 at 10:00 Lactobacillus Acidophilus (Bacid, Fide-Bid) 1 tab TIDWMEALS PO Last administered on 06/17/16 11:48; Start 06/16/16 at 12:00 Active Scripts Active Demadex (Torsemide) 20 Mg Tablet 20 Mg PO DAILY Reported Humalog (Insulin Lispro) 100 Unit/1 Ml Cartridge 30 Unit SQ DAILYWSUP Omeprazole 40 Mg Capsule.dr 1 Cap PO DAILY Zenpep Dr 10,000 Units Capsule (Lipase/Protease/Amylase) 1 Each Capsule.dr 1 Each PO DAILY Humalog (Insulin Lispro) 100 Unit/1 Ml Cartridge 0 SQ 25UAM-30UPM Mirapex (Pramipexole Di-Hcl) 0.25 Mg Tablet 1 Mg PO HS Levothyroxine Sodium 100 Mcg Tablet 1 Tab PO DAILY Levemir (Insulin Detemir) 100 Unit/1 Ml Vial 40 Unit SQ BID-AM AND HS Farxiga (Dapagliflozin Propanediol) 5 Mg Tablet 5 Mg PO DAILY Carbidopa-Levo Er 25-100 Tab (Carbidopa/Levodopa) 1 Each Tablet.er 1 Each PO BID Hydrocodone-Apap 10-325 (Hydrocodone Bit/Acetaminophen) 1 Each Tablet 1 Tab PO PRN Benadryl (Diphenhydramine Hcl) 25 Mg Capsule 25 Mg PO HS Propranolol Hcl 60 Mg Tablet 60 Mg PO HS Bethanechol Chloride 25 Mg Tablet 25 Mg PO BID Klor-Con 10 (Potassium Chloride) 10 Meq Tablet.er 20 Meq PO BID Welchol (Colesevelam Hcl) 625 Mg Tablet 625 Mg PO PRN QID PRN Glipizide 10 Mg Tablet 10 Mg PO BID Topiramate 100 Mg Tablet 100 Mg PO BID Lovastatin 40 Mg Tablet 40 Mg PO HS Vitals/I & O Vital Sign - Last 24 Hours 06/16/16 06/16/16 06/16/16 06/16/16 15:00 19:00 20:00 21:02 Temp 98.0 98.6 98.0 98.6 Pulse 76 88 88 Resp 18 20 B/P 139/72 173/56 173/56 Pulse Ox 94 91 O2 Delivery Room Air Room Air Room Air 06/16/16 06/16/16 06/17/16 06/17/16 22:41 23:00 03:00 03:04 Temp 97.8 97.4 97.8 97.4 Pulse 87 87 Resp 16 18 18 16 B/P 115/53 140/55 Pulse Ox 91 91 91 91 O2 Delivery Room Air Room Air Room Air Room Air O2 Flow Rate 2.0 06/17/16 06/17/16 06/17/16 06/17/16 04:00 07:00 08:05 10:11 Temp 97.9 97.9 Pulse 68 Resp 12 18 B/P 131/71 Pulse Ox 91 95 O2 Delivery Room Air Room Air Room Air 06/17/16 06/17/16 10:50 11:23 Temp 97.9 97.9 Pulse 75 Resp 18 B/P 128/56 Pulse Ox 93 O2 Delivery Room Air Room Air Intake and Output 06/16/16 06/16/16 06/17/16 15:00 23:00 07:00 Intake Total 170 ml 240 ml Output Total 1025 ml 600 ml Balance -855 ml -600 ml 240 ml DREW TALAMANTES MD Jun 17, 2016 12:21
--- NOTE | 2016-06-17 12:54 | PDOC3 ---
Discharge Summary* Date of Admission: Jun 11, 2016 Date of Discharge: Jun 17, 2016 Admitting Diagnosis Problems Medical Problems: (1) Cellulitis of chest wall Status: Acute (2) Post-operative infection Status: Acute Final Diagnosis Problems Medical Problems: (1) Cellulitis of chest wall Status: Acute (2) Post-operative infection Status: Acute CONSULTS Dr Kern, Dr Chanel, Dr Cruz Brief Hospital Course Ms. Amaya is a 66 old female s/p bilateral mastectomies who presented with cellulitis of the superior skin flap on her left chest. She was admitted for IV abx. Disposition/Orders: D/C to Home CONDITION AT DISCHARGE: Improved, Stable Diet: Regular Scheduled Bethanechol Chloride (Bethanechol Chloride) 25 MG PO BID (Reported) Carbidopa/Levodopa (Carbidopa-Levo Er 25-100 Tab) 1 EACH PO BID (Reported) Dapagliflozin Propanediol (Farxiga) 5 MG PO DAILY (Reported) Diphenhydramine Hcl (Benadryl) 25 MG PO HS (Reported) Glipizide (Glipizide) 10 MG PO BID (Reported) Insulin Detemir (Levemir) 40 UNIT SQ BID-AM and HS (Reported) Insulin Lispro (Humalog) 0 SQ 25uAM-30uPM (Reported) Insulin Lispro (Humalog) 30 UNIT SQ DAILYWSUP (Reported) Levothyroxine Sodium (Levothyroxine Sodium) 1 TAB PO DAILY (Reported) Lipase/Protease/Amylase (Zenpep Dr 10,000 Units Capsule) 1 EACH PO DAILY ( Reported) Lovastatin (Lovastatin) 40 MG PO HS (Reported) Omeprazole (Omeprazole) 1 CAP PO DAILY (Reported) Potassium Chloride (Klor-Con 10) 20 MEQ PO BID (Reported) Pramipexole Di-Hcl (Mirapex) 1 MG PO HS (Reported) Propranolol Hcl (Propranolol Hcl) 60 MG PO HS (Reported) Topiramate (Topiramate) 100 MG PO BID (Reported) Torsemide (Demadex) 20 MG PO DAILY Scheduled PRN Colesevelam Hcl (Welchol) 625 MG PO PRN QID PRN PRN DIARRHEA (Reported) Hydrocodone Bit/Acetaminophen (Hydrocodone-Apap 10-325 ) 1 TAB PO PRN PAIN ( Reported) FOLLOW UP APPOINTMENT: To begin [facility] Monday. See me in a week Time Spent Total time spent with patient 10 minutes for coordination of care, counseling, and education. NADJA MARY MD Jun 17, 2016 12:54
== END 2016-06-17 13:30 | disposition home or self-care (01) | DRG 862 ==
LOC: ER 10:02 → 4 NORTH 12:25
PROVIDERS: ADMIT Surgery; ATTEND Surgery
DX: T81.4XXA Infection following a procedure, initial encounter (principal); A41.9 Sepsis, unspecified organism; G93.41 Metabolic encephalopathy; N17.0 Acute kidney failure with tubular necrosis; E44.0 Moderate protein-calorie malnutrition; L03.313 Cellulitis of chest wall; Z68.42 Body mass index [BMI] 45.0-49.9, adult; E03.9 Hypothyroidism, unspecified; D69.59 Other secondary thrombocytopenia; E11.22 Type 2 diabetes mellitus with diabetic chronic kidney disease; E11.649 Type 2 diabetes mellitus with hypoglycemia without coma; E11.65 Type 2 diabetes mellitus with hyperglycemia; E55.9 Vitamin D deficiency, unspecified; E66.01 Morbid (severe) obesity due to excess calories; E78.5 Hyperlipidemia, unspecified; G43.109 Migraine with aura, not intractable, without status migrainosus; G93.2 Benign intracranial hypertension; I12.9 Hypertensive chronic kidney disease with stage 1 through stage 4 chronic kidney disease, or unspecified chronic kidney disease; Z90.49 Acquired absence of other specified parts of digestive tract; F32.9 Major depressive disorder, single episode, unspecified; I72.8 Aneurysm of other specified arteries; K21.9 Gastro-esophageal reflux disease without esophagitis; N18.3 Chronic kidney disease, stage 3 (moderate); T50.2X5A Adverse effect of carbonic-anhydrase inhibitors, benzothiadiazides and other diuretics, initial encounter; Z17.0 Estrogen receptor positive status [ER+]; I25.2 Old myocardial infarction; Z79.82 Long term (current) use of aspirin; Z80.3 Family history of malignant neoplasm of breast; Z82.49 Family history of ischemic heart disease and other diseases of the circulatory system; Z82.5 Family history of asthma and other chronic lower respiratory diseases; Z83.3 Family history of diabetes mellitus; Z85.3 Personal history of malignant neoplasm of breast; Z86.73 Personal history of transient ischemic attack (TIA), and cerebral infarction without residual deficits; Z87.11 Personal history of peptic ulcer disease; Z90.13 Acquired absence of bilateral breasts and nipples; Z90.710 Acquired absence of both cervix and uterus; Z88.5 Allergy status to narcotic agent; Z88.2 Allergy status to sulfonamides; Z88.8 Allergy status to other drugs, medicaments and biological substances; Z91.030 Bee allergy status
CPT/HCPCS: 36415; 70551; 80048; 80053; 80069; 80202; 81001; 82306; 82390; 82525; 82607; 82728; 82947; 83036; 83540; 83550; 83605; 83735; 84300; 84439; 84443; 84481; 84550; 84630; 85018; 85027; 85045; 87040; 93005; 93970; 95816; 96374; 96375; G0481; J1815; J2270; J2405; J2543; J3370; J7040; J7042; Q0162; Q0163; 99285-25

== ENCOUNTER → 2016-07-28 | Outpatient (CLI) | payer MEDICARE, BC, OTHER ==
[2016-07-28 15:32] LABS: BASO % 1 % (0-3); EOS % 7 % (0-3); HEMATOCRIT 35.7 % (36.0-47.0); LYMPH # 0.8 x10^3/uL (1.0-4.8); LYMPH % 13 % (24-48); MEAN CORPUSCULAR HEMOGLOBIN 26 pg (25-35); MEAN CORPUSCULAR HGB CONC 31 g/dL (31-37); MEAN CORPUSCULAR VOLUME 83 fL (79-100); MONO % 14 % (0-9); NEUT % 66 % (31-73); PLATELET COUNT 91 x10^3/uL (140-400); RED BLOOD COUNT 4.29 x10^6/uL (3.50-5.40); RED CELL DISTRIBUTION WIDTH 18.2 % (11.5-14.5); WHITE BLOOD COUNT 6.1 x10^3/uL (4.0-11.0)
[2016-07-28 15:48] LABS: INR 1.1 (0.8-1.1); PROTHROMBIN TIME PATIENT 13.6 SEC (11.7-14.0)
[2016-07-28 15:50] LABS: CREATININE 1.2 mg/dL (0.6-1.0); GFR 45.2
== END | disposition home or self-care (01) ==
LOC: LAB 15:05
PROVIDERS: ATTEND Psychiatry & Neurology Neurology
DX: G93.2 Benign intracranial hypertension (principal)
CPT/HCPCS: 36415; 82565; 82947; 84443; 84520; 85027; 85610; 85651

== ENCOUNTER 2016-08-03 11:01 | Inpatient (IN) | payer MEDICARE, BC, OTHER ==
[~2016-08-03] VITALS: Ht 152.4 cm; Wt 112.9 kg
[2016-08-03] MEDS ORDERED: ONDANSETRON PF 4 MG/2 ML VIAL. IV PRN ×3 (12:45→16:15)
[2016-08-03] MEDS ORDERED: MORPHINE SULFATE 4 MG/ML DISP.SYRIN. IV/SQ PRN (12:45)
[2016-08-03] MEDS ORDERED: MORPHINE SULFATE 4 MG/ML DISP.SYRIN. IV PRN (13:45)
[2016-08-03 14:18] LABS: BILIRUBIN,URINE NEGATIVE (NEG); GLUCOSE,URINE NEGATIVE (NEG); NITRITE,URINE NEGATIVE (NEG); PROTEIN,URINE >=300 mg/dL (NEG-TRACE)
[2016-08-03 14:46] LABS: BACTERIA,URINE MANY /HPF (0-FEW); RBC,URINE 0 /HPF (0-2); SQUAMOUS EPITHELIAL CELL,UR MANY /LPF; WBC,URINE >40 /HPF (0-4)
[2016-08-03 15:00] VITALS: BP 141/78
--- NOTE | 2016-08-03 15:23 | PDOC2 ---
NEUROLOGY CONSULT Date of Admission Date of Admission DATE: 08/03/16 TIME: 15:07 Reason for Consult Reason for Consult: Pseudotumor cerebri, CSF opening pressure 38. Chronic headache. Old right cerebellar lacunar infarct. Chest wall cellulitis. S/p bilateral mastectomy on 04/27/16 s/p left site infection. Hypothyroidism DM Pancreatitis. GERD Cancer Obesity. RECOMMENDATIONS/PLAN: Continue Topamax, increase to 125 mg bid. Diamox 250 mg q6h. Please consult Neurosurgery. Lab: see orders. Treat medical disease. Please consult Oncology for cancer. Weight reduction. OT/PT Discussed with her and her family in detail in ER. HISTORY OF THE PRESENT ILLNESS: 66-y-old female patient with above medical diseases has been having chronic headaches. She was diagnosed as having pseudotumor cerebri in the past and shunt was suggested but she declined it. She said she had several LPs and her CSF opening pressure and closing pressure was always high. Her CSF opening pressure was 46 in the past. PAST MEDICAL HISTORY: Please see above. PAST SURGERY HISTORY: Tonsillectomy Bilateral mastectomy Cholecystectomy Hysterectomy ALLERGY: Unknown MEDICATIONS: Refer to [facility] FAMILY HISTORY: H Non contributory. SOCIAL HISTORY: Denies smoking, drinking, and illicit drug use. REVIEW OF SYSTEMS: Constitutional: No malnutrition, weight loss, cachexia. Head: No traumatic brain or head injury. Skin: No edema, or rash. Ear: No infection, tinnitus. Eyes: No vision loss or color blindness. Nose: No bleeding or purulent discharges. Hearing: No hearing decrease. Neck: No injury. Breast: NS/p mastectomy Cardiac: No W[place], arrhythmia. Pulmonary: No COPD. GI: ERD. Urinary/genital: UTI. Endocrinologic: Diabetes Mellitus, obesity Skeletomuscular: No muscular atrophy, deformity. Neurological: see HP. Psychiatric: Denies drug use/abuse. Otherwise, not -wqntm review of systems. PHYSICAL EXAMINATION: General appearance is in subacute distress. HEENT: Normocephalic and nontraumatic. Eyes, nose, ears, and throat are unremarkable. Neck is supple. No lymphadenopathy. No crepitus. Cardiovascular: S1, S2, regular rate and rhythm. Pulmonary: Clear to auscultation bilaterally. Abdomen: Bowel sounds are positive. Extremities: No rash, lesions, or edema. No restriction of range of motion NEUROLOGICAL EXAMINATION: Awake. Oriented to place and person but not accurate to time. PERRL. EOMI. CN: no focal findings. Muscle tone: within normal. Muscle strength: 4+ DTR: 1 due to obesity. Plantar reflex: Flexor response bilaterally Gait: not examined in bed. Sensory exam: no abnormal findings. No obvious cerebellar signs elicited. F-T-N test fine. Current Medications Current Medications Current Medications Morphine Sulfate 4 mg PRN Q15MIN PRN IV/SQ PAIN GREATER THAN 3/10; Start at 12:45; Stop 08/04/16 at 12:44 Ondansetron HCl (Zofran) 4 mg PRN Q8HRS PRN IV NAUSEA/VOMITING; Start 08/03/16 at 12:45 Ondansetron HCl (Zofran) 4 mg PRN Q8HRS PRN IV NAUSEA/VOMITING; Start 08/03/16 at 13:45; Stop 08/04/16 at 13:44 Morphine Sulfate 4 mg PRN Q2HR PRN IV PAIN; Start 08/03/16 at 13:45; Stop 08/04 at 13:44 Active Scripts Active Demadex (Torsemide) 20 Mg Tablet 20 Mg PO DAILY Reported Humalog (Insulin Lispro) 100 Unit/1 Ml Cartridge 20 Unit SQ BIDAC Omeprazole 40 Mg Capsule.dr 1 Cap PO DAILY Zenpep Dr 10,000 Units Capsule (Lipase/Protease/Amylase) 1 Each Capsule.dr 1 Each PO DAILY Humalog (Insulin Lispro) 100 Unit/1 Ml Cartridge 0 SQ 25UAM-30UPM Mirapex (Pramipexole Di-Hcl) 0.25 Mg Tablet 1 Mg PO HS Levothyroxine Sodium 100 Mcg Tablet 1 Tab PO DAILY Levemir (Insulin Detemir) 100 Unit/1 Ml Vial 30 Unit SQ BID-AM AND HS Carbidopa-Levo Er 25-100 Tab (Carbidopa/Levodopa) 1 Each Tablet.er 1 Each PO BID Benadryl (Diphenhydramine Hcl) 25 Mg Capsule 25 Mg PO HS Propranolol Hcl 60 Mg Tablet 60 Mg PO HS Bethanechol Chloride 25 Mg Tablet 25 Mg PO BID Klor-Con 10 (Potassium Chloride) 10 Meq Tablet.er 20 Meq PO BID Welchol (Colesevelam Hcl) 625 Mg Tablet 625 Mg PO PRN QID PRN Glipizide 10 Mg Tablet 10 Mg PO BID Topiramate 100 Mg Tablet 100 Mg PO TID Lovastatin 40 Mg Tablet 40 Mg PO HS Allergies Allergies: Coded Allergies: Sulfa (Sulfonamide Antibiotics) (Verified Allergy, Severe, 04/27/16) cough insulin aspart (Verified Allergy, Severe, ANAPHYLAXIS, 04/27/16) venom-honey bee (Verified Allergy, Severe, Anaphylaxis, 04/27/16) escitalopram (Verified Allergy, Intermediate, 04/27/16) lisinopril (Verified Allergy, Intermediate, Rash, 04/27/16) metformin (Verified Allergy, Intermediate, Diarrhea, 04/27/16) mold (Verified Allergy, Intermediate, 04/27/16) pantoprazole (Verified Allergy, Intermediate, 04/27/16) breast ranitidine (Verified Allergy, Intermediate, Nausea and Vomiting, 04/27/16) sertraline (Verified Allergy, Intermediate, 04/27/16) depression Vitals VITALS Vital Signs Date Time Temp Pulse Resp B/P Pulse Ox O2 Delivery O2 Flow Rate FiO2 08/03/16 14:28 08/03/16 13:38 84 20 98 Room Air 08/03/16 11:38 98.2 98.2 Labs Labs Laboratory Tests Test 08/03/16 14:00 08/03/16 14:54 Urine Collection Type Unknown Urine Color Yellow Urine Clarity Cloudy Urine pH 7.0 Urine Specific [place] 1.020 Urine Protein >=300mg/dL (NEG-TRACE) Urine Glucose (UA) Negativemg/dL (NEG) Urine Ketones (Stick) Negativemg/dL (NEG) Urine Blood Negative (NEG) Urine Nitrite Negative (NEG) Urine Bilirubin Negative (NEG) Urine Urobilinogen Dipstick 1.0mg/dL (0.2 mg/dL) Urine Leukocyte Esterase Small (NEG) Urine RBC 0/HPF (0-2) Urine WBC >40/HPF (0-4) Urine Squamous Epithelial Cells Many/LPF Urine Bacteria Many/HPF (0-FEW) Urine Mucus Mod/LPF Glucose (Fingerstick) 124mg/dL (70-99) Laboratory Tests Test 08/03/16 14:00 08/03/16 14:54 Urine Collection Type Unknown Urine Color Yellow Urine Clarity Cloudy Urine pH 7.0 Urine Specific [place] 1.020 Urine Protein >=300mg/dL (NEG-TRACE) Urine Glucose (UA) Negativemg/dL (NEG) Urine Ketones (Stick) Negativemg/dL (NEG) Urine Blood Negative (NEG) Urine Nitrite Negative (NEG) Urine Bilirubin Negative (NEG) Urine Urobilinogen Dipstick 1.0mg/dL (0.2 mg/dL) Urine Leukocyte Esterase Small (NEG) Urine RBC 0/HPF (0-2) Urine WBC >40/HPF (0-4) Urine Squamous Epithelial Cells Many/LPF Urine Bacteria Many/HPF (0-FEW) Urine Mucus Mod/LPF Glucose (Fingerstick) 124mg/dL (70-99) SERGIO CARTER MD Aug 03, 2016 15:23
[2016-08-03 15:31] LABS: BASO % 1 % (0-3); EOS % 7 % (0-3); HEMATOCRIT 33.7 % (36.0-47.0); HEMOGLOBIN 10.4 g/dL (12.0-15.5); LYMPH # 0.6 x10^3/uL (1.0-4.8); LYMPH % 11 % (24-48); MEAN CORPUSCULAR HEMOGLOBIN 26 pg (25-35); MEAN CORPUSCULAR HGB CONC 31 g/dL (31-37); MEAN CORPUSCULAR VOLUME 83 fL (79-100); MONO % 12 % (0-9); NEUT % 69 % (31-73); PLATELET COUNT 78 x10^3/uL (140-400); RED BLOOD COUNT 4.06 x10^6/uL (3.50-5.40); RED CELL DISTRIBUTION WIDTH 18.2 % (11.5-14.5); WHITE BLOOD COUNT 5.2 x10^3/uL (4.0-11.0)
[2016-08-03 15:40] LABS: INR 1.1 (0.8-1.1); PROTHROMBIN TIME PATIENT 13.3 SEC (11.7-14.0)
[2016-08-03 15:41] LABS: CALCIUM 8.5 mg/dL (8.5-10.1); CREATININE 1.1 mg/dL (0.6-1.0)
--- NOTE | 2016-08-03 15:43 | PHYS DOC ---
Past Medical History Past Medical History: Cancer, Diabetes-Type II, GERD, Hypothyroid, Pancreatitis , Other Additional Past Medical Histor: VERTIGO,PARKONISM,PSEUDO TUMOR CEREBI, breast cancer Past Surgical History: Cholecystectomy, Hysterectomy, Tonsillectomy, Other Additional Past Surgical Histo: SEE ATTACHED SHEET,MULTIPLE SURGERIES, BX MASTECTOMY 04/27/2016 Additional Information: Nonsmoker Alcohol Use: None Drug Use: None Adult General Chief Complaint Chief Complaint: OTHER COMPLAINTS HPI HPI Patient is a 66 year old female who presents with reported increased opening pressure on her lumbar puncture today in radiology. The patient's neurologist was alerted and requested that the patient be transferred to the emergency department for hospital admission. Patient states that she has had increased pressure on spinal taps previously. She has a history of pseudotumor cerebri. She states that her neurologist had ordered the lumbar puncture for evaluation of recent confusion. The patient has been seen in this hospital with other complaints and found to be disoriented. She is alert and oriented today. She is currently complaining of increase in her chronic headaches after her lumbar puncture and pain in her back. She is instructed that she must lay flat on her back for 3 hours after her lumbar puncture and is quite uncomfortable in this position. The patient's history is significant for breast cancer with bilateral mastectomy complicated by chest wall cellulitis. The patient just finished her radiation treatments for her breast cancer. Her PCP is Dr. Betty Oropeza. Her neurologist is Dr. Combs and her oncologist is Dr. Cruz. Review of Systems Review of Systems Constitutional: Denies fever or chills. [] Eyes: Denies change in visual acuity, redness, or eye pain. [] HENT: Denies ear pain, nasal congestion or sore throat. [] Respiratory: Denies cough or shortness of breath. [] Cardiovascular: Denies chest pain, palpitations or edema. [] GI: Denies abdominal pain, nausea, vomiting, bloody stools or diarrhea. [] : Denies dysuria, hematuria or urinary frequency. [] Musculoskeletal: Denies joint pain. Reports low-back pain. Integument: Denies rash or skin lesions. [] Neurologic: Denies focal weakness or sensory changes. Denies confusion. Reports headache. Endocrine: Denies polyuria or polydipsia. [] Psych: Denies anxiety or depression. [] All systems reviewed and negative unless otherwise stated in the HPI. Current Medications Current Medications Current Medications Medications (Trade) Dose Ordered Sig/Haim Start Time Stop Time Status Last Admin Dose Admin Morphine Sulfate 4 mg PRN Q15MIN PRN 08/03/16 12:45 08/04/16 12:44 Ondansetron HCl (Zofran) 4 mg PRN Q8HRS PRN 08/03/16 12:45 Allergies Allergies Allergies Coded Allergies Type Severity Reaction Last Updated Verified Sulfa (Sulfonamide Antibiotics) Allergy Severe 04/27/16 Yes insulin aspart Allergy Severe ANAPHYLAXIS 04/27/16 Yes venom-honey bee Allergy Severe Anaphylaxis 04/27/16 Yes escitalopram Allergy Intermediate 04/27/16 Yes lisinopril Allergy Intermediate Rash 04/27/16 Yes metformin Allergy Intermediate Diarrhea 04/27/16 Yes mold Allergy Intermediate 04/27/16 Yes pantoprazole Allergy Intermediate 04/27/16 Yes ranitidine Allergy Intermediate Nausea and Vomiting 04/27/16 Yes sertraline Allergy Intermediate 04/27/16 Yes Physical Exam Physical Exam Constitutional: Well developed, well nourished, no acute distress, non-toxic appearance. [] HENT: Normocephalic, atraumatic, bilateral external ears normal, oropharynx moist, no oral exudates, nose normal. [] Eyes: PERRLA, EOMI, conjunctiva normal, no discharge. [] Neck: Normal range of motion, no tenderness, supple, no stridor. [] Cardiovascular: Heart rate regular rhythm, no murmur [] Lungs & Thorax: Bilateral breath sounds clear to auscultation without wheezes, rales, or rhonchi. Abdomen: Bowel sounds normal, soft, no tenderness, no masses, no pulsatile masses. [] Skin: Warm, dry, no rash. 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 Back: Unable to examine because patient must lay flat on her back after her LP. Extremities: No tenderness, no cyanosis, no clubbing, ROM intact, no edema. 2+ pedal pulses bilaterally. Neurologic: Alert and oriented X 3, normal motor function, normal sensory function, no focal deficits noted. CN II-XII grossly intact. Psychologic: Affect normal, judgement normal, mood normal. [] Current Patient Data Vital Signs Vital Signs Date Time Temp Pulse Resp B/P Pulse Ox O2 Delivery O2 Flow Rate FiO2 08/03/16 12:38 82 20 158/69 96 Room Air 08/03/16 11:38 98.2 98.2 EKG EKG [] Radiology/Procedures Radiology/Procedures [] Course & Med Decision Making Course & Med Decision Making Pertinent Labs and Imaging studies reviewed. (See chart for details) Patient presents for hospital admission from radiology after increased opening pressure on her lumbar puncture today. Her neurologist requested that she come to the emergency department to be admitted. The patient complains of headache and back pain. On exam, she does not have any neurologic deficits. I spoke with the patient's neurologist, Dr. Combs. She is worried about the patient's elevated opening pressure being indicative of pseudotumor cerebri. The patient has a previous diagnosis of pseudotumor cerebri. Her neurologist states that she was evaluated previously for shunt placement and the patient apparently declined the placement of a shunt at that time. She expressed a concern of optic nerve damage without warning if the patient does not have a shunt placed, given her significantly elevated opening pressure today. She would like to have the patient evaluated for shunt placement. I relayed this information to the patient. She states she is still not interested in having a shunt placed. She is having considerable pain in her head. IV morphine was ordered for pain in the emergency department. Patient is admitted by Dr. Lindo as observation with Dr. Combs consultation for neurology. The patient is in agreement with plan for hospital admission. She remained stable in the emergency department. She was admitted pending laboratory results. Dragon Disclaimer Dragon Disclaimer This electronic medical record was generated, in whole or in part, using a voice recognition dictation system. Departure Departure Impression: Primary Impression: Elevated intracranial pressure Disposition: ADMITTED INPATIENT Admitting Physician: Nino Lindo Condition: STABLE Referrals: BETTY OROPEZA MD (PCP) VASQUEZ DICKSON Aug 03, 2016 15:43
[2016-08-03 15:47] LABS: ALBUMIN 2.7 g/dL (3.4-5.0); ALBUMIN/GLOBULIN RATIO 0.7 (1.0-1.7); TOTAL BILIRUBIN 0.9 mg/dL (0.2-1.0); TOTAL PROTEIN 6.7 g/dL (6.4-8.2)
[2016-08-03] MEDS ORDERED: hydrALAZINE 20 MG/ML VIAL. IVP PRN (16:15)
[2016-08-03] MEDS ORDERED: ACETAMINOPHEN 325 MG TABLET. PO PRN (16:15)
[2016-08-03] MEDS ORDERED: ALBUTEROL SULFATE 2.5 MG/3 ML NEBU. NEB PRN (16:15)
--- NOTE | 2016-08-03 16:46 | PDOC1 ---
History and Physical Past Medical History Cardiovascular: HTN, Hyperlipidemia Pulmonary: Other GI: Diverticulosis, Peptic Ulcer disease, Other Heme/Onc: Other Hepatobiliary: Other Psych: Depression Infectious disease: No pertinent hx Endocrine: Diabetes Past Surgical History Past Surgical History: Other Family History Family History: No Significant, Kidney Disease Social History ALCOHOL: none Drugs: None Current Problem List Problem List Problems Medical Problems: (1) Elevated intracranial pressure Status: Acute Current Medications Current Medications Current Medications Medications (Trade) Dose Ordered Sig/Haim Start Time Stop Time Status Last Admin Dose Admin Acetaminophen (Tylenol) 325 mg PRN Q6HRS PRN 08/03/16 16:15 Acetaminophen/ Hydrocodone Bitart (Lortab 5/325) 1 tab PRN Q6HRS PRN 08/03/16 16:15 Acetazolamide (Diamox) 250 mg Q8HRS 08/03/16 22:00 Albuterol Sulfate (Ventolin Neb Soln) 2.5 mg PRN Q4HRS PRN 08/03/16 16:15 Hydralazine HCl (Apresoline) 10 mg PRN Q4HRS PRN 08/03/16 16:15 Morphine Sulfate 4 mg PRN Q2HR PRN 08/03/16 13:45 08/04/16 13:44 Ondansetron HCl (Zofran) 4 mg PRN Q8HRS PRN 08/03/16 16:15 Topiramate (Topamax) 125 mg BID 08/03/16 21:00 Allergies Allergies Allergies Coded Allergies Type Severity Reaction Last Updated Verified Sulfa (Sulfonamide Antibiotics) Allergy Severe 04/27/16 Yes insulin aspart Allergy Severe ANAPHYLAXIS 04/27/16 Yes venom-honey bee Allergy Severe Anaphylaxis 04/27/16 Yes escitalopram Allergy Intermediate 04/27/16 Yes lisinopril Allergy Intermediate Rash 04/27/16 Yes metformin Allergy Intermediate Diarrhea 04/27/16 Yes mold Allergy Intermediate 04/27/16 Yes pantoprazole Allergy Intermediate 04/27/16 Yes ranitidine Allergy Intermediate Nausea and Vomiting 04/27/16 Yes sertraline Allergy Intermediate 04/27/16 Yes ROS Review of System CONSTITUTIONAL: No fever or chills EYES: No recent changes SKIN: No rash or itching CARDIOVASCULAR: No chest pain, syncope, palpitations, or edema RESPIRATORY: No SOB or cough GASTROINTESTINAL: No nausea, vomiting or abdominal pain NEUROLOGICAL: headaches or weakness ENDOCRINE: No cold or heat intolerance GENITOURINARY: No urgency or frequency of urination MUSCULOSKELETAL: No back pain or joint pain LYMPHATICS: left breast radiation induced redness PSYCHIATRIC: No anxiety or depression Physical Exam Physical Exam GEN.: No apparent distress. Alert and oriented. HEENT: Head is normocephalic, atraumatic NECK: Supple. no JVD LUNGS: Clear to auscultation. Normal airflow HEART: RRR, S1, S2 present. Peripheral pulses intact ABDOMEN: Soft, nontender. Positive bowel sounds. EXTREMITIES: Without any cyanosis. NEUROLOGIC: Normal speech, normal tone PSYCHIATRIC: Normal affect, normal mood. SKIN: left chest region, radiation induced redness, swelling, edema. Vitals Vitals Vital Signs Date Time Temp Pulse Resp B/P Pulse Ox O2 Delivery O2 Flow Rate FiO2 08/03/16 15:00 97.8 71 18 141/78 97 Room Air 97.8 Labs Labs Laboratory Tests Test 08/03/16 14:00 08/03/16 14:54 08/03/16 15:20 Urine Collection Type Unknown Urine Color Yellow Urine Clarity Cloudy Urine pH 7.0 Urine Specific [place] 1.020 Urine Protein >=300mg/dL (NEG-TRACE) Urine Glucose (UA) Negativemg/dL (NEG) Urine Ketones (Stick) Negativemg/dL (NEG) Urine Blood Negative (NEG) Urine Nitrite Negative (NEG) Urine Bilirubin Negative (NEG) Urine Urobilinogen Dipstick 1.0mg/dL (0.2 mg/dL) Urine Leukocyte Esterase Small (NEG) Urine RBC 0/HPF (0-2) Urine WBC >40/HPF (0-4) Urine Squamous Epithelial Cells Many/LPF Urine Bacteria Many/HPF (0-FEW) Urine Mucus Mod/LPF Glucose (Fingerstick) 124mg/dL (70-99) White Blood Count 5.2x10^3/uL (4.0-11.0) Red Blood Count 4.06x10^6/uL (3.50-5.40) Hemoglobin 10.4g/dL (12.0-15.5) Hematocrit 33.7% (36.0-47.0) Mean Corpuscular Volume 83fL (79-100) Mean Corpuscular Hemoglobin 26pg (25-35) Mean Corpuscular Hemoglobin Concent 31g/dL (31-37) Red Cell Distribution Width 18.2% (11.5-14.5) Platelet Count 78x10^3/uL (140-400) Neutrophils (%) (Auto) 69% (31-73) Lymphocytes (%) (Auto) 11% (24-48) Monocytes (%) (Auto) 12% (0-9) Eosinophils (%) (Auto) 7% (0-3) Basophils (%) (Auto) 1% (0-3) Neutrophils # (Auto) 3.6x10^3uL (1.8-7.7) Lymphocytes # (Auto) 0.6x10^3/uL (1.0-4.8) Monocytes # (Auto) 0.6x10^3/uL (0.0-1.1) Eosinophils # (Auto) 0.4x10^3/uL (0.0-0.7) Basophils # (Auto) 0.0x10^3/uL (0.0-0.2) Prothrombin Time 13.3SEC (11.7-14.0) Prothromb Time International Ratio 1.1 (0.8-1.1) Sodium Level 144mmol/L (136-145) Potassium Level 4.0mmol/L (3.5-5.1) Chloride Level 109mmol/L (98-107) Carbon Dioxide Level 28mmol/L (21-32) Anion Gap 7 (6-14) Blood Urea Nitrogen 16mg/dL (7-20) Creatinine 1.1mg/dL (0.6-1.0) Estimated GFR (Cockcroft-Gault) 50.0 BUN/Creatinine Ratio 15 (6-20) Glucose Level 148mg/dL (70-99) Calcium Level 8.5mg/dL (8.5-10.1) Total Bilirubin 0.9mg/dL (0.2-1.0) Aspartate Amino Transf (AST/SGOT) 28U/L (15-37) Alanine Aminotransferase (ALT/SGPT) 13U/L (14-59) Alkaline Phosphatase 203U/L (46-116) Total Protein 6.7g/dL (6.4-8.2) Albumin 2.7g/dL (3.4-5.0) Albumin/Globulin Ratio 0.7 (1.0-1.7) Laboratory Tests Test 08/03/16 14:00 08/03/16 14:54 08/03/16 15:20 Urine Collection Type Unknown Urine Color Yellow Urine Clarity Cloudy Urine pH 7.0 Urine Specific [place] 1.020 Urine Protein >=300mg/dL (NEG-TRACE) Urine Glucose (UA) Negativemg/dL (NEG) Urine Ketones (Stick) Negativemg/dL (NEG) Urine Blood Negative (NEG) Urine Nitrite Negative (NEG) Urine Bilirubin Negative (NEG) Urine Urobilinogen Dipstick 1.0mg/dL (0.2 mg/dL) Urine Leukocyte Esterase Small (NEG) Urine RBC 0/HPF (0-2) Urine WBC >40/HPF (0-4) Urine Squamous Epithelial Cells Many/LPF Urine Bacteria Many/HPF (0-FEW) Urine Mucus Mod/LPF Glucose (Fingerstick) 124mg/dL (70-99) White Blood Count 5.2x10^3/uL (4.0-11.0) Red Blood Count 4.06x10^6/uL (3.50-5.40) Hemoglobin 10.4g/dL (12.0-15.5) Hematocrit 33.7% (36.0-47.0) Mean Corpuscular Volume 83fL (79-100) Mean Corpuscular Hemoglobin 26pg (25-35) Mean Corpuscular Hemoglobin Concent 31g/dL (31-37) Red Cell Distribution Width 18.2% (11.5-14.5) Platelet Count 78x10^3/uL (140-400) Neutrophils (%) (Auto) 69% (31-73) Lymphocytes (%) (Auto) 11% (24-48) Monocytes (%) (Auto) 12% (0-9) Eosinophils (%) (Auto) 7% (0-3) Basophils (%) (Auto) 1% (0-3) Neutrophils # (Auto) 3.6x10^3uL (1.8-7.7) Lymphocytes # (Auto) 0.6x10^3/uL (1.0-4.8) Monocytes # (Auto) 0.6x10^3/uL (0.0-1.1) Eosinophils # (Auto) 0.4x10^3/uL (0.0-0.7) Basophils # (Auto) 0.0x10^3/uL (0.0-0.2) Prothrombin Time 13.3SEC (11.7-14.0) Prothromb Time International Ratio 1.1 (0.8-1.1) Sodium Level 144mmol/L (136-145) Potassium Level 4.0mmol/L (3.5-5.1) Chloride Level 109mmol/L (98-107) Carbon Dioxide Level 28mmol/L (21-32) Anion Gap 7 (6-14) Blood Urea Nitrogen 16mg/dL (7-20) Creatinine 1.1mg/dL (0.6-1.0) Estimated GFR (Cockcroft-Gault) 50.0 BUN/Creatinine Ratio 15 (6-20) Glucose Level 148mg/dL (70-99) Calcium Level 8.5mg/dL (8.5-10.1) Total Bilirubin 0.9mg/dL (0.2-1.0) Aspartate Amino Transf (AST/SGOT) 28U/L (15-37) Alanine Aminotransferase (ALT/SGPT) 13U/L (14-59) Alkaline Phosphatase 203U/L (46-116) Total Protein 6.7g/dL (6.4-8.2) Albumin 2.7g/dL (3.4-5.0) Albumin/Globulin Ratio 0.7 (1.0-1.7) VTE Prophylaxis Ordered VTE Prophylaxis Devices: Yes VTE Pharmacological Prophylaxi: Yes HERMAN RICHARD MD Aug 03, 2016 16:46
[2016-08-03] MEDS ORDERED: TOPI100T39 PO (16:49)
[2016-08-03] MEDS ORDERED: OMEP40CA5 PO (16:49)
[2016-08-03] MEDS ORDERED: COLE625T2 PO (16:49)
[2016-08-03] MEDS ORDERED: LIPA1CAP12 PO (16:49)
[2016-08-03] MEDS ORDERED: INSULIN ASPART 300 UNITS/3 ML INSULN.PEN SQ SCH (17:00)
[2016-08-03] MEDS: VITS A & D/LANOLIN TOPICAL OINTMENT 56GM TUBE. TP SCH ×2 (17:00→21:53)
[2016-08-03] MEDS: POTASSIUM CHLORIDE 20 MEQ TABLET.ER. PO SCH (17:39)
[2016-08-03] MEDS: LIPASE/PROTEAS/AMYLAS 10/34/55 CAPSULE.DR. PO SCH (17:39)
--- NOTE | 2016-08-03 17:39 | HP ---
ADMIT DATE: 08/03/2016 CHIEF COMPLAINT: Headaches. HISTORY OF PRESENT ILLNESS: A 66-year-old female patient with several comorbid conditions with chronic headaches, who is following with Dr. Combs. She had a lumbar puncture today. However, initial CSF opening pressure and closing pressures were high. Opening pressure was [address] Combs asked us to admit the patient to the hospital for Neurosurgery evaluation and treatment. The patient has been having headaches for a long time and also has some problems with her mobility. She has breast cancer for which she had bilateral mastectomies, currently getting wound care for left breast. The patient denies any fever, chills, nausea, vomiting, or headaches at the time of my examination. PAST MEDICAL HISTORY: Chronic headaches, hypertension, hypothyroidism, diabetes, pancreatitis, obesity, GERD, and bilateral mastectomies. PAST SURGICAL HISTORY: Bilateral mastectomies, cholecystectomy, and hysterectomy. ALLERGIES: SULFA, INSULIN ASPART, LISINOPRIL, METFORMIN, MOLD, PANTOPRAZOLE, RANITIDINE, ZOLOFT, AND VENOM HONEYBEE. REVIEW OF SYSTEMS: Please see my electronic H and P. PHYSICAL EXAMINATION: Please see my electronic H and P. MEDICATIONS: Reviewed and reconciled. FAMILY HISTORY: Unknown to the patient. LABORATORY FINDINGS: WBC 5.0, hemoglobin 10.4, MCV 83, and platelets 78,000. Chemistry: Sodium 144, potassium 4.0, chloride is 109, carbon dioxide 28, anion gap 7, and creatinine 1.1. Fingerstick glucose is 124. Urine: Protein more than 300, blood is negative, and nitrites negative. IMAGING STUDIES: Lumbar puncture was done, report is pending. ASSESSMENT: 1. Suspected pseudotumor cerebri with elevated cerebrospinal fluid opening pressure. 2. Chronic headaches. 3. Hypertension. 4. Diabetes mellitus with mild hyperglycemia. 5. Chronic pancreatitis. 6. Gastroesophageal reflux disease. 7. Status post bilateral mastectomies currently with left side edema and radiation-induced dermatitis. 8. Obesity. PLAN: 1. She has been admitted for pain control and Neurosurgery evaluation. 2. Physical therapy and occupation therapy. 3. Home medications are reviewed and reconciled. Continue that. 4. Dr. Combs has been adjusting her Topamax. Currently, she is getting 125 mg p.o. b.i.d. 5. P.r.n. morphine for pain control. 6. P.r.n. Zofran for nausea and vomiting. 7. Dr. Leos has been consulted. 8. No DVT prophylaxis with heparin due to thrombocytopenia. HERMAN RICHARD MD DR: DAYLIN/elina JOB#: [id number] / [id number]
[2016-08-03 19:30] VITALS: BP 131/60
[2016-08-03] MEDS: HYDROCODONE/APAP 5/325MG TABLET. PO PRN (19:33)
[2016-08-03] MEDS ORDERED: TOPIRAMATE 100 MG TABLET. PO SCH ×2 (21:00)
[2016-08-03] MEDS ORDERED: PRAMIPEXOLE 0.25 MG TABLET. PO SCH (21:00)
[2016-08-03] MEDS: PROPRANOLOL ER 60 MG CAP.SA.24H. PO SCH (21:54)
[2016-08-03] MEDS: CARBIDOPA/LEVODOPA CR 25/100MG TABLET.SA. PO SCH (21:54)
[2016-08-03] MEDS: COLESEVELAM HCL 625 MG TABLET PO SCH (21:54)
[2016-08-03] MEDS: ATORVASTATIN CALCIUM 10 MG TABLET. PO SCH (21:54)
[2016-08-03] MEDS: acetaZOLAMIDE 250 MG TABLET. PO SCH (21:55)
[2016-08-03] MEDS: BETHANECHOL CHLORIDE 25 MG TABLET PO SCH (21:55)
[2016-08-03] MEDS: INSULIN DETEMIR 300 UNITS/3 ML INSULN.PEN. SQ SCH (22:05)
[2016-08-03 23:26] VITALS: BP 156/74
[2016-08-04] VITALS (11 sets, daily range): BP systolic 107–189; BP diastolic 51–88
[2016-08-04] MEDS: acetaZOLAMIDE 250 MG TABLET. PO SCH ×4 (05:35→22:00)
--- NOTE | 2016-08-04 06:09 | EKG ---
[facility] [address] [place] [address] Test Date: 2016-08-04 Test Time: 05:02:22 Pat Name: ERIN GUERRA Department: Room: 432 1 Gender: F Birth Certificate Clerk: XIMENA : 1950 Requested By: EZIO ROSARIO Order Number: [id number] Reading MD: Vick Arcos Measurements Intervals [place] Rate: 76 P: 136 CO: 128 QRS: 102 QRSD: 92 T: 34 QT: 422 QTc: 480 Interpretive Statements SINUS RHYTHM RIGHTWARD AXIS NON-SPECIFIC ST/T CHANGES Electronically Signed On 08-04-2016 8:46:32 CDT by Vick Arcos
[2016-08-04 06:15] LABS: CALCIUM 8.8 mg/dL (8.5-10.1); CREATININE 1.1 mg/dL (0.6-1.0); POTASSIUM 5.5 mmol/L (3.5-5.1)
[2016-08-04 06:18] LABS: BASO # 0.1 x10^3/uL (0.0-0.2); BASO % 1 % (0-3); EOS % 6 % (0-3); HEMATOCRIT 40.5 % (36.0-47.0); HEMOGLOBIN 12.3 g/dL (12.0-15.5); LYMPH # 0.6 x10^3/uL (1.0-4.8); LYMPH % 8 % (24-48); MEAN CORPUSCULAR HEMOGLOBIN 25 pg (25-35); MEAN CORPUSCULAR HGB CONC 30 g/dL (31-37); MEAN CORPUSCULAR VOLUME 83 fL (79-100); MONO % 7 % (0-9); NEUT % 79 % (31-73); PLATELET COUNT 107 x10^3/uL (140-400); RED BLOOD COUNT 4.85 x10^6/uL (3.50-5.40); WHITE BLOOD COUNT 8.2 x10^3/uL (4.0-11.0)
[2016-08-04] MEDS ORDERED: PROPOFOL 100 ML IV ONE (06:43)
[2016-08-04 06:44] LABS: CALCIUM 8.9 mg/dL (8.5-10.1); CREATININE 1.1 mg/dL (0.6-1.0)
[2016-08-04] MEDS ORDERED: PROPOFOL 10 MG/ML (100ML) VIAL. IV ONE (06:45)
[2016-08-04 06:50] LABS: ALBUMIN 3.1 g/dL (3.4-5.0); ALBUMIN/GLOBULIN RATIO 0.7 (1.0-1.7); TOTAL PROTEIN 7.8 g/dL (6.4-8.2)
[2016-08-04 06:54] LABS: POTASSIUM 5.5 mmol/L (3.5-5.1)
--- NOTE | 2016-08-04 06:57 | RAD ---
INDICATION: Altered mental status COMPARISON: June 13, 2016 TECHNIQUE: Axial CT images obtained through the head. One or more of the following individualized dose reduction techniques were utilized for this examination: 1. Automated exposure control; 2. Adjustment of the mA and/or kV according to patient size; 3. Use of iterative reconstruction technique. FINDINGS: No midline shift. Ventricles and sulci within normal limits in size for the patients age. Basilar cistern patent. No gross hemorrhage or intracranial mass. No displaced skull fracture. IMPRESSION: No acute intracranial hemorrhage. Scattered foci low-attenuation within the white matter. Nonspecific but can be sequela of small vessel ischemic disease. Electronically signed by: Cheng Smith (Aug 04, 2016 06:54:55)
[2016-08-04] MEDS ORDERED: LEVOTHYROXINE 100 MCG TABLET PO SCH (07:00)
[2016-08-04] MEDS ORDERED: SUCCINYLCHOLINE 200 MG/10 ML VIAL. ONE (07:13)
[2016-08-04] MEDS ORDERED: ETOMIDATE 20 MG/10 ML VIAL. IV ONE (07:13)
--- NOTE | 2016-08-04 07:25 | RAD ---
AP portable chest radiograph 08/04/2016 Clinical History: Post intubation An AP portable erect digital radiograph of the chest was obtained. Comparison study is dated 07/24/2015. An ET tube has been placed. The tip of this tube overlies the trachea 1 cm below the level of the clavicles. Anterior plate and bone screws and stabilizing rods and bone screws overlie the cervical spine, unchanged. The cardiac silhouette is mildly enlarged. The thoracic aorta is tortuous. Atherosclerotic calcification of the thoracic aorta is seen. Prominence of pulmonary vasculature is seen suggesting mild CHF. No area of consolidation is noted. No pneumothorax or pleural effusion is seen. Degenerative changes are seen involving the thoracic spine and both shoulders. Impression: Interval placement of an ET tube. The tip of this tube overlies the trachea 1 cm below the level of the clavicles.
[2016-08-04] MEDS ORDERED: PANTOPRAZOLE 40 MG TABLET.DR. PO SCH (07:30)
[2016-08-04] MEDS: GLIPIZIDE 5 MG TABLET. PO SCH ×2 (07:30→17:08)
[2016-08-04] MEDS: LIPASE/PROTEAS/AMYLAS 10/34/55 CAPSULE.DR. PO SCH ×2 (07:40→17:07)
[2016-08-04] MEDS: TORSEMIDE 20 MG TABLET. PO SCH (07:40)
[2016-08-04] MEDS: POTASSIUM CHLORIDE 20 MEQ TABLET.ER. PO SCH (07:40)
[2016-08-04] MEDS: TOPIRAMATE 25 MG TABLET. PO SCH ×3 (08:53→22:01)
[2016-08-04] MEDS: CARBIDOPA/LEVODOPA CR 25/100MG TABLET.SA. PO SCH ×2 (08:53→21:58)
[2016-08-04] MEDS: TOPIRAMATE 100 MG TABLET. PO SCH ×2 (08:53→22:01)
[2016-08-04] MEDS: BETHANECHOL CHLORIDE 25 MG TABLET PO SCH ×2 (08:53→21:59)
[2016-08-04] MEDS: COLESEVELAM HCL 625 MG TABLET PO SCH ×2 (08:54→21:58)
[2016-08-04 08:57] LABS: HCO3 ABG 23 mmol/L (21-28); PCO2 ABG 43 mmHg (35-46); PH ABG 7.35 (7.35-7.45); PO2 ABG 441 mmHg (65-108); SAT O2 ABG 100 % (92-99)
[2016-08-04] MEDS ORDERED: LEVOTHYROXINE SODIUM 50 MCG in IV NORMAL SALINE 50ML 5 ML IVP SCH (09:00)
[2016-08-04] MEDS ORDERED: PROPOFOL 100 ML IV PRN (09:30)
[2016-08-04] MEDS: VITS A & D/LANOLIN TOPICAL OINTMENT 56GM TUBE. TP SCH ×3 (09:31→22:10)
[2016-08-04] MEDS: PANTOPRAZOLE IV PUSH 40 MG VIAL. IVP SCH (09:31)
[2016-08-04] MEDS: CHLORHEXIDINE 0.12% 15 ML MOUTHWASH. MM SCH ×2 (09:32→21:00)
[2016-08-04] MEDS: INSULIN DETEMIR 300 UNITS/3 ML INSULN.PEN. SQ SCH ×2 (09:38→22:08)
--- NOTE | 2016-08-04 09:59 | PDOC ---
PROGRESS NOTES Chief Complaint Chief Complaint FREIRE ASSESSMENT AND PLAN: 1. Respir failure: intubated last nite with '"code"; apnea. has severe AURY but refuses CPAP. got morphine as well. plan on extubation after PS trial. consult pulm 2. AURY: needs CPAP 3. Pseudotumor cerebri: elevated opening pressure at LP. on topamax, diamox as per Dr Combs 4. Chronic headaches. 5. HTN: borderline. allergy listed to ACI-i. start losartan 6. DM: poorly controlled. increase bid levemir to 40; ISS 7. Hyperkalemia: stable at upper normal, despite tid diamox. monitor closely. 8. CKD3: stable creat 9. Thrombocytopenia: unclear etiology. improving. 10. GERD: PPI 11. Chronic pancreatitis. 12. Breast CA: s/p bilat mastectomies, s/p XRT to R with dermatitis, edema. Dr Cruz following 13. Obesity: dietary consult 14. Prophylaxis: lovenox Vitals Vitals Vital Signs Date Time Temp Pulse Resp B/P Pulse Ox O2 Delivery O2 Flow Rate FiO2 08/04/16 08:51 Mechanical Ventilator 08/04/16 08:09 100 08/04/16 07:00 94.7 60 16 145/71 94.7 08/04/16 03:22 3.0 Physical Exam General: Other (intubated) Heart: Regular rate Lungs: Clear, Other Abdomen: Normal bowel sounds, Soft Extremities: No edema Skin: No rashes Labs LABS Laboratory Tests Test 08/03/16 14:00 08/03/16 14:54 08/03/16 15:20 08/03/16 20:31 Urine Collection Type Unknown Urine Color Yellow Urine Clarity Cloudy Urine pH 7.0 Urine Specific [place] 1.020 Urine Protein >=300mg/dL (NEG-TRACE) Urine Glucose (UA) Negativemg/dL (NEG) Urine Ketones (Stick) Negativemg/dL (NEG) Urine Blood Negative (NEG) Urine Nitrite Negative (NEG) Urine Bilirubin Negative (NEG) Urine Urobilinogen Dipstick 1.0mg/dL (0.2 mg/dL) Urine Leukocyte Esterase Small (NEG) Urine RBC 0/HPF (0-2) Urine WBC >40/HPF (0-4) Urine Squamous Epithelial Cells Many/LPF Urine Bacteria Many/HPF (0-FEW) Urine Mucus Mod/LPF Glucose (Fingerstick) 124mg/dL (70-99) 193mg/dL (70-99) White Blood Count 5.2x10^3/uL (4.0-11.0) Red Blood Count 4.06x10^6/uL (3.50-5.40) Hemoglobin 10.4g/dL (12.0-15.5) Hematocrit 33.7% (36.0-47.0) Mean Corpuscular Volume 83fL (79-100) Mean Corpuscular Hemoglobin 26pg (25-35) Mean Corpuscular Hemoglobin Concent 31g/dL (31-37) Red Cell Distribution Width 18.2% (11.5-14.5) Platelet Count 78x10^3/uL (140-400) Neutrophils (%) (Auto) 69% (31-73) Lymphocytes (%) (Auto) 11% (24-48) Monocytes (%) (Auto) 12% (0-9) Eosinophils (%) (Auto) 7% (0-3) Basophils (%) (Auto) 1% (0-3) Neutrophils # (Auto) 3.6x10^3uL (1.8-7.7) Lymphocytes # (Auto) 0.6x10^3/uL (1.0-4.8) Monocytes # (Auto) 0.6x10^3/uL (0.0-1.1) Eosinophils # (Auto) 0.4x10^3/uL (0.0-0.7) Basophils # (Auto) 0.0x10^3/uL (0.0-0.2) Prothrombin Time 13.3SEC (11.7-14.0) Prothromb Time International Ratio 1.1 (0.8-1.1) Sodium Level 144mmol/L (136-145) Potassium Level 4.0mmol/L (3.5-5.1) Chloride Level 109mmol/L (98-107) Carbon Dioxide Level 28mmol/L (21-32) Anion Gap 7 (6-14) Blood Urea Nitrogen 16mg/dL (7-20) Creatinine 1.1mg/dL (0.6-1.0) Estimated GFR (Cockcroft-Gault) 50.0 BUN/Creatinine Ratio 15 (6-20) Glucose Level 148mg/dL (70-99) Calcium Level 8.5mg/dL (8.5-10.1) Total Bilirubin 0.9mg/dL (0.2-1.0) Aspartate Amino Transf (AST/SGOT) 28U/L (15-37) Alanine Aminotransferase (ALT/SGPT) 13U/L (14-59) Alkaline Phosphatase 203U/L (46-116) Total Protein 6.7g/dL (6.4-8.2) Albumin 2.7g/dL (3.4-5.0) Albumin/Globulin Ratio 0.7 (1.0-1.7) Test 08/04/16 05:42 08/04/16 05:58 Glucose (Fingerstick) 205mg/dL (70-99) White Blood Count 8.2x10^3/uL (4.0-11.0) Red Blood Count 4.85x10^6/uL (3.50-5.40) Hemoglobin 12.3g/dL (12.0-15.5) Hematocrit 40.5% (36.0-47.0) Mean Corpuscular Volume 83fL (79-100) Mean Corpuscular Hemoglobin 25pg (25-35) Mean Corpuscular Hemoglobin Concent 30g/dL (31-37) Red Cell Distribution Width 19.0% (11.5-14.5) Platelet Count 107x10^3/uL (140-400) Neutrophils (%) (Auto) 79% (31-73) Lymphocytes (%) (Auto) 8% (24-48) Monocytes (%) (Auto) 7% (0-9) Eosinophils (%) (Auto) 6% (0-3) Basophils (%) (Auto) 1% (0-3) Neutrophils # (Auto) 6.5x10^3uL (1.8-7.7) Lymphocytes # (Auto) 0.6x10^3/uL (1.0-4.8) Monocytes # (Auto) 0.6x10^3/uL (0.0-1.1) Eosinophils # (Auto) 0.5x10^3/uL (0.0-0.7) Basophils # (Auto) 0.1x10^3/uL (0.0-0.2) Sodium Level 140mmol/L (136-145) Potassium Level 5.5mmol/L (3.5-5.1) Chloride Level 109mmol/L (98-107) Carbon Dioxide Level 26mmol/L (21-32) Anion Gap 5 (6-14) Blood Urea Nitrogen 18mg/dL (7-20) Creatinine 1.1mg/dL (0.6-1.0) Estimated GFR (Cockcroft-Gault) 50.0 BUN/Creatinine Ratio 16 (6-20) Glucose Level 230mg/dL (70-99) Calcium Level 8.9mg/dL (8.5-10.1) Total Bilirubin 1.0mg/dL (0.2-1.0) Aspartate Amino Transf (AST/SGOT) 40U/L (15-37) Alanine Aminotransferase (ALT/SGPT) 8U/L (14-59) Alkaline Phosphatase 228U/L (46-116) Troponin I Quantitative 0.038ng/mL (0.000-0.055) Total Protein 7.8g/dL (6.4-8.2) Albumin 3.1g/dL (3.4-5.0) Albumin/Globulin Ratio 0.7 (1.0-1.7) Review of Systems Review of Systems intubated SUNDEEP YADAV MD Aug 04, 2016 09:59
[2016-08-04] MEDS ORDERED: SODIUM POLYSTYRENE SULFONATE 15 GM/60 ML ORAL.SUSP. PO ONE (10:15)
--- NOTE | 2016-08-04 10:50 | PDOC ---
PROGRESS NOTES Assessment Assessment Pseudotumor cerebri, CSF opening pressure 38. Respiratory failure in night of 08/04. AURY not on CPAP. Chronic headache. Old right cerebellar lacunar infarct. Chest wall cellulitis. S/p bilateral mastectomy on 04/27/16 s/p left site infection. Hypothyroidism DM Pancreatitis. GERD Cancer Obesity. RECOMMENDATIONS/PLAN: Continue Topamax 125 mg bid. Continue Diamox 250 mg q6h. Consult Neurosurgery for pseudotumor cerebri not respond treatment mediclaly. Treat medical disease. Please consult Oncology for cancer. May consult Pulmonary Medicine for respiratory distress/faulure, hypoxia and AURY. Weight reduction. OT/PT Discussed with her and her family in detail in ER. HISTORY OF THE PRESENT ILLNESS: 66-y-old female patient with above medical diseases has been having chronic headaches. She was diagnosed as having pseudotumor cerebri in the past and shunt was suggested but she declined it. She said she had several LPs and her CSF opening pressure and closing pressure was always high. Her CSF opening pressure was 46 in the past. She had hypoxia during sleep of early 08/04 and O2 drops, so she was transferred to ICU. She has AURY but not on CPAP and she said some insurance issues. PAST MEDICAL HISTORY: Please see above. PAST SURGERY HISTORY: Tonsillectomy Bilateral mastectomy Cholecystectomy Hysterectomy ALLERGY: Unknown MEDICATIONS: Refer to [facility] FAMILY HISTORY: H Non contributory. SOCIAL HISTORY: Denies smoking, drinking, and illicit drug use. REVIEW OF SYSTEMS: Constitutional: No malnutrition, weight loss, cachexia. Head: No traumatic brain or head injury. Skin: No edema, or rash. Ear: No infection, tinnitus. Eyes: No vision loss or color blindness. Nose: No bleeding or purulent discharges. Hearing: No hearing decrease. Neck: No injury. Breast: NS/p mastectomy Cardiac: No HI, arrhythmia. Pulmonary: No COPD. GI: ERD. Urinary/genital: UTI. Endocrinologic: Diabetes Mellitus, obesity Skeletomuscular: No muscular atrophy, deformity. Neurological: see HP. Psychiatric: Denies drug use/abuse. Otherwise, not -qydzz review of systems. PHYSICAL EXAMINATION: General appearance is in subacute distress. HEENT: Normocephalic and nontraumatic. Eyes, nose, ears, and throat are unremarkable. Neck is supple. No lymphadenopathy. No crepitus. Cardiovascular: S1, S2, regular rate and rhythm. Pulmonary: Clear to auscultation bilaterally. Abdomen: Bowel sounds are positive. Extremities: No rash, lesions, or edema. No restriction of range of motion NEUROLOGICAL EXAMINATION: Drowsiness. Oriented to place and person but not to time. PERRL. EOMI. CN: no focal findings. Muscle tone: within normal. Muscle strength: 4 DTR: 1 due to obesity. Plantar reflex: Flexor response bilaterally Gait: not examined in bed. Sensory exam: no abnormal findings. No obvious cerebellar signs elicited. F-T-N test fine on 08/03 exam. Objective Objective Vital Signs Date Time Temp Pulse Resp B/P Pulse Ox O2 Delivery O2 Flow Rate FiO2 08/04/16 10:16 100 Ventilator 08/04/16 10:00 70 16 178/87 08/04/16 08:00 96.2 96.2 08/04/16 03:22 3.0 Intake and Output 08/04/16 06:59 Intake Total 0 ml Output Total 1 ml Balance -1 ml Intake Oral 0 ml Output Stool Total 1 ml # Voids 2 # Bowel Movements 1 Vitals Signs Vitals VS - Last 72 Hours, by Label Date Time Temp Pulse Resp B/P Pulse Ox O2 Delivery O2 Flow Rate FiO2 08/04/16 10:16 100 Ventilator 08/04/16 10:00 70 16 178/87 100 Ventilator 08/04/16 09:50 100 Ventilator 08/04/16 09:38 100 Ventilator 08/04/16 09:00 64 16 150/77 100 Ventilator 08/04/16 08:51 Mechanical Ventilator 08/04/16 08:09 100 Ventilator 08/04/16 08:05 96 Ventilator 08/04/16 08:00 Mechanical Ventilator 08/04/16 08:00 96.2 60 16 127/63 100 Ventilator 96.2 08/04/16 07:00 94.7 60 16 145/71 100 Ventilator 94.7 08/04/16 03:22 97.6 85 16 141/61 93 Nasal Cannula 3.0 97.6 08/04/16 02:00 Room Air 08/04/16 00:54 Room Air 08/03/16 23:26 98.2 84 18 156/74 94 Room Air 98.2 08/03/16 21:54 83 131/60 08/03/16 21:51 Room Air 08/03/16 19:38 96 Room Air 08/03/16 19:33 Room Air 08/03/16 19:30 98.8 83 18 131/60 92 Room Air 98.8 08/03/16 19:30 Room Air 08/03/16 15:00 97.8 71 18 141/78 97 Room Air 97.8 08/03/16 14:28 08/03/16 13:38 84 20 159/68 98 Room Air 08/03/16 12:38 82 20 158/69 96 Room Air 08/03/16 11:38 98.2 83 18 147/67 95 Room Air 98.2 Laboratory Laboratory Laboratory Tests Test 08/03/16 14:00 08/03/16 14:54 08/03/16 15:20 08/03/16 20:31 Urine Collection Type Unknown Urine Color Yellow Urine Clarity Cloudy Urine pH 7.0 Urine Specific [place] 1.020 Urine Protein >=300mg/dL (NEG-TRACE) Urine Glucose (UA) Negativemg/dL (NEG) Urine Ketones (Stick) Negativemg/dL (NEG) Urine Blood Negative (NEG) Urine Nitrite Negative (NEG) Urine Bilirubin Negative (NEG) Urine Urobilinogen Dipstick 1.0mg/dL (0.2 mg/dL) Urine Leukocyte Esterase Small (NEG) Urine RBC 0/HPF (0-2) Urine WBC >40/HPF (0-4) Urine Squamous Epithelial Cells Many/LPF Urine Bacteria Many/HPF (0-FEW) Urine Mucus Mod/LPF Glucose (Fingerstick) 124mg/dL (70-99) 193mg/dL (70-99) White Blood Count 5.2x10^3/uL (4.0-11.0) Red Blood Count 4.06x10^6/uL (3.50-5.40) Hemoglobin 10.4g/dL (12.0-15.5) Hematocrit 33.7% (36.0-47.0) Mean Corpuscular Volume 83fL (79-100) Mean Corpuscular Hemoglobin 26pg (25-35) Mean Corpuscular Hemoglobin Concent 31g/dL (31-37) Red Cell Distribution Width 18.2% (11.5-14.5) Platelet Count 78x10^3/uL (140-400) Neutrophils (%) (Auto) 69% (31-73) Lymphocytes (%) (Auto) 11% (24-48) Monocytes (%) (Auto) 12% (0-9) Eosinophils (%) (Auto) 7% (0-3) Basophils (%) (Auto) 1% (0-3) Neutrophils # (Auto) 3.6x10^3uL (1.8-7.7) Lymphocytes # (Auto) 0.6x10^3/uL (1.0-4.8) Monocytes # (Auto) 0.6x10^3/uL (0.0-1.1) Eosinophils # (Auto) 0.4x10^3/uL (0.0-0.7) Basophils # (Auto) 0.0x10^3/uL (0.0-0.2) Prothrombin Time 13.3SEC (11.7-14.0) Prothromb Time International Ratio 1.1 (0.8-1.1) Sodium Level 144mmol/L (136-145) Potassium Level 4.0mmol/L (3.5-5.1) Chloride Level 109mmol/L (98-107) Carbon Dioxide Level 28mmol/L (21-32) Anion Gap 7 (6-14) Blood Urea Nitrogen 16mg/dL (7-20) Creatinine 1.1mg/dL (0.6-1.0) Estimated GFR (Cockcroft-Gault) 50.0 BUN/Creatinine Ratio 15 (6-20) Glucose Level 148mg/dL (70-99) Calcium Level 8.5mg/dL (8.5-10.1) Total Bilirubin 0.9mg/dL (0.2-1.0) Aspartate Amino Transf (AST/SGOT) 28U/L (15-37) Alanine Aminotransferase (ALT/SGPT) 13U/L (14-59) Alkaline Phosphatase 203U/L (46-116) Total Protein 6.7g/dL (6.4-8.2) Albumin 2.7g/dL (3.4-5.0) Albumin/Globulin Ratio 0.7 (1.0-1.7) Test 08/04/16 05:42 08/04/16 05:58 Glucose (Fingerstick) 205mg/dL (70-99) White Blood Count 8.2x10^3/uL (4.0-11.0) Red Blood Count 4.85x10^6/uL (3.50-5.40) Hemoglobin 12.3g/dL (12.0-15.5) Hematocrit 40.5% (36.0-47.0) Mean Corpuscular Volume 83fL (79-100) Mean Corpuscular Hemoglobin 25pg (25-35) Mean Corpuscular Hemoglobin Concent 30g/dL (31-37) Red Cell Distribution Width 19.0% (11.5-14.5) Platelet Count 107x10^3/uL (140-400) Neutrophils (%) (Auto) 79% (31-73) Lymphocytes (%) (Auto) 8% (24-48) Monocytes (%) (Auto) 7% (0-9) Eosinophils (%) (Auto) 6% (0-3) Basophils (%) (Auto) 1% (0-3) Neutrophils # (Auto) 6.5x10^3uL (1.8-7.7) Lymphocytes # (Auto) 0.6x10^3/uL (1.0-4.8) Monocytes # (Auto) 0.6x10^3/uL (0.0-1.1) Eosinophils # (Auto) 0.5x10^3/uL (0.0-0.7) Basophils # (Auto) 0.1x10^3/uL (0.0-0.2) Sodium Level 140mmol/L (136-145) Potassium Level 5.5mmol/L (3.5-5.1) Chloride Level 109mmol/L (98-107) Carbon Dioxide Level 26mmol/L (21-32) Anion Gap 5 (6-14) Blood Urea Nitrogen 18mg/dL (7-20) Creatinine 1.1mg/dL (0.6-1.0) Estimated GFR (Cockcroft-Gault) 50.0 BUN/Creatinine Ratio 16 (6-20) Glucose Level 230mg/dL (70-99) Calcium Level 8.9mg/dL (8.5-10.1) Total Bilirubin 1.0mg/dL (0.2-1.0) Aspartate Amino Transf (AST/SGOT) 40U/L (15-37) Alanine Aminotransferase (ALT/SGPT) 8U/L (14-59) Alkaline Phosphatase 228U/L (46-116) Troponin I Quantitative 0.038ng/mL (0.000-0.055) Total Protein 7.8g/dL (6.4-8.2) Albumin 3.1g/dL (3.4-5.0) Albumin/Globulin Ratio 0.7 (1.0-1.7) Lipase 354U/L (73-393) Medication Medications Current Medications Acetaminophen (Tylenol) 325 mg PRN Q6HRS PRN PO MILD PAIN / TEMP; Start at 16:15 Acetaminophen/ Hydrocodone Bitart (Lortab 5/325) 1 tab PRN Q6HRS PRN PO MODERATE TO SEVERE PAIN Last administered on 08/03/16 19:33; Start 08/03/16 at 16:15 Acetazolamide (Diamox) 250 mg Q8HRS PO Last administered on 08/03/16 21:55; Start 08/03/16 at 22:00 Albuterol Sulfate (Ventolin Neb Soln) 2.5 mg PRN Q4HRS PRN NEB SHORTNESS OF BREATH Last administered on 08/04/16 08:03; Start 08/03/16 at 16:15 Amylase/Lipase/ Protease (Zenpep 10,000) 1 cap BIDWMEALS PO Last administered on 08/03/16 17:39; Start 08/03/16 at 17:00 Atorvastatin Calcium (Lipitor) 10 mg QHS PO Last administered on 08/03/16 21: 54; Start 08/03/16 at 21:00 Bethanechol Chloride (Urecholine) 25 mg BID PO Last administered on 08/03/16 21:55; Start 08/03/16 at 21:00 Carbidopa/Levodopa (Sinemet Cr) 1 tab.sa BID PO Last administered on 08/03/16 21:54; Start 08/03/16 at 21:00 Chlorhexidine Gluconate (Peridex) 15 ml BID MM Last administered on 08/04/16 09:32; Start 08/04/16 at 09:00 Colesevelam HCl (Welchol) 625 mg BID PO Last administered on 08/03/16 21:54; Start 08/03/16 at 21:00 Enoxaparin Sodium (Lovenox 40mg Syringe) 40 mg BID SQ ; Start 08/04/16 at 11:00 Etomidate (Amidate) 20 mg STK-MED ONCE IV ; Start 08/04/16 at 07:13; Stop at 07:14; Status DC Glipizide (Glucotrol) 10 mg BIDBFRMEAL PO ; Start 08/04/16 at 07:30 Hydralazine HCl (Apresoline) 10 mg PRN Q4HRS PRN IVP ELEVATED BP, SEE COMMENTS ; Start 08/03/16 at 16:15 Insulin Aspart (Novolog) 20 units BIDBFRMEAL SQ ; Start 08/03/16 at 17:00; Status Cancel Insulin Detemir (Levemir) 30 units BID SQ Last administered on 08/04/16 09:38 ; Start 08/03/16 at 21:00; Stop 08/04/16 at 09:51; Status DC Insulin Detemir (Levemir) 40 units BID SQ ; Start 08/04/16 at 21:00 Levothyroxine Sodium (Synthroid) 100 mcg DAILY07 PO ; Start 08/04/16 at 07:00; Stop 08/04/16 at 07:50; Status DC Levothyroxine Sodium/Sodium Chloride (Synthroid/Iv Sodium Chloride 0.9% 50ml) 5 ml @ 100 mls/hr DAILY IVP Last administered on 08/04/16 09:32; Start 08/04/16 at 09:00 Losartan Potassium (Cozaar) 25 mg DAILY PO ; Start 08/05/16 at 09:00 Morphine Sulfate 4 mg PRN Q15MIN PRN IV/SQ PAIN GREATER THAN 3/10; Start at 12:45; Stop 08/04/16 at 08:26; Status DC Morphine Sulfate 4 mg PRN Q2HR PRN IV PAIN Last administered on 08/04/16 00:54 ; Start 08/03/16 at 13:45; Stop 08/04/16 at 13:44 Ondansetron HCl (Zofran) 4 mg PRN Q8HRS PRN IV NAUSEA/VOMITING Last administered on 08/04/16 00:53; Start 08/03/16 at 12:45; Stop 08/04/16 at 08:26 ; Status DC Ondansetron HCl (Zofran) 4 mg PRN Q8HRS PRN IV NAUSEA/VOMITING; Start 08/03/16 at 13:45; Stop 08/04/16 at 08:25; Status DC Ondansetron HCl (Zofran) 4 mg PRN Q8HRS PRN IV NAUSEA/VOMITING; Start 08/03/16 at 16:15 Pantoprazole Sodium (Protonix Vial) 40 mg DAILY IVP Last administered on 09:31; Start 08/04/16 at 09:00 Pantoprazole Sodium (Protonix) 40 mg DAILYAC PO ; Start 08/04/16 at 07:30; Stop 08/04/16 at 07:50; Status DC Potassium Chloride (Klor-Con) 20 meq BIDWMEALS PO Last administered on 17:39; Start 08/03/16 at 17:00; Stop 08/04/16 at 10:25; Status DC Pramipexole Dihydrochloride (miraPEX) 1 mg HS PO Last administered on 21:53; Start 08/03/16 at 21:00 Propofol (Diprivan) 100 ml @ As Directed STK-MED ONCE IV ; Start 08/04/16 at 06 :43; Stop 08/04/16 at 06:44; Status DC Propofol (Diprivan) 100 ml @ 0 mls/hr CONT PRN IV SEE I/O RECORD; Start at 09:30 Propofol 1000 mg 1,000 mg STK-MED ONCE IV ; Start 08/04/16 at 06:45; Stop at 08:50; Status DC Propranolol HCl (Inderal La) 60 mg QHS PO Last administered on 08/03/16 21:54 ; Start 08/03/16 at 21:00 Sodium Polystyrene Sulfonate (Kayexalate) 15 gm 1X ONCE PO ; Start 08/04/16 at 10:15; Stop 08/04/16 at 10:16; Status DC Succinylcholine Chloride 200 mg 200 mg STK-MED ONCE .ROUTE ; Start 08/04/16 at 07:13; Stop 08/04/16 at 07:14; Status DC Topiramate (Topamax) 25 mg BID PO ; Start 08/04/16 at 09:00 Topiramate (Topamax) 100 mg BID PO ; Start 08/03/16 at 21:00; Stop 08/03/16 at 21:00; Status DC Topiramate (Topamax) 100 mg BID PO ; Start 08/04/16 at 09:00 Topiramate (Topamax) 125 mg BID PO Last administered on 08/03/16 21:56; Start 08/03/16 at 21:00; Stop 08/04/16 at 08:33; Status DC Torsemide (Demadex) 20 mg DAILY PO ; Start 08/04/16 at 09:00 Vitamin A/Vitamin D 1 cedrick 1 cedrick TID TP Last administered on 08/04/16 09:31; Start 08/03/16 at 17:00 Comment Review of Relevant I have reviewed the following items halle (where applicable) has been applied. SERGIO CARTER MD Aug 04, 2016 10:50
[2016-08-04 10:54] LABS: FIO2 ABG 100
[2016-08-04] MEDS: ENOXAPARIN 40 MG/0.4 ML SYRINGE. SQ SCH ×2 (11:00→21:58)
--- NOTE | 2016-08-04 11:06 | PDOC ---
PULMONARY PROGRESS NOTES Vitals Vital Signs Date Time Temp Pulse Resp B/P Pulse Ox O2 Delivery O2 Flow Rate FiO2 08/04/16 10:16 100 Ventilator 08/04/16 10:00 70 16 178/87 08/04/16 08:00 96.2 96.2 08/04/16 03:22 3.0 Lungs: Clear, Other Cardiovascular: S1, S2 Labs Laboratory Tests Test 08/03/16 14:00 08/03/16 14:54 08/03/16 15:20 08/03/16 20:31 Urine Collection Type Unknown Urine Color Yellow Urine Clarity Cloudy Urine pH 7.0 Urine Specific [place] 1.020 Urine Protein >=300mg/dL (NEG-TRACE) Urine Glucose (UA) Negativemg/dL (NEG) Urine Ketones (Stick) Negativemg/dL (NEG) Urine Blood Negative (NEG) Urine Nitrite Negative (NEG) Urine Bilirubin Negative (NEG) Urine Urobilinogen Dipstick 1.0mg/dL (0.2 mg/dL) Urine Leukocyte Esterase Small (NEG) Urine RBC 0/HPF (0-2) Urine WBC >40/HPF (0-4) Urine Squamous Epithelial Cells Many/LPF Urine Bacteria Many/HPF (0-FEW) Urine Mucus Mod/LPF Glucose (Fingerstick) 124mg/dL (70-99) 193mg/dL (70-99) White Blood Count 5.2x10^3/uL (4.0-11.0) Red Blood Count 4.06x10^6/uL (3.50-5.40) Hemoglobin 10.4g/dL (12.0-15.5) Hematocrit 33.7% (36.0-47.0) Mean Corpuscular Volume 83fL (79-100) Mean Corpuscular Hemoglobin 26pg (25-35) Mean Corpuscular Hemoglobin Concent 31g/dL (31-37) Red Cell Distribution Width 18.2% (11.5-14.5) Platelet Count 78x10^3/uL (140-400) Neutrophils (%) (Auto) 69% (31-73) Lymphocytes (%) (Auto) 11% (24-48) Monocytes (%) (Auto) 12% (0-9) Eosinophils (%) (Auto) 7% (0-3) Basophils (%) (Auto) 1% (0-3) Neutrophils # (Auto) 3.6x10^3uL (1.8-7.7) Lymphocytes # (Auto) 0.6x10^3/uL (1.0-4.8) Monocytes # (Auto) 0.6x10^3/uL (0.0-1.1) Eosinophils # (Auto) 0.4x10^3/uL (0.0-0.7) Basophils # (Auto) 0.0x10^3/uL (0.0-0.2) Prothrombin Time 13.3SEC (11.7-14.0) Prothromb Time International Ratio 1.1 (0.8-1.1) Sodium Level 144mmol/L (136-145) Potassium Level 4.0mmol/L (3.5-5.1) Chloride Level 109mmol/L (98-107) Carbon Dioxide Level 28mmol/L (21-32) Anion Gap 7 (6-14) Blood Urea Nitrogen 16mg/dL (7-20) Creatinine 1.1mg/dL (0.6-1.0) Estimated GFR (Cockcroft-Gault) 50.0 BUN/Creatinine Ratio 15 (6-20) Glucose Level 148mg/dL (70-99) Calcium Level 8.5mg/dL (8.5-10.1) Total Bilirubin 0.9mg/dL (0.2-1.0) Aspartate Amino Transf (AST/SGOT) 28U/L (15-37) Alanine Aminotransferase (ALT/SGPT) 13U/L (14-59) Alkaline Phosphatase 203U/L (46-116) Total Protein 6.7g/dL (6.4-8.2) Albumin 2.7g/dL (3.4-5.0) Albumin/Globulin Ratio 0.7 (1.0-1.7) Test 08/04/16 05:42 08/04/16 05:58 08/04/16 08:00 08/04/16 09:37 Glucose (Fingerstick) 205mg/dL (70-99) 177mg/dL (70-99) White Blood Count 8.2x10^3/uL (4.0-11.0) Red Blood Count 4.85x10^6/uL (3.50-5.40) Hemoglobin 12.3g/dL (12.0-15.5) Hematocrit 40.5% (36.0-47.0) Mean Corpuscular Volume 83fL (79-100) Mean Corpuscular Hemoglobin 25pg (25-35) Mean Corpuscular Hemoglobin Concent 30g/dL (31-37) Red Cell Distribution Width 19.0% (11.5-14.5) Platelet Count 107x10^3/uL (140-400) Neutrophils (%) (Auto) 79% (31-73) Lymphocytes (%) (Auto) 8% (24-48) Monocytes (%) (Auto) 7% (0-9) Eosinophils (%) (Auto) 6% (0-3) Basophils (%) (Auto) 1% (0-3) Neutrophils # (Auto) 6.5x10^3uL (1.8-7.7) Lymphocytes # (Auto) 0.6x10^3/uL (1.0-4.8) Monocytes # (Auto) 0.6x10^3/uL (0.0-1.1) Eosinophils # (Auto) 0.5x10^3/uL (0.0-0.7) Basophils # (Auto) 0.1x10^3/uL (0.0-0.2) Sodium Level 140mmol/L (136-145) Potassium Level 5.5mmol/L (3.5-5.1) Chloride Level 109mmol/L (98-107) Carbon Dioxide Level 26mmol/L (21-32) Anion Gap 5 (6-14) Blood Urea Nitrogen 18mg/dL (7-20) Creatinine 1.1mg/dL (0.6-1.0) Estimated GFR (Cockcroft-Gault) 50.0 BUN/Creatinine Ratio 16 (6-20) Glucose Level 230mg/dL (70-99) Calcium Level 8.9mg/dL (8.5-10.1) Total Bilirubin 1.0mg/dL (0.2-1.0) Aspartate Amino Transf (AST/SGOT) 40U/L (15-37) Alanine Aminotransferase (ALT/SGPT) 8U/L (14-59) Alkaline Phosphatase 228U/L (46-116) Troponin I Quantitative 0.038ng/mL (0.000-0.055) Total Protein 7.8g/dL (6.4-8.2) Albumin 3.1g/dL (3.4-5.0) Albumin/Globulin Ratio 0.7 (1.0-1.7) Lipase 354U/L (73-393) O2 Saturation 100% (92-99) Arterial Blood pH 7.35 (7.35-7.45) Arterial Blood pCO2 at Patient Temp 43mmHg (35-46) Arterial Blood pO2 at Patient Temp 441mmHg (65-108) Arterial Blood HCO3 23mmol/L (21-28) Arterial Blood Base Excess -3mmol/L (-3-3) FiO2 100 Laboratory Tests Test 08/03/16 14:00 08/03/16 14:54 08/03/16 15:20 08/03/16 20:31 Urine Collection Type Unknown Urine Color Yellow Urine Clarity Cloudy Urine pH 7.0 Urine Specific [place] 1.020 Urine Protein >=300mg/dL (NEG-TRACE) Urine Glucose (UA) Negativemg/dL (NEG) Urine Ketones (Stick) Negativemg/dL (NEG) Urine Blood Negative (NEG) Urine Nitrite Negative (NEG) Urine Bilirubin Negative (NEG) Urine Urobilinogen Dipstick 1.0mg/dL (0.2 mg/dL) Urine Leukocyte Esterase Small (NEG) Urine RBC 0/HPF (0-2) Urine WBC >40/HPF (0-4) Urine Squamous Epithelial Cells Many/LPF Urine Bacteria Many/HPF (0-FEW) Urine Mucus Mod/LPF Glucose (Fingerstick) 124mg/dL (70-99) 193mg/dL (70-99) White Blood Count 5.2x10^3/uL (4.0-11.0) Red Blood Count 4.06x10^6/uL (3.50-5.40) Hemoglobin 10.4g/dL (12.0-15.5) Hematocrit 33.7% (36.0-47.0) Mean Corpuscular Volume 83fL (79-100) Mean Corpuscular Hemoglobin 26pg (25-35) Mean Corpuscular Hemoglobin Concent 31g/dL (31-37) Red Cell Distribution Width 18.2% (11.5-14.5) Platelet Count 78x10^3/uL (140-400) Neutrophils (%) (Auto) 69% (31-73) Lymphocytes (%) (Auto) 11% (24-48) Monocytes (%) (Auto) 12% (0-9) Eosinophils (%) (Auto) 7% (0-3) Basophils (%) (Auto) 1% (0-3) Neutrophils # (Auto) 3.6x10^3uL (1.8-7.7) Lymphocytes # (Auto) 0.6x10^3/uL (1.0-4.8) Monocytes # (Auto) 0.6x10^3/uL (0.0-1.1) Eosinophils # (Auto) 0.4x10^3/uL (0.0-0.7) Basophils # (Auto) 0.0x10^3/uL (0.0-0.2) Prothrombin Time 13.3SEC (11.7-14.0) Prothromb Time International Ratio 1.1 (0.8-1.1) Sodium Level 144mmol/L (136-145) Potassium Level 4.0mmol/L (3.5-5.1) Chloride Level 109mmol/L (98-107) Carbon Dioxide Level 28mmol/L (21-32) Anion Gap 7 (6-14) Blood Urea Nitrogen 16mg/dL (7-20) Creatinine 1.1mg/dL (0.6-1.0) Estimated GFR (Cockcroft-Gault) 50.0 BUN/Creatinine Ratio 15 (6-20) Glucose Level 148mg/dL (70-99) Calcium Level 8.5mg/dL (8.5-10.1) Total Bilirubin 0.9mg/dL (0.2-1.0) Aspartate Amino Transf (AST/SGOT) 28U/L (15-37) Alanine Aminotransferase (ALT/SGPT) 13U/L (14-59) Alkaline Phosphatase 203U/L (46-116) Total Protein 6.7g/dL (6.4-8.2) Albumin 2.7g/dL (3.4-5.0) Albumin/Globulin Ratio 0.7 (1.0-1.7) Test 08/04/16 05:42 08/04/16 05:58 08/04/16 08:00 08/04/16 09:37 Glucose (Fingerstick) 205mg/dL (70-99) 177mg/dL (70-99) White Blood Count 8.2x10^3/uL (4.0-11.0) Red Blood Count 4.85x10^6/uL (3.50-5.40) Hemoglobin 12.3g/dL (12.0-15.5) Hematocrit 40.5% (36.0-47.0) Mean Corpuscular Volume 83fL (79-100) Mean Corpuscular Hemoglobin 25pg (25-35) Mean Corpuscular Hemoglobin Concent 30g/dL (31-37) Red Cell Distribution Width 19.0% (11.5-14.5) Platelet Count 107x10^3/uL (140-400) Neutrophils (%) (Auto) 79% (31-73) Lymphocytes (%) (Auto) 8% (24-48) Monocytes (%) (Auto) 7% (0-9) Eosinophils (%) (Auto) 6% (0-3) Basophils (%) (Auto) 1% (0-3) Neutrophils # (Auto) 6.5x10^3uL (1.8-7.7) Lymphocytes # (Auto) 0.6x10^3/uL (1.0-4.8) Monocytes # (Auto) 0.6x10^3/uL (0.0-1.1) Eosinophils # (Auto) 0.5x10^3/uL (0.0-0.7) Basophils # (Auto) 0.1x10^3/uL (0.0-0.2) Sodium Level 140mmol/L (136-145) Potassium Level 5.5mmol/L (3.5-5.1) Chloride Level 109mmol/L (98-107) Carbon Dioxide Level 26mmol/L (21-32) Anion Gap 5 (6-14) Blood Urea Nitrogen 18mg/dL (7-20) Creatinine 1.1mg/dL (0.6-1.0) Estimated GFR (Cockcroft-Gault) 50.0 BUN/Creatinine Ratio 16 (6-20) Glucose Level 230mg/dL (70-99) Calcium Level 8.9mg/dL (8.5-10.1) Total Bilirubin 1.0mg/dL (0.2-1.0) Aspartate Amino Transf (AST/SGOT) 40U/L (15-37) Alanine Aminotransferase (ALT/SGPT) 8U/L (14-59) Alkaline Phosphatase 228U/L (46-116) Troponin I Quantitative 0.038ng/mL (0.000-0.055) Total Protein 7.8g/dL (6.4-8.2) Albumin 3.1g/dL (3.4-5.0) Albumin/Globulin Ratio 0.7 (1.0-1.7) Lipase 354U/L (73-393) O2 Saturation 100% (92-99) Arterial Blood pH 7.35 (7.35-7.45) Arterial Blood pCO2 at Patient Temp 43mmHg (35-46) Arterial Blood pO2 at Patient Temp 441mmHg (65-108) Arterial Blood HCO3 23mmol/L (21-28) Arterial Blood Base Excess -3mmol/L (-3-3) FiO2 100 Medications Active Scripts Medications Dose Route/Sig Days Date Category Topamax (Topiramate) 100 Mg Tablet 1 Tab PO BID 08/03/[address] 10,000 Units Capsule (Lipase/Protease/Amylase) 1 Each Capsule.dr 1 Each PO BID 08/03/16 Reported Omeprazole 40 Mg Capsule.dr 1 Cap PO BID 08/03/16 Reported Welchol (Colesevelam Hcl) 625 Mg Tablet 625 Mg PO BID 08/03/16 Reported Humalog (Insulin Lispro) 100 Unit/1 Ml Cartridge 20 Unit SQ BIDAC 06/11/16 Reported Mirapex (Pramipexole Di-Hcl) 0.25 Mg Tablet 1 Mg PO HS 04/05/16 Reported Levothyroxine Sodium 100 Mcg Tablet 1 Tab PO DAILY 04/05/16 Reported Levemir (Insulin Detemir) 100 Unit/1 Ml Vial 30 Unit SQ BID-AM AND HS 04/05/16 Reported Demadex (Torsemide) 20 Mg Tablet 20 Mg PO DAILY 03/31/16 Rx Carbidopa-Levo Er 25-100 Tab (Carbidopa/Levodopa) 1 Each Tablet.er 1 Each PO BID 01/09/14 Reported Propranolol Hcl 60 Mg Tablet 60 Mg PO HS 01/09/14 Reported Bethanechol Chloride 25 Mg Tablet 25 Mg PO BID 01/09/14 Reported Klor-Con 10 (Potassium Chloride) 10 Meq Tablet.er 20 Meq PO BID 01/09/14 Reported Glipizide 10 Mg Tablet 10 Mg PO BID 01/09/14 Reported Lovastatin 40 Mg Tablet 40 Mg PO HS 01/09/14 Reported Impression . FULL CONSULT DICTATED WILL EXTUBATE THANKS WILL NEED SLEEP STUDY SUSPECT AURY AND CENTRAL SLEEP APNEA PETER WALTER MD Aug 04, 2016 11:06
--- NOTE | 2016-08-04 11:41 | PDOC ---
SUBJECTIVE Subjective Events noted. Pt extubated just now. Denies headache presently. Denies visual problems. OBJECTIVE Objective CT head this AM stable vent size, no acute findings Vital Signs Vital Signs Date Time Temp Pulse Resp B/P Pulse Ox O2 Delivery O2 Flow Rate FiO2 08/04/16 11:00 69 16 189/88 100 Ventilator 08/04/16 10:16 100 Ventilator 08/04/16 10:00 70 16 178/87 100 Ventilator 08/04/16 09:50 100 Ventilator 08/04/16 09:38 100 Ventilator 08/04/16 09:00 64 16 150/77 100 Ventilator 08/04/16 08:51 Mechanical Ventilator 08/04/16 08:09 100 Ventilator 08/04/16 08:05 96 Ventilator 08/04/16 08:00 Mechanical Ventilator 08/04/16 08:00 96.2 60 16 127/63 100 Ventilator 96.2 08/04/16 07:00 94.7 60 16 145/71 100 Ventilator 94.7 08/04/16 03:22 97.6 85 16 141/61 93 Nasal Cannula 3.0 97.6 08/04/16 02:00 Room Air 08/04/16 00:54 Room Air 08/03/16 23:26 98.2 84 18 156/74 94 Room Air 98.2 08/03/16 21:54 83 131/60 08/03/16 21:51 Room Air 08/03/16 19:38 96 Room Air 08/03/16 19:33 Room Air 08/03/16 19:30 98.8 83 18 131/60 92 Room Air 98.8 08/03/16 19:30 Room Air 08/03/16 15:00 97.8 71 18 141/78 97 Room Air 97.8 08/03/16 14:28 08/03/16 13:38 84 20 159/68 98 Room Air 08/03/16 12:38 82 20 158/69 96 Room Air 08/03/16 11:38 98.2 83 18 147/67 95 Room Air 98.2 I & O Intake and Output 08/04/16 07:00 Intake Total 0 ml Output Total 1 ml Balance -1 ml Intake Oral 0 ml Stool Total 1 ml # Voids 2 # Bowel Movements 1 PHYSICAL EXAM Physical Exam AA, PERRL, able to read across the room, EOMI, COLEMAN 5/5, sensation intact LT ASSESSMENT/PLAN Assessment/Plan 66F with reported chronic elevated pressures from multiple LPs over the years -appears neurologically stable/intact at this time, radiographically stable -denies visual disturbance -chronic headaches, medical tx ongoing per neurology -denies any improvement of headache after any of her LPs over the years -recent XRT for breastCA, cellulitis noted on chest at site - prominent infection risk for implant procedure such as shunt -MRV to assess for any sinus stenosis or thrombosis - possibly treatable with neurointerventional modalities -pt reports recent optho assessment that was "normal" - obtain records vs new optho assessment -pt reports strongly opposed to and will refuse any shunting procedure Problems: COMMENT Lab Laboratory Tests Test 08/03/16 14:00 08/03/16 14:54 08/03/16 15:20 08/03/16 20:31 Urine Collection Type Unknown Urine Color Yellow Urine Clarity Cloudy Urine pH 7.0 Urine Specific [place] 1.020 Urine Protein >=300mg/dL (NEG-TRACE) Urine Glucose (UA) Negativemg/dL (NEG) Urine Ketones (Stick) Negativemg/dL (NEG) Urine Blood Negative (NEG) Urine Nitrite Negative (NEG) Urine Bilirubin Negative (NEG) Urine Urobilinogen Dipstick 1.0mg/dL (0.2 mg/dL) Urine Leukocyte Esterase Small (NEG) Urine RBC 0/HPF (0-2) Urine WBC >40/HPF (0-4) Urine Squamous Epithelial Cells Many/LPF Urine Bacteria Many/HPF (0-FEW) Urine Mucus Mod/LPF Glucose (Fingerstick) 124mg/dL (70-99) 193mg/dL (70-99) White Blood Count 5.2x10^3/uL (4.0-11.0) Red Blood Count 4.06x10^6/uL (3.50-5.40) Hemoglobin 10.4g/dL (12.0-15.5) Hematocrit 33.7% (36.0-47.0) Mean Corpuscular Volume 83fL (79-100) Mean Corpuscular Hemoglobin 26pg (25-35) Mean Corpuscular Hemoglobin Concent 31g/dL (31-37) Red Cell Distribution Width 18.2% (11.5-14.5) Platelet Count 78x10^3/uL (140-400) Neutrophils (%) (Auto) 69% (31-73) Lymphocytes (%) (Auto) 11% (24-48) Monocytes (%) (Auto) 12% (0-9) Eosinophils (%) (Auto) 7% (0-3) Basophils (%) (Auto) 1% (0-3) Neutrophils # (Auto) 3.6x10^3uL (1.8-7.7) Lymphocytes # (Auto) 0.6x10^3/uL (1.0-4.8) Monocytes # (Auto) 0.6x10^3/uL (0.0-1.1) Eosinophils # (Auto) 0.4x10^3/uL (0.0-0.7) Basophils # (Auto) 0.0x10^3/uL (0.0-0.2) Prothrombin Time 13.3SEC (11.7-14.0) Prothromb Time International Ratio 1.1 (0.8-1.1) Sodium Level 144mmol/L (136-145) Potassium Level 4.0mmol/L (3.5-5.1) Chloride Level 109mmol/L (98-107) Carbon Dioxide Level 28mmol/L (21-32) Anion Gap 7 (6-14) Blood Urea Nitrogen 16mg/dL (7-20) Creatinine 1.1mg/dL (0.6-1.0) Estimated GFR (Cockcroft-Gault) 50.0 BUN/Creatinine Ratio 15 (6-20) Glucose Level 148mg/dL (70-99) Calcium Level 8.5mg/dL (8.5-10.1) Total Bilirubin 0.9mg/dL (0.2-1.0) Aspartate Amino Transf (AST/SGOT) 28U/L (15-37) Alanine Aminotransferase (ALT/SGPT) 13U/L (14-59) Alkaline Phosphatase 203U/L (46-116) Total Protein 6.7g/dL (6.4-8.2) Albumin 2.7g/dL (3.4-5.0) Albumin/Globulin Ratio 0.7 (1.0-1.7) Test 08/04/16 05:42 08/04/16 05:58 08/04/16 08:00 08/04/16 09:37 Glucose (Fingerstick) 205mg/dL (70-99) 177mg/dL (70-99) White Blood Count 8.2x10^3/uL (4.0-11.0) Red Blood Count 4.85x10^6/uL (3.50-5.40) Hemoglobin 12.3g/dL (12.0-15.5) Hematocrit 40.5% (36.0-47.0) Mean Corpuscular Volume 83fL (79-100) Mean Corpuscular Hemoglobin 25pg (25-35) Mean Corpuscular Hemoglobin Concent 30g/dL (31-37) Red Cell Distribution Width 19.0% (11.5-14.5) Platelet Count 107x10^3/uL (140-400) Neutrophils (%) (Auto) 79% (31-73) Lymphocytes (%) (Auto) 8% (24-48) Monocytes (%) (Auto) 7% (0-9) Eosinophils (%) (Auto) 6% (0-3) Basophils (%) (Auto) 1% (0-3) Neutrophils # (Auto) 6.5x10^3uL (1.8-7.7) Lymphocytes # (Auto) 0.6x10^3/uL (1.0-4.8) Monocytes # (Auto) 0.6x10^3/uL (0.0-1.1) Eosinophils # (Auto) 0.5x10^3/uL (0.0-0.7) Basophils # (Auto) 0.1x10^3/uL (0.0-0.2) Sodium Level 140mmol/L (136-145) Potassium Level 5.5mmol/L (3.5-5.1) Chloride Level 109mmol/L (98-107) Carbon Dioxide Level 26mmol/L (21-32) Anion Gap 5 (6-14) Blood Urea Nitrogen 18mg/dL (7-20) Creatinine 1.1mg/dL (0.6-1.0) Estimated GFR (Cockcroft-Gault) 50.0 BUN/Creatinine Ratio 16 (6-20) Glucose Level 230mg/dL (70-99) Calcium Level 8.9mg/dL (8.5-10.1) Total Bilirubin 1.0mg/dL (0.2-1.0) Aspartate Amino Transf (AST/SGOT) 40U/L (15-37) Alanine Aminotransferase (ALT/SGPT) 8U/L (14-59) Alkaline Phosphatase 228U/L (46-116) Troponin I Quantitative 0.038ng/mL (0.000-0.055) Total Protein 7.8g/dL (6.4-8.2) Albumin 3.1g/dL (3.4-5.0) Albumin/Globulin Ratio 0.7 (1.0-1.7) Lipase 354U/L (73-393) O2 Saturation 100% (92-99) Arterial Blood pH 7.35 (7.35-7.45) Arterial Blood pCO2 at Patient Temp 43mmHg (35-46) Arterial Blood pO2 at Patient Temp 441mmHg (65-108) Arterial Blood HCO3 23mmol/L (21-28) Arterial Blood Base Excess -3mmol/L (-3-3) FiO2 100 ELADIA HOPSON MD Aug 04, 2016 11:41
[2016-08-04] MEDS ORDERED: GADOBUTROL 7.5 MMOL/7.5 ML VIAL IV ONE (16:15)
[2016-08-04] MEDS ORDERED: GADOBUTROL 10 MMOL/10 ML VIAL IV ONE (16:15)
[2016-08-04] MEDS: HUMALOG SQ SCH (16:30)
--- NOTE | 2016-08-04 16:53 | PDOC2 ---
CONSULT Date of Consult Date of Consult DATE: 08/04/16 TIME: 16:43 Past Medical History Cardiovascular: HTN, Hyperlipidemia Pulmonary: Other GI: Diverticulosis, Peptic Ulcer disease, Other Heme/Onc: Other Hepatobiliary: Other Psych: Depression Musculoskeletal: low back pain Infectious disease: No pertinent hx Endocrine: Diabetes Past Surgical History Past Surgical History: Other Family History Family History: No Significant, Kidney Disease Social History ALCOHOL: none Drugs: None Lives: with Family Current Problem List Problem List Problems Medical Problems: (1) Elevated intracranial pressure Status: Acute Current Medications Current Medications Current Medications Morphine Sulfate 4 mg PRN Q15MIN PRN IV/SQ PAIN GREATER THAN 3/10; Start at 12:45; Stop 08/04/16 at 08:26; Status DC Ondansetron HCl (Zofran) 4 mg PRN Q8HRS PRN IV NAUSEA/VOMITING Last administered on 08/04/16 00:53; Start 08/03/16 at 12:45; Stop 08/04/16 at 08:26 ; Status DC Ondansetron HCl (Zofran) 4 mg PRN Q8HRS PRN IV NAUSEA/VOMITING; Start 08/03/16 at 13:45; Stop 08/04/16 at 08:25; Status DC Morphine Sulfate 4 mg PRN Q2HR PRN IV PAIN Last administered on 08/04/16 00:54 ; Start 08/03/16 at 13:45; Stop 08/04/16 at 13:44; Status DC Topiramate (Topamax) 125 mg BID PO Last administered on 08/03/16 21:56; Start 08/03/16 at 21:00; Stop 08/04/16 at 08:33; Status DC Acetazolamide (Diamox) 250 mg Q8HRS PO Last administered on 08/03/16 21:55; Start 08/03/16 at 22:00 Acetaminophen (Tylenol) 325 mg PRN Q6HRS PRN PO MILD PAIN / TEMP; Start at 16:15 Acetaminophen/ Hydrocodone Bitart (Lortab 5/325) 1 tab PRN Q6HRS PRN PO MODERATE TO SEVERE PAIN Last administered on 08/03/16 19:33; Start 08/03/16 at 16:15 Hydralazine HCl (Apresoline) 10 mg PRN Q4HRS PRN IVP ELEVATED BP, SEE COMMENTS ; Start 08/03/16 at 16:15 Ondansetron HCl (Zofran) 4 mg PRN Q8HRS PRN IV NAUSEA/VOMITING; Start 08/03/16 at 16:15 Albuterol Sulfate (Ventolin Neb Soln) 2.5 mg PRN Q4HRS PRN NEB SHORTNESS OF BREATH Last administered on 08/04/16 08:03; Start 08/03/16 at 16:15 Bethanechol Chloride (Urecholine) 25 mg BID PO Last administered on 08/03/16 21:55; Start 08/03/16 at 21:00 Carbidopa/Levodopa (Sinemet Cr) 1 tab.sa BID PO Last administered on 08/03/16 21:54; Start 08/03/16 at 21:00 Colesevelam HCl (Welchol) 625 mg BID PO Last administered on 08/03/16 21:54; Start 08/03/16 at 21:00 Levothyroxine Sodium (Synthroid) 100 mcg DAILY07 PO ; Start 08/04/16 at 07:00; Stop 08/04/16 at 07:50; Status DC Amylase/Lipase/ Protease (Zenpep 10,000) 1 cap BIDWMEALS PO Last administered on 08/03/16 17:39; Start 08/03/16 at 17:00 Pramipexole Dihydrochloride (miraPEX) 1 mg HS PO Last administered on 21:53; Start 08/03/16 at 21:00; Stop 08/04/16 at 13:25; Status DC Topiramate (Topamax) 100 mg BID PO ; Start 08/03/16 at 21:00; Stop 08/03/16 at 21:00; Status DC Torsemide (Demadex) 20 mg DAILY PO ; Start 08/04/16 at 09:00 Glipizide (Glucotrol) 10 mg BIDBFRMEAL PO ; Start 08/04/16 at 07:30 Insulin Detemir (Levemir) 30 units BID SQ Last administered on 08/04/16 09:38 ; Start 08/03/16 at 21:00; Stop 08/04/16 at 09:51; Status DC Insulin Aspart (Novolog) 20 units BIDBFRMEAL SQ ; Start 08/03/16 at 17:00; Status Cancel Atorvastatin Calcium (Lipitor) 10 mg QHS PO Last administered on 08/03/16 21: 54; Start 08/03/16 at 21:00 Pantoprazole Sodium (Protonix) 40 mg DAILYAC PO ; Start 08/04/16 at 07:30; Stop 08/04/16 at 07:50; Status DC Potassium Chloride (Klor-Con) 20 meq BIDWMEALS PO Last administered on 17:39; Start 08/03/16 at 17:00; Stop 08/04/16 at 10:25; Status DC Propranolol HCl (Inderal La) 60 mg QHS PO Last administered on 08/03/16 21:54 ; Start 08/03/16 at 21:00 Vitamin A/Vitamin D 1 cedrick 1 cedrick TID TP Last administered on 08/04/16 09:31; Start 08/03/16 at 17:00 Propofol (Diprivan) 100 ml @ As Directed STK-MED ONCE IV ; Start 08/04/16 at 06 :43; Stop 08/04/16 at 06:44; Status DC Etomidate (Amidate) 20 mg STK-MED ONCE IV ; Start 08/04/16 at 07:13; Stop at 07:14; Status DC Succinylcholine Chloride 200 mg 200 mg STK-MED ONCE .ROUTE ; Start 08/04/16 at 07:13; Stop 08/04/16 at 07:14; Status DC Levothyroxine Sodium/Sodium Chloride (Synthroid/Iv Sodium Chloride 0.9% 50ml) 5 ml @ 100 mls/hr DAILY IVP Last administered on 08/04/16 09:32; Start 08/04/16 at 09:00 Pantoprazole Sodium (Protonix Vial) 40 mg DAILY IVP Last administered on 09:31; Start 08/04/16 at 09:00 Chlorhexidine Gluconate (Peridex) 15 ml BID MM Last administered on 08/04/16 09:32; Start 08/04/16 at 09:00 Topiramate (Topamax) 100 mg BID PO ; Start 08/04/16 at 09:00 Topiramate (Topamax) 25 mg BID PO ; Start 08/04/16 at 09:00 Propofol 1000 mg 1,000 mg STK-MED ONCE IV ; Start 08/04/16 at 06:45; Stop at 08:50; Status DC Propofol (Diprivan) 100 ml @ 0 mls/hr CONT PRN IV SEE I/O RECORD; Start at 09:30 Insulin Detemir (Levemir) 40 units BID SQ ; Start 08/04/16 at 21:00 Losartan Potassium (Cozaar) 25 mg DAILY PO ; Start 08/05/16 at 09:00 Enoxaparin Sodium (Lovenox 40mg Syringe) 40 mg BID SQ Last administered on 08/04t 11:00; Start 08/04/16 at 11:00 Sodium Polystyrene Sulfonate (Kayexalate) 15 gm 1X ONCE PO ; Start 08/04/16 at 10:15; Stop 08/04/16 at 10:16; Status DC Non-Formulary Medication 1 ea BIDAC SQ ; Start 08/04/16 at 16:30 Non-Formulary Medication 1 ea QODAY TP ; Start 08/06/16 at 09:00 Pramipexole Dihydrochloride (miraPEX) 1 mg HS PO ; Start 08/04/16 at 21:00 Gadobutrol (Gadavist) 10 mmol 1X ONCE IV ; Start 08/04/16 at 16:15; Stop at 16:17; Status DC Gadobutrol (Gadavist) 7.5 mmol 1X ONCE IV ; Start 08/04/16 at 16:15; Stop 08/04 at 16:17; Status DC Active Scripts Active Demadex (Torsemide) 20 Mg Tablet 20 Mg PO DAILY Reported Topamax (Topiramate) 100 Mg Tablet 1 Tab PO BID Zenpep Dr 10,000 Units Capsule (Lipase/Protease/Amylase) 1 Each Capsule.dr 1 Each PO BID Omeprazole 40 Mg Capsule.dr 1 Cap PO BID Welchol (Colesevelam Hcl) 625 Mg Tablet 625 Mg PO BID Humalog (Insulin Lispro) 100 Unit/1 Ml Cartridge 20 Unit SQ BIDAC Mirapex (Pramipexole Di-Hcl) 0.25 Mg Tablet 1 Mg PO HS Levothyroxine Sodium 100 Mcg Tablet 1 Tab PO DAILY Levemir (Insulin Detemir) 100 Unit/1 Ml Vial 30 Unit SQ BID-AM AND HS Carbidopa-Levo Er 25-100 Tab (Carbidopa/Levodopa) 1 Each Tablet.er 1 Each PO BID Propranolol Hcl 60 Mg Tablet 60 Mg PO HS Bethanechol Chloride 25 Mg Tablet 25 Mg PO BID Klor-Con 10 (Potassium Chloride) 10 Meq Tablet.er 20 Meq PO BID Glipizide 10 Mg Tablet 10 Mg PO BID Lovastatin 40 Mg Tablet 40 Mg PO HS Allergies Allergies: Coded Allergies: Sulfa (Sulfonamide Antibiotics) (Verified Allergy, Severe, 04/27/16) cough insulin aspart (Verified Allergy, Severe, ANAPHYLAXIS, 04/27/16) venom-honey bee (Verified Allergy, Severe, Anaphylaxis, 04/27/16) escitalopram (Verified Allergy, Intermediate, 04/27/16) lisinopril (Verified Allergy, Intermediate, Rash, 04/27/16) metformin (Verified Allergy, Intermediate, Diarrhea, 04/27/16) mold (Verified Allergy, Intermediate, 04/27/16) ranitidine (Verified Allergy, Intermediate, Nausea and Vomiting, 04/27/16) sertraline (Verified Allergy, Intermediate, 04/27/16) depression Vitals VITALS Vital Signs Date Time Temp Pulse Resp B/P Pulse Ox O2 Delivery O2 Flow Rate FiO2 08/04/16 15:04 100 Nasal Cannula 5.0 08/04/16 15:00 77 16 118/55 08/04/16 12:00 98.1 98.1 Labs Labs Laboratory Tests Test 08/03/16 14:00 08/03/16 14:54 08/03/16 15:20 08/03/16 20:31 Urine Collection Type Unknown Urine Color Yellow Urine Clarity Cloudy Urine pH 7.0 Urine Specific [place] 1.020 Urine Protein >=300mg/dL (NEG-TRACE) Urine Glucose (UA) Negativemg/dL (NEG) Urine Ketones (Stick) Negativemg/dL (NEG) Urine Blood Negative (NEG) Urine Nitrite Negative (NEG) Urine Bilirubin Negative (NEG) Urine Urobilinogen Dipstick 1.0mg/dL (0.2 mg/dL) Urine Leukocyte Esterase Small (NEG) Urine RBC 0/HPF (0-2) Urine WBC >40/HPF (0-4) Urine Squamous Epithelial Cells Many/LPF Urine Bacteria Many/HPF (0-FEW) Urine Mucus Mod/LPF Glucose (Fingerstick) 124mg/dL (70-99) 193mg/dL (70-99) White Blood Count 5.2x10^3/uL (4.0-11.0) Red Blood Count 4.06x10^6/uL (3.50-5.40) Hemoglobin 10.4g/dL (12.0-15.5) Hematocrit 33.7% (36.0-47.0) Mean Corpuscular Volume 83fL (79-100) Mean Corpuscular Hemoglobin 26pg (25-35) Mean Corpuscular Hemoglobin Concent 31g/dL (31-37) Red Cell Distribution Width 18.2% (11.5-14.5) Platelet Count 78x10^3/uL (140-400) Neutrophils (%) (Auto) 69% (31-73) Lymphocytes (%) (Auto) 11% (24-48) Monocytes (%) (Auto) 12% (0-9) Eosinophils (%) (Auto) 7% (0-3) Basophils (%) (Auto) 1% (0-3) Neutrophils # (Auto) 3.6x10^3uL (1.8-7.7) Lymphocytes # (Auto) 0.6x10^3/uL (1.0-4.8) Monocytes # (Auto) 0.6x10^3/uL (0.0-1.1) Eosinophils # (Auto) 0.4x10^3/uL (0.0-0.7) Basophils # (Auto) 0.0x10^3/uL (0.0-0.2) Prothrombin Time 13.3SEC (11.7-14.0) Prothromb Time International Ratio 1.1 (0.8-1.1) Sodium Level 144mmol/L (136-145) Potassium Level 4.0mmol/L (3.5-5.1) Chloride Level 109mmol/L (98-107) Carbon Dioxide Level 28mmol/L (21-32) Anion Gap 7 (6-14) Blood Urea Nitrogen 16mg/dL (7-20) Creatinine 1.1mg/dL (0.6-1.0) Estimated GFR (Cockcroft-Gault) 50.0 BUN/Creatinine Ratio 15 (6-20) Glucose Level 148mg/dL (70-99) Calcium Level 8.5mg/dL (8.5-10.1) Total Bilirubin 0.9mg/dL (0.2-1.0) Aspartate Amino Transf (AST/SGOT) 28U/L (15-37) Alanine Aminotransferase (ALT/SGPT) 13U/L (14-59) Alkaline Phosphatase 203U/L (46-116) Total Protein 6.7g/dL (6.4-8.2) Albumin 2.7g/dL (3.4-5.0) Albumin/Globulin Ratio 0.7 (1.0-1.7) Test 08/04/16 05:42 08/04/16 05:58 08/04/16 08:00 08/04/16 09:37 Glucose (Fingerstick) 205mg/dL (70-99) 177mg/dL (70-99) White Blood Count 8.2x10^3/uL (4.0-11.0) Red Blood Count 4.85x10^6/uL (3.50-5.40) Hemoglobin 12.3g/dL (12.0-15.5) Hematocrit 40.5% (36.0-47.0) Mean Corpuscular Volume 83fL (79-100) Mean Corpuscular Hemoglobin 25pg (25-35) Mean Corpuscular Hemoglobin Concent 30g/dL (31-37) Red Cell Distribution Width 19.0% (11.5-14.5) Platelet Count 107x10^3/uL (140-400) Neutrophils (%) (Auto) 79% (31-73) Lymphocytes (%) (Auto) 8% (24-48) Monocytes (%) (Auto) 7% (0-9) Eosinophils (%) (Auto) 6% (0-3) Basophils (%) (Auto) 1% (0-3) Neutrophils # (Auto) 6.5x10^3uL (1.8-7.7) Lymphocytes # (Auto) 0.6x10^3/uL (1.0-4.8) Monocytes # (Auto) 0.6x10^3/uL (0.0-1.1) Eosinophils # (Auto) 0.5x10^3/uL (0.0-0.7) Basophils # (Auto) 0.1x10^3/uL (0.0-0.2) Sodium Level 140mmol/L (136-145) Potassium Level 5.5mmol/L (3.5-5.1) Chloride Level 109mmol/L (98-107) Carbon Dioxide Level 26mmol/L (21-32) Anion Gap 5 (6-14) Blood Urea Nitrogen 18mg/dL (7-20) Creatinine 1.1mg/dL (0.6-1.0) Estimated GFR (Cockcroft-Gault) 50.0 BUN/Creatinine Ratio 16 (6-20) Glucose Level 230mg/dL (70-99) Calcium Level 8.9mg/dL (8.5-10.1) Total Bilirubin 1.0mg/dL (0.2-1.0) Aspartate Amino Transf (AST/SGOT) 40U/L (15-37) Alanine Aminotransferase (ALT/SGPT) 8U/L (14-59) Alkaline Phosphatase 228U/L (46-116) Troponin I Quantitative 0.038ng/mL (0.000-0.055) Total Protein 7.8g/dL (6.4-8.2) Albumin 3.1g/dL (3.4-5.0) Albumin/Globulin Ratio 0.7 (1.0-1.7) Lipase 354U/L (73-393) O2 Saturation 100% (92-99) Arterial Blood pH 7.35 (7.35-7.45) Arterial Blood pCO2 at Patient Temp 43mmHg (35-46) Arterial Blood pO2 at Patient Temp 441mmHg (65-108) Arterial Blood HCO3 23mmol/L (21-28) Arterial Blood Base Excess -3mmol/L (-3-3) FiO2 100 Test 08/04/16 15:50 Potassium Level 4.5mmol/L (3.5-5.1) Laboratory Tests Test 08/03/16 20:31 08/04/16 05:42 08/04/16 05:58 08/04/16 08:00 Glucose (Fingerstick) 193mg/dL (70-99) 205mg/dL (70-99) White Blood Count 8.2x10^3/uL (4.0-11.0) Red Blood Count 4.85x10^6/uL (3.50-5.40) Hemoglobin 12.3g/dL (12.0-15.5) Hematocrit 40.5% (36.0-47.0) Mean Corpuscular Volume 83fL (79-100) Mean Corpuscular Hemoglobin 25pg (25-35) Mean Corpuscular Hemoglobin Concent 30g/dL (31-37) Red Cell Distribution Width 19.0% (11.5-14.5) Platelet Count 107x10^3/uL (140-400) Neutrophils (%) (Auto) 79% (31-73) Lymphocytes (%) (Auto) 8% (24-48) Monocytes (%) (Auto) 7% (0-9) Eosinophils (%) (Auto) 6% (0-3) Basophils (%) (Auto) 1% (0-3) Neutrophils # (Auto) 6.5x10^3uL (1.8-7.7) Lymphocytes # (Auto) 0.6x10^3/uL (1.0-4.8) Monocytes # (Auto) 0.6x10^3/uL (0.0-1.1) Eosinophils # (Auto) 0.5x10^3/uL (0.0-0.7) Basophils # (Auto) 0.1x10^3/uL (0.0-0.2) Sodium Level 140mmol/L (136-145) Potassium Level 5.5mmol/L (3.5-5.1) Chloride Level 109mmol/L (98-107) Carbon Dioxide Level 26mmol/L (21-32) Anion Gap 5 (6-14) Blood Urea Nitrogen 18mg/dL (7-20) Creatinine 1.1mg/dL (0.6-1.0) Estimated GFR (Cockcroft-Gault) 50.0 BUN/Creatinine Ratio 16 (6-20) Glucose Level 230mg/dL (70-99) Calcium Level 8.9mg/dL (8.5-10.1) Total Bilirubin 1.0mg/dL (0.2-1.0) Aspartate Amino Transf (AST/SGOT) 40U/L (15-37) Alanine Aminotransferase (ALT/SGPT) 8U/L (14-59) Alkaline Phosphatase 228U/L (46-116) Troponin I Quantitative 0.038ng/mL (0.000-0.055) Total Protein 7.8g/dL (6.4-8.2) Albumin 3.1g/dL (3.4-5.0) Albumin/Globulin Ratio 0.7 (1.0-1.7) Lipase 354U/L (73-393) O2 Saturation 100% (92-99) Arterial Blood pH 7.35 (7.35-7.45) Arterial Blood pCO2 at Patient Temp 43mmHg (35-46) Arterial Blood pO2 at Patient Temp 441mmHg (65-108) Arterial Blood HCO3 23mmol/L (21-28) Arterial Blood Base Excess -3mmol/L (-3-3) FiO2 100 Test 08/04/16 09:37 08/04/16 15:50 Glucose (Fingerstick) 177mg/dL (70-99) Potassium Level 4.5mmol/L (3.5-5.1) Assessment/Plan Assessment/Plan DATE OF CONSULTATION: 08/04/2016 REQUESTING PHYSICIAN: Dr. Lindo. REASON FOR CONSULTATION: Breast cancer. HISTORY OF PRESENT ILLNESS: The patient is a 66-year-old female who was diagnosed with breast cancer in 2015. She noticed a mass in the left breast in 02/2016, measuring almost 9 cm. She underwent a biopsy by Dr. Lima on 04/06/2016 that revealed invasive mammary carcinoma with lobular features. 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 CT scan of the chest on 04/13/2016 revealed no acute abnormality and a bone scan on 04/13/2016 did not reveal any bone metastasis. She underwent left simple mastectomy and sentinel lymph node biopsy and right simple mastectomy on 04/27/[address] Lima. The pathology revealed invasive lobular carcinoma grade 2, T3 N1 Mi M0, stage 3A. ER positive 90%, WV positive 22.8%, and HER2/josh negative. Oncotype DX revealed intermediate risk score of 24 and hence it was decided not to proceed with adjuvant chemotherapy. The plan was to proceed with radiation therapy followed by anastrozole. She developed cellulitis of the left chest wall area and she was given Keflex, which did not help her and hence she was admitted to [facility] and started on IV antibiotics 05/2016. She was initially started on vancomycin and Zosyn and subsequently she continues on Zosyn. Infectious Disease consultation has been obtained. She then completed radiation to left chest. She has chronic headaches, and is following with Dr. Combs. She had a lumbar puncture 08/03/16. However, initial CSF opening pressure and closing pressures were high. Opening pressure was [address] Combs recommended to to admit the patient to the [facility] for Neurosurgery evaluation and treatment. I was asked to see the patient for further management of breast cancer. PAST MEDICAL HISTORY: Hyperlipidemia, hypertension, diverticulosis, peptic ulcer disease, depression, diabetes. FAMILY HISTORY: Positive for breast cancer in her sister at the age of 40. SOCIAL HISTORY: No smoking or alcohol abuse. REVIEW OF SYSTEMS: A 12-point review of system was performed. Pertinent positives are mentioned in the history of present illness. Rest of the system review is negative or unobtainable due to pt being on ventilator.. PHYSICAL EXAMINATION: GENERAL APPEARANCE: The patient is a 66-year-old female who is in no acute cardiorespiratory distress. VITAL SIGNS: reveiwed. HEENT: Head atraumatic, normocephalic. Eyes: No icterus. CHEST: Bilaterally symmetrical. HEART: S1, S2 normal. ABDOMEN: Soft, no mass. CENTRAL NERVOUS SYSTEM: sedated, on ventilator... LYMPHATICS: No lymphadenopathy. SKIN: no rash MUSCULOSKELETAL: No joint effusions. LABORATORY DATA: reviewed IMPRESSION AND PLAN: 1. T3 N1 Mi M0, stage 3A invasive lobular carcinoma of the left breast, outer lower quadrant, status post biopsy on 04/06/2016 and followed by bilateral mastectomy on 04/27/2016, ER positive, WV positive, HER-2/josh negative. Oncotype DX score reveals an intermediate risk score of 24. She has multiple comorbid conditions and low benefit with intermediate score Oncotype DX, and hence chemotherapy was not offered after detailed discussion with the patient and her . My plan is to proceed with anastrozole when she is stable as radiation therapy is completed. The patient is now on ventilator and I will defer this for now. 2. Pseudotumor cerebri. Management per neuro. 3. Splenomegaly, thought to be due to fatty liver disease. 4. Thrombocytopenia due to splenomegaly. Continue to monitor platelet count. 107 today. 5. Respir failure: intubated 08/03/16 with '"code"; apnea. has severe AURY but refuses CPAP. consult pulDREW Keen MD Aug 04, 2016 16:53
[2016-08-04] MEDS: LEVOTHYROXINE 100 MCG TABLET PO SCH (18:00)
[2016-08-04] MEDS: ATORVASTATIN CALCIUM 10 MG TABLET. PO SCH (21:58)
[2016-08-04] MEDS: PROPRANOLOL ER 60 MG CAP.SA.24H. PO SCH (21:58)
[2016-08-04] MEDS: PRAMIPEXOLE 1 MG TABLET. PO SCH (21:59)
[2016-08-04] MEDS: HYDROCODONE/APAP 5/325MG TABLET. PO PRN (22:15)
[2016-08-05] VITALS (7 sets, daily range): BP systolic 117–147; BP diastolic 42–62
--- NOTE | 2016-08-05 02:31 | CONS ---
DATE OF CONSULTATION: 08/04/2016 ATTENDING PHYSICIAN: Dr. Lindo. REASON FOR CONSULTATION: The patient seen in pulmonary consultation at the request of Dr. Randhawa for respiratory failure. HISTORY OF PRESENT ILLNESS: The patient is a 66-year-old that underwent outpatient lumbar puncture for pseudotumor cerebri. She had elevated pressures. Neurology recommended that the patient be evaluated in the Emergency Room. She was then admitted this morning. While she was on the floor, she became apneic. She has a history of obstructive sleep apnea and noncompliant with CPAP. Apparently, they could not find the pulse. CPR was initiated, they started chest compression, but directly after 1 or 2 chest compressions, the patient woke up. She was intubated to secure the airway. She is currently awake, alert, following command. She is ____ oxygen at home. She has never smoked. She wishes to have the tube removed. PAST MEDICAL HISTORY: Breast cancer, type 2 diabetes, gastroesophageal reflux, hypothyroidism, pancreatitis, pseudotumor cerebri. PAST SURGICAL HISTORY: Hysterectomy, tonsillectomy, cholecystectomy. MEDICATIONS: List was reviewed. ALLERGIES: SHE HAS MULTIPLE ALLERGIES, PLEASE SEE THE LIST. THE LIST INCLUDES SULFA, LISINOPRIL, METFORMIN, RANITIDINE AND OTHER MEDICATIONS. REVIEW OF SYSTEMS: Unobtainable secondary to the patient's condition. CURRENT MEDICATION: List was reviewed. Please see the MRAD. PHYSICAL EXAMINATION: GENERAL: The patient was awake, alert, following commands, moving all extremities. She had an endotracheal tube in place. She was on assist control ventilation. HEENT: Eyes, the sclerae were nonicteric. NECK: Jugular venous distention was not elevated. No lymphadenopathy. CHEST: Full expansion. LUNGS: Adequate airway flow, no wheezes. CARDIOVASCULAR: Regular rate and rhythm with S1, S2, no S3. ABDOMEN: Soft, nontender, nondistended. EXTREMITIES: No clubbing, cyanosis or pitting edema. NEUROLOGIC: The patient was awake, alert, following commands. A detailed neuro exam was not performed. LABORATORY DATA: Reviewed. White count was normal. Hemoglobin and hematocrit were noted. Arterial blood gas; pH of 7.35, PaCO2 of 43, pO2 of 441. Electrolytes were noted. BUN and creatinine were normal. Carbon dioxide level was within normal range. UA was noted. Chest x-ray revealed properly placed endotracheal tube, no infiltrates. IMPRESSION: 1. Acute respiratory failure secondary to periods of apnea and obstructive sleep apnea. 2. Obstructive sleep apnea. The patient noncompliant. 3. Pseudotumor cerebri. 4. Hypothyroidism. 5. Morbid obesity, body mass index of 48. 6. Type 2 diabetes. PLAN: 1. Suspect the patient was initially intubated for airway protection. She had some apnea spells. CPR was initiated, directly after 2 chest compressions the patient woke up. She is alert and oriented. We will proceed with extubation. 2. Recommend BiPAP p.r.n. post-extubation. 3. May need repeat sleep study, suspect central sleep apnea in combination with obstructive sleep apnea. I do appreciate the privilege in sharing the patient's care. PETER WALTER MD DR: VINNY/elina JOB#: [id number] / [id number]
[2016-08-05] MEDS: acetaZOLAMIDE 250 MG TABLET. PO SCH ×3 (06:17→21:49)
[2016-08-05] MEDS: LEVOTHYROXINE 100 MCG TABLET PO SCH (06:17)
[2016-08-05] MEDS: HUMALOG SQ SCH ×2 (07:30→16:30)
[2016-08-05] MEDS: CHLORHEXIDINE 0.12% 15 ML MOUTHWASH. MM SCH (08:32)
[2016-08-05] MEDS: TOPIRAMATE 25 MG TABLET. PO SCH ×2 (08:33→20:48)
[2016-08-05] MEDS: TOPIRAMATE 100 MG TABLET. PO SCH ×2 (08:35→20:48)
[2016-08-05] MEDS: BETHANECHOL CHLORIDE 25 MG TABLET PO SCH ×2 (08:35→20:49)
[2016-08-05] MEDS: LIPASE/PROTEAS/AMYLAS 10/34/55 CAPSULE.DR. PO SCH ×2 (08:35→17:08)
[2016-08-05] MEDS: TORSEMIDE 20 MG TABLET. PO SCH (08:35)
[2016-08-05] MEDS: CARBIDOPA/LEVODOPA CR 25/100MG TABLET.SA. PO SCH ×2 (08:35→20:48)
[2016-08-05] MEDS: COLESEVELAM HCL 625 MG TABLET PO SCH ×2 (08:35→20:48)
[2016-08-05] MEDS: GLIPIZIDE 5 MG TABLET. PO SCH ×2 (08:35→17:10)
[2016-08-05] MEDS: ENOXAPARIN 40 MG/0.4 ML SYRINGE. SQ SCH ×2 (08:36→20:49)
[2016-08-05 08:37] LABS: BASO % 1 % (0-3); EOS % 4 % (0-3); HEMOGLOBIN 10.1 g/dL (12.0-15.5); LYMPH # 0.7 x10^3/uL (1.0-4.8); LYMPH % 9 % (24-48); MEAN CORPUSCULAR HEMOGLOBIN 25 pg (25-35); MEAN CORPUSCULAR HGB CONC 30 g/dL (31-37); MEAN CORPUSCULAR VOLUME 86 fL (79-100); MONO % 11 % (0-9); NEUT % 77 % (31-73); PLATELET COUNT 90 x10^3/uL (140-400); RED BLOOD COUNT 3.96 x10^6/uL (3.50-5.40); RED CELL DISTRIBUTION WIDTH 18.9 % (11.5-14.5); WHITE BLOOD COUNT 7.7 x10^3/uL (4.0-11.0)
[2016-08-05] MEDS: PANTOPRAZOLE IV PUSH 40 MG VIAL. IVP SCH (08:38)
[2016-08-05 08:45] LABS: CALCIUM 8.3 mg/dL (8.5-10.1); GFR 25.1; POTASSIUM 4.4 mmol/L (3.5-5.1)
[2016-08-05] MEDS: INSULIN DETEMIR 300 UNITS/3 ML INSULN.PEN. SQ SCH ×2 (08:49→21:03)
[2016-08-05] MEDS: VITS A & D/LANOLIN TOPICAL OINTMENT 56GM TUBE. TP SCH ×3 (08:49→20:50)
[2016-08-05] MEDS ORDERED: LOSARTAN POTASSIUM 25 MG TABLET. PO SCH (09:00)
--- NOTE | 2016-08-05 09:05 | PDOC ---
PROGRESS NOTES Subjective Subjective c/c - f/u of T3 N1mi M0, stage 3A invasive lobular carcinoma of the left breast Objective Objective Vital Signs Date Time Temp Pulse Resp B/P Pulse Ox O2 Delivery O2 Flow Rate FiO2 08/05/16 07:00 96.7 71 20 130/58 96 Nasal Cannula 4.0 96.7 Intake and Output 08/05/16 06:59 Intake Total 880 ml Output Total 430 ml Balance 450 ml Intake Oral 800 ml IV Total 80 ml Output Urine Total 430 ml Physical Exam Heart: Normal S1, Normal S2 General: Alert, Oriented X3 Lungs: Clear to auscultation Psych/Mental Status: Mental status NL Assessment Assessment Problems Medical Problems: (1) Elevated intracranial pressure Status: Acute IMPRESSION AND PLAN: 1. T3 N1mi M0, stage 3A invasive lobular carcinoma of the left breast, outer lower quadrant, status post biopsy on 04/06/2016 and followed by bilateral mastectomy on 04/27/2016, ER positive, IN positive, HER-2/josh negative. Oncotype DX score reveals an intermediate risk score of 24. She has multiple comorbid conditions and low benefit with intermediate score Oncotype DX, and hence chemotherapy was not offered after detailed discussion with the patient and her . My plan is to proceed with anastrozole in 1-2 weeks when she is recovered. Radiation therapy is completed. 2. Pseudotumor cerebri. Management per neuro. 3. Splenomegaly, thought to be due to fatty liver disease. 4. Thrombocytopenia due to splenomegaly. Continue to monitor platelet count. 90 today. 5. Respir failure: intubated 08/03/16 with '"code"; apnea. has severe AURY, extubated 08/04/16. Comment Review of Relevant I have reviewed the following items halle (where applicable) has been applied. Labs Laboratory Tests Test 08/03/16 14:00 08/03/16 14:54 08/03/16 15:20 08/03/16 20:31 Urine Collection Type Unknown Urine Color Yellow Urine Clarity Cloudy Urine pH 7.0 Urine Specific [place] 1.020 Urine Protein >=300mg/dL (NEG-TRACE) Urine Glucose (UA) Negativemg/dL (NEG) Urine Ketones (Stick) Negativemg/dL (NEG) Urine Blood Negative (NEG) Urine Nitrite Negative (NEG) Urine Bilirubin Negative (NEG) Urine Urobilinogen Dipstick 1.0mg/dL (0.2 mg/dL) Urine Leukocyte Esterase Small (NEG) Urine RBC 0/HPF (0-2) Urine WBC >40/HPF (0-4) Urine Squamous Epithelial Cells Many/LPF Urine Bacteria Many/HPF (0-FEW) Urine Mucus Mod/LPF Glucose (Fingerstick) 124mg/dL (70-99) 193mg/dL (70-99) White Blood Count 5.2x10^3/uL (4.0-11.0) Red Blood Count 4.06x10^6/uL (3.50-5.40) Hemoglobin 10.4g/dL (12.0-15.5) Hematocrit 33.7% (36.0-47.0) Mean Corpuscular Volume 83fL (79-100) Mean Corpuscular Hemoglobin 26pg (25-35) Mean Corpuscular Hemoglobin Concent 31g/dL (31-37) Red Cell Distribution Width 18.2% (11.5-14.5) Platelet Count 78x10^3/uL (140-400) Neutrophils (%) (Auto) 69% (31-73) Lymphocytes (%) (Auto) 11% (24-48) Monocytes (%) (Auto) 12% (0-9) Eosinophils (%) (Auto) 7% (0-3) Basophils (%) (Auto) 1% (0-3) Neutrophils # (Auto) 3.6x10^3uL (1.8-7.7) Lymphocytes # (Auto) 0.6x10^3/uL (1.0-4.8) Monocytes # (Auto) 0.6x10^3/uL (0.0-1.1) Eosinophils # (Auto) 0.4x10^3/uL (0.0-0.7) Basophils # (Auto) 0.0x10^3/uL (0.0-0.2) Prothrombin Time 13.3SEC (11.7-14.0) Prothromb Time International Ratio 1.1 (0.8-1.1) Sodium Level 144mmol/L (136-145) Potassium Level 4.0mmol/L (3.5-5.1) Chloride Level 109mmol/L (98-107) Carbon Dioxide Level 28mmol/L (21-32) Anion Gap 7 (6-14) Blood Urea Nitrogen 16mg/dL (7-20) Creatinine 1.1mg/dL (0.6-1.0) Estimated GFR (Cockcroft-Gault) 50.0 BUN/Creatinine Ratio 15 (6-20) Glucose Level 148mg/dL (70-99) Calcium Level 8.5mg/dL (8.5-10.1) Total Bilirubin 0.9mg/dL (0.2-1.0) Aspartate Amino Transf (AST/SGOT) 28U/L (15-37) Alanine Aminotransferase (ALT/SGPT) 13U/L (14-59) Alkaline Phosphatase 203U/L (46-116) Total Protein 6.7g/dL (6.4-8.2) Albumin 2.7g/dL (3.4-5.0) Albumin/Globulin Ratio 0.7 (1.0-1.7) Test 08/04/16 05:42 08/04/16 05:58 08/04/16 08:00 08/04/16 09:37 Glucose (Fingerstick) 205mg/dL (70-99) 177mg/dL (70-99) White Blood Count 8.2x10^3/uL (4.0-11.0) Red Blood Count 4.85x10^6/uL (3.50-5.40) Hemoglobin 12.3g/dL (12.0-15.5) Hematocrit 40.5% (36.0-47.0) Mean Corpuscular Volume 83fL (79-100) Mean Corpuscular Hemoglobin 25pg (25-35) Mean Corpuscular Hemoglobin Concent 30g/dL (31-37) Red Cell Distribution Width 19.0% (11.5-14.5) Platelet Count 107x10^3/uL (140-400) Neutrophils (%) (Auto) 79% (31-73) Lymphocytes (%) (Auto) 8% (24-48) Monocytes (%) (Auto) 7% (0-9) Eosinophils (%) (Auto) 6% (0-3) Basophils (%) (Auto) 1% (0-3) Neutrophils # (Auto) 6.5x10^3uL (1.8-7.7) Lymphocytes # (Auto) 0.6x10^3/uL (1.0-4.8) Monocytes # (Auto) 0.6x10^3/uL (0.0-1.1) Eosinophils # (Auto) 0.5x10^3/uL (0.0-0.7) Basophils # (Auto) 0.1x10^3/uL (0.0-0.2) Sodium Level 140mmol/L (136-145) Potassium Level 5.5mmol/L (3.5-5.1) Chloride Level 109mmol/L (98-107) Carbon Dioxide Level 26mmol/L (21-32) Anion Gap 5 (6-14) Blood Urea Nitrogen 18mg/dL (7-20) Creatinine 1.1mg/dL (0.6-1.0) Estimated GFR (Cockcroft-Gault) 50.0 BUN/Creatinine Ratio 16 (6-20) Glucose Level 230mg/dL (70-99) Calcium Level 8.9mg/dL (8.5-10.1) Total Bilirubin 1.0mg/dL (0.2-1.0) Aspartate Amino Transf (AST/SGOT) 40U/L (15-37) Alanine Aminotransferase (ALT/SGPT) 8U/L (14-59) Alkaline Phosphatase 228U/L (46-116) Troponin I Quantitative 0.038ng/mL (0.000-0.055) Total Protein 7.8g/dL (6.4-8.2) Albumin 3.1g/dL (3.4-5.0) Albumin/Globulin Ratio 0.7 (1.0-1.7) Lipase 354U/L (73-393) O2 Saturation 100% (92-99) Arterial Blood pH 7.35 (7.35-7.45) Arterial Blood pCO2 at Patient Temp 43mmHg (35-46) Arterial Blood pO2 at Patient Temp 441mmHg (65-108) Arterial Blood HCO3 23mmol/L (21-28) Arterial Blood Base Excess -3mmol/L (-3-3) FiO2 100 Test 08/04/16 15:50 08/04/16 17:02 08/04/16 22:05 08/05/16 08:05 Potassium Level 4.5mmol/L (3.5-5.1) 4.4mmol/L (3.5-5.1) Glucose (Fingerstick) 160mg/dL (70-99) 195mg/dL (70-99) White Blood Count 7.7x10^3/uL (4.0-11.0) Red Blood Count 3.96x10^6/uL (3.50-5.40) Hemoglobin 10.1g/dL (12.0-15.5) Hematocrit 34.0% (36.0-47.0) Mean Corpuscular Volume 86fL (79-100) Mean Corpuscular Hemoglobin 25pg (25-35) Mean Corpuscular Hemoglobin Concent 30g/dL (31-37) Red Cell Distribution Width 18.9% (11.5-14.5) Platelet Count 90x10^3/uL (140-400) Neutrophils (%) (Auto) 77% (31-73) Lymphocytes (%) (Auto) 9% (24-48) Monocytes (%) (Auto) 11% (0-9) Eosinophils (%) (Auto) 4% (0-3) Basophils (%) (Auto) 1% (0-3) Neutrophils # (Auto) 6.0x10^3uL (1.8-7.7) Lymphocytes # (Auto) 0.7x10^3/uL (1.0-4.8) Monocytes # (Auto) 0.8x10^3/uL (0.0-1.1) Eosinophils # (Auto) 0.3x10^3/uL (0.0-0.7) Basophils # (Auto) 0.0x10^3/uL (0.0-0.2) Sodium Level 142mmol/L (136-145) Chloride Level 107mmol/L (98-107) Carbon Dioxide Level 29mmol/L (21-32) Anion Gap 6 (6-14) Blood Urea Nitrogen 28mg/dL (7-20) Creatinine 2.0mg/dL (0.6-1.0) Estimated GFR (Cockcroft-Gault) 25.1 Glucose Level 137mg/dL (70-99) Calcium Level 8.3mg/dL (8.5-10.1) Test 08/05/16 08:20 Glucose (Fingerstick) 125mg/dL (70-99) Laboratory Tests Test 08/04/16 09:37 08/04/16 15:50 08/04/16 17:02 08/04/16 22:05 Glucose (Fingerstick) 177mg/dL (70-99) 160mg/dL (70-99) 195mg/dL (70-99) Potassium Level 4.5mmol/L (3.5-5.1) Test 08/05/16 08:05 08/05/16 08:20 White Blood Count 7.7x10^3/uL (4.0-11.0) Red Blood Count 3.96x10^6/uL (3.50-5.40) Hemoglobin 10.1g/dL (12.0-15.5) Hematocrit 34.0% (36.0-47.0) Mean Corpuscular Volume 86fL (79-100) Mean Corpuscular Hemoglobin 25pg (25-35) Mean Corpuscular Hemoglobin Concent 30g/dL (31-37) Red Cell Distribution Width 18.9% (11.5-14.5) Platelet Count 90x10^3/uL (140-400) Neutrophils (%) (Auto) 77% (31-73) Lymphocytes (%) (Auto) 9% (24-48) Monocytes (%) (Auto) 11% (0-9) Eosinophils (%) (Auto) 4% (0-3) Basophils (%) (Auto) 1% (0-3) Neutrophils # (Auto) 6.0x10^3uL (1.8-7.7) Lymphocytes # (Auto) 0.7x10^3/uL (1.0-4.8) Monocytes # (Auto) 0.8x10^3/uL (0.0-1.1) Eosinophils # (Auto) 0.3x10^3/uL (0.0-0.7) Basophils # (Auto) 0.0x10^3/uL (0.0-0.2) Sodium Level 142mmol/L (136-145) Potassium Level 4.4mmol/L (3.5-5.1) Chloride Level 107mmol/L (98-107) Carbon Dioxide Level 29mmol/L (21-32) Anion Gap 6 (6-14) Blood Urea Nitrogen 28mg/dL (7-20) Creatinine 2.0mg/dL (0.6-1.0) Estimated GFR (Cockcroft-Gault) 25.1 Glucose Level 137mg/dL (70-99) Calcium Level 8.3mg/dL (8.5-10.1) Glucose (Fingerstick) 125mg/dL (70-99) Microbiology 08/03/16 Urine Culture - Preliminary, Resulted 08/03/16 Urine Culture Result 1 (PHILIPP) - Preliminary, Resulted Medications Current Medications Morphine Sulfate 4 mg PRN Q15MIN PRN IV/SQ PAIN GREATER THAN 3/10; Start at 12:45; Stop 08/04/16 at 08:26; Status DC Ondansetron HCl (Zofran) 4 mg PRN Q8HRS PRN IV NAUSEA/VOMITING Last administered on 08/04/16 00:53; Start 08/03/16 at 12:45; Stop 08/04/16 at 08:26 ; Status DC Ondansetron HCl (Zofran) 4 mg PRN Q8HRS PRN IV NAUSEA/VOMITING; Start 08/03/16 at 13:45; Stop 08/04/16 at 08:25; Status DC Morphine Sulfate 4 mg PRN Q2HR PRN IV PAIN Last administered on 08/04/16 00:54 ; Start 08/03/16 at 13:45; Stop 08/04/16 at 13:44; Status DC Topiramate (Topamax) 125 mg BID PO Last administered on 08/03/16 21:56; Start 08/03/16 at 21:00; Stop 08/04/16 at 08:33; Status DC Acetazolamide (Diamox) 250 mg Q8HRS PO Last administered on 08/05/16 06:17; Start 08/03/16 at 22:00 Acetaminophen (Tylenol) 325 mg PRN Q6HRS PRN PO MILD PAIN / TEMP; Start at 16:15 Acetaminophen/ Hydrocodone Bitart (Lortab 5/325) 1 tab PRN Q6HRS PRN PO MODERATE TO SEVERE PAIN Last administered on 08/04/16 22:15; Start 08/03/16 at 16:15 Hydralazine HCl (Apresoline) 10 mg PRN Q4HRS PRN IVP ELEVATED BP, SEE COMMENTS ; Start 08/03/16 at 16:15 Ondansetron HCl (Zofran) 4 mg PRN Q8HRS PRN IV NAUSEA/VOMITING; Start 08/03/16 at 16:15 Albuterol Sulfate (Ventolin Neb Soln) 2.5 mg PRN Q4HRS PRN NEB SHORTNESS OF BREATH Last administered on 08/04/16 08:03; Start 08/03/16 at 16:15 Bethanechol Chloride (Urecholine) 25 mg BID PO Last administered on 08/05/16 08:35; Start 08/03/16 at 21:00 Carbidopa/Levodopa (Sinemet Cr) 1 tab.sa BID PO Last administered on 08/05/16 08:35; Start 08/03/16 at 21:00 Colesevelam HCl (Welchol) 625 mg BID PO Last administered on 08/05/16 08:35; Start 08/03/16 at 21:00 Levothyroxine Sodium (Synthroid) 100 mcg DAILY07 PO ; Start 08/04/16 at 07:00; Stop 08/04/16 at 07:50; Status DC Amylase/Lipase/ Protease (Zenpep 10,000) 1 cap BIDWMEALS PO Last administered on 08/05/16 08:35; Start 08/03/16 at 17:00 Pramipexole Dihydrochloride (miraPEX) 1 mg HS PO Last administered on 21:53; Start 08/03/16 at 21:00; Stop 08/04/16 at 13:25; Status DC Topiramate (Topamax) 100 mg BID PO ; Start 08/03/16 at 21:00; Stop 08/03/16 at 21:00; Status DC Torsemide (Demadex) 20 mg DAILY PO Last administered on 08/05/16 08:35; Start 08/04/16 at 09:00 Glipizide (Glucotrol) 10 mg BIDBFRMEAL PO Last administered on 08/05/16 08:35 ; Start 08/04/16 at 07:30 Insulin Detemir (Levemir) 30 units BID SQ Last administered on 08/04/16 09:38 ; Start 08/03/16 at 21:00; Stop 08/04/16 at 09:51; Status DC Insulin Aspart (Novolog) 20 units BIDBFRMEAL SQ ; Start 08/03/16 at 17:00; Status Cancel Atorvastatin Calcium (Lipitor) 10 mg QHS PO Last administered on 08/04/16 21: 58; Start 08/03/16 at 21:00 Pantoprazole Sodium (Protonix) 40 mg DAILYAC PO ; Start 08/04/16 at 07:30; Stop 08/04/16 at 07:50; Status DC Potassium Chloride (Klor-Con) 20 meq BIDWMEALS PO Last administered on 17:39; Start 08/03/16 at 17:00; Stop 08/04/16 at 10:25; Status DC Propranolol HCl (Inderal La) 60 mg QHS PO Last administered on 08/04/16 21:58 ; Start 08/03/16 at 21:00 Vitamin A/Vitamin D 1 cedrick 1 cedrick TID TP Last administered on 08/04/16 22:10; Start 08/03/16 at 17:00 Propofol (Diprivan) 100 ml @ As Directed STK-MED ONCE IV ; Start 08/04/16 at 06 :43; Stop 08/04/16 at 17:27; Status DC Etomidate (Amidate) 20 mg STK-MED ONCE IV ; Start 08/04/16 at 07:13; Stop at 07:14; Status DC Succinylcholine Chloride 200 mg 200 mg STK-MED ONCE .ROUTE ; Start 08/04/16 at 07:13; Stop 08/04/16 at 07:14; Status DC Levothyroxine Sodium/Sodium Chloride (Synthroid/Iv Sodium Chloride 0.9% 50ml) 5 ml @ 100 mls/hr DAILY IVP Last administered on 08/04/16 09:32; Start 08/04/16 at 09:00; Stop 08/04/16 at 17:27; Status DC Pantoprazole Sodium (Protonix Vial) 40 mg DAILY IVP Last administered on 08:38; Start 08/04/16 at 09:00 Chlorhexidine Gluconate (Peridex) 15 ml BID MM Last administered on 08/04/16 09:32; Start 08/04/16 at 09:00 Topiramate (Topamax) 100 mg BID PO Last administered on 08/05/16 08:35; Start 08/04/16 at 09:00 Topiramate (Topamax) 25 mg BID PO ; Start 08/04/16 at 09:00 Propofol 1000 mg 1,000 mg STK-MED ONCE IV ; Start 08/04/16 at 06:45; Stop at 08:50; Status DC Propofol (Diprivan) 100 ml @ 0 mls/hr CONT PRN IV SEE I/O RECORD; Start at 09:30; Stop 08/04/16 at 17:27; Status DC Insulin Detemir (Levemir) 40 units BID SQ Last administered on 08/05/16 08:49 ; Start 08/04/16 at 21:00 Losartan Potassium (Cozaar) 25 mg DAILY PO ; Start 08/05/16 at 09:00 Enoxaparin Sodium (Lovenox 40mg Syringe) 40 mg BID SQ Last administered on 08/05 08:36; Start 08/04/16 at 11:00 Sodium Polystyrene Sulfonate (Kayexalate) 15 gm 1X ONCE PO ; Start 08/04/16 at 10:15; Stop 08/04/16 at 10:16; Status DC Non-Formulary Medication 1 ea BIDAC SQ Last administered on 08/04/16 16:30; Start 08/04/16 at 16:30 Non-Formulary Medication 1 ea QODAY TP ; Start 08/06/16 at 09:00 Pramipexole Dihydrochloride (miraPEX) 1 mg HS PO Last administered on 21:59; Start 08/04/16 at 21:00 Gadobutrol (Gadavist) 10 mmol 1X ONCE IV Last administered on 08/04/16 16:40 ; Start 08/04/16 at 16:15; Stop 08/04/16 at 16:17; Status DC Gadobutrol (Gadavist) 7.5 mmol 1X ONCE IV Last administered on 08/04/16 16:40 ; Start 08/04/16 at 16:15; Stop 08/04/16 at 16:17; Status DC Levothyroxine Sodium (Synthroid) 100 mcg DAILY07 PO Last administered on 4/14/ 17at 06:17; Start 08/04/16 at 18:00 Active Scripts Active Demadex (Torsemide) 20 Mg Tablet 20 Mg PO DAILY Reported Topamax (Topiramate) 100 Mg Tablet 1 Tab PO BID Sapna Gonzalez 10,000 Units Capsule (Lipase/Protease/Amylase) 1 Each Capsule.dr 1 Each PO BID Omeprazole 40 Mg Capsule.dr 1 Cap PO BID Welchol (Colesevelam Hcl) 625 Mg Tablet 625 Mg PO BID Humalog (Insulin Lispro) 100 Unit/1 Ml Cartridge 20 Unit SQ BIDAC Mirapex (Pramipexole Di-Hcl) 0.25 Mg Tablet 1 Mg PO HS Levothyroxine Sodium 100 Mcg Tablet 1 Tab PO DAILY Levemir (Insulin Detemir) 100 Unit/1 Ml Vial 30 Unit SQ BID-AM AND HS Carbidopa-Levo Er 25-100 Tab (Carbidopa/Levodopa) 1 Each Tablet.er 1 Each PO BID Propranolol Hcl 60 Mg Tablet 60 Mg PO HS Bethanechol Chloride 25 Mg Tablet 25 Mg PO BID Klor-Con 10 (Potassium Chloride) 10 Meq Tablet.er 20 Meq PO BID Glipizide 10 Mg Tablet 10 Mg PO BID Lovastatin 40 Mg Tablet 40 Mg PO HS Vitals/I & O Vital Sign - Last 24 Hours 08/04/16 08/04/16 08/04/16 08/04/16 09:38 09:50 10:00 10:16 Pulse 70 Resp 16 B/P 178/87 Pulse Ox 100 100 100 100 O2 Delivery Ventilator Ventilator Ventilator Ventilator 08/04/16 08/04/16 08/04/16 08/04/16 11:00 11:51 12:00 12:00 Temp 98.1 98.1 Pulse 69 80 Resp 16 B/P 189/88 107/51 Pulse Ox 100 100 98 O2 Delivery Ventilator Nasal Cannula Nasal Cannula Nasal Cannula O2 Flow Rate 4.0 4.0 4.0 08/04/16 08/04/16 08/04/16 08/04/16 13:00 14:00 15:00 15:04 Pulse 78 81 77 Resp 16 16 16 B/P 110/53 133/63 118/55 Pulse Ox 100 96 100 100 O2 Delivery Nasal Cannula Nasal Cannula Nasal Cannula Nasal Cannula O2 Flow Rate 4.0 4.0 4.0 5.0 4/13/08/04/16 08/04/16 08/04/16 20:00 20:00 21:58 22:15 Temp 98.6 98.6 Pulse 72 72 Resp 15 15 B/P 131/79 123/64 Pulse Ox 100 O2 Delivery Room Air Nasal Cannula Room Air O2 Flow Rate 4.0 08/04/16 08/05/16 08/05/16 08/05/16 23:13 00:00 02:50 04:50 Temp 98.5 97.9 98.5 97.9 Pulse 68 67 Resp 18 20 B/P 117/42 130/53 Pulse Ox 96 100 97 100 O2 Delivery BiPAP/CPAP BiPAP/CPAP BiPAP/CPAP BiPAP/CPAP 08/05/16 07:00 Temp 96.7 96.7 Pulse 71 Resp 20 B/P 130/58 Pulse Ox 96 O2 Delivery Nasal Cannula O2 Flow Rate 4.0 Intake and Output 08/04/16 08/04/16 08/05/16 14:59 22:59 06:59 Intake Total 380 ml 500 ml Output Total 325 ml 70 ml 35 ml Balance -325 ml 310 ml 465 ml DREW TALAMANTES MD Aug 05, 2016 09:05
--- NOTE | 2016-08-05 12:17 | RAD ---
PROCEDURE MR venogram of the head without and with contrast. HISTORY Dizziness, history of pseudotumor cerebri COMPARISON There is no previous similar exam available. There was no MRI brain performed with this exam, last exam performed on 06/13/2016. TECHNIQUE Pre and post contrast MR venography was performed of the head. FINDINGS There is motion degradation. Right transverse venous sinus and the sigmoid sinus are diffusely small in caliber comparing with the left, right jugular bulb also small. Superior sagittal sinus and straight sinus are primarily drained from the left side. There are likely some small collateral veins in the expected location of the right proximal transverse venous sinus. No intraluminal filling defect is identified of the visualized intracranial veins. Superior sagittal sinus and straight sinus are visualized. IMPRESSION 1. No defined intraluminal filling defect is identified of the veins to confidently suggest acute thrombus. Proximal right transverse venous sinus is not seen, some small veins in this area, distal transverse venous sinus as well as sigmoid sinus and right jugular bulb hypoplastic comparing with the left side. Findings are more likely to be chronic or developmental. Electronically signed by: Sergio Barker MD (Aug 05, 2016 12:15:23)
--- NOTE | 2016-08-05 13:20 | PDOC ---
SUBJECTIVE Subjective Denies acute complaints at this time. Reports headache "not so bad" today. Denies any visual changes or disturbances. OBJECTIVE Objective MRV brain from 08/04/16 shows small caliber right transverse and sigmoid sinuses compared to the left. Right jugular bulb also small. No clear thrombus. Also, proximal right transverse sinus not visualized. Vital Signs Vital Signs Date Time Temp Pulse Resp B/P Pulse Ox O2 Delivery O2 Flow Rate FiO2 08/05/16 11:00 99.0 75 22 132/62 98 Nasal Cannula 4.0 99.0 08/05/16 08:00 Nasal Cannula 4.0 08/05/16 07:00 96.7 71 20 130/58 96 Nasal Cannula 4.0 96.7 08/05/16 04:50 97.9 67 20 130/53 100 BiPAP/CPAP 97.9 08/05/16 02:50 97 BiPAP/CPAP 08/05/16 00:00 98.5 68 18 117/42 100 BiPAP/CPAP 98.5 08/04/16 23:13 96 BiPAP/CPAP 08/04/16 22:15 15 Room Air 08/04/16 21:58 72 123/64 08/04/16 20:00 98.6 72 15 131/79 100 Nasal Cannula 4.0 98.6 08/04/16 20:00 Room Air 08/04/16 15:04 100 Nasal Cannula 5.0 08/04/16 15:00 77 16 118/55 100 Nasal Cannula 4.0 08/04/16 14:00 81 16 133/63 96 Nasal Cannula 4.0 I & O Intake and Output 08/05/16 06:59 Intake Total 880 ml Output Total 430 ml Balance 450 ml Intake Oral 800 ml IV Total 80 ml Output Urine Total 430 ml PHYSICAL EXAM Physical Exam AAOx4, NAD, COLEMAN 5/5, sensation intact LT ASSESSMENT/PLAN Assessment/Plan 66F with reported chronic elevated pressures from multiple LPs over the years -continues to be neurologically stable/intact at this time -medical tx's continue -denies visual disturbance -comorbidities presently produce risks with implant procedure as mentioned prior -pt reports strongly opposed to and will refuse any shunting procedure -MRV with no filling of proximal right transverse sinus - uncertain significance at this point, dynamic study may be useful but would recommend referral to Dr. Mcrae at [facility] neurology for further assessment of whether neurointerventional treatment modalities would be an option based on findings - - referral may be outpatient basis if she continues to be neurologically stable Problems: COMMENT Lab Laboratory Tests Test 08/04/16 15:50 08/04/16 17:02 08/04/16 22:05 08/05/16 08:05 Potassium Level 4.5mmol/L (3.5-5.1) 4.4mmol/L (3.5-5.1) Glucose (Fingerstick) 160mg/dL (70-99) 195mg/dL (70-99) White Blood Count 7.7x10^3/uL (4.0-11.0) Red Blood Count 3.96x10^6/uL (3.50-5.40) Hemoglobin 10.1g/dL (12.0-15.5) Hematocrit 34.0% (36.0-47.0) Mean Corpuscular Volume 86fL (79-100) Mean Corpuscular Hemoglobin 25pg (25-35) Mean Corpuscular Hemoglobin Concent 30g/dL (31-37) Red Cell Distribution Width 18.9% (11.5-14.5) Platelet Count 90x10^3/uL (140-400) Neutrophils (%) (Auto) 77% (31-73) Lymphocytes (%) (Auto) 9% (24-48) Monocytes (%) (Auto) 11% (0-9) Eosinophils (%) (Auto) 4% (0-3) Basophils (%) (Auto) 1% (0-3) Neutrophils # (Auto) 6.0x10^3uL (1.8-7.7) Lymphocytes # (Auto) 0.7x10^3/uL (1.0-4.8) Monocytes # (Auto) 0.8x10^3/uL (0.0-1.1) Eosinophils # (Auto) 0.3x10^3/uL (0.0-0.7) Basophils # (Auto) 0.0x10^3/uL (0.0-0.2) Sodium Level 142mmol/L (136-145) Chloride Level 107mmol/L (98-107) Carbon Dioxide Level 29mmol/L (21-32) Anion Gap 6 (6-14) Blood Urea Nitrogen 28mg/dL (7-20) Creatinine 2.0mg/dL (0.6-1.0) Estimated GFR (Cockcroft-Gault) 25.1 Glucose Level 137mg/dL (70-99) Calcium Level 8.3mg/dL (8.5-10.1) Test 08/05/16 08:20 08/05/16 11:28 Glucose (Fingerstick) 125mg/dL (70-99) 149mg/dL (70-99) ELADIA HOPSON MD Aug 05, 2016 13:20
--- NOTE | 2016-08-05 14:20 | PDOC ---
PROGRESS NOTES Chief Complaint Chief Complaint FREIRE ASSESSMENT AND PLAN: 1. Respiratory failure: intubated last nite with '"code"; apnea. has severe AURY but refuses CPAP. extubated, resting comfortably at room air. 2. AURY: needs CPAP, d/w pt, out pt follow up. 3. Pseudotumor cerebri: elevated opening pressure at LP. on Topamax, Diamox 4. Chronic headaches. 5. HTN: borderline. better hold Lasix as Cr is worsening, Monitor renal functions, Diamox dose needs adjustment at DC 6. DM: poorly controlled. increase bid Levemir to 40; ISS 7. Hyperkalemia: stable 8. CKD3: stable creat 9. Thrombocytopenia: unclear etiology. improving. 10. GERD: PPI 11. Chronic pancreatitis. 12. Breast CA: s/p bilat mastectomies, s/p XRT to R with dermatitis, edema. Dr Cruz following 13. Obesity: dietary consult 14. Prophylaxis: Lovenox History of Present Illness History of Present Illness No fever no chills. no chest pain Vitals Vitals Vital Signs Date Time Temp Pulse Resp B/P Pulse Ox O2 Delivery O2 Flow Rate FiO2 08/05/16 11:00 99.0 75 22 132/62 98 Nasal Cannula 4.0 99.0 Physical Exam General: Alert, Oriented X3, Cooperative Heart: Normal S1, Normal S2 Lungs: Clear, Other Abdomen: Normal bowel sounds, Soft Extremities: No edema Skin: No rashes Labs LABS Laboratory Tests Test 08/04/16 15:50 08/04/16 17:02 08/04/16 22:05 08/05/16 08:05 Potassium Level 4.5mmol/L (3.5-5.1) 4.4mmol/L (3.5-5.1) Glucose (Fingerstick) 160mg/dL (70-99) 195mg/dL (70-99) White Blood Count 7.7x10^3/uL (4.0-11.0) Red Blood Count 3.96x10^6/uL (3.50-5.40) Hemoglobin 10.1g/dL (12.0-15.5) Hematocrit 34.0% (36.0-47.0) Mean Corpuscular Volume 86fL (79-100) Mean Corpuscular Hemoglobin 25pg (25-35) Mean Corpuscular Hemoglobin Concent 30g/dL (31-37) Red Cell Distribution Width 18.9% (11.5-14.5) Platelet Count 90x10^3/uL (140-400) Neutrophils (%) (Auto) 77% (31-73) Lymphocytes (%) (Auto) 9% (24-48) Monocytes (%) (Auto) 11% (0-9) Eosinophils (%) (Auto) 4% (0-3) Basophils (%) (Auto) 1% (0-3) Neutrophils # (Auto) 6.0x10^3uL (1.8-7.7) Lymphocytes # (Auto) 0.7x10^3/uL (1.0-4.8) Monocytes # (Auto) 0.8x10^3/uL (0.0-1.1) Eosinophils # (Auto) 0.3x10^3/uL (0.0-0.7) Basophils # (Auto) 0.0x10^3/uL (0.0-0.2) Sodium Level 142mmol/L (136-145) Chloride Level 107mmol/L (98-107) Carbon Dioxide Level 29mmol/L (21-32) Anion Gap 6 (6-14) Blood Urea Nitrogen 28mg/dL (7-20) Creatinine 2.0mg/dL (0.6-1.0) Estimated GFR (Cockcroft-Gault) 25.1 Glucose Level 137mg/dL (70-99) Calcium Level 8.3mg/dL (8.5-10.1) Test 08/05/16 08:20 08/05/16 11:28 Glucose (Fingerstick) 125mg/dL (70-99) 149mg/dL (70-99) Assessment and Plan Assessmemt and Plan Problems Medical Problems: (1) Elevated intracranial pressure Status: Acute Problems: Comment Review of Relevant I have reviewed the following items halle (where applicable) has been applied. Labs Laboratory Tests Test 08/03/16 14:54 08/03/16 15:20 08/03/16 20:31 08/04/16 05:42 Glucose (Fingerstick) 124mg/dL (70-99) 193mg/dL (70-99) 205mg/dL (70-99) White Blood Count 5.2x10^3/uL (4.0-11.0) Red Blood Count 4.06x10^6/uL (3.50-5.40) Hemoglobin 10.4g/dL (12.0-15.5) Hematocrit 33.7% (36.0-47.0) Mean Corpuscular Volume 83fL (79-100) Mean Corpuscular Hemoglobin 26pg (25-35) Mean Corpuscular Hemoglobin Concent 31g/dL (31-37) Red Cell Distribution Width 18.2% (11.5-14.5) Platelet Count 78x10^3/uL (140-400) Neutrophils (%) (Auto) 69% (31-73) Lymphocytes (%) (Auto) 11% (24-48) Monocytes (%) (Auto) 12% (0-9) Eosinophils (%) (Auto) 7% (0-3) Basophils (%) (Auto) 1% (0-3) Neutrophils # (Auto) 3.6x10^3uL (1.8-7.7) Lymphocytes # (Auto) 0.6x10^3/uL (1.0-4.8) Monocytes # (Auto) 0.6x10^3/uL (0.0-1.1) Eosinophils # (Auto) 0.4x10^3/uL (0.0-0.7) Basophils # (Auto) 0.0x10^3/uL (0.0-0.2) Prothrombin Time 13.3SEC (11.7-14.0) Prothromb Time International Ratio 1.1 (0.8-1.1) Sodium Level 144mmol/L (136-145) Potassium Level 4.0mmol/L (3.5-5.1) Chloride Level 109mmol/L (98-107) Carbon Dioxide Level 28mmol/L (21-32) Anion Gap 7 (6-14) Blood Urea Nitrogen 16mg/dL (7-20) Creatinine 1.1mg/dL (0.6-1.0) Estimated GFR (Cockcroft-Gault) 50.0 BUN/Creatinine Ratio 15 (6-20) Glucose Level 148mg/dL (70-99) Calcium Level 8.5mg/dL (8.5-10.1) Total Bilirubin 0.9mg/dL (0.2-1.0) Aspartate Amino Transf (AST/SGOT) 28U/L (15-37) Alanine Aminotransferase (ALT/SGPT) 13U/L (14-59) Alkaline Phosphatase 203U/L (46-116) Total Protein 6.7g/dL (6.4-8.2) Albumin 2.7g/dL (3.4-5.0) Albumin/Globulin Ratio 0.7 (1.0-1.7) Test 08/04/16 05:58 08/04/16 08:00 08/04/16 09:37 08/04/16 15:50 White Blood Count 8.2x10^3/uL (4.0-11.0) Red Blood Count 4.85x10^6/uL (3.50-5.40) Hemoglobin 12.3g/dL (12.0-15.5) Hematocrit 40.5% (36.0-47.0) Mean Corpuscular Volume 83fL (79-100) Mean Corpuscular Hemoglobin 25pg (25-35) Mean Corpuscular Hemoglobin Concent 30g/dL (31-37) Red Cell Distribution Width 19.0% (11.5-14.5) Platelet Count 107x10^3/uL (140-400) Neutrophils (%) (Auto) 79% (31-73) Lymphocytes (%) (Auto) 8% (24-48) Monocytes (%) (Auto) 7% (0-9) Eosinophils (%) (Auto) 6% (0-3) Basophils (%) (Auto) 1% (0-3) Neutrophils # (Auto) 6.5x10^3uL (1.8-7.7) Lymphocytes # (Auto) 0.6x10^3/uL (1.0-4.8) Monocytes # (Auto) 0.6x10^3/uL (0.0-1.1) Eosinophils # (Auto) 0.5x10^3/uL (0.0-0.7) Basophils # (Auto) 0.1x10^3/uL (0.0-0.2) Sodium Level 140mmol/L (136-145) Potassium Level 5.5mmol/L (3.5-5.1) 4.5mmol/L (3.5-5.1) Chloride Level 109mmol/L (98-107) Carbon Dioxide Level 26mmol/L (21-32) Anion Gap 5 (6-14) Blood Urea Nitrogen 18mg/dL (7-20) Creatinine 1.1mg/dL (0.6-1.0) Estimated GFR (Cockcroft-Gault) 50.0 BUN/Creatinine Ratio 16 (6-20) Glucose Level 230mg/dL (70-99) Calcium Level 8.9mg/dL (8.5-10.1) Total Bilirubin 1.0mg/dL (0.2-1.0) Aspartate Amino Transf (AST/SGOT) 40U/L (15-37) Alanine Aminotransferase (ALT/SGPT) 8U/L (14-59) Alkaline Phosphatase 228U/L (46-116) Troponin I Quantitative 0.038ng/mL (0.000-0.055) Total Protein 7.8g/dL (6.4-8.2) Albumin 3.1g/dL (3.4-5.0) Albumin/Globulin Ratio 0.7 (1.0-1.7) Lipase 354U/L (73-393) O2 Saturation 100% (92-99) Arterial Blood pH 7.35 (7.35-7.45) Arterial Blood pCO2 at Patient Temp 43mmHg (35-46) Arterial Blood pO2 at Patient Temp 441mmHg (65-108) Arterial Blood HCO3 23mmol/L (21-28) Arterial Blood Base Excess -3mmol/L (-3-3) FiO2 100 Glucose (Fingerstick) 177mg/dL (70-99) Test 08/04/16 17:02 08/04/16 22:05 08/05/16 08:05 08/05/16 08:20 Glucose (Fingerstick) 160mg/dL (70-99) 195mg/dL (70-99) 125mg/dL (70-99) White Blood Count 7.7x10^3/uL (4.0-11.0) Red Blood Count 3.96x10^6/uL (3.50-5.40) Hemoglobin 10.1g/dL (12.0-15.5) Hematocrit 34.0% (36.0-47.0) Mean Corpuscular Volume 86fL (79-100) Mean Corpuscular Hemoglobin 25pg (25-35) Mean Corpuscular Hemoglobin Concent 30g/dL (31-37) Red Cell Distribution Width 18.9% (11.5-14.5) Platelet Count 90x10^3/uL (140-400) Neutrophils (%) (Auto) 77% (31-73) Lymphocytes (%) (Auto) 9% (24-48) Monocytes (%) (Auto) 11% (0-9) Eosinophils (%) (Auto) 4% (0-3) Basophils (%) (Auto) 1% (0-3) Neutrophils # (Auto) 6.0x10^3uL (1.8-7.7) Lymphocytes # (Auto) 0.7x10^3/uL (1.0-4.8) Monocytes # (Auto) 0.8x10^3/uL (0.0-1.1) Eosinophils # (Auto) 0.3x10^3/uL (0.0-0.7) Basophils # (Auto) 0.0x10^3/uL (0.0-0.2) Sodium Level 142mmol/L (136-145) Potassium Level 4.4mmol/L (3.5-5.1) Chloride Level 107mmol/L (98-107) Carbon Dioxide Level 29mmol/L (21-32) Anion Gap 6 (6-14) Blood Urea Nitrogen 28mg/dL (7-20) Creatinine 2.0mg/dL (0.6-1.0) Estimated GFR (Cockcroft-Gault) 25.1 Glucose Level 137mg/dL (70-99) Calcium Level 8.3mg/dL (8.5-10.1) Test 08/05/16 11:28 Glucose (Fingerstick) 149mg/dL (70-99) Laboratory Tests Test 08/04/16 15:50 08/04/16 17:02 08/04/16 22:05 08/05/16 08:05 Potassium Level 4.5mmol/L (3.5-5.1) 4.4mmol/L (3.5-5.1) Glucose (Fingerstick) 160mg/dL (70-99) 195mg/dL (70-99) White Blood Count 7.7x10^3/uL (4.0-11.0) Red Blood Count 3.96x10^6/uL (3.50-5.40) Hemoglobin 10.1g/dL (12.0-15.5) Hematocrit 34.0% (36.0-47.0) Mean Corpuscular Volume 86fL (79-100) Mean Corpuscular Hemoglobin 25pg (25-35) Mean Corpuscular Hemoglobin Concent 30g/dL (31-37) Red Cell Distribution Width 18.9% (11.5-14.5) Platelet Count 90x10^3/uL (140-400) Neutrophils (%) (Auto) 77% (31-73) Lymphocytes (%) (Auto) 9% (24-48) Monocytes (%) (Auto) 11% (0-9) Eosinophils (%) (Auto) 4% (0-3) Basophils (%) (Auto) 1% (0-3) Neutrophils # (Auto) 6.0x10^3uL (1.8-7.7) Lymphocytes # (Auto) 0.7x10^3/uL (1.0-4.8) Monocytes # (Auto) 0.8x10^3/uL (0.0-1.1) Eosinophils # (Auto) 0.3x10^3/uL (0.0-0.7) Basophils # (Auto) 0.0x10^3/uL (0.0-0.2) Sodium Level 142mmol/L (136-145) Chloride Level 107mmol/L (98-107) Carbon Dioxide Level 29mmol/L (21-32) Anion Gap 6 (6-14) Blood Urea Nitrogen 28mg/dL (7-20) Creatinine 2.0mg/dL (0.6-1.0) Estimated GFR (Cockcroft-Gault) 25.1 Glucose Level 137mg/dL (70-99) Calcium Level 8.3mg/dL (8.5-10.1) Test 08/05/16 08:20 08/05/16 11:28 Glucose (Fingerstick) 125mg/dL (70-99) 149mg/dL (70-99) Microbiology 08/03/16 Urine Culture - Preliminary, Resulted 08/03/16 Urine Culture Result 1 (PHILIPP) - Preliminary, Resulted Medications Current Medications Morphine Sulfate 4 mg PRN Q15MIN PRN IV/SQ PAIN GREATER THAN 3/10; Start at 12:45; Stop 08/04/16 at 08:26; Status DC Ondansetron HCl (Zofran) 4 mg PRN Q8HRS PRN IV NAUSEA/VOMITING Last administered on 08/04/16 00:53; Start 08/03/16 at 12:45; Stop 08/04/16 at 08:26 ; Status DC Ondansetron HCl (Zofran) 4 mg PRN Q8HRS PRN IV NAUSEA/VOMITING; Start 08/03/16 at 13:45; Stop 08/04/16 at 08:25; Status DC Morphine Sulfate 4 mg PRN Q2HR PRN IV PAIN Last administered on 08/04/16 00:54 ; Start 08/03/16 at 13:45; Stop 08/04/16 at 13:44; Status DC Topiramate (Topamax) 125 mg BID PO Last administered on 08/03/16 21:56; Start 08/03/16 at 21:00; Stop 08/04/16 at 08:33; Status DC Acetazolamide (Diamox) 250 mg Q8HRS PO Last administered on 08/05/16 13:05; Start 08/03/16 at 22:00 Acetaminophen (Tylenol) 325 mg PRN Q6HRS PRN PO MILD PAIN / TEMP; Start at 16:15 Acetaminophen/ Hydrocodone Bitart (Lortab 5/325) 1 tab PRN Q6HRS PRN PO MODERATE TO SEVERE PAIN Last administered on 08/04/16 22:15; Start 08/03/16 at 16:15 Hydralazine HCl (Apresoline) 10 mg PRN Q4HRS PRN IVP ELEVATED BP, SEE COMMENTS ; Start 08/03/16 at 16:15 Ondansetron HCl (Zofran) 4 mg PRN Q8HRS PRN IV NAUSEA/VOMITING; Start 08/03/16 at 16:15 Albuterol Sulfate (Ventolin Neb Soln) 2.5 mg PRN Q4HRS PRN NEB SHORTNESS OF BREATH Last administered on 08/04/16 08:03; Start 08/03/16 at 16:15 Bethanechol Chloride (Urecholine) 25 mg BID PO Last administered on 08/05/16 08:35; Start 08/03/16 at 21:00 Carbidopa/Levodopa (Sinemet Cr) 1 tab.sa BID PO Last administered on 08/05/16 08:35; Start 08/03/16 at 21:00 Colesevelam HCl (Welchol) 625 mg BID PO Last administered on 08/05/16 08:35; Start 08/03/16 at 21:00 Levothyroxine Sodium (Synthroid) 100 mcg DAILY07 PO ; Start 08/04/16 at 07:00; Stop 08/04/16 at 07:50; Status DC Amylase/Lipase/ Protease (Zenpep 10,000) 1 cap BIDWMEALS PO Last administered on 08/05/16 08:35; Start 08/03/16 at 17:00 Pramipexole Dihydrochloride (miraPEX) 1 mg HS PO Last administered on 21:53; Start 08/03/16 at 21:00; Stop 08/04/16 at 13:25; Status DC Topiramate (Topamax) 100 mg BID PO ; Start 08/03/16 at 21:00; Stop 08/03/16 at 21:00; Status DC Torsemide (Demadex) 20 mg DAILY PO Last administered on 08/05/16 08:35; Start 08/04/16 at 09:00 Glipizide (Glucotrol) 10 mg BIDBFRMEAL PO Last administered on 08/05/16 08:35 ; Start 08/04/16 at 07:30 Insulin Detemir (Levemir) 30 units BID SQ Last administered on 08/04/16 09:38 ; Start 08/03/16 at 21:00; Stop 08/04/16 at 09:51; Status DC Insulin Aspart (Novolog) 20 units BIDBFRMEAL SQ ; Start 08/03/16 at 17:00; Status Cancel Atorvastatin Calcium (Lipitor) 10 mg QHS PO Last administered on 08/04/16 21: 58; Start 08/03/16 at 21:00 Pantoprazole Sodium (Protonix) 40 mg DAILYAC PO ; Start 08/04/16 at 07:30; Stop 08/04/16 at 07:50; Status DC Potassium Chloride (Klor-Con) 20 meq BIDWMEALS PO Last administered on 17:39; Start 08/03/16 at 17:00; Stop 08/04/16 at 10:25; Status DC Propranolol HCl (Inderal La) 60 mg QHS PO Last administered on 08/04/16 21:58 ; Start 08/03/16 at 21:00 Vitamin A/Vitamin D 1 cedrick 1 cedrick TID TP Last administered on 08/04/16 22:10; Start 08/03/16 at 17:00 Propofol (Diprivan) 100 ml @ As Directed STK-MED ONCE IV ; Start 08/04/16 at 06 :43; Stop 08/04/16 at 17:27; Status DC Etomidate (Amidate) 20 mg STK-MED ONCE IV ; Start 08/04/16 at 07:13; Stop at 07:14; Status DC Succinylcholine Chloride 200 mg 200 mg STK-MED ONCE .ROUTE ; Start 08/04/16 at 07:13; Stop 08/04/16 at 07:14; Status DC Levothyroxine Sodium/Sodium Chloride (Synthroid/Iv Sodium Chloride 0.9% 50ml) 5 ml @ 100 mls/hr DAILY IVP Last administered on 08/04/16 09:32; Start 08/04/16 at 09:00; Stop 08/04/16 at 17:27; Status DC Pantoprazole Sodium (Protonix Vial) 40 mg DAILY IVP Last administered on 08:38; Start 08/04/16 at 09:00 Chlorhexidine Gluconate (Peridex) 15 ml BID MM Last administered on 08/04/16 09:32; Start 08/04/16 at 09:00; Stop 08/05/16 at 13:58; Status DC Topiramate (Topamax) 100 mg BID PO Last administered on 08/05/16 08:35; Start 08/04/16 at 09:00 Topiramate (Topamax) 25 mg BID PO ; Start 08/04/16 at 09:00 Propofol 1000 mg 1,000 mg STK-MED ONCE IV ; Start 08/04/16 at 06:45; Stop at 08:50; Status DC Propofol (Diprivan) 100 ml @ 0 mls/hr CONT PRN IV SEE I/O RECORD; Start at 09:30; Stop 08/04/16 at 17:27; Status DC Insulin Detemir (Levemir) 40 units BID SQ Last administered on 08/05/16 08:49 ; Start 08/04/16 at 21:00 Losartan Potassium (Cozaar) 25 mg DAILY PO ; Start 08/05/16 at 09:00 Enoxaparin Sodium (Lovenox 40mg Syringe) 40 mg BID SQ Last administered on 08/05 08:36; Start 08/04/16 at 11:00 Sodium Polystyrene Sulfonate (Kayexalate) 15 gm 1X ONCE PO ; Start 08/04/16 at 10:15; Stop 08/04/16 at 10:16; Status DC Non-Formulary Medication 1 ea BIDAC SQ Last administered on 08/04/16 16:30; Start 08/04/16 at 16:30 Non-Formulary Medication 1 ea QODAY TP ; Start 08/06/16 at 09:00 Pramipexole Dihydrochloride (miraPEX) 1 mg HS PO Last administered on 21:59; Start 08/04/16 at 21:00 Gadobutrol (Gadavist) 10 mmol 1X ONCE IV Last administered on 08/04/16 16:40 ; Start 08/04/16 at 16:15; Stop 08/04/16 at 16:17; Status DC Gadobutrol (Gadavist) 7.5 mmol 1X ONCE IV Last administered on 08/04/16 16:40 ; Start 08/04/16 at 16:15; Stop 08/04/16 at 16:17; Status DC Levothyroxine Sodium (Synthroid) 100 mcg DAILY07 PO Last administered on 06:17; Start 08/04/16 at 18:00 Active Scripts Active Demadex (Torsemide) 20 Mg Tablet 20 Mg PO DAILY Reported Topamax (Topiramate) 100 Mg Tablet 1 Tab PO BID Sapna Gonzalez 10,000 Units Capsule (Lipase/Protease/Amylase) 1 Each Capsule.dr 1 Each PO BID Omeprazole 40 Mg Capsule. 1 Cap PO BID Welchol (Colesevelam Hcl) 625 Mg Tablet 625 Mg PO BID Humalog (Insulin Lispro) 100 Unit/1 Ml Cartridge 20 Unit SQ BIDAC Mirapex (Pramipexole Di-Hcl) 0.25 Mg Tablet 1 Mg PO HS Levothyroxine Sodium 100 Mcg Tablet 1 Tab PO DAILY Levemir (Insulin Detemir) 100 Unit/1 Ml Vial 30 Unit SQ BID-AM AND HS Carbidopa-Levo Er 25-100 Tab (Carbidopa/Levodopa) 1 Each Tablet.er 1 Each PO BID Propranolol Hcl 60 Mg Tablet 60 Mg PO HS Bethanechol Chloride 25 Mg Tablet 25 Mg PO BID Klor-Con 10 (Potassium Chloride) 10 Meq Tablet.er 20 Meq PO BID Glipizide 10 Mg Tablet 10 Mg PO BID Lovastatin 40 Mg Tablet 40 Mg PO HS Vitals/I & O Vital Sign - Last 24 Hours 08/04/16 08/04/16 08/04/16 08/04/16 15:00 15:04 20:00 20:00 Temp 98.6 98.6 Pulse 77 72 Resp 16 15 B/P 118/55 131/79 Pulse Ox 100 100 100 O2 Delivery Nasal Cannula Nasal Cannula Room Air Nasal Cannula O2 Flow Rate 4.0 5.0 4.0 08/04/16 08/04/16 08/04/16 08/05/16 21:58 22:15 23:13 00:00 Temp 98.5 98.5 Pulse 72 68 Resp 15 18 B/P 123/64 117/42 Pulse Ox 96 100 O2 Delivery Room Air BiPAP/CPAP BiPAP/CPAP 08/05/16 08/05/16 08/05/16 08/05/16 02:50 04:50 07:00 08:00 Temp 97.9 96.7 97.9 96.7 Pulse 67 71 Resp 20 20 B/P 130/53 130/58 Pulse Ox 97 100 96 O2 Delivery BiPAP/CPAP BiPAP/CPAP Nasal Cannula Nasal Cannula O2 Flow Rate 4.0 4.0 08/05/16 11:00 Temp 99.0 99.0 Pulse 75 Resp 22 B/P 132/62 Pulse Ox 98 O2 Delivery Nasal Cannula O2 Flow Rate 4.0 Intake and Output 08/04/16 08/04/16 08/05/16 14:59 22:59 06:59 Intake Total 380 ml 500 ml Output Total 325 ml 70 ml 35 ml Balance -325 ml 310 ml 465 ml HERMAN RICHARD MD Aug 05, 2016 14:20
--- NOTE | 2016-08-05 15:30 | PDOC ---
PROGRESS NOTES Assessment Assessment Pseudotumor cerebri, CSF opening pressure 38. Respiratory failure in night of 08/04. AURY not on CPAP. Chronic headache. Old right cerebellar lacunar infarct. Chest wall cellulitis. S/p bilateral mastectomy on 04/27/16 s/p left site infection. Hypothyroidism DM Pancreatitis. GERD Cancer Obesity. RECOMMENDATIONS/PLAN: Continue Topamax 125 mg bid. Continue Diamox 250 mg q6h. Consulted Neurosurgery for pseudotumor cerebri not respond well to medical treatment, but patient declined shunt.She understood risk of vision loss. Treat medical disease. Oncology consulted for left breast cancer. Consulted Pulmonary Medicine for respiratory distress/failure, hypoxia, AURY and CPAP issues. Weight reduction. OT/PT Discussed with her again at bedside on 08/05/16. HISTORY OF THE PRESENT ILLNESS: 66-y-old female patient with above medical diseases has been having chronic headaches. She was diagnosed as having pseudotumor cerebri in the past and shunt was suggested but she declined it. She said she had several LPs and her CSF opening pressure and closing pressure was always high. Her CSF opening pressure was 46 in the past. She had apnea and hypoxia during night sleep in [employer] of 08/04 and O2 drops, so she was coded and intubated and was transferred to ICU. She has AURY but not on CPAP and she said some insurance issues. PAST MEDICAL HISTORY: Please see above. PAST SURGERY HISTORY: Tonsillectomy Bilateral mastectomy Cholecystectomy Hysterectomy ALLERGY: Unknown MEDICATIONS: Refer to [facility] FAMILY HISTORY: H Non contributory. SOCIAL HISTORY: Denies smoking, drinking, and illicit drug use. REVIEW OF SYSTEMS: Constitutional: No malnutrition, weight loss, cachexia. Head: No traumatic brain or head injury. Skin: No edema, or rash. Ear: No infection, tinnitus. Eyes: No vision loss or color blindness. Nose: No bleeding or purulent discharges. Hearing: No hearing decrease. Neck: No injury. Breast: NS/p mastectomy Cardiac: No PA, arrhythmia. Pulmonary: No COPD. GI: ERD. Urinary/genital: UTI. Endocrinologic: Diabetes Mellitus, obesity Skeletomuscular: No muscular atrophy, deformity. Neurological: see HP. Psychiatric: Denies drug use/abuse. Otherwise, not [id number] review of systems. PHYSICAL EXAMINATION: General appearance is in subacute distress. HEENT: Normocephalic and nontraumatic. Eyes, nose, ears, and throat are unremarkable. Neck is supple. No lymphadenopathy. No crepitus. Cardiovascular: S1, S2, regular rate and rhythm. Pulmonary: Clear to auscultation bilaterally. Abdomen: Bowel sounds are positive. Extremities: No rash, lesions, or edema. No restriction of range of motion NEUROLOGICAL EXAMINATION: Drowsiness. Off vent on 08/04. On NC O2. Oriented to time, place and person. PERRL. EOMI. CN: no focal findings. Muscle tone: within normal. Muscle strength: 4 DTR: 1 due to obesity. Plantar reflex: Flexor response bilaterally Gait: not examined in bed. Sensory exam: no abnormal findings. No obvious cerebellar signs elicited. F-T-N test fine. Objective Objective Vital Signs Date Time Temp Pulse Resp B/P Pulse Ox O2 Delivery O2 Flow Rate FiO2 08/05/16 15:00 98.1 75 20 147/62 94 Nasal Cannula 4.0 98.1 Intake and Output 08/05/16 07:00 Intake Total 880 ml Output Total 430 ml Balance 450 ml Intake Oral 800 ml IV Total 80 ml Output Urine Total 430 ml Vitals Signs Vitals VS - Last 72 Hours, by Label Date Time Temp Pulse Resp B/P Pulse Ox O2 Delivery O2 Flow Rate FiO2 08/05/16 15:00 98.1 75 20 147/62 94 Nasal Cannula 4.0 98.1 08/05/16 11:00 99.0 75 22 132/62 98 Nasal Cannula 4.0 99.0 08/05/16 08:00 Nasal Cannula 4.0 08/05/16 07:00 96.7 71 20 130/58 96 Nasal Cannula 4.0 96.7 08/05/16 04:50 97.9 67 20 130/53 100 BiPAP/CPAP 97.9 08/05/16 02:50 97 BiPAP/CPAP 08/05/16 00:00 98.5 68 18 117/42 100 BiPAP/CPAP 98.5 08/04/16 23:13 96 BiPAP/CPAP 08/04/16 22:15 15 Room Air 08/04/16 21:58 72 123/64 08/04/16 20:00 98.6 72 15 131/79 100 Nasal Cannula 4.0 98.6 08/04/16 20:00 Room Air 08/04/16 15:04 100 Nasal Cannula 5.0 08/04/16 15:00 77 16 118/55 100 Nasal Cannula 4.0 08/04/16 14:00 81 16 133/63 96 Nasal Cannula 4.0 08/04/16 13:00 78 16 110/53 100 Nasal Cannula 4.0 08/04/16 12:00 Nasal Cannula 4.0 08/04/16 12:00 98.1 80 16 107/51 98 Nasal Cannula 4.0 98.1 08/04/16 11:51 100 Nasal Cannula 4.0 08/04/16 11:00 69 16 189/88 100 Ventilator 08/04/16 10:16 100 Ventilator 08/04/16 10:00 70 16 178/87 100 Ventilator 08/04/16 09:50 100 Ventilator 08/04/16 09:38 100 Ventilator 08/04/16 09:00 64 16 150/77 100 Ventilator 08/04/16 08:51 Mechanical Ventilator 08/04/16 08:09 100 Ventilator 08/04/16 08:05 96 Ventilator 08/04/16 08:00 Mechanical Ventilator 08/04/16 08:00 96.2 60 16 127/63 100 Ventilator 96.2 08/04/16 07:00 94.7 60 16 145/71 100 Ventilator 94.7 Laboratory Laboratory Laboratory Tests Test 08/04/16 15:50 08/04/16 17:02 08/04/16 22:05 08/05/16 08:05 Potassium Level 4.5mmol/L (3.5-5.1) 4.4mmol/L (3.5-5.1) Glucose (Fingerstick) 160mg/dL (70-99) 195mg/dL (70-99) White Blood Count 7.7x10^3/uL (4.0-11.0) Red Blood Count 3.96x10^6/uL (3.50-5.40) Hemoglobin 10.1g/dL (12.0-15.5) Hematocrit 34.0% (36.0-47.0) Mean Corpuscular Volume 86fL (79-100) Mean Corpuscular Hemoglobin 25pg (25-35) Mean Corpuscular Hemoglobin Concent 30g/dL (31-37) Red Cell Distribution Width 18.9% (11.5-14.5) Platelet Count 90x10^3/uL (140-400) Neutrophils (%) (Auto) 77% (31-73) Lymphocytes (%) (Auto) 9% (24-48) Monocytes (%) (Auto) 11% (0-9) Eosinophils (%) (Auto) 4% (0-3) Basophils (%) (Auto) 1% (0-3) Neutrophils # (Auto) 6.0x10^3uL (1.8-7.7) Lymphocytes # (Auto) 0.7x10^3/uL (1.0-4.8) Monocytes # (Auto) 0.8x10^3/uL (0.0-1.1) Eosinophils # (Auto) 0.3x10^3/uL (0.0-0.7) Basophils # (Auto) 0.0x10^3/uL (0.0-0.2) Sodium Level 142mmol/L (136-145) Chloride Level 107mmol/L (98-107) Carbon Dioxide Level 29mmol/L (21-32) Anion Gap 6 (6-14) Blood Urea Nitrogen 28mg/dL (7-20) Creatinine 2.0mg/dL (0.6-1.0) Estimated GFR (Cockcroft-Gault) 25.1 Glucose Level 137mg/dL (70-99) Calcium Level 8.3mg/dL (8.5-10.1) Test 08/05/16 08:20 08/05/16 11:28 Glucose (Fingerstick) 125mg/dL (70-99) 149mg/dL (70-99) Microbiology 08/03/16 Urine Culture - Preliminary, Resulted 08/03/16 Urine Culture Result 1 (PHILIPP) - Preliminary, Resulted Medication Medications Current Medications Gadobutrol (Gadavist) 7.5 mmol 1X ONCE IV Last administered on 08/04/16 16:40 ; Start 08/04/16 at 16:15; Stop 08/04/16 at 16:17; Status DC Gadobutrol (Gadavist) 10 mmol 1X ONCE IV Last administered on 08/04/16 16:40 ; Start 08/04/16 at 16:15; Stop 08/04/16 at 16:17; Status DC Insulin Detemir (Levemir) 40 units BID SQ Last administered on 08/05/16 08:49 ; Start 08/04/16 at 21:00 Levothyroxine Sodium (Synthroid) 100 mcg DAILY07 PO Last administered on 06:17; Start 08/04/16 at 18:00 Losartan Potassium (Cozaar) 25 mg DAILY PO ; Start 08/05/16 at 09:00; Stop 08/05 at 14:21; Status DC Non-Formulary Medication 1 ea BIDAC SQ Last administered on 08/04/16 16:30; Start 08/04/16 at 16:30 Non-Formulary Medication 1 ea QODAY TP ; Start 08/06/16 at 09:00 Pramipexole Dihydrochloride (miraPEX) 1 mg HS PO Last administered on 21:59; Start 08/04/16 at 21:00 Comment Review of Relevant I have reviewed the following items halle (where applicable) has been applied. SERGIO CARTER MD Aug 05, 2016 15:30
--- NOTE | 2016-08-05 16:24 | PDOC ---
PULMONARY PROGRESS NOTES Subjective PT WITH NO INCREASE SOA Vitals Vital Signs Date Time Temp Pulse Resp B/P Pulse Ox O2 Delivery O2 Flow Rate FiO2 08/05/16 15:00 98.1 75 20 147/62 94 Nasal Cannula 4.0 98.1 Lungs: Clear Cardiovascular: S1, S2 Abdomen: Soft Neuro Exam: Alert Extremities: No Edema Skin: Warm Labs Laboratory Tests Test 08/03/16 20:31 08/04/16 05:42 08/04/16 05:58 08/04/16 08:00 Glucose (Fingerstick) 193mg/dL (70-99) 205mg/dL (70-99) White Blood Count 8.2x10^3/uL (4.0-11.0) Red Blood Count 4.85x10^6/uL (3.50-5.40) Hemoglobin 12.3g/dL (12.0-15.5) Hematocrit 40.5% (36.0-47.0) Mean Corpuscular Volume 83fL (79-100) Mean Corpuscular Hemoglobin 25pg (25-35) Mean Corpuscular Hemoglobin Concent 30g/dL (31-37) Red Cell Distribution Width 19.0% (11.5-14.5) Platelet Count 107x10^3/uL (140-400) Neutrophils (%) (Auto) 79% (31-73) Lymphocytes (%) (Auto) 8% (24-48) Monocytes (%) (Auto) 7% (0-9) Eosinophils (%) (Auto) 6% (0-3) Basophils (%) (Auto) 1% (0-3) Neutrophils # (Auto) 6.5x10^3uL (1.8-7.7) Lymphocytes # (Auto) 0.6x10^3/uL (1.0-4.8) Monocytes # (Auto) 0.6x10^3/uL (0.0-1.1) Eosinophils # (Auto) 0.5x10^3/uL (0.0-0.7) Basophils # (Auto) 0.1x10^3/uL (0.0-0.2) Sodium Level 140mmol/L (136-145) Potassium Level 5.5mmol/L (3.5-5.1) Chloride Level 109mmol/L (98-107) Carbon Dioxide Level 26mmol/L (21-32) Anion Gap 5 (6-14) Blood Urea Nitrogen 18mg/dL (7-20) Creatinine 1.1mg/dL (0.6-1.0) Estimated GFR (Cockcroft-Gault) 50.0 BUN/Creatinine Ratio 16 (6-20) Glucose Level 230mg/dL (70-99) Calcium Level 8.9mg/dL (8.5-10.1) Total Bilirubin 1.0mg/dL (0.2-1.0) Aspartate Amino Transf (AST/SGOT) 40U/L (15-37) Alanine Aminotransferase (ALT/SGPT) 8U/L (14-59) Alkaline Phosphatase 228U/L (46-116) Troponin I Quantitative 0.038ng/mL (0.000-0.055) Total Protein 7.8g/dL (6.4-8.2) Albumin 3.1g/dL (3.4-5.0) Albumin/Globulin Ratio 0.7 (1.0-1.7) Lipase 354U/L (73-393) O2 Saturation 100% (92-99) Arterial Blood pH 7.35 (7.35-7.45) Arterial Blood pCO2 at Patient Temp 43mmHg (35-46) Arterial Blood pO2 at Patient Temp 441mmHg (65-108) Arterial Blood HCO3 23mmol/L (21-28) Arterial Blood Base Excess -3mmol/L (-3-3) FiO2 100 Test 08/04/16 09:37 08/04/16 15:50 08/04/16 17:02 08/04/16 22:05 Glucose (Fingerstick) 177mg/dL (70-99) 160mg/dL (70-99) 195mg/dL (70-99) Potassium Level 4.5mmol/L (3.5-5.1) Test 08/05/16 08:05 08/05/16 08:20 08/05/16 11:28 08/05/16 16:10 White Blood Count 7.7x10^3/uL (4.0-11.0) Red Blood Count 3.96x10^6/uL (3.50-5.40) Hemoglobin 10.1g/dL (12.0-15.5) Hematocrit 34.0% (36.0-47.0) Mean Corpuscular Volume 86fL (79-100) Mean Corpuscular Hemoglobin 25pg (25-35) Mean Corpuscular Hemoglobin Concent 30g/dL (31-37) Red Cell Distribution Width 18.9% (11.5-14.5) Platelet Count 90x10^3/uL (140-400) Neutrophils (%) (Auto) 77% (31-73) Lymphocytes (%) (Auto) 9% (24-48) Monocytes (%) (Auto) 11% (0-9) Eosinophils (%) (Auto) 4% (0-3) Basophils (%) (Auto) 1% (0-3) Neutrophils # (Auto) 6.0x10^3uL (1.8-7.7) Lymphocytes # (Auto) 0.7x10^3/uL (1.0-4.8) Monocytes # (Auto) 0.8x10^3/uL (0.0-1.1) Eosinophils # (Auto) 0.3x10^3/uL (0.0-0.7) Basophils # (Auto) 0.0x10^3/uL (0.0-0.2) Sodium Level 142mmol/L (136-145) Potassium Level 4.4mmol/L (3.5-5.1) Chloride Level 107mmol/L (98-107) Carbon Dioxide Level 29mmol/L (21-32) Anion Gap 6 (6-14) Blood Urea Nitrogen 28mg/dL (7-20) Creatinine 2.0mg/dL (0.6-1.0) Estimated GFR (Cockcroft-Gault) 25.1 Glucose Level 137mg/dL (70-99) Calcium Level 8.3mg/dL (8.5-10.1) Glucose (Fingerstick) 125mg/dL (70-99) 149mg/dL (70-99) 155mg/dL (70-99) Laboratory Tests Test 08/04/16 17:02 08/04/16 22:05 08/05/16 08:05 08/05/16 08:20 Glucose (Fingerstick) 160mg/dL (70-99) 195mg/dL (70-99) 125mg/dL (70-99) White Blood Count 7.7x10^3/uL (4.0-11.0) Red Blood Count 3.96x10^6/uL (3.50-5.40) Hemoglobin 10.1g/dL (12.0-15.5) Hematocrit 34.0% (36.0-47.0) Mean Corpuscular Volume 86fL (79-100) Mean Corpuscular Hemoglobin 25pg (25-35) Mean Corpuscular Hemoglobin Concent 30g/dL (31-37) Red Cell Distribution Width 18.9% (11.5-14.5) Platelet Count 90x10^3/uL (140-400) Neutrophils (%) (Auto) 77% (31-73) Lymphocytes (%) (Auto) 9% (24-48) Monocytes (%) (Auto) 11% (0-9) Eosinophils (%) (Auto) 4% (0-3) Basophils (%) (Auto) 1% (0-3) Neutrophils # (Auto) 6.0x10^3uL (1.8-7.7) Lymphocytes # (Auto) 0.7x10^3/uL (1.0-4.8) Monocytes # (Auto) 0.8x10^3/uL (0.0-1.1) Eosinophils # (Auto) 0.3x10^3/uL (0.0-0.7) Basophils # (Auto) 0.0x10^3/uL (0.0-0.2) Sodium Level 142mmol/L (136-145) Potassium Level 4.4mmol/L (3.5-5.1) Chloride Level 107mmol/L (98-107) Carbon Dioxide Level 29mmol/L (21-32) Anion Gap 6 (6-14) Blood Urea Nitrogen 28mg/dL (7-20) Creatinine 2.0mg/dL (0.6-1.0) Estimated GFR (Cockcroft-Gault) 25.1 Glucose Level 137mg/dL (70-99) Calcium Level 8.3mg/dL (8.5-10.1) Test 08/05/16 11:28 08/05/16 16:10 Glucose (Fingerstick) 149mg/dL (70-99) 155mg/dL (70-99) Medications Active Scripts Medications Dose Route/Sig Days Date Category Topamax (Topiramate) 100 Mg Tablet 1 Tab PO BID 08/03/16 Reported Zenpep 10,000 Units Capsule (Lipase/Protease/Amylase) 1 Each Capsule.dr 1 Each PO BID 08/03/16 Reported Omeprazole 40 Mg Capsule.dr 1 Cap PO BID 08/03/16 Reported Welchol (Colesevelam Hcl) 625 Mg Tablet 625 Mg PO BID 08/03/16 Reported Humalog (Insulin Lispro) 100 Unit/1 Ml Cartridge 20 Unit SQ BIDAC 06/11/16 Reported Mirapex (Pramipexole Di-Hcl) 0.25 Mg Tablet 1 Mg PO HS 04/05/16 Reported Levothyroxine Sodium 100 Mcg Tablet 1 Tab PO DAILY 04/05/16 Reported Levemir (Insulin Detemir) 100 Unit/1 Ml Vial 30 Unit SQ BID-AM AND HS 04/05/16 Reported Demadex (Torsemide) 20 Mg Tablet 20 Mg PO DAILY 03/31/16 Rx Carbidopa-Levo Er 25-100 Tab (Carbidopa/Levodopa) 1 Each Tablet.er 1 Each PO BID 01/09/14 Reported Propranolol Hcl 60 Mg Tablet 60 Mg PO HS 01/09/14 Reported Bethanechol Chloride 25 Mg Tablet 25 Mg PO BID 01/09/14 Reported Klor-Con 10 (Potassium Chloride) 10 Meq Tablet.er 20 Meq PO BID 01/09/14 Reported Glipizide 10 Mg Tablet 10 Mg PO BID 01/09/14 Reported Lovastatin 40 Mg Tablet 40 Mg PO HS 01/09/14 Reported Impression . 1. Acute respiratory failure secondary to periods of apnea and obstructive sleep apnea. 2. Obstructive sleep apnea. The patient noncompliant. 3. Pseudotumor cerebri. 4. Hypothyroidism. 5. Morbid obesity, body mass index of 48. 6. Type 2 diabetes. Plan . OUT PT SLEEP STUDY EXTUBATED 08/04 PETER WALTER MD Aug 05, 2016 16:24
[2016-08-05] MEDS: PRAMIPEXOLE 1 MG TABLET. PO SCH (20:48)
[2016-08-05] MEDS: ATORVASTATIN CALCIUM 10 MG TABLET. PO SCH (20:48)
[2016-08-05] MEDS: PROPRANOLOL ER 60 MG CAP.SA.24H. PO SCH (20:49)
[2016-08-06] VITALS (7 sets, daily range): BP systolic 101–116; BP diastolic 43–51
[2016-08-06] MEDS: HYDROCODONE/APAP 5/325MG TABLET. PO PRN (01:00)
[2016-08-06 05:20] LABS: BASO % 1 % (0-3); EOS % 5 % (0-3); HEMATOCRIT 31.7 % (36.0-47.0); HEMOGLOBIN 9.5 g/dL (12.0-15.5); LYMPH # 0.5 x10^3/uL (1.0-4.8); LYMPH % 10 % (24-48); MEAN CORPUSCULAR HEMOGLOBIN 26 pg (25-35); MEAN CORPUSCULAR HGB CONC 30 g/dL (31-37); MEAN CORPUSCULAR VOLUME 86 fL (79-100); MONO % 12 % (0-9); NEUT % 73 % (31-73); PLATELET COUNT 69 x10^3/uL (140-400); RED BLOOD COUNT 3.71 x10^6/uL (3.50-5.40); RED CELL DISTRIBUTION WIDTH 18.7 % (11.5-14.5); WHITE BLOOD COUNT 4.7 x10^3/uL (4.0-11.0)
[2016-08-06 05:48] LABS: CALCIUM 8.5 mg/dL (8.5-10.1); CREATININE 1.9 mg/dL (0.6-1.0); GFR 26.6; POTASSIUM 4.4 mmol/L (3.5-5.1)
[2016-08-06] MEDS: LEVOTHYROXINE 100 MCG TABLET PO SCH (06:09)
[2016-08-06] MEDS: acetaZOLAMIDE 250 MG TABLET. PO SCH ×2 (06:09→20:56)
[2016-08-06] MEDS: TOPIRAMATE 100 MG TABLET. PO SCH ×2 (08:40→20:55)
[2016-08-06] MEDS: PANTOPRAZOLE 40 MG TABLET.DR. PO SCH (08:40)
[2016-08-06] MEDS: CARBIDOPA/LEVODOPA CR 25/100MG TABLET.SA. PO SCH ×2 (08:40→20:55)
[2016-08-06] MEDS: BETHANECHOL CHLORIDE 25 MG TABLET PO SCH ×2 (08:41→20:55)
[2016-08-06] MEDS: LIPASE/PROTEAS/AMYLAS 10/34/55 CAPSULE.DR. PO SCH ×2 (08:41→17:49)
[2016-08-06] MEDS: COLESEVELAM HCL 625 MG TABLET PO SCH ×2 (08:41→20:55)
[2016-08-06] MEDS: ENOXAPARIN 40 MG/0.4 ML SYRINGE. SQ SCH ×2 (08:42→20:57)
[2016-08-06] MEDS: TOPIRAMATE 25 MG TABLET. PO SCH ×2 (08:43→20:55)
[2016-08-06] MEDS: VITS A & D/LANOLIN TOPICAL OINTMENT 56GM TUBE. TP SCH ×3 (08:55→21:00)
[2016-08-06] MEDS: GLIPIZIDE 5 MG TABLET. PO SCH ×2 (08:58→17:49)
[2016-08-06] MEDS: HUMALOG SQ SCH ×2 (09:00→16:30)
[2016-08-06] MEDS: INSULIN DETEMIR 300 UNITS/3 ML INSULN.PEN. SQ SCH ×2 (09:00→18:20)
[2016-08-06] MEDS ORDERED: [UNRECOGNIZED DRUG - SUPPLY] TP SCH (09:00)
--- NOTE | 2016-08-06 10:52 | PDOC ---
PULMONARY PROGRESS NOTES Subjective has sob, better, has occ cough, no pain, used bipap last night Vitals Vital Signs Date Time Temp Pulse Resp B/P Pulse Ox O2 Delivery O2 Flow Rate FiO2 08/06/16 08:00 Nasal Cannula 4.0 08/06/16 07:00 98.7 73 20 111/43 98 98.7 ROS: No Nausea, No Chest Pain General: Alert, Oriented X4 HEENT: Other (nc at perll) Lungs: Crackles Cardiovascular: S1, S2 Abdomen: Soft, Non-tender, Other (no mass) Neuro Exam: Alert Extremities: Other (edema) Skin: Warm Labs Laboratory Tests Test 08/04/16 15:50 08/04/16 17:02 08/04/16 22:05 08/05/16 08:05 Potassium Level 4.5mmol/L (3.5-5.1) 4.4mmol/L (3.5-5.1) Glucose (Fingerstick) 160mg/dL (70-99) 195mg/dL (70-99) White Blood Count 7.7x10^3/uL (4.0-11.0) Red Blood Count 3.96x10^6/uL (3.50-5.40) Hemoglobin 10.1g/dL (12.0-15.5) Hematocrit 34.0% (36.0-47.0) Mean Corpuscular Volume 86fL (79-100) Mean Corpuscular Hemoglobin 25pg (25-35) Mean Corpuscular Hemoglobin Concent 30g/dL (31-37) Red Cell Distribution Width 18.9% (11.5-14.5) Platelet Count 90x10^3/uL (140-400) Neutrophils (%) (Auto) 77% (31-73) Lymphocytes (%) (Auto) 9% (24-48) Monocytes (%) (Auto) 11% (0-9) Eosinophils (%) (Auto) 4% (0-3) Basophils (%) (Auto) 1% (0-3) Neutrophils # (Auto) 6.0x10^3uL (1.8-7.7) Lymphocytes # (Auto) 0.7x10^3/uL (1.0-4.8) Monocytes # (Auto) 0.8x10^3/uL (0.0-1.1) Eosinophils # (Auto) 0.3x10^3/uL (0.0-0.7) Basophils # (Auto) 0.0x10^3/uL (0.0-0.2) Sodium Level 142mmol/L (136-145) Chloride Level 107mmol/L (98-107) Carbon Dioxide Level 29mmol/L (21-32) Anion Gap 6 (6-14) Blood Urea Nitrogen 28mg/dL (7-20) Creatinine 2.0mg/dL (0.6-1.0) Estimated GFR (Cockcroft-Gault) 25.1 Glucose Level 137mg/dL (70-99) Calcium Level 8.3mg/dL (8.5-10.1) Test 08/05/16 08:20 08/05/16 11:28 08/05/16 16:10 08/05/16 20:35 Glucose (Fingerstick) 125mg/dL (70-99) 149mg/dL (70-99) 155mg/dL (70-99) 123mg/dL (70-99) Test 08/06/16 03:45 08/06/16 07:31 White Blood Count 4.7x10^3/uL (4.0-11.0) Red Blood Count 3.71x10^6/uL (3.50-5.40) Hemoglobin 9.5g/dL (12.0-15.5) Hematocrit 31.7% (36.0-47.0) Mean Corpuscular Volume 86fL (79-100) Mean Corpuscular Hemoglobin 26pg (25-35) Mean Corpuscular Hemoglobin Concent 30g/dL (31-37) Red Cell Distribution Width 18.7% (11.5-14.5) Platelet Count 69x10^3/uL (140-400) Neutrophils (%) (Auto) 73% (31-73) Lymphocytes (%) (Auto) 10% (24-48) Monocytes (%) (Auto) 12% (0-9) Eosinophils (%) (Auto) 5% (0-3) Basophils (%) (Auto) 1% (0-3) Neutrophils # (Auto) 3.4x10^3uL (1.8-7.7) Lymphocytes # (Auto) 0.5x10^3/uL (1.0-4.8) Monocytes # (Auto) 0.5x10^3/uL (0.0-1.1) Eosinophils # (Auto) 0.2x10^3/uL (0.0-0.7) Basophils # (Auto) 0.0x10^3/uL (0.0-0.2) Sodium Level 141mmol/L (136-145) Potassium Level 4.4mmol/L (3.5-5.1) Chloride Level 107mmol/L (98-107) Carbon Dioxide Level 27mmol/L (21-32) Anion Gap 7 (6-14) Blood Urea Nitrogen 34mg/dL (7-20) Creatinine 1.9mg/dL (0.6-1.0) Estimated GFR (Cockcroft-Gault) 26.6 Glucose Level 103mg/dL (70-99) Calcium Level 8.5mg/dL (8.5-10.1) Glucose (Fingerstick) 97mg/dL (70-99) Laboratory Tests Test 08/05/16 11:28 08/05/16 16:10 08/05/16 20:35 08/06/16 03:45 Glucose (Fingerstick) 149mg/dL (70-99) 155mg/dL (70-99) 123mg/dL (70-99) White Blood Count 4.7x10^3/uL (4.0-11.0) Red Blood Count 3.71x10^6/uL (3.50-5.40) Hemoglobin 9.5g/dL (12.0-15.5) Hematocrit 31.7% (36.0-47.0) Mean Corpuscular Volume 86fL (79-100) Mean Corpuscular Hemoglobin 26pg (25-35) Mean Corpuscular Hemoglobin Concent 30g/dL (31-37) Red Cell Distribution Width 18.7% (11.5-14.5) Platelet Count 69x10^3/uL (140-400) Neutrophils (%) (Auto) 73% (31-73) Lymphocytes (%) (Auto) 10% (24-48) Monocytes (%) (Auto) 12% (0-9) Eosinophils (%) (Auto) 5% (0-3) Basophils (%) (Auto) 1% (0-3) Neutrophils # (Auto) 3.4x10^3uL (1.8-7.7) Lymphocytes # (Auto) 0.5x10^3/uL (1.0-4.8) Monocytes # (Auto) 0.5x10^3/uL (0.0-1.1) Eosinophils # (Auto) 0.2x10^3/uL (0.0-0.7) Basophils # (Auto) 0.0x10^3/uL (0.0-0.2) Sodium Level 141mmol/L (136-145) Potassium Level 4.4mmol/L (3.5-5.1) Chloride Level 107mmol/L (98-107) Carbon Dioxide Level 27mmol/L (21-32) Anion Gap 7 (6-14) Blood Urea Nitrogen 34mg/dL (7-20) Creatinine 1.9mg/dL (0.6-1.0) Estimated GFR (Cockcroft-Gault) 26.6 Glucose Level 103mg/dL (70-99) Calcium Level 8.5mg/dL (8.5-10.1) Test 08/06/16 07:31 Glucose (Fingerstick) 97mg/dL (70-99) Medications Active Scripts Medications Dose Route/Sig Days Date Category Topamax (Topiramate) 100 Mg Tablet 1 Tab PO BID 08/03/16 Reported Zenpep 10,000 Units Capsule (Lipase/Protease/Amylase) 1 Each Capsule.dr 1 Each PO BID 08/03/16 Reported Omeprazole 40 Mg Capsule.dr 1 Cap PO BID 08/03/16 Reported Welchol (Colesevelam Hcl) 625 Mg Tablet 625 Mg PO BID 08/03/16 Reported Humalog (Insulin Lispro) 100 Unit/1 Ml Cartridge 20 Unit SQ BIDAC 06/11/16 Reported Mirapex (Pramipexole Di-Hcl) 0.25 Mg Tablet 1 Mg PO HS 04/05/16 Reported Levothyroxine Sodium 100 Mcg Tablet 1 Tab PO DAILY 04/05/16 Reported Levemir (Insulin Detemir) 100 Unit/1 Ml Vial 30 Unit SQ BID-AM AND HS 04/05/16 Reported Demadex (Torsemide) 20 Mg Tablet 20 Mg PO DAILY 03/31/16 Rx Carbidopa-Levo Er 25-100 Tab (Carbidopa/Levodopa) 1 Each Tablet.er 1 Each PO BID 01/09/14 Reported Propranolol Hcl 60 Mg Tablet 60 Mg PO HS 01/09/14 Reported Bethanechol Chloride 25 Mg Tablet 25 Mg PO BID 01/09/14 Reported Klor-Con 10 (Potassium Chloride) 10 Meq Tablet.er 20 Meq PO BID 01/09/14 Reported Glipizide 10 Mg Tablet 10 Mg PO BID 01/09/14 Reported Lovastatin 40 Mg Tablet 40 Mg PO HS 01/09/14 Reported Impression . 1. Acute respiratory failure secondary to periods of apnea and obstructive sleep apnea. 2. Obstructive sleep apnea. The patient noncompliant. 3. Pseudotumor cerebri. 4. Hypothyroidism. 5. Morbid obesity, body mass index of 48. 6. Type 2 diabetes. Plan . 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 LOVENOX PROTONIX FOR PROPHYLAXIS DISCUSSED W PT EMELYN SULTANA MD Aug 06, 2016 10:52
[2016-08-06] MEDS: IV NORMAL SALINE 1000ML BAG 1,000 ML IV SCH (12:01)
--- NOTE | 2016-08-06 12:47 | PDOC ---
PROGRESS NOTES Chief Complaint Chief Complaint FREIRE ASSESSMENT AND PLAN: 1. Respiratory failure: intubated last nite with '"code"; apnea. has severe AURY but refuses CPAP. extubated, resting comfortably at room air. 2. AURY: needs CPAP, d/w pt, out pt follow up. 3. Pseudotumor cerebri: elevated opening pressure at LP. on Topamax, Diamox, decrease the dose due to worsening renal functions. 4. Chronic headaches. 5. HTN: borderline. better hold Lasix as Cr is worsening, Monitor renal functions, Diamox dose decreased. 6. DM: poorly controlled. increase bid Levemir to 40; ISS 7. Hyperkalemia: resolved. 8. CKD3: stable creat 9. Thrombocytopenia: unclear etiology. improving. 10. GERD: PPI 11. Chronic pancreatitis. 12. Breast CA: s/p bilat mastectomies, s/p XRT to R with dermatitis, edema. Dr Cruz following 13. Obesity: dietary consult 14. Prophylaxis: Lovenox History of Present Illness History of Present Illness No fever no chills. no chest pain Vitals Vitals Vital Signs Date Time Temp Pulse Resp B/P Pulse Ox O2 Delivery O2 Flow Rate FiO2 08/06/16 10:56 97.8 78 20 105/44 96 Nasal Cannula 4.0 97.8 Physical Exam General: Alert, Oriented X3, Cooperative Heart: Normal S1, Normal S2 Lungs: Clear Abdomen: Normal bowel sounds, Soft Extremities: No edema Skin: No rashes Labs LABS Laboratory Tests Test 08/05/16 16:10 08/05/16 20:35 08/06/16 03:45 08/06/16 07:31 Glucose (Fingerstick) 155mg/dL (70-99) 123mg/dL (70-99) 97mg/dL (70-99) White Blood Count 4.7x10^3/uL (4.0-11.0) Red Blood Count 3.71x10^6/uL (3.50-5.40) Hemoglobin 9.5g/dL (12.0-15.5) Hematocrit 31.7% (36.0-47.0) Mean Corpuscular Volume 86fL (79-100) Mean Corpuscular Hemoglobin 26pg (25-35) Mean Corpuscular Hemoglobin Concent 30g/dL (31-37) Red Cell Distribution Width 18.7% (11.5-14.5) Platelet Count 69x10^3/uL (140-400) Neutrophils (%) (Auto) 73% (31-73) Lymphocytes (%) (Auto) 10% (24-48) Monocytes (%) (Auto) 12% (0-9) Eosinophils (%) (Auto) 5% (0-3) Basophils (%) (Auto) 1% (0-3) Neutrophils # (Auto) 3.4x10^3uL (1.8-7.7) Lymphocytes # (Auto) 0.5x10^3/uL (1.0-4.8) Monocytes # (Auto) 0.5x10^3/uL (0.0-1.1) Eosinophils # (Auto) 0.2x10^3/uL (0.0-0.7) Basophils # (Auto) 0.0x10^3/uL (0.0-0.2) Sodium Level 141mmol/L (136-145) Potassium Level 4.4mmol/L (3.5-5.1) Chloride Level 107mmol/L (98-107) Carbon Dioxide Level 27mmol/L (21-32) Anion Gap 7 (6-14) Blood Urea Nitrogen 34mg/dL (7-20) Creatinine 1.9mg/dL (0.6-1.0) Estimated GFR (Cockcroft-Gault) 26.6 Glucose Level 103mg/dL (70-99) Calcium Level 8.5mg/dL (8.5-10.1) Test 08/06/16 11:53 Glucose (Fingerstick) 107mg/dL (70-99) Assessment and Plan Assessmemt and Plan Problems Medical Problems: (1) Elevated intracranial pressure Status: Acute Problems: Comment Review of Relevant I have reviewed the following items halle (where applicable) has been applied. Labs Laboratory Tests Test 08/04/16 15:50 08/04/16 17:02 08/04/16 22:05 08/05/16 08:05 Potassium Level 4.5mmol/L (3.5-5.1) 4.4mmol/L (3.5-5.1) Glucose (Fingerstick) 160mg/dL (70-99) 195mg/dL (70-99) White Blood Count 7.7x10^3/uL (4.0-11.0) Red Blood Count 3.96x10^6/uL (3.50-5.40) Hemoglobin 10.1g/dL (12.0-15.5) Hematocrit 34.0% (36.0-47.0) Mean Corpuscular Volume 86fL (79-100) Mean Corpuscular Hemoglobin 25pg (25-35) Mean Corpuscular Hemoglobin Concent 30g/dL (31-37) Red Cell Distribution Width 18.9% (11.5-14.5) Platelet Count 90x10^3/uL (140-400) Neutrophils (%) (Auto) 77% (31-73) Lymphocytes (%) (Auto) 9% (24-48) Monocytes (%) (Auto) 11% (0-9) Eosinophils (%) (Auto) 4% (0-3) Basophils (%) (Auto) 1% (0-3) Neutrophils # (Auto) 6.0x10^3uL (1.8-7.7) Lymphocytes # (Auto) 0.7x10^3/uL (1.0-4.8) Monocytes # (Auto) 0.8x10^3/uL (0.0-1.1) Eosinophils # (Auto) 0.3x10^3/uL (0.0-0.7) Basophils # (Auto) 0.0x10^3/uL (0.0-0.2) Sodium Level 142mmol/L (136-145) Chloride Level 107mmol/L (98-107) Carbon Dioxide Level 29mmol/L (21-32) Anion Gap 6 (6-14) Blood Urea Nitrogen 28mg/dL (7-20) Creatinine 2.0mg/dL (0.6-1.0) Estimated GFR (Cockcroft-Gault) 25.1 Glucose Level 137mg/dL (70-99) Calcium Level 8.3mg/dL (8.5-10.1) Test 08/05/16 08:20 08/05/16 11:28 08/05/16 16:10 08/05/16 20:35 Glucose (Fingerstick) 125mg/dL (70-99) 149mg/dL (70-99) 155mg/dL (70-99) 123mg/dL (70-99) Test 08/06/16 03:45 08/06/16 07:31 08/06/16 11:53 White Blood Count 4.7x10^3/uL (4.0-11.0) Red Blood Count 3.71x10^6/uL (3.50-5.40) Hemoglobin 9.5g/dL (12.0-15.5) Hematocrit 31.7% (36.0-47.0) Mean Corpuscular Volume 86fL (79-100) Mean Corpuscular Hemoglobin 26pg (25-35) Mean Corpuscular Hemoglobin Concent 30g/dL (31-37) Red Cell Distribution Width 18.7% (11.5-14.5) Platelet Count 69x10^3/uL (140-400) Neutrophils (%) (Auto) 73% (31-73) Lymphocytes (%) (Auto) 10% (24-48) Monocytes (%) (Auto) 12% (0-9) Eosinophils (%) (Auto) 5% (0-3) Basophils (%) (Auto) 1% (0-3) Neutrophils # (Auto) 3.4x10^3uL (1.8-7.7) Lymphocytes # (Auto) 0.5x10^3/uL (1.0-4.8) Monocytes # (Auto) 0.5x10^3/uL (0.0-1.1) Eosinophils # (Auto) 0.2x10^3/uL (0.0-0.7) Basophils # (Auto) 0.0x10^3/uL (0.0-0.2) Sodium Level 141mmol/L (136-145) Potassium Level 4.4mmol/L (3.5-5.1) Chloride Level 107mmol/L (98-107) Carbon Dioxide Level 27mmol/L (21-32) Anion Gap 7 (6-14) Blood Urea Nitrogen 34mg/dL (7-20) Creatinine 1.9mg/dL (0.6-1.0) Estimated GFR (Cockcroft-Gault) 26.6 Glucose Level 103mg/dL (70-99) Calcium Level 8.5mg/dL (8.5-10.1) Glucose (Fingerstick) 97mg/dL (70-99) 107mg/dL (70-99) Laboratory Tests Test 08/05/16 16:10 08/05/16 20:35 08/06/16 03:45 08/06/16 07:31 Glucose (Fingerstick) 155mg/dL (70-99) 123mg/dL (70-99) 97mg/dL (70-99) White Blood Count 4.7x10^3/uL (4.0-11.0) Red Blood Count 3.71x10^6/uL (3.50-5.40) Hemoglobin 9.5g/dL (12.0-15.5) Hematocrit 31.7% (36.0-47.0) Mean Corpuscular Volume 86fL (79-100) Mean Corpuscular Hemoglobin 26pg (25-35) Mean Corpuscular Hemoglobin Concent 30g/dL (31-37) Red Cell Distribution Width 18.7% (11.5-14.5) Platelet Count 69x10^3/uL (140-400) Neutrophils (%) (Auto) 73% (31-73) Lymphocytes (%) (Auto) 10% (24-48) Monocytes (%) (Auto) 12% (0-9) Eosinophils (%) (Auto) 5% (0-3) Basophils (%) (Auto) 1% (0-3) Neutrophils # (Auto) 3.4x10^3uL (1.8-7.7) Lymphocytes # (Auto) 0.5x10^3/uL (1.0-4.8) Monocytes # (Auto) 0.5x10^3/uL (0.0-1.1) Eosinophils # (Auto) 0.2x10^3/uL (0.0-0.7) Basophils # (Auto) 0.0x10^3/uL (0.0-0.2) Sodium Level 141mmol/L (136-145) Potassium Level 4.4mmol/L (3.5-5.1) Chloride Level 107mmol/L (98-107) Carbon Dioxide Level 27mmol/L (21-32) Anion Gap 7 (6-14) Blood Urea Nitrogen 34mg/dL (7-20) Creatinine 1.9mg/dL (0.6-1.0) Estimated GFR (Cockcroft-Gault) 26.6 Glucose Level 103mg/dL (70-99) Calcium Level 8.5mg/dL (8.5-10.1) Test 08/06/16 11:53 Glucose (Fingerstick) 107mg/dL (70-99) Microbiology 08/03/16 Urine Culture - Final, Complete 08/03/16 Urine Culture Result 1 (PHILIPP) - Final, Complete 08/03/16 Antimicrobic Susceptibility - Final, Complete Medications Current Medications Morphine Sulfate 4 mg PRN Q15MIN PRN IV/SQ PAIN GREATER THAN 3/10; Start at 12:45; Stop 08/04/16 at 08:26; Status DC Ondansetron HCl (Zofran) 4 mg PRN Q8HRS PRN IV NAUSEA/VOMITING Last administered on 08/04/16 00:53; Start 08/03/16 at 12:45; Stop 08/04/16 at 08:26 ; Status DC Ondansetron HCl (Zofran) 4 mg PRN Q8HRS PRN IV NAUSEA/VOMITING; Start 08/03/16 at 13:45; Stop 08/04/16 at 08:25; Status DC Morphine Sulfate 4 mg PRN Q2HR PRN IV PAIN Last administered on 08/04/16 00:54 ; Start 08/03/16 at 13:45; Stop 08/04/16 at 13:44; Status DC Topiramate (Topamax) 125 mg BID PO Last administered on 08/03/16 21:56; Start 08/03/16 at 21:00; Stop 08/04/16 at 08:33; Status DC Acetazolamide (Diamox) 250 mg Q8HRS PO Last administered on 08/06/16 06:09; Start 08/03/16 at 22:00; Stop 08/06/16 at 10:34; Status DC Acetaminophen (Tylenol) 325 mg PRN Q6HRS PRN PO MILD PAIN / TEMP; Start at 16:15 Acetaminophen/ Hydrocodone Bitart (Lortab 5/325) 1 tab PRN Q6HRS PRN PO MODERATE TO SEVERE PAIN Last administered on 08/06/16 01:00; Start 08/03/16 at 16:15 Hydralazine HCl (Apresoline) 10 mg PRN Q4HRS PRN IVP ELEVATED BP, SEE COMMENTS ; Start 08/03/16 at 16:15 Ondansetron HCl (Zofran) 4 mg PRN Q8HRS PRN IV NAUSEA/VOMITING; Start 08/03/16 at 16:15 Albuterol Sulfate (Ventolin Neb Soln) 2.5 mg PRN Q4HRS PRN NEB SHORTNESS OF BREATH Last administered on 08/04/16 08:03; Start 08/03/16 at 16:15 Bethanechol Chloride (Urecholine) 25 mg BID PO Last administered on 08/06/16 08:41; Start 08/03/16 at 21:00 Carbidopa/Levodopa (Sinemet Cr) 1 tab.sa BID PO Last administered on 08/06/16 08:40; Start 08/03/16 at 21:00 Colesevelam HCl (Welchol) 625 mg BID PO Last administered on 08/06/16 08:41; Start 08/03/16 at 21:00 Levothyroxine Sodium (Synthroid) 100 mcg DAILY07 PO ; Start 08/04/16 at 07:00; Stop 08/04/16 at 07:50; Status DC Amylase/Lipase/ Protease (Zenpep 10,000) 1 cap BIDWMEALS PO Last administered on 08/06/16 08:41; Start 08/03/16 at 17:00 Pramipexole Dihydrochloride (miraPEX) 1 mg HS PO Last administered on 21:53; Start 08/03/16 at 21:00; Stop 08/04/16 at 13:25; Status DC Topiramate (Topamax) 100 mg BID PO ; Start 08/03/16 at 21:00; Stop 08/03/16 at 21:00; Status DC Torsemide (Demadex) 20 mg DAILY PO Last administered on 08/05/16 08:35; Start 08/04/16 at 09:00; Stop 08/05/16 at 14:18; Status DC Glipizide (Glucotrol) 10 mg BIDBFRMEAL PO Last administered on 08/06/16 08:58 ; Start 08/04/16 at 07:30 Insulin Detemir (Levemir) 30 units BID SQ Last administered on 08/04/16 09:38 ; Start 08/03/16 at 21:00; Stop 08/04/16 at 09:51; Status DC Insulin Aspart (Novolog) 20 units BIDBFRMEAL SQ ; Start 08/03/16 at 17:00; Status Cancel Atorvastatin Calcium (Lipitor) 10 mg QHS PO Last administered on 08/05/16 20: 48; Start 08/03/16 at 21:00 Pantoprazole Sodium (Protonix) 40 mg DAILYAC PO ; Start 08/04/16 at 07:30; Stop 08/04/16 at 07:50; Status DC Potassium Chloride (Klor-Con) 20 meq BIDWMEALS PO Last administered on 17:39; Start 08/03/16 at 17:00; Stop 08/04/16 at 10:25; Status DC Propranolol HCl (Inderal La) 60 mg QHS PO Last administered on 08/05/16 20:49 ; Start 08/03/16 at 21:00 Vitamin A/Vitamin D 1 cedrick 1 cedrick TID TP Last administered on 08/06/16 08:55; Start 08/03/16 at 17:00 Propofol (Diprivan) 100 ml @ As Directed STK-MED ONCE IV ; Start 08/04/16 at 06 :43; Stop 08/04/16 at 17:27; Status DC Etomidate (Amidate) 20 mg STK-MED ONCE IV ; Start 08/04/16 at 07:13; Stop at 07:14; Status DC Succinylcholine Chloride 200 mg 200 mg STK-MED ONCE .ROUTE ; Start 08/04/16 at 07:13; Stop 08/04/16 at 07:14; Status DC Levothyroxine Sodium/Sodium Chloride (Synthroid/Iv Sodium Chloride 0.9% 50ml) 5 ml @ 100 mls/hr DAILY IVP Last administered on 08/04/16 09:32; Start 08/04/16 at 09:00; Stop 08/04/16 at 17:27; Status DC Pantoprazole Sodium (Protonix Vial) 40 mg DAILY IVP Last administered on 08:38; Start 08/04/16 at 09:00; Stop 08/05/16 at 15:25; Status DC Chlorhexidine Gluconate (Peridex) 15 ml BID MM Last administered on 08/04/16 09:32; Start 08/04/16 at 09:00; Stop 08/05/16 at 13:58; Status DC Topiramate (Topamax) 100 mg BID PO Last administered on 08/06/16 08:40; Start 08/04/16 at 09:00 Topiramate (Topamax) 25 mg BID PO Last administered on 08/05/16 20:48; Start 08/04/16 at 09:00 Propofol 1000 mg 1,000 mg STK-MED ONCE IV ; Start 08/04/16 at 06:45; Stop at 08:50; Status DC Propofol (Diprivan) 100 ml @ 0 mls/hr CONT PRN IV SEE I/O RECORD; Start at 09:30; Stop 08/04/16 at 17:27; Status DC Insulin Detemir (Levemir) 40 units BID SQ Last administered on 08/06/16 09:00 ; Start 08/04/16 at 21:00 Losartan Potassium (Cozaar) 25 mg DAILY PO ; Start 08/05/16 at 09:00; Stop 08/05 at 14:21; Status DC Enoxaparin Sodium (Lovenox 40mg Syringe) 40 mg BID SQ Last administered on 08/06 08:42; Start 08/04/16 at 11:00 Sodium Polystyrene Sulfonate (Kayexalate) 15 gm 1X ONCE PO ; Start 08/04/16 at 10:15; Stop 08/04/16 at 10:16; Status DC Non-Formulary Medication 1 ea BIDAC SQ Last administered on 08/06/16 09:00; Start 08/04/16 at 16:30 Non-Formulary Medication 1 ea QODAY TP ; Start 08/06/16 at 09:00 Pramipexole Dihydrochloride (miraPEX) 1 mg HS PO Last administered on 20:48; Start 08/04/16 at 21:00 Gadobutrol (Gadavist) 10 mmol 1X ONCE IV Last administered on 08/04/16 16:40 ; Start 08/04/16 at 16:15; Stop 08/04/16 at 16:17; Status DC Gadobutrol (Gadavist) 7.5 mmol 1X ONCE IV Last administered on 08/04/16 16:40 ; Start 08/04/16 at 16:15; Stop 08/04/16 at 16:17; Status DC Levothyroxine Sodium (Synthroid) 100 mcg DAILY07 PO Last administered on 06:09; Start 08/04/16 at 18:00 Pantoprazole Sodium (Protonix) 40 mg DAILYAC PO Last administered on 08/06/16 08:40; Start 08/06/16 at 07:30 Acetazolamide 250 mg 250 mg BID PO ; Start 08/06/16 at 21:00 Sodium Chloride (Iv Sodium Chloride 0.9% 1000ml Bag) 1,000 ml @ 75 mls/hr [id number] IV Last administered on 08/06/16 12:01; Start 08/06/16 at 11:00 Active Scripts Active Demadex (Torsemide) 20 Mg Tablet 20 Mg PO DAILY Reported Topamax (Topiramate) 100 Mg Tablet 1 Tab PO BID Zenpep Dr 10,000 Units Capsule (Lipase/Protease/Amylase) 1 Each Capsule.dr 1 Each PO BID Omeprazole 40 Mg Capsule.dr 1 Cap PO BID Welchol (Colesevelam Hcl) 625 Mg Tablet 625 Mg PO BID Humalog (Insulin Lispro) 100 Unit/1 Ml Cartridge 20 Unit SQ BIDAC Mirapex (Pramipexole Di-Hcl) 0.25 Mg Tablet 1 Mg PO HS Levothyroxine Sodium 100 Mcg Tablet 1 Tab PO DAILY Levemir (Insulin Detemir) 100 Unit/1 Ml Vial 30 Unit SQ BID-AM AND HS Carbidopa-Levo Er 25-100 Tab (Carbidopa/Levodopa) 1 Each Tablet.er 1 Each PO BID Propranolol Hcl 60 Mg Tablet 60 Mg PO HS Bethanechol Chloride 25 Mg Tablet 25 Mg PO BID Klor-Con 10 (Potassium Chloride) 10 Meq Tablet.er 20 Meq PO BID Glipizide 10 Mg Tablet 10 Mg PO BID Lovastatin 40 Mg Tablet 40 Mg PO HS Vitals/I & O Vital Sign - Last 24 Hours 08/05/16 08/05/16 08/05/16 08/05/16 15:00 19:30 19:55 20:49 Temp 98.1 97.9 98.1 97.9 Pulse 75 75 80 Resp 20 20 B/P 147/62 125/54 125/54 Pulse Ox 94 98 O2 Delivery Nasal Cannula Nasal Cannula Nasal Cannula O2 Flow Rate 4.0 4.0 4.0 08/05/16 08/05/16 08/05/16 08/06/16 21:50 23:19 23:53 02:55 Temp 97.9 97.9 Pulse 75 75 Resp 17 B/P 125/50 Pulse Ox 98 97 O2 Delivery BiPAP/CPAP BiPAP/CPAP BiPAP/CPAP 08/06/16 08/06/16 08/06/16 08/06/16 03:48 06:09 07:00 08:00 Temp 97.9 99.5 98.7 97.9 99.5 98.7 Pulse 69 68 73 Resp 20 16 20 B/P 101/46 110/45 111/43 Pulse Ox 98 99 98 O2 Delivery BiPAP/CPAP Nasal Cannula Nasal Cannula Nasal Cannula O2 Flow Rate 4.0 4.0 4.0 08/06/16 10:56 Temp 97.8 97.8 Pulse 78 Resp 20 B/P 105/44 Pulse Ox 96 O2 Delivery Nasal Cannula O2 Flow Rate 4.0 Intake and Output 08/05/16 08/05/16 08/06/16 15:00 23:00 07:00 Intake Total 480 ml 240 ml 200 ml Output Total 200 ml 350 ml Balance 480 ml 40 ml -150 ml HERMAN RICHARD MD Aug 06, 2016 12:47
[2016-08-06] MEDS: PRAMIPEXOLE 1 MG TABLET. PO SCH (20:55)
[2016-08-06] MEDS: ATORVASTATIN CALCIUM 10 MG TABLET. PO SCH (20:55)
[2016-08-06] MEDS: PROPRANOLOL ER 60 MG CAP.SA.24H. PO SCH (20:55)
[2016-08-07] MEDS: IV NORMAL SALINE 1000ML BAG 1,000 ML IV SCH ×2 (00:20→13:40)
[2016-08-07 03:05] VITALS: BP 147/68
[2016-08-07 05:39] LABS: BASO % 1 % (0-3); EOS % 5 % (0-3); HEMATOCRIT 32.6 % (36.0-47.0); HEMOGLOBIN 9.8 g/dL (12.0-15.5); LYMPH # 0.6 x10^3/uL (1.0-4.8); LYMPH % 10 % (24-48); MEAN CORPUSCULAR HEMOGLOBIN 25 pg (25-35); MEAN CORPUSCULAR HGB CONC 30 g/dL (31-37); MEAN CORPUSCULAR VOLUME 84 fL (79-100); MONO % 12 % (0-9); NEUT % 72 % (31-73); PLATELET COUNT 73 x10^3/uL (140-400); RED BLOOD COUNT 3.87 x10^6/uL (3.50-5.40); RED CELL DISTRIBUTION WIDTH 18.3 % (11.5-14.5); WHITE BLOOD COUNT 6.1 x10^3/uL (4.0-11.0)
[2016-08-07 05:53] LABS: CALCIUM 8.4 mg/dL (8.5-10.1); CREATININE 1.4 mg/dL (0.6-1.0); GFR 37.9; POTASSIUM 4.4 mmol/L (3.5-5.1)
[2016-08-07] MEDS: INSULIN DETEMIR 300 UNITS/3 ML INSULN.PEN. SQ SCH ×2 (05:55→06:00)
[2016-08-07] MEDS: PANTOPRAZOLE 40 MG TABLET.DR. PO SCH (06:20)
[2016-08-07] MEDS: LEVOTHYROXINE 100 MCG TABLET PO SCH (06:20)
[2016-08-07] MEDS ORDERED: DEXTROSE 50% 25 GM / 50ML DISP.SYRIN. IV ONE ×2 (06:45)
[2016-08-07 07:00] VITALS: BP 146/61
[2016-08-07] MEDS: HUMALOG SQ SCH ×2 (07:30→16:30)
--- NOTE | 2016-08-07 07:41 | PDOC ---
PULMONARY PROGRESS NOTES Subjective has sob, better, has occ cough, has back pain, used bipap last night Vitals Vital Signs Date Time Temp Pulse Resp B/P Pulse Ox O2 Delivery O2 Flow Rate FiO2 08/07/16 03:07 98 BiPAP/CPAP 08/07/16 03:05 96.8 69 20 147/68 4.0 96.8 ROS: No Nausea, No Chest Pain General: Alert, Oriented X4 HEENT: Other (nc at perll) Lungs: Crackles Cardiovascular: S1, S2 Abdomen: Soft, Non-tender, Other (no mass) Neuro Exam: Alert Extremities: Other (edema) Skin: Warm Labs Laboratory Tests Test 08/05/16 08:05 08/05/16 08:20 08/05/16 11:28 08/05/16 16:10 White Blood Count 7.7x10^3/uL (4.0-11.0) Red Blood Count 3.96x10^6/uL (3.50-5.40) Hemoglobin 10.1g/dL (12.0-15.5) Hematocrit 34.0% (36.0-47.0) Mean Corpuscular Volume 86fL (79-100) Mean Corpuscular Hemoglobin 25pg (25-35) Mean Corpuscular Hemoglobin Concent 30g/dL (31-37) Red Cell Distribution Width 18.9% (11.5-14.5) Platelet Count 90x10^3/uL (140-400) Neutrophils (%) (Auto) 77% (31-73) Lymphocytes (%) (Auto) 9% (24-48) Monocytes (%) (Auto) 11% (0-9) Eosinophils (%) (Auto) 4% (0-3) Basophils (%) (Auto) 1% (0-3) Neutrophils # (Auto) 6.0x10^3uL (1.8-7.7) Lymphocytes # (Auto) 0.7x10^3/uL (1.0-4.8) Monocytes # (Auto) 0.8x10^3/uL (0.0-1.1) Eosinophils # (Auto) 0.3x10^3/uL (0.0-0.7) Basophils # (Auto) 0.0x10^3/uL (0.0-0.2) Sodium Level 142mmol/L (136-145) Potassium Level 4.4mmol/L (3.5-5.1) Chloride Level 107mmol/L (98-107) Carbon Dioxide Level 29mmol/L (21-32) Anion Gap 6 (6-14) Blood Urea Nitrogen 28mg/dL (7-20) Creatinine 2.0mg/dL (0.6-1.0) Estimated GFR (Cockcroft-Gault) 25.1 Glucose Level 137mg/dL (70-99) Calcium Level 8.3mg/dL (8.5-10.1) Glucose (Fingerstick) 125mg/dL (70-99) 149mg/dL (70-99) 155mg/dL (70-99) Test 08/05/16 20:35 08/06/16 03:45 08/06/16 07:31 08/06/16 11:53 Glucose (Fingerstick) 123mg/dL (70-99) 97mg/dL (70-99) 107mg/dL (70-99) White Blood Count 4.7x10^3/uL (4.0-11.0) Red Blood Count 3.71x10^6/uL (3.50-5.40) Hemoglobin 9.5g/dL (12.0-15.5) Hematocrit 31.7% (36.0-47.0) Mean Corpuscular Volume 86fL (79-100) Mean Corpuscular Hemoglobin 26pg (25-35) Mean Corpuscular Hemoglobin Concent 30g/dL (31-37) Red Cell Distribution Width 18.7% (11.5-14.5) Platelet Count 69x10^3/uL (140-400) Neutrophils (%) (Auto) 73% (31-73) Lymphocytes (%) (Auto) 10% (24-48) Monocytes (%) (Auto) 12% (0-9) Eosinophils (%) (Auto) 5% (0-3) Basophils (%) (Auto) 1% (0-3) Neutrophils # (Auto) 3.4x10^3uL (1.8-7.7) Lymphocytes # (Auto) 0.5x10^3/uL (1.0-4.8) Monocytes # (Auto) 0.5x10^3/uL (0.0-1.1) Eosinophils # (Auto) 0.2x10^3/uL (0.0-0.7) Basophils # (Auto) 0.0x10^3/uL (0.0-0.2) Sodium Level 141mmol/L (136-145) Potassium Level 4.4mmol/L (3.5-5.1) Chloride Level 107mmol/L (98-107) Carbon Dioxide Level 27mmol/L (21-32) Anion Gap 7 (6-14) Blood Urea Nitrogen 34mg/dL (7-20) Creatinine 1.9mg/dL (0.6-1.0) Estimated GFR (Cockcroft-Gault) 26.6 Glucose Level 103mg/dL (70-99) Calcium Level 8.5mg/dL (8.5-10.1) Test 08/06/16 17:26 08/06/16 21:00 08/07/16 05:10 08/07/16 06:42 Glucose (Fingerstick) 75mg/dL (70-99) 67mg/dL (70-99) 52mg/dL (70-99) White Blood Count 6.1x10^3/uL (4.0-11.0) Red Blood Count 3.87x10^6/uL (3.50-5.40) Hemoglobin 9.8g/dL (12.0-15.5) Hematocrit 32.6% (36.0-47.0) Mean Corpuscular Volume 84fL (79-100) Mean Corpuscular Hemoglobin 25pg (25-35) Mean Corpuscular Hemoglobin Concent 30g/dL (31-37) Red Cell Distribution Width 18.3% (11.5-14.5) Platelet Count 73x10^3/uL (140-400) Neutrophils (%) (Auto) 72% (31-73) Lymphocytes (%) (Auto) 10% (24-48) Monocytes (%) (Auto) 12% (0-9) Eosinophils (%) (Auto) 5% (0-3) Basophils (%) (Auto) 1% (0-3) Neutrophils # (Auto) 4.4x10^3uL (1.8-7.7) Lymphocytes # (Auto) 0.6x10^3/uL (1.0-4.8) Monocytes # (Auto) 0.8x10^3/uL (0.0-1.1) Eosinophils # (Auto) 0.3x10^3/uL (0.0-0.7) Basophils # (Auto) 0.0x10^3/uL (0.0-0.2) Sodium Level 142mmol/L (136-145) Potassium Level 4.4mmol/L (3.5-5.1) Chloride Level 107mmol/L (98-107) Carbon Dioxide Level 25mmol/L (21-32) Anion Gap 10 (6-14) Blood Urea Nitrogen 30mg/dL (7-20) Creatinine 1.4mg/dL (0.6-1.0) Estimated GFR (Cockcroft-Gault) 37.9 Glucose Level 52mg/dL (70-99) Calcium Level 8.4mg/dL (8.5-10.1) Test 08/07/16 07:23 Glucose (Fingerstick) 128mg/dL (70-99) Laboratory Tests Test 08/06/16 11:53 08/06/16 17:26 08/06/16 21:00 08/07/16 05:10 Glucose (Fingerstick) 107mg/dL (70-99) 75mg/dL (70-99) 67mg/dL (70-99) White Blood Count 6.1x10^3/uL (4.0-11.0) Red Blood Count 3.87x10^6/uL (3.50-5.40) Hemoglobin 9.8g/dL (12.0-15.5) Hematocrit 32.6% (36.0-47.0) Mean Corpuscular Volume 84fL (79-100) Mean Corpuscular Hemoglobin 25pg (25-35) Mean Corpuscular Hemoglobin Concent 30g/dL (31-37) Red Cell Distribution Width 18.3% (11.5-14.5) Platelet Count 73x10^3/uL (140-400) Neutrophils (%) (Auto) 72% (31-73) Lymphocytes (%) (Auto) 10% (24-48) Monocytes (%) (Auto) 12% (0-9) Eosinophils (%) (Auto) 5% (0-3) Basophils (%) (Auto) 1% (0-3) Neutrophils # (Auto) 4.4x10^3uL (1.8-7.7) Lymphocytes # (Auto) 0.6x10^3/uL (1.0-4.8) Monocytes # (Auto) 0.8x10^3/uL (0.0-1.1) Eosinophils # (Auto) 0.3x10^3/uL (0.0-0.7) Basophils # (Auto) 0.0x10^3/uL (0.0-0.2) Sodium Level 142mmol/L (136-145) Potassium Level 4.4mmol/L (3.5-5.1) Chloride Level 107mmol/L (98-107) Carbon Dioxide Level 25mmol/L (21-32) Anion Gap 10 (6-14) Blood Urea Nitrogen 30mg/dL (7-20) Creatinine 1.4mg/dL (0.6-1.0) Estimated GFR (Cockcroft-Gault) 37.9 Glucose Level 52mg/dL (70-99) Calcium Level 8.4mg/dL (8.5-10.1) Test 08/07/16 06:42 08/07/16 07:23 Glucose (Fingerstick) 52mg/dL (70-99) 128mg/dL (70-99) Medications Active Scripts Medications Dose Route/Sig Days Date Category Topamax (Topiramate) 100 Mg Tablet 1 Tab PO BID 08/03/16 Reported Sapna Gonzalez 10,000 Units Capsule (Lipase/Protease/Amylase) 1 Each Capsule.dr 1 Each PO BID 08/03/16 Reported Omeprazole 40 Mg Capsule.dr 1 Cap PO BID 08/03/16 Reported Welchol (Colesevelam Hcl) 625 Mg Tablet 625 Mg PO BID 08/03/16 Reported Humalog (Insulin Lispro) 100 Unit/1 Ml Cartridge 20 Unit SQ BIDAC 06/11/16 Reported Mirapex (Pramipexole Di-Hcl) 0.25 Mg Tablet 1 Mg PO HS 04/05/16 Reported Levothyroxine Sodium 100 Mcg Tablet 1 Tab PO DAILY 04/05/16 Reported Levemir (Insulin Detemir) 100 Unit/1 Ml Vial 30 Unit SQ BID-AM AND HS 04/05/16 Reported Demadex (Torsemide) 20 Mg Tablet 20 Mg PO DAILY 03/31/16 Rx Carbidopa-Levo Er 25-100 Tab (Carbidopa/Levodopa) 1 Each Tablet.er 1 Each PO BID 01/09/14 Reported Propranolol Hcl 60 Mg Tablet 60 Mg PO HS 01/09/14 Reported Bethanechol Chloride 25 Mg Tablet 25 Mg PO BID 01/09/14 Reported Klor-Con 10 (Potassium Chloride) 10 Meq Tablet.er 20 Meq PO BID 01/09/14 Reported Glipizide 10 Mg Tablet 10 Mg PO BID 01/09/14 Reported Lovastatin 40 Mg Tablet 40 Mg PO HS 01/09/14 Reported Impression . 1. Acute respiratory failure secondary to periods of apnea and obstructive sleep apnea. 2. Obstructive sleep apnea. The patient noncompliant. 3. Pseudotumor cerebri. 4. Hypothyroidism. 5. Morbid obesity, body mass index of 48. 6. Type 2 diabetes. Plan . 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 LOVENOX PROTONIX FOR PROPHYLAXIS DISCUSSED W PT, RN EMELYN SULTANA MD Aug 07, 2016 07:41
[2016-08-07] MEDS: VITS A & D/LANOLIN TOPICAL OINTMENT 56GM TUBE. TP SCH ×2 (09:00→14:00)
[2016-08-07] MEDS: COLESEVELAM HCL 625 MG TABLET PO SCH (09:13)
[2016-08-07] MEDS: acetaZOLAMIDE 250 MG TABLET. PO SCH (09:13)
[2016-08-07] MEDS: LIPASE/PROTEAS/AMYLAS 10/34/55 CAPSULE.DR. PO SCH ×2 (09:13→16:46)
[2016-08-07] MEDS: BETHANECHOL CHLORIDE 25 MG TABLET PO SCH (09:14)
[2016-08-07] MEDS: TOPIRAMATE 100 MG TABLET. PO SCH (09:14)
[2016-08-07] MEDS: CARBIDOPA/LEVODOPA CR 25/100MG TABLET.SA. PO SCH (09:14)
[2016-08-07] MEDS: ENOXAPARIN 40 MG/0.4 ML SYRINGE. SQ SCH (09:15)
[2016-08-07] MEDS: TOPIRAMATE 25 MG TABLET. PO SCH (10:43)
[2016-08-07 11:00] VITALS: BP 144/64
[2016-08-07] MEDS ORDERED: TOPI25TA32 PO (13:26)
[2016-08-07] MEDS ORDERED: ACET250T2 PO (13:27)
--- NOTE | 2016-08-07 13:35 | PDOC ---
PROGRESS NOTES Chief Complaint Chief Complaint FREIRE ASSESSMENT AND PLAN: 1. Respiratory failure: intubated last nite with '"code"; apnea. has severe AURY but refuses CPAP. extubated, resting comfortably , 6 walk test now. wants to go home with oxygen if needed, d/w over phone, DC instructions explained. 2. AURY: needs CPAP, d/w pt, out pt follow up. 3. Pseudotumor cerebri: elevated opening pressure at LP. on Topamax, Diamox, renal functions better. 4. Chronic headaches. 5. HTN: borderline. stable, continue current care. 6. DM: stable, decreased dose of Levemir 7. Hyperkalemia: resolved. 8. CKD3: stable creat 9. Thrombocytopenia: unclear etiology. improving. 10. GERD: PPI 11. Chronic pancreatitis. 12. Breast CA: s/p bilat mastectomies, s/p XRT to R with dermatitis, edema. Dr Cruz following 13. Obesity: dietary consult 14. Prophylaxis: Lovenox History of Present Illness History of Present Illness No fever no chills. no chest pain Vitals Vitals Vital Signs Date Time Temp Pulse Resp B/P Pulse Ox O2 Delivery O2 Flow Rate FiO2 08/07/16 11:00 97.5 66 20 144/64 98 Nasal Cannula 4.0 97.5 Physical Exam General: Alert, Oriented X3, Cooperative Heart: Normal S1, Normal S2 Lungs: Crackles Abdomen: Normal bowel sounds, Soft Extremities: Other (mild edema. ) Skin: No rashes Labs LABS Laboratory Tests Test 08/06/16 17:26 08/06/16 21:00 08/07/16 05:10 08/07/16 06:42 Glucose (Fingerstick) 75mg/dL (70-99) 67mg/dL (70-99) 52mg/dL (70-99) White Blood Count 6.1x10^3/uL (4.0-11.0) Red Blood Count 3.87x10^6/uL (3.50-5.40) Hemoglobin 9.8g/dL (12.0-15.5) Hematocrit 32.6% (36.0-47.0) Mean Corpuscular Volume 84fL (79-100) Mean Corpuscular Hemoglobin 25pg (25-35) Mean Corpuscular Hemoglobin Concent 30g/dL (31-37) Red Cell Distribution Width 18.3% (11.5-14.5) Platelet Count 73x10^3/uL (140-400) Neutrophils (%) (Auto) 72% (31-73) Lymphocytes (%) (Auto) 10% (24-48) Monocytes (%) (Auto) 12% (0-9) Eosinophils (%) (Auto) 5% (0-3) Basophils (%) (Auto) 1% (0-3) Neutrophils # (Auto) 4.4x10^3uL (1.8-7.7) Lymphocytes # (Auto) 0.6x10^3/uL (1.0-4.8) Monocytes # (Auto) 0.8x10^3/uL (0.0-1.1) Eosinophils # (Auto) 0.3x10^3/uL (0.0-0.7) Basophils # (Auto) 0.0x10^3/uL (0.0-0.2) Sodium Level 142mmol/L (136-145) Potassium Level 4.4mmol/L (3.5-5.1) Chloride Level 107mmol/L (98-107) Carbon Dioxide Level 25mmol/L (21-32) Anion Gap 10 (6-14) Blood Urea Nitrogen 30mg/dL (7-20) Creatinine 1.4mg/dL (0.6-1.0) Estimated GFR (Cockcroft-Gault) 37.9 Glucose Level 52mg/dL (70-99) Calcium Level 8.4mg/dL (8.5-10.1) Test 08/07/16 07:23 08/07/16 12:10 Glucose (Fingerstick) 128mg/dL (70-99) 106mg/dL (70-99) Assessment and Plan Assessmemt and Plan Problems Medical Problems: (1) Elevated intracranial pressure Status: Acute Problems: Comment Review of Relevant I have reviewed the following items halle (where applicable) has been applied. Labs Laboratory Tests Test 08/05/16 16:10 08/05/16 20:35 08/06/16 03:45 08/06/16 07:31 Glucose (Fingerstick) 155mg/dL (70-99) 123mg/dL (70-99) 97mg/dL (70-99) White Blood Count 4.7x10^3/uL (4.0-11.0) Red Blood Count 3.71x10^6/uL (3.50-5.40) Hemoglobin 9.5g/dL (12.0-15.5) Hematocrit 31.7% (36.0-47.0) Mean Corpuscular Volume 86fL (79-100) Mean Corpuscular Hemoglobin 26pg (25-35) Mean Corpuscular Hemoglobin Concent 30g/dL (31-37) Red Cell Distribution Width 18.7% (11.5-14.5) Platelet Count 69x10^3/uL (140-400) Neutrophils (%) (Auto) 73% (31-73) Lymphocytes (%) (Auto) 10% (24-48) Monocytes (%) (Auto) 12% (0-9) Eosinophils (%) (Auto) 5% (0-3) Basophils (%) (Auto) 1% (0-3) Neutrophils # (Auto) 3.4x10^3uL (1.8-7.7) Lymphocytes # (Auto) 0.5x10^3/uL (1.0-4.8) Monocytes # (Auto) 0.5x10^3/uL (0.0-1.1) Eosinophils # (Auto) 0.2x10^3/uL (0.0-0.7) Basophils # (Auto) 0.0x10^3/uL (0.0-0.2) Sodium Level 141mmol/L (136-145) Potassium Level 4.4mmol/L (3.5-5.1) Chloride Level 107mmol/L (98-107) Carbon Dioxide Level 27mmol/L (21-32) Anion Gap 7 (6-14) Blood Urea Nitrogen 34mg/dL (7-20) Creatinine 1.9mg/dL (0.6-1.0) Estimated GFR (Cockcroft-Gault) 26.6 Glucose Level 103mg/dL (70-99) Calcium Level 8.5mg/dL (8.5-10.1) Test 08/06/16 11:53 08/06/16 17:26 08/06/16 21:00 08/07/16 05:10 Glucose (Fingerstick) 107mg/dL (70-99) 75mg/dL (70-99) 67mg/dL (70-99) White Blood Count 6.1x10^3/uL (4.0-11.0) Red Blood Count 3.87x10^6/uL (3.50-5.40) Hemoglobin 9.8g/dL (12.0-15.5) Hematocrit 32.6% (36.0-47.0) Mean Corpuscular Volume 84fL (79-100) Mean Corpuscular Hemoglobin 25pg (25-35) Mean Corpuscular Hemoglobin Concent 30g/dL (31-37) Red Cell Distribution Width 18.3% (11.5-14.5) Platelet Count 73x10^3/uL (140-400) Neutrophils (%) (Auto) 72% (31-73) Lymphocytes (%) (Auto) 10% (24-48) Monocytes (%) (Auto) 12% (0-9) Eosinophils (%) (Auto) 5% (0-3) Basophils (%) (Auto) 1% (0-3) Neutrophils # (Auto) 4.4x10^3uL (1.8-7.7) Lymphocytes # (Auto) 0.6x10^3/uL (1.0-4.8) Monocytes # (Auto) 0.8x10^3/uL (0.0-1.1) Eosinophils # (Auto) 0.3x10^3/uL (0.0-0.7) Basophils # (Auto) 0.0x10^3/uL (0.0-0.2) Sodium Level 142mmol/L (136-145) Potassium Level 4.4mmol/L (3.5-5.1) Chloride Level 107mmol/L (98-107) Carbon Dioxide Level 25mmol/L (21-32) Anion Gap 10 (6-14) Blood Urea Nitrogen 30mg/dL (7-20) Creatinine 1.4mg/dL (0.6-1.0) Estimated GFR (Cockcroft-Gault) 37.9 Glucose Level 52mg/dL (70-99) Calcium Level 8.4mg/dL (8.5-10.1) Test 08/07/16 06:42 08/07/16 07:23 08/07/16 12:10 Glucose (Fingerstick) 52mg/dL (70-99) 128mg/dL (70-99) 106mg/dL (70-99) Laboratory Tests Test 08/06/16 17:26 08/06/16 21:00 08/07/16 05:10 08/07/16 06:42 Glucose (Fingerstick) 75mg/dL (70-99) 67mg/dL (70-99) 52mg/dL (70-99) White Blood Count 6.1x10^3/uL (4.0-11.0) Red Blood Count 3.87x10^6/uL (3.50-5.40) Hemoglobin 9.8g/dL (12.0-15.5) Hematocrit 32.6% (36.0-47.0) Mean Corpuscular Volume 84fL (79-100) Mean Corpuscular Hemoglobin 25pg (25-35) Mean Corpuscular Hemoglobin Concent 30g/dL (31-37) Red Cell Distribution Width 18.3% (11.5-14.5) Platelet Count 73x10^3/uL (140-400) Neutrophils (%) (Auto) 72% (31-73) Lymphocytes (%) (Auto) 10% (24-48) Monocytes (%) (Auto) 12% (0-9) Eosinophils (%) (Auto) 5% (0-3) Basophils (%) (Auto) 1% (0-3) Neutrophils # (Auto) 4.4x10^3uL (1.8-7.7) Lymphocytes # (Auto) 0.6x10^3/uL (1.0-4.8) Monocytes # (Auto) 0.8x10^3/uL (0.0-1.1) Eosinophils # (Auto) 0.3x10^3/uL (0.0-0.7) Basophils # (Auto) 0.0x10^3/uL (0.0-0.2) Sodium Level 142mmol/L (136-145) Potassium Level 4.4mmol/L (3.5-5.1) Chloride Level 107mmol/L (98-107) Carbon Dioxide Level 25mmol/L (21-32) Anion Gap 10 (6-14) Blood Urea Nitrogen 30mg/dL (7-20) Creatinine 1.4mg/dL (0.6-1.0) Estimated GFR (Cockcroft-Gault) 37.9 Glucose Level 52mg/dL (70-99) Calcium Level 8.4mg/dL (8.5-10.1) Test 08/07/16 07:23 08/07/16 12:10 Glucose (Fingerstick) 128mg/dL (70-99) 106mg/dL (70-99) Microbiology 08/03/16 Urine Culture - Final, Complete 08/03/16 Urine Culture Result 1 (PHILIPP) - Final, Complete 08/03/16 Antimicrobic Susceptibility - Final, Complete Medications Current Medications Morphine Sulfate 4 mg PRN Q15MIN PRN IV/SQ PAIN GREATER THAN 3/10; Start at 12:45; Stop 08/04/16 at 08:26; Status DC Ondansetron HCl (Zofran) 4 mg PRN Q8HRS PRN IV NAUSEA/VOMITING Last administered on 08/04/16 00:53; Start 08/03/16 at 12:45; Stop 08/04/16 at 08:26 ; Status DC Ondansetron HCl (Zofran) 4 mg PRN Q8HRS PRN IV NAUSEA/VOMITING; Start 08/03/16 at 13:45; Stop 08/04/16 at 08:25; Status DC Morphine Sulfate 4 mg PRN Q2HR PRN IV PAIN Last administered on 08/04/16 00:54 ; Start 08/03/16 at 13:45; Stop 08/04/16 at 13:44; Status DC Topiramate (Topamax) 125 mg BID PO Last administered on 08/03/16 21:56; Start 08/03/16 at 21:00; Stop 08/04/16 at 08:33; Status DC Acetazolamide (Diamox) 250 mg Q8HRS PO Last administered on 08/06/16 06:09; Start 08/03/16 at 22:00; Stop 08/06/16 at 10:34; Status DC Acetaminophen (Tylenol) 325 mg PRN Q6HRS PRN PO MILD PAIN / TEMP; Start at 16:15 Acetaminophen/ Hydrocodone Bitart (Lortab 5/325) 1 tab PRN Q6HRS PRN PO MODERATE TO SEVERE PAIN Last administered on 08/06/16 01:00; Start 08/03/16 at 16:15 Hydralazine HCl (Apresoline) 10 mg PRN Q4HRS PRN IVP ELEVATED BP, SEE COMMENTS ; Start 08/03/16 at 16:15 Ondansetron HCl (Zofran) 4 mg PRN Q8HRS PRN IV NAUSEA/VOMITING; Start 08/03/16 at 16:15 Albuterol Sulfate (Ventolin Neb Soln) 2.5 mg PRN Q4HRS PRN NEB SHORTNESS OF BREATH Last administered on 08/04/16 08:03; Start 08/03/16 at 16:15 Bethanechol Chloride (Urecholine) 25 mg BID PO Last administered on 08/07/16 09:14; Start 08/03/16 at 21:00 Carbidopa/Levodopa (Sinemet Cr) 1 tab.sa BID PO Last administered on 08/07/16 09:14; Start 08/03/16 at 21:00 Colesevelam HCl (Welchol) 625 mg BID PO Last administered on 08/07/16 09:13; Start 08/03/16 at 21:00 Levothyroxine Sodium (Synthroid) 100 mcg DAILY07 PO ; Start 08/04/16 at 07:00; Stop 08/04/16 at 07:50; Status DC Amylase/Lipase/ Protease (Zenpep 10,000) 1 cap BIDWMEALS PO Last administered on 08/07/16 09:13; Start 08/03/16 at 17:00 Pramipexole Dihydrochloride (miraPEX) 1 mg HS PO Last administered on 21:53; Start 08/03/16 at 21:00; Stop 08/04/16 at 13:25; Status DC Topiramate (Topamax) 100 mg BID PO ; Start 08/03/16 at 21:00; Stop 08/03/16 at 21:00; Status DC Torsemide (Demadex) 20 mg DAILY PO Last administered on 08/05/16 08:35; Start 08/04/16 at 09:00; Stop 08/05/16 at 14:18; Status DC Glipizide (Glucotrol) 10 mg BIDBFRMEAL PO Last administered on 08/06/16 17:49 ; Start 08/04/16 at 07:30; Stop 08/06/16 at 18:11; Status DC Insulin Detemir (Levemir) 30 units BID SQ Last administered on 08/04/16 09:38 ; Start 08/03/16 at 21:00; Stop 08/04/16 at 09:51; Status DC Insulin Aspart (Novolog) 20 units BIDBFRMEAL SQ ; Start 08/03/16 at 17:00; Status Cancel Atorvastatin Calcium (Lipitor) 10 mg QHS PO Last administered on 08/06/16 20: 55; Start 08/03/16 at 21:00 Pantoprazole Sodium (Protonix) 40 mg DAILYAC PO ; Start 08/04/16 at 07:30; Stop 08/04/16 at 07:50; Status DC Potassium Chloride (Klor-Con) 20 meq BIDWMEALS PO Last administered on 17:39; Start 08/03/16 at 17:00; Stop 08/04/16 at 10:25; Status DC Propranolol HCl (Inderal La) 60 mg QHS PO Last administered on 08/06/16 20:55 ; Start 08/03/16 at 21:00 Vitamin A/Vitamin D 1 cedrick 1 cedrick TID TP Last administered on 08/07/16 09:00; Start 08/03/16 at 17:00 Propofol (Diprivan) 100 ml @ As Directed STK-MED ONCE IV ; Start 08/04/16 at 06 :43; Stop 08/04/16 at 17:27; Status DC Etomidate (Amidate) 20 mg STK-MED ONCE IV ; Start 08/04/16 at 07:13; Stop at 07:14; Status DC Succinylcholine Chloride 200 mg 200 mg STK-MED ONCE .ROUTE ; Start 08/04/16 at 07:13; Stop 08/04/16 at 07:14; Status DC Levothyroxine Sodium/Sodium Chloride (Synthroid/Iv Sodium Chloride 0.9% 50ml) 5 ml @ 100 mls/hr DAILY IVP Last administered on 08/04/16 09:32; Start 08/04/16 at 09:00; Stop 08/04/16 at 17:27; Status DC Pantoprazole Sodium (Protonix Vial) 40 mg DAILY IVP Last administered on 08:38; Start 08/04/16 at 09:00; Stop 08/05/16 at 15:25; Status DC Chlorhexidine Gluconate (Peridex) 15 ml BID MM Last administered on 08/04/16 09:32; Start 08/04/16 at 09:00; Stop 08/05/16 at 13:58; Status DC Topiramate (Topamax) 100 mg BID PO Last administered on 08/07/16 09:14; Start 08/04/16 at 09:00 Topiramate (Topamax) 25 mg BID PO Last administered on 08/07/16 10:43; Start 08/04/16 at 09:00 Propofol 1000 mg 1,000 mg STK-MED ONCE IV ; Start 08/04/16 at 06:45; Stop at 08:50; Status DC Propofol (Diprivan) 100 ml @ 0 mls/hr CONT PRN IV SEE I/O RECORD; Start at 09:30; Stop 08/04/16 at 17:27; Status DC Insulin Detemir (Levemir) 40 units BID SQ Last administered on 08/06/16 09:00 ; Start 08/04/16 at 21:00; Stop 08/06/16 at 18:11; Status DC Losartan Potassium (Cozaar) 25 mg DAILY PO ; Start 08/05/16 at 09:00; Stop 08/05 at 14:21; Status DC Enoxaparin Sodium (Lovenox 40mg Syringe) 40 mg BID SQ Last administered on 08/07 09:15; Start 08/04/16 at 11:00 Sodium Polystyrene Sulfonate (Kayexalate) 15 gm 1X ONCE PO ; Start 08/04/16 at 10:15; Stop 08/04/16 at 10:16; Status DC Non-Formulary Medication 1 ea BIDAC SQ Last administered on 08/06/16 09:00; Start 08/04/16 at 16:30 Non-Formulary Medication 1 ea QODAY TP ; Start 08/06/16 at 09:00 Pramipexole Dihydrochloride (miraPEX) 1 mg HS PO Last administered on 20:55; Start 08/04/16 at 21:00 Gadobutrol (Gadavist) 10 mmol 1X ONCE IV Last administered on 08/04/16 16:40 ; Start 08/04/16 at 16:15; Stop 08/04/16 at 16:17; Status DC Gadobutrol (Gadavist) 7.5 mmol 1X ONCE IV Last administered on 08/04/16 16:40 ; Start 08/04/16 at 16:15; Stop 08/04/16 at 16:17; Status DC Levothyroxine Sodium (Synthroid) 100 mcg DAILY07 PO Last administered on 06:20; Start 08/04/16 at 18:00 Pantoprazole Sodium (Protonix) 40 mg DAILYAC PO Last administered on 08/07/16 06:20; Start 08/06/16 at 07:30 Acetazolamide 250 mg 250 mg BID PO Last administered on 08/07/16 09:13; Start 08/06/16 at 21:00 Sodium Chloride (Iv Sodium Chloride 0.9% 1000ml Bag) 1,000 ml @ 75 mls/hr [id number] IV Last administered on 08/07/16 00:20; Start 08/06/16 at 11:00 Insulin Detemir (Levemir) 20 units [id number] SQ Last administered on 08/06/16 18: 20; Start 08/06/16 at 18:30 Dextrose (Dextrose 50%-Water Syringe) 25 gm STK-MED ONCE IV ; Start 08/07/16 at 06:45; Stop 08/07/16 at 06:46; Status DC Active Scripts Active Demadex (Torsemide) 20 Mg Tablet 20 Mg PO DAILY Reported Topamax (Topiramate) 100 Mg Tablet 1 Tab PO BID Sapna Gonzalez 10,000 Units Capsule (Lipase/Protease/Amylase) 1 Each Capsule.dr 1 Each PO BID Omeprazole 40 Mg Capsule.dr 1 Cap PO BID Welchol (Colesevelam Hcl) 625 Mg Tablet 625 Mg PO BID Humalog (Insulin Lispro) 100 Unit/1 Ml Cartridge 20 Unit SQ BIDAC Mirapex (Pramipexole Di-Hcl) 0.25 Mg Tablet 1 Mg PO HS Levothyroxine Sodium 100 Mcg Tablet 1 Tab PO DAILY Levemir (Insulin Detemir) 100 Unit/1 Ml Vial 30 Unit SQ BID-AM AND HS Carbidopa-Levo Er 25-100 Tab (Carbidopa/Levodopa) 1 Each Tablet.er 1 Each PO BID Propranolol Hcl 60 Mg Tablet 60 Mg PO HS Bethanechol Chloride 25 Mg Tablet 25 Mg PO BID Klor-Con 10 (Potassium Chloride) 10 Meq Tablet.er 20 Meq PO BID Glipizide 10 Mg Tablet 10 Mg PO BID Lovastatin 40 Mg Tablet 40 Mg PO HS Vitals/I & O Vital Sign - Last 24 Hours 08/06/16 08/06/16 08/06/16 08/06/16 15:00 19:54 20:00 20:55 Temp 96.8 97.9 96.8 97.9 Pulse 66 76 76 Resp 18 20 B/P 112/48 116/51 115/51 Pulse Ox 96 100 O2 Delivery Nasal Cannula Nasal Cannula Nasal Cannula O2 Flow Rate 4.0 4.0 3.0 08/06/16 08/06/16 08/07/16 08/07/16 22:23 23:09 01:10 03:05 Temp 97.9 96.8 97.9 96.8 Pulse 77 69 Resp 20 20 B/P 111/50 147/68 Pulse Ox 98 98 99 O2 Delivery BiPAP/CPAP Nasal Cannula BiPAP/CPAP Nasal Cannula O2 Flow Rate 4.0 4.0 08/07/16 08/07/16 08/07/16 08/07/16 03:07 07:00 08:00 11:00 Temp 97.9 97.5 97.9 97.5 Pulse 73 66 Resp 20 20 B/P 146/61 144/64 Pulse Ox 98 99 98 O2 Delivery BiPAP/CPAP Nasal Cannula Room Air Nasal Cannula O2 Flow Rate 4.0 4.0 Intake and Output 08/06/16 08/06/16 08/07/16 15:00 23:00 07:00 Intake Total 500 ml 120 ml Output Total 900 ml 525 ml Balance -400 ml -405 ml HERMAN RICHARD MD Aug 07, 2016 13:35
[2016-08-07 14:59] VITALS: BP 144/70
[2016-08-07] MEDS ORDERED: FUROSEMIDE 20 MG/2 ML VIAL. IVP ONE (16:15)
== END 2016-08-07 18:02 | disposition home or self-care (01) | DRG 102 ==
LOC: ER 11:01 → 4 NORTH 13:00 → 1 WEST ICU 08-04 06:31 → 6 SOUTH 08-05 03:53
PROVIDERS: ADMIT Internal Medicine; ATTEND Internal Medicine
PROC: 5A12012 Performance of Cardiac Output, Single, Manual (ICD-10-PCS; principal; 2016-08-04)
PROC: 5A09457 Assistance with Respiratory Ventilation, 24-96 Consecutive Hours, Continuous Positive Airway Pressure (ICD-10-PCS; 2016-08-04)
DX: G93.2 Benign intracranial hypertension (principal); J96.01 Acute respiratory failure with hypoxia; L03.313 Cellulitis of chest wall; K86.1 Other chronic pancreatitis; Z68.42 Body mass index [BMI] 45.0-49.9, adult; E11.628 Type 2 diabetes mellitus with other skin complications; F32.9 Major depressive disorder, single episode, unspecified; K57.90 Diverticulosis of intestine, part unspecified, without perforation or abscess without bleeding; M54.5 Low back pain; K21.9 Gastro-esophageal reflux disease without esophagitis; L30.9 Dermatitis, unspecified; N18.3 Chronic kidney disease, stage 3 (moderate); Y84.2 Radiological procedure and radiotherapy as the cause of abnormal reaction of the patient, or of later complication, without mention of misadventure at the time of the procedure; R16.1 Splenomegaly, not elsewhere classified; C50.912 Malignant neoplasm of unspecified site of left female breast; D69.59 Other secondary thrombocytopenia; E03.9 Hypothyroidism, unspecified; E11.22 Type 2 diabetes mellitus with diabetic chronic kidney disease; E11.65 Type 2 diabetes mellitus with hyperglycemia; E66.01 Morbid (severe) obesity due to excess calories; E78.5 Hyperlipidemia, unspecified; E87.5 Hyperkalemia; G47.33 Obstructive sleep apnea (adult) (pediatric); I12.9 Hypertensive chronic kidney disease with stage 1 through stage 4 chronic kidney disease, or unspecified chronic kidney disease; I25.2 Old myocardial infarction; Z17.0 Estrogen receptor positive status [ER+]; Z80.3 Family history of malignant neoplasm of breast; Z86.73 Personal history of transient ischemic attack (TIA), and cerebral infarction without residual deficits; Z87.11 Personal history of peptic ulcer disease; Z90.13 Acquired absence of bilateral breasts and nipples; Z91.19 Patient's noncompliance with other medical treatment and regimen; Z92.3 Personal history of irradiation; Z99.81 Dependence on supplemental oxygen; Z88.2 Allergy status to sulfonamides; Z88.8 Allergy status to other drugs, medicaments and biological substances; Z88.6 Allergy status to analgesic agent; Z91.030 Bee allergy status; Z84.1 Family history of disorders of kidney and ureter; Z90.49 Acquired absence of other specified parts of digestive tract; Z90.710 Acquired absence of both cervix and uterus; Z90.89 Acquired absence of other organs
CPT/HCPCS: 36415; 36600; 62270; 70450; 70546; 71010; 80048; 80053; 81001; 82805; 82945; 82947; 83690; 84132; 84157; 84484; 85027; 85610; 87071; 87075; 87086; 87102; 87186; 87205; 87252; 87529; 89051; 93005; 94250; 94620; 94640; 94660; A9585; C9113; G0379; J1650; J1815; J2270; J2405; J2704; J7030; J7042; 99285-25

== ENCOUNTER 2016-08-09 17:10 | Inpatient (IN) | payer MEDICARE, BC, OTHER ==
[~2016-08-09] VITALS: Ht 152.4 cm; Wt 117.6 kg
[~2016-08-09 17:10] MED LIST changes: +ACET250T2 PO; +TOPI100T39 PO; +TOPI25TA32 PO
[2016-08-09 18:55] LABS: BASO % 0 % (0-3); EOS % 2 % (0-3); HEMATOCRIT 34.3 % (36.0-47.0); HEMOGLOBIN 10.2 g/dL (12.0-15.5); LYMPH # 0.5 x10^3/uL (1.0-4.8); LYMPH % 6 % (24-48); MEAN CORPUSCULAR HEMOGLOBIN 26 pg (25-35); MEAN CORPUSCULAR HGB CONC 30 g/dL (31-37); MEAN CORPUSCULAR VOLUME 86 fL (79-100); MONO % 15 % (0-9); NEUT % 77 % (31-73); PLATELET COUNT 77 x10^3/uL (140-400); RED CELL DISTRIBUTION WIDTH 18.8 % (11.5-14.5); WHITE BLOOD COUNT 8.5 x10^3/uL (4.0-11.0)
--- NOTE | 2016-08-09 18:59 | EKG ---
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
[2016-08-09 19:43] LABS: CALCIUM 8.6 mg/dL (8.5-10.1); CREATININE 1.3 mg/dL (0.6-1.0); GFR 41.2; MAGNESIUM 2.2 mg/dL (1.8-2.4); POTASSIUM 4.7 mmol/L (3.5-5.1)
[2016-08-09 20:05] LABS: HCO3 ABG 25 mmol/L (21-28); PO2 ABG 97 mmHg (65-108); SAT O2 ABG 96 % (92-99)
[2016-08-09 20:06] LABS: PCO2 ABG 70 mmHg (35-46); PH ABG 7.17 (7.35-7.45)
--- NOTE | 2016-08-09 20:23 | ACF ---
Admission Forms Criteria RESPIRATORY FAILURE [facility] Clinical Indications for Admission to Inpatient Care (Place 'X' for any and all applicable criteria): Hospital admission is needed for appropriate care of the patient because of acute respiratory failure or insufficiency as indicated by ANY ONE of the following(1)(2)(3)(4)(5)(6)(7)(8): [X]I. Mechanical ventilation needed (acute invasive or noninvasive) [ ]II. Severe ventilation deficit as indicated by ANY ONE of the following (9) [ ]a) Respiratory acidosis (pH less than 7.32 and partial pressure of carbon dioxide greater than 40 mm Hg (5.3 kPa)) [ ]b) Partial pressure of carbon dioxide greater than 44 mm Hg (5.9 kPa ) (new) [ ]c) Airflow measurements less than 25% of predicted (eg, peak expiratory flow rate less than 100 L/minute) [ ]d) Forced vital capacity less than 15 mL/kg of ideal body weight, or 50% decrease in vital capacity from baseline [ ]III. Noncardiac pulmonary edema not resolving with rapid emergency treatment (8) [ ]IV. Severe respiratory distress as indicated by ANY ONE of the following: [ ]a) Severe tachypnea (respiratory rate greater than 30, greater than 45 for 6-month-old, greater than 60 for ) [ ]b) Severe hypoxemia (partial pressure of oxygen less than 50 mm Hg ( 6.7 kPa) on greater than 50% oxygen or partial pressure of oxygen to FIO2 ratio less than 200) [ ]c) Mental status deterioration from respiratory disease [ ]V. Airway obstruction or inadequate protection [A](10)(11) The original [employer] content created by [employer] has been revised. The portions of the content which have been revised are identified through the use of italic text or in bold, and [employer] has neither reviewed nor approved the modified material. All other unmodified content is copyright [employer]. Please see references footnoted in the original [employer] edition 2016 Admission Criteria Met?: Yes SHANTA CROWELL Aug 09, 2016 20:23
--- NOTE | 2016-08-09 20:37 | PHYS DOC ---
Past Medical History Past Medical History: Cancer, Diabetes-Type II, GERD, Hypothyroid, Pancreatitis , Other Additional Past Medical Histor: VERTIGO,PARKONISM,PSEUDO TUMOR CEREBI, breast cancer Past Surgical History: Cholecystectomy, Hysterectomy, Tonsillectomy, Other Additional Past Surgical Histo: SEE ATTACHED SHEET,MULTIPLE SURGERIES, BX MASTECTOMY 04/27/2016 Alcohol Use: None Drug Use: None Adult General Chief Complaint Chief Complaint: OTHER COMPLAINTS HPI HPI Patient is a 66 year old female with complex PMH who presents with for altered mental status. Since being home over the past few days, she has gradually decreasing level of consciousness and generalized weakness. states she has been full assist over the past 1-1/2 day. This has been progressive in onset and worsening daily. She has pseudotumor cerebri as well as obstructive sleep apnea that are suboptimally managed. During recent hospitalization, she had likely a respiratory arrest due to obstructive sleep apnea. She was also placed on acetazolamide and recommended to have a shunt, however she does not want any invasive procedures. She does not like wearing CPAP at home or in the hospital. She was sent home with oxygen concentrator for chronic 2 L nasal cannula use. She has been taking medications as prescribed, however continues to not use CPAP at home ( stated she no longer has a CPAP at home and is scheduled for a sleep study). She denies cough , dyspnea, fever or chills, nausea or vomiting, headache, dizziness, palpitations, abdominal pain, changes in chronic lower extremity edema. Review of Systems Review of Systems Constitutional: Denies fever or chills [] Eyes: Denies change in visual acuity, redness, or eye pain [] HENT: Denies nasal congestion or sore throat [] Respiratory: Denies cough or shortness of breath [] Cardiovascular: No additional information not addressed in HPI [] GI: Denies abdominal pain, nausea, vomiting, bloody stools or diarrhea [] : Denies dysuria or hematuria [] Musculoskeletal: Denies back pain or joint pain [] Integument: Denies rash or skin lesions [] Neurologic: Denies headache, focal weakness or sensory changes [] Endocrine: Denies polyuria or polydipsia [] Allergies Allergies Allergies Coded Allergies Type Severity Reaction Last Updated Verified Sulfa (Sulfonamide Antibiotics) Allergy Severe 04/27/16 Yes insulin aspart Allergy Severe ANAPHYLAXIS 08/06/16 Yes venom-honey bee Allergy Severe Anaphylaxis 04/27/16 Yes escitalopram Allergy Intermediate 04/27/16 Yes lisinopril Allergy Intermediate Rash 04/27/16 Yes metformin Allergy Intermediate Diarrhea 04/27/16 Yes mold Allergy Intermediate 04/27/16 Yes ranitidine Allergy Intermediate Nausea and Vomiting 04/27/16 Yes sertraline Allergy Intermediate 04/27/16 Yes Physical Exam Physical Exam Constitutional: Well developed, well nourished, no acute distress, non-toxic appearance. [] HENT: Normocephalic, atraumatic, bilateral external ears normal, oropharynx moist, no oral exudates, nose normal. [] Eyes: PERRLA, EOMI. [] Neck: Normal range of motion, no tenderness, supple, no stridor. [] Cardiovascular:Heart rate regular rhythm [] Lungs & Thorax: Bilateral breath sounds clear to auscultation [] Abdomen: Bowel sounds normal, soft, no tenderness. [] Skin: Warm, dry, no erythema, no rash. [] Back: No tenderness, no CVA tenderness. [] Extremities: No tenderness, ROM intact, bilateral 3+ lower extremity edema. [] Neurologic: Drowsy, slow to respond, oriented X 3, normal motor function, normal sensory function, no focal deficits noted, cranial nerves II through XII intact. [] Psychologic: Affect normal, judgement normal, mood normal. [] Current Patient Data Vital Signs Vital Signs Date Time Temp Pulse Resp B/P Pulse Ox O2 Delivery O2 Flow Rate FiO2 08/09/16 19:55 98 BiPAP/CPAP 08/09/16 19:45 70 142/62 08/09/16 18:45 22 2 08/09/16 17:23 97 97.0 Lab Values Laboratory Tests Test 08/09/16 17:50 08/09/16 18:40 White Blood Count 8.5x10^3/uL (4.0-11.0) Red Blood Count 4.00x10^6/uL (3.50-5.40) Hemoglobin 10.2g/dL (12.0-15.5) L Hematocrit 34.3% (36.0-47.0) L Mean Corpuscular Volume 86fL (79-100) Mean Corpuscular Hemoglobin 26pg (25-35) Mean Corpuscular Hemoglobin Concent 30g/dL (31-37) L Red Cell Distribution Width 18.8% (11.5-14.5) H Platelet Count 77x10^3/uL (140-400) L Neutrophils (%) (Auto) 77% (31-73) H Lymphocytes (%) (Auto) 6% (24-48) L Monocytes (%) (Auto) 15% (0-9) H Eosinophils (%) (Auto) 2% (0-3) Basophils (%) (Auto) 0% (0-3) Neutrophils # (Auto) 6.5x10^3uL (1.8-7.7) Lymphocytes # (Auto) 0.5x10^3/uL (1.0-4.8) L Monocytes # (Auto) 1.2x10^3/uL (0.0-1.1) H Eosinophils # (Auto) 0.2x10^3/uL (0.0-0.7) Basophils # (Auto) 0.0x10^3/uL (0.0-0.2) Sodium Level 142mmol/L (136-145) Potassium Level 4.7mmol/L (3.5-5.1) Chloride Level 107mmol/L (98-107) Carbon Dioxide Level 25mmol/L (21-32) Anion Gap 10 (6-14) Blood Urea Nitrogen 28mg/dL (7-20) H Creatinine 1.3mg/dL (0.6-1.0) H Estimated GFR (Cockcroft-Gault) 41.2 Glucose Level 173mg/dL (70-99) H Calcium Level 8.6mg/dL (8.5-10.1) Magnesium Level 2.2mg/dL (1.8-2.4) O2 Saturation 96% (92-99) Arterial Blood pH 7.17 (7.35-7.45) *L Arterial Blood pCO2 at Patient Temp 70mmHg (35-46) *H Arterial Blood pO2 at Patient Temp 97mmHg (65-108) Arterial Blood HCO3 25mmol/L (21-28) Arterial Blood Base Excess -5mmol/L (-3-3) L FiO2 28.0 Laboratory Tests 08/09/16 17:50 Laboratory Tests 08/09/16 17:50 EKG EKG EKG as interpreted by me as normal sinus rhythm, rate 77, no ST-T changes, normal intervals, no ectopy Course & Med Decision Making Course & Med Decision Making Pertinent Labs and Imaging studies reviewed. (See chart for details) She has hypercarbic respiratory acidosis likely secondary to uncontrolled obstructive sleep apnea. I suspect her symptoms are related to CO2 narcosis. After long discussion with family about goals of care, patient and have notified provider that she is DNR/DNI (per advanced directive) and they do not want any invasive procedures. They would like to treat reversible causes and provide good quality life barring current medical conditions. I discussed the importance of having palliative care involved, and family is amenable to this. After discussion, she has agreed to wear BiPAP for current medical condition. I have discussed the case with Dr. An, who will admit. Pulmonary and palliative care consults placed. Antonio Disclaimer Dragon Disclaimer This electronic medical record was generated, in whole or in part, using a voice recognition dictation system. Departure Departure Impression: Primary Impression: Acute and chronic respiratory failure Disposition: ADMITTED INPATIENT Condition: CRITICAL Referrals: BETTY HAMMOND MD (PCP) Alva CASE MD Aug 09, 2016 20:37
[2016-08-09] MEDS ORDERED: ONDANSETRON PF 4 MG/2 ML VIAL. IV PRN (20:45)
[2016-08-09] MEDS ORDERED: fentaNYL PF VIAL 100 MCG/2 ML VIAL IV PRN (20:45)
[2016-08-09] MEDS ORDERED: ACETAMINOPHEN 325 MG TABLET. PO PRN (20:45)
[2016-08-09 21:17] LABS: HCO3 ABG 22 mmol/L (21-28); PCO2 ABG 57 mmHg (35-46); PH ABG 7.21 (7.35-7.45); PO2 ABG 88 mmHg (65-108); SAT O2 ABG 96 % (92-99)
[2016-08-09 21:46] VITALS: BP 152/64
[2016-08-09 22:41] VITALS: BP 105/50
[2016-08-10 02:09] VITALS: BP 162/72
[2016-08-10 07:31] VITALS: BP 230/99
[2016-08-10 08:00] LABS: HCO3 ABG 25 mmol/L (21-28); PO2 ABG 77 mmHg (65-108); SAT O2 ABG 93 % (92-99)
[2016-08-10 08:01] LABS: PCO2 ABG 64 mmHg (35-46)
[2016-08-10] MEDS ORDERED: SODIUM BICARB ADULT 8.4% 50 MEQ/50 ML DISP.SYRIN. IV ONE ×2 (08:15→08:45)
[2016-08-10] MEDS ORDERED: hydrALAZINE 20 MG/ML VIAL. IVP PRN (08:15)
[2016-08-10 08:55] LABS: BILIRUBIN,URINE NEGATIVE (NEG); GLUCOSE,URINE NEGATIVE (NEG); NITRITE,URINE NEGATIVE (NEG); PROTEIN,URINE 100 mg/dL (NEG-TRACE)
[2016-08-10 09:07] LABS: BACTERIA,URINE MANY /HPF (0-FEW); RBC,URINE 0 /HPF (0-2); SQUAMOUS EPITHELIAL CELL,UR MANY /LPF; WBC,URINE TNTC /HPF (0-4)
--- NOTE | 2016-08-10 09:42 | PDOC ---
Provider Note Provider Note dictated ELLEN LAKE MD Aug 10, 2016 09:42
[2016-08-10 10:07] LABS: HCO3 ABG 23 mmol/L (21-28); PCO2 ABG 39 mmHg (35-46); PH ABG 7.38 (7.35-7.45); PO2 ABG 114 mmHg (65-108); SAT O2 ABG 98 % (92-99)
[2016-08-10 10:14] LABS: FIO2 ABG 35
[2016-08-10] MEDS ORDERED: DEXTROSE 50% 25 GM / 50ML DISP.SYRIN. IV PRN ×2 (10:15→13:00)
[2016-08-10] MEDS ORDERED: ONDANSETRON PF 4 MG/2 ML VIAL. IV PRN (10:15)
[2016-08-10] MEDS ORDERED: ACETAMINOPHEN 325 MG TABLET. PO PRN (10:15)
--- NOTE | 2016-08-10 10:24 | CONS ---
DATE OF CONSULTATION: ATTENDING PHYSICIAN: Dr. An. REASON FOR CONSULTATION: Respiratory failure. HISTORY OF PRESENT ILLNESS: The patient is a 66-year-old female with history of breast cancer. No significant history of tobacco use. She has underlying morbid obesity and hypothyroidism. She has chronic renal insufficiency as well. She was brought into the hospital complaining of some altered mental status. She had generalized weakness. She has some shortness of breath as well. There is a significant increase in abdominal girth and some lower extremity edema as well. She has history of pseudotumor cerebri as well as obstructive sleep apnea that is not effectively treated. She had prior hospitalization due to respiratory ____ possible central apnea. She was brought into the hospital with the above complaints. An arterial blood gases last night, was called to me, which was abnormal with a pH of 7.17, pCO2 of 70 and a pO2 of 97, bicarbonate of 25. This was on 28% FiO2. At that time, she was awake, following commands. I placed on BiPAP. Another blood gases showed a pH of 7.21, pCO2 of 57, pO2 88. This morning is 7.20, pCO2 of 64 and a pO2 of 77. Bicarb 25. She is fully awake, following commands. Chest x-ray has not been ordered yet. She does have a mild cough. No fever, no chills, no chest pain. She does describe increasing abdominal girth. She states that she wants to end this and does not want BiPAP and wants to be kept comfortable. We have informed her was on this way. PAST MEDICAL HISTORY: History of breast cancer status post recent radiation, history of hyperthyroidism, history of pancreatitis, vertigo, Parkinson's, pseudotumor cerebri, history of possible central sleep apnea.. PAST SURGICAL HISTORY: Including cholecystectomy, hysterectomy, and tonsillectomy. ALLERGIES: Multiple, which were all reviewed. REVIEW OF SYSTEMS: A 10-point system obtained. Pertinent positives discussed in history of present illness, otherwise noncontributory. All systems that were negative were reviewed as well. SOCIAL HISTORY: Denies tobacco history. FAMILY HISTORY: Noncontributory to lungs. PHYSICAL EXAMINATION: GENERAL: She is awake, following commands. VITAL SIGNS: Blood pressure markedly elevated from 214 systolic, 230 systolic. Afebrile, pulse ox is 94% on 35% FIO2. HEENT: Sclerae nonicteric. NECK: Supple. LUNGS: Diminished breath sounds. CARDIOVASCULAR: Regular rate. ABDOMEN: Markedly obese and has subcutaneous edema. EXTREMITIES: With bilateral pitting edema. LABORATORY DATA: Reviewed. ABGs as discussed in history of present illness. BUN is 28 and creatinine 1.3. White cell count 8.5, hemoglobin 10.2, and platelets are 77. IMPRESSION: 1. Acute respiratory failure. Arterial blood gasses showed a mixed picture of combined respiratory and metabolic acidosis. She has been on BiPAP, the respiratory component did improve but the PH is still acidotic and I suspect we are dealing with a metabolic component as well. I have given her 2 amps of bicarbonate and another blood gases are pending. 2. Obtain chest x-ray to rule out any congestive heart failure. 3. History of breast cancer, status post radiation. 4. Underlying morbid obesity with generalized anasarca. 5. Renal insufficiency. RECOMMENDATIONS: 1. Continue with present BiPAP and follow ABGs after 2 amps of bicarbonate. 2. The patient has indicated she wants to end this and wants to be kept comfortable and does not want BiPAP. The nursing staff has been informed her and will consult palliative care as well. 3. Continue supportive care. 4. Follow chest x-ray and make further recommendations after review of film. 5. Avoid narcotics unless she goes comfort care. 6. Discussed with RN. ELLEN LAKE MD DR: PEEWEE/elina JOB#: [id number] / [id number] PRASANNA
[2016-08-10 10:44] VITALS: BP 205/88
[2016-08-10] MEDS ORDERED: LABETALOL 20 MG/4 ML DISP.SYRIN. IVP ONE (11:15)
[2016-08-10] MEDS: TRAMADOL 50 MG TABLET. PO PRN ×2 (11:29→20:46)
[2016-08-10] MEDS: CARBIDOPA/LEVODOPA CR 25/100MG TABLET.SA. PO SCH ×2 (12:24→20:49)
[2016-08-10] MEDS: acetaZOLAMIDE 250 MG TABLET. PO SCH ×2 (12:24→20:46)
[2016-08-10] MEDS: LIPASE/PROTEAS/AMYLAS 10/34/55 CAPSULE.DR. PO SCH ×2 (12:24→20:50)
[2016-08-10] MEDS: LEVOTHYROXINE 100 MCG TABLET PO SCH (12:24)
[2016-08-10] MEDS: BETHANECHOL CHLORIDE 25 MG TABLET PO SCH ×2 (12:24→20:48)
[2016-08-10] MEDS: COLESEVELAM HCL 625 MG TABLET PO SCH ×2 (12:25→20:50)
--- NOTE | 2016-08-10 13:03 | PDOC1 ---
History and Physical Date of Admission Date of Admission 08/09/16 Identification/Chief Complaint Chief Complaint sob Problems: Source Source: Chart review, Patient History of Present Illness History of Present Illness HPI HPI Patient is a 66 year old female with complex PMH who presents with for altered mental status. pt was here last month. She has severe copd, however, she REFUSED bipap ALWAYS. ABG SHOWED resp acidosis and pco2 RETention. pt was on bipap overnight in the ER, but kept saying no BIPAP AND "W[facility] DNR [facility]". Past Medical History Cardiovascular: HTN, Hyperlipidemia Pulmonary: Other GI: Diverticulosis, Peptic Ulcer disease, Other Heme/Onc: Other Hepatobiliary: Other Psych: Depression Infectious disease: No pertinent hx Endocrine: Diabetes Past Surgical History Past Surgical History: Other Family History Family History: No Significant, Kidney Disease Social History Smoke: No ALCOHOL: none Drugs: None Current Problem List Problem List Problems Medical Problems: (1) Acute and chronic respiratory failure Status: Acute (2) Altered mental status Status: Acute Current Medications Current Medications Current Medications Medications (Trade) Dose Ordered Sig/Haim Start Time Stop Time Status Last Admin Dose Admin Acetaminophen (Tylenol) 650 mg PRN Q6HRS PRN 08/10/16 10:15 Acetazolamide (Diamox) 250 mg BID 08/10/16 11:00 08/10/16 12:24 250 MG Amylase/Lipase/ Protease (Zenpep 10,000) 1 cap BID 08/10/16 11:00 08/10/16 12:24 1 CAP Atorvastatin Calcium (Lipitor) 10 mg QHS 08/10/16 21:00 Bethanechol Chloride (Urecholine) 25 mg BID 08/10/16 11:00 08/10/16 12:24 25 MG Carbidopa/Levodopa (Sinemet Cr) 1 tab.sa BID 08/10/16 11:00 08/10/16 12:24 1 TAB.SA Colesevelam HCl (Welchol) 625 mg BID 08/10/16 11:00 08/10/16 12:25 625 MG Dextrose (Dextrose 50%-Water Syringe) 12.5 gm PRN Q15MIN PRN 08/10/16 10:15 Fentanyl Citrate (Fentanyl 2ml Vial) 50 mcg PRN Q2HR PRN 08/09/16 20:45 08/10/16 20:44 Glipizide (Glucotrol) 10 mg BIDBFRMEAL 08/10/16 16:30 Hydralazine HCl (Apresoline) 10 mg PRN Q4HRS PRN 08/10/16 08:15 08/10/16 08:22 10 MG Insulin Detemir (Levemir) 10 units QHS 08/10/16 21:00 Labetalol HCl (Normodyne) 20 mg 1X ONCE 08/10/16 11:15 08/10/16 11:16 DC 08/10/16 11:38 20 MG Levothyroxine Sodium (Synthroid) 100 mcg DAILY 08/10/16 11:00 08/10/16 12:24 100 MCG Ondansetron HCl (Zofran) 4 mg PRN Q6HRS PRN 08/10/16 10:15 Pantoprazole Sodium (Protonix) 40 mg DAILYAC 08/11/16 07:30 Potassium Chloride (Klor-Con) 20 meq BIDWMEALS 08/10/16 17:00 Pramipexole Dihydrochloride (miraPEX) 1 mg HS 08/10/16 21:00 Propranolol HCl (Inderal La) 60 mg DAILY 08/11/16 09:00 Sodium Bicarbonate 50 meq 1X ONCE 08/10/16 08:45 08/10/16 08:47 DC 08/10/16 08:46 50 MEQ Topiramate (Topamax) 100 mg BID 08/10/16 21:00 UNV Torsemide (Demadex) 20 mg DAILY 08/11/16 09:00 Tramadol HCl (Ultram) 50 mg PRN Q6HRS PRN 08/10/16 11:15 08/10/16 11:29 50 MG Allergies Allergies Allergies Coded Allergies Type Severity Reaction Last Updated Verified Sulfa (Sulfonamide Antibiotics) Allergy Severe 04/27/16 Yes insulin aspart Allergy Severe ANAPHYLAXIS 08/06/16 Yes venom-honey bee Allergy Severe Anaphylaxis 04/27/16 Yes escitalopram Allergy Intermediate 04/27/16 Yes lisinopril Allergy Intermediate Rash 04/27/16 Yes metformin Allergy Intermediate Diarrhea 04/27/16 Yes mold Allergy Intermediate 04/27/16 Yes ranitidine Allergy Intermediate Nausea and Vomiting 04/27/16 Yes sertraline Allergy Intermediate 04/27/16 Yes ROS Review of System CONSTITUTIONAL: No fever or chills EYES: No recent changes SKIN: No rash or itching CARDIOVASCULAR: No chest pain, syncope, palpitations, or edema RESPIRATORY: No SOB or cough GASTROINTESTINAL: No nausea, vomiting or abdominal pain NEUROLOGICAL: No headaches or weakness ENDOCRINE: No cold or heat intolerance GENITOURINARY: No urgency or frequency of urination MUSCULOSKELETAL: No back pain or joint pain LYMPHATICS: No enlarged lymph nodes PSYCHIATRIC: No anxiety or depression Physical Exam Physical Exam GEN.: No apparent distress. on bipap, mild sob. Alert and oriented. HEENT: Head is normocephalic, atraumatic NECK: Supple. LUNGS: Clear to auscultation. HEART: RRR, S1, S2 present. Peripheral pulses intact ABDOMEN: Soft, nontender. Positive bowel sounds. EXTREMITIES: Without any cyanosis. bl leg 2+ edema NEUROLOGIC: Normal speech, normal tone PSYCHIATRIC: Normal affect, normal mood. SKIN: No ulcerations Vitals Vitals Vital Signs Date Time Temp Pulse Resp B/P Pulse Ox O2 Delivery O2 Flow Rate FiO2 08/10/16 12:29 96 4.0 08/10/16 11:38 106 191/88 08/10/16 11:29 Nasal Cannula 08/10/16 10:46 98.1 98.1 08/10/16 10:44 22 Labs Labs Laboratory Tests Test 08/09/16 17:50 08/09/16 18:40 08/09/16 20:40 08/09/16 21:15 White Blood Count 8.5x10^3/uL (4.0-11.0) Red Blood Count 4.00x10^6/uL (3.50-5.40) Hemoglobin 10.2g/dL (12.0-15.5) Hematocrit 34.3% (36.0-47.0) Mean Corpuscular Volume 86fL (79-100) Mean Corpuscular Hemoglobin 26pg (25-35) Mean Corpuscular Hemoglobin Concent 30g/dL (31-37) Red Cell Distribution Width 18.8% (11.5-14.5) Platelet Count 77x10^3/uL (140-400) Neutrophils (%) (Auto) 77% (31-73) Lymphocytes (%) (Auto) 6% (24-48) Monocytes (%) (Auto) 15% (0-9) Eosinophils (%) (Auto) 2% (0-3) Basophils (%) (Auto) 0% (0-3) Neutrophils # (Auto) 6.5x10^3uL (1.8-7.7) Lymphocytes # (Auto) 0.5x10^3/uL (1.0-4.8) Monocytes # (Auto) 1.2x10^3/uL (0.0-1.1) Eosinophils # (Auto) 0.2x10^3/uL (0.0-0.7) Basophils # (Auto) 0.0x10^3/uL (0.0-0.2) Sodium Level 142mmol/L (136-145) Potassium Level 4.7mmol/L (3.5-5.1) Chloride Level 107mmol/L (98-107) Carbon Dioxide Level 25mmol/L (21-32) Anion Gap 10 (6-14) Blood Urea Nitrogen 28mg/dL (7-20) Creatinine 1.3mg/dL (0.6-1.0) Estimated GFR (Cockcroft-Gault) 41.2 Glucose Level 173mg/dL (70-99) Calcium Level 8.6mg/dL (8.5-10.1) Magnesium Level 2.2mg/dL (1.8-2.4) O2 Saturation 96% (92-99) 96% (92-99) Arterial Blood pH 7.17 (7.35-7.45) 7.21 (7.35-7.45) Arterial Blood pCO2 at Patient Temp 70mmHg (35-46) 57mmHg (35-46) Arterial Blood pO2 at Patient Temp 97mmHg (65-108) 88mmHg (65-108) Arterial Blood HCO3 25mmol/L (21-28) 22mmol/L (21-28) Arterial Blood Base Excess -5mmol/L (-3-3) -6mmol/L (-3-3) FiO2 28.0 30.0 Lactic Acid Level 0.6mmol/L (0.4-2.0) Ammonia 81mcmol/L (11-34) Test 08/10/16 04:45 08/10/16 05:56 08/10/16 08:00 08/10/16 08:03 Urine Collection Type Unknown Urine Color Stefanie Urine Clarity Cloudy Urine pH 6.0 Urine Specific [place] 1.015 Urine Protein 100mg/dL (NEG-TRACE) Urine Glucose (UA) Negativemg/dL (NEG) Urine Ketones (Stick) Negativemg/dL (NEG) Urine Blood Negative (NEG) Urine Nitrite Negative (NEG) Urine Bilirubin Negative (NEG) Urine Urobilinogen Dipstick 1.0mg/dL (0.2 mg/dL) Urine Leukocyte Esterase Moderate (NEG) Urine RBC 0/HPF (0-2) Urine WBC Tntc/HPF (0-4) Urine Squamous Epithelial Cells Many/LPF Urine Bacteria Many/HPF (0-FEW) Glucose (Fingerstick) 104mg/dL (70-99) 116mg/dL (70-99) O2 Saturation 93% (92-99) Arterial Blood pH 7.20 (7.35-7.45) Arterial Blood pCO2 at Patient Temp 64mmHg (35-46) Arterial Blood pO2 at Patient Temp 77mmHg (65-108) Arterial Blood HCO3 25mmol/L (21-28) Arterial Blood Base Excess -4mmol/L (-3-3) Test 08/10/16 09:10 08/10/16 12:11 O2 Saturation 98% (92-99) Arterial Blood pH 7.38 (7.35-7.45) Arterial Blood pCO2 at Patient Temp 39mmHg (35-46) Arterial Blood pO2 at Patient Temp 114mmHg (65-108) Arterial Blood HCO3 23mmol/L (21-28) Arterial Blood Base Excess -2mmol/L (-3-3) FiO2 35 Glucose (Fingerstick) 123mg/dL (70-99) Laboratory Tests Test 08/09/16 17:50 08/09/16 18:40 08/09/16 20:40 08/09/16 21:15 White Blood Count 8.5x10^3/uL (4.0-11.0) Red Blood Count 4.00x10^6/uL (3.50-5.40) Hemoglobin 10.2g/dL (12.0-15.5) Hematocrit 34.3% (36.0-47.0) Mean Corpuscular Volume 86fL (79-100) Mean Corpuscular Hemoglobin 26pg (25-35) Mean Corpuscular Hemoglobin Concent 30g/dL (31-37) Red Cell Distribution Width 18.8% (11.5-14.5) Platelet Count 77x10^3/uL (140-400) Neutrophils (%) (Auto) 77% (31-73) Lymphocytes (%) (Auto) 6% (24-48) Monocytes (%) (Auto) 15% (0-9) Eosinophils (%) (Auto) 2% (0-3) Basophils (%) (Auto) 0% (0-3) Neutrophils # (Auto) 6.5x10^3uL (1.8-7.7) Lymphocytes # (Auto) 0.5x10^3/uL (1.0-4.8) Monocytes # (Auto) 1.2x10^3/uL (0.0-1.1) Eosinophils # (Auto) 0.2x10^3/uL (0.0-0.7) Basophils # (Auto) 0.0x10^3/uL (0.0-0.2) Sodium Level 142mmol/L (136-145) Potassium Level 4.7mmol/L (3.5-5.1) Chloride Level 107mmol/L (98-107) Carbon Dioxide Level 25mmol/L (21-32) Anion Gap 10 (6-14) Blood Urea Nitrogen 28mg/dL (7-20) Creatinine 1.3mg/dL (0.6-1.0) Estimated GFR (Cockcroft-Gault) 41.2 Glucose Level 173mg/dL (70-99) Calcium Level 8.6mg/dL (8.5-10.1) Magnesium Level 2.2mg/dL (1.8-2.4) O2 Saturation 96% (92-99) 96% (92-99) Arterial Blood pH 7.17 (7.35-7.45) 7.21 (7.35-7.45) Arterial Blood pCO2 at Patient Temp 70mmHg (35-46) 57mmHg (35-46) Arterial Blood pO2 at Patient Temp 97mmHg (65-108) 88mmHg (65-108) Arterial Blood HCO3 25mmol/L (21-28) 22mmol/L (21-28) Arterial Blood Base Excess -5mmol/L (-3-3) -6mmol/L (-3-3) FiO2 28.0 30.0 Lactic Acid Level 0.6mmol/L (0.4-2.0) Ammonia 81mcmol/L (11-34) Test 08/10/16 04:45 08/10/16 05:56 08/10/16 08:00 08/10/16 08:03 Urine Collection Type Unknown Urine Color Stefanie Urine Clarity Cloudy Urine pH 6.0 Urine Specific [place] 1.015 Urine Protein 100mg/dL (NEG-TRACE) Urine Glucose (UA) Negativemg/dL (NEG) Urine Ketones (Stick) Negativemg/dL (NEG) Urine Blood Negative (NEG) Urine Nitrite Negative (NEG) Urine Bilirubin Negative (NEG) Urine Urobilinogen Dipstick 1.0mg/dL (0.2 mg/dL) Urine Leukocyte Esterase Moderate (NEG) Urine RBC 0/HPF (0-2) Urine WBC Tntc/HPF (0-4) Urine Squamous Epithelial Cells Many/LPF Urine Bacteria Many/HPF (0-FEW) Glucose (Fingerstick) 104mg/dL (70-99) 116mg/dL (70-99) O2 Saturation 93% (92-99) Arterial Blood pH 7.20 (7.35-7.45) Arterial Blood pCO2 at Patient Temp 64mmHg (35-46) Arterial Blood pO2 at Patient Temp 77mmHg (65-108) Arterial Blood HCO3 25mmol/L (21-28) Arterial Blood Base Excess -4mmol/L (-3-3) Test 08/10/16 09:10 08/10/16 12:11 O2 Saturation 98% (92-99) Arterial Blood pH 7.38 (7.35-7.45) Arterial Blood pCO2 at Patient Temp 39mmHg (35-46) Arterial Blood pO2 at Patient Temp 114mmHg (65-108) Arterial Blood HCO3 23mmol/L (21-28) Arterial Blood Base Excess -2mmol/L (-3-3) FiO2 35 Glucose (Fingerstick) 123mg/dL (70-99) VTE Prophylaxis Ordered VTE Prophylaxis Devices: Yes VTE Pharmacological Prophylaxi: Yes Assessment/Plan Assessment/Plan 1. acute on chronic hypoxic and hypercapnic resp failure 2. severe COPD 3. dm2 4.morbid obesity 5.non compliance 6.hypothyroidism 7. gerd 8. parkinson dz 9. h/o Bca, psuedo tumor cerebri 10. chronic anemia 11. ckd3 12. HTN urgency plan: fu with pulm PAT consult for hospice on bipap for now duoneb cont home meds dvt ppx HILARIO LIANG MD Aug 10, 2016 13:03
[2016-08-10] MEDS ORDERED: ALBUTEROL SULFATE 2.5 MG/3 ML NEBU. NEB PRN (13:15)
[2016-08-10] MEDS ORDERED: HEPARIN PF for SUB-Q USE 5,000 UNIT/0.5 ML VIAL. SQ SCH (14:00)
[2016-08-10] MEDS ORDERED: MORPHINE SULFATE 4 MG/ML DISP.SYRIN. IV PRN (14:30)
--- NOTE | 2016-08-10 14:47 | RAD ---
Portable chest, 08/10/2016: History: Shortness of breath Comparison is made to a study from 08/04/2016. The ET tube has been removed. The heart is enlarged. Moderate bibasilar infiltrates have developed obscuring the hemidiaphragms. There may be pleural fluid contributing to the basilar opacities. There is no evidence of pneumothorax. Postsurgical changes are noted in the lower cervical spine. IMPRESSION: Moderate bibasilar opacities have developed suggesting infiltrate and possible underlying pleural fluid. The findings may be due to pneumonia or a recent episode of congestive heart failure.
[2016-08-10 15:00] VITALS: BP 171/71
--- NOTE | 2016-08-10 15:07 | PDOC2 ---
PALLIATIVE CARE Palliative Care Note Palliative Care Consult requested by Dr. Ugarte and Dr. Metcalf to address goals of care Met with patient, Dewayne, son Jalya and his , and daughter Reviewed medical condition. Respiratory Failure; does not want aggressive support/BiPap; PMH: Pseudotumor cerebri; splenomegaly, thrombocytopenia;Breast Cancer cellulitis of chest wall. Patient is drowsy but able to participate in conversation; She is adamant that she wants to go home with Hospice. Has no preference of Hospice Agency Discussed Code Status: DNR/DNI; Patient signed own outside the hospital form . DME: Hospital Bed; oxygen (on 4L NC) BSC Spoke with Jovita SÁNCHEZ who will assist with discharge plan Spoke with Phylicia RN. will need orders from Dr. Metcalf. BORIS ESTRADA Aug 10, 2016 15:07
[2016-08-10] MEDS: IPRATRPIUM/ALBUTEROL 0.5/2.5MG 3 ML NEBU. NEB SCH ×2 (15:48→20:15)
[2016-08-10] MEDS: POTASSIUM CHLORIDE 20 MEQ TABLET.ER. PO SCH (17:14)
[2016-08-10] MEDS: glipiZIDE 5 MG TABLET PO SCH (17:20)
[2016-08-10 19:17] VITALS: BP 162/72
[2016-08-10] MEDS: TOPIRAMATE 25 MG TABLET. PO SCH (20:48)
[2016-08-10] MEDS ORDERED: ATORVASTATIN CALCIUM 10 MG TABLET. PO SCH (21:00)
[2016-08-10] MEDS ORDERED: TOPIRAMATE 100 MG TABLET. PO SCH (21:00)
[2016-08-10] MEDS ORDERED: PRAMIPEXOLE 0.25 MG TABLET. PO SCH (21:00)
[2016-08-10] MEDS ORDERED: INSULIN DETEMIR 300 UNITS/3 ML INSULN.PEN. SQ SCH (21:00)
[2016-08-10 22:37] VITALS: BP 145/60
[2016-08-11 02:28] VITALS: BP 155/70
[2016-08-11 07:00] VITALS: BP 155/94
[2016-08-11] MEDS: MORPHINE SULFATE 2 MG/ML DISP.SYRIN. IV PRN ×3 (07:06→11:37)
[2016-08-11] MEDS ORDERED: PANTOPRAZOLE 40 MG TABLET.DR. PO SCH (07:30)
[2016-08-11] MEDS: glipiZIDE 5 MG TABLET PO SCH (07:30)
[2016-08-11] MEDS: POTASSIUM CHLORIDE 20 MEQ TABLET.ER. PO SCH (08:00)
[2016-08-11] MEDS: IPRATRPIUM/ALBUTEROL 0.5/2.5MG 3 ML NEBU. NEB SCH ×2 (08:29→11:49)
[2016-08-11] MEDS: CARBIDOPA/LEVODOPA CR 25/100MG TABLET.SA. PO SCH (08:55)
[2016-08-11] MEDS: acetaZOLAMIDE 250 MG TABLET. PO SCH (08:55)
[2016-08-11] MEDS: LEVOTHYROXINE 100 MCG TABLET PO SCH (08:56)
[2016-08-11] MEDS: TOPIRAMATE 25 MG TABLET. PO SCH (08:57)
[2016-08-11] MEDS: BETHANECHOL CHLORIDE 25 MG TABLET PO SCH (08:57)
[2016-08-11] MEDS: COLESEVELAM HCL 625 MG TABLET PO SCH (08:57)
[2016-08-11] MEDS: LIPASE/PROTEAS/AMYLAS 10/34/55 CAPSULE.DR. PO SCH (08:58)
[2016-08-11] MEDS ORDERED: TORSEMIDE 20 MG TABLET. PO SCH (09:00)
[2016-08-11] MEDS ORDERED: PROPRANOLOL ER 60 MG CAP.SA.24H. PO SCH (09:00)
[2016-08-11] MEDS ORDERED: LORAZEPAM INTENSOL 2 MG/ML ORAL.CONC. SL PRN (09:15)
[2016-08-11] MEDS ORDERED: MORPHINE SULFATE 20 MG/ML CONC SOLUTION. SL PRN (09:15)
[2016-08-11] MEDS ORDERED: METOPROLOL TARTRATE 5 MG/5 ML VIAL. IVP ONE (09:30)
[2016-08-11] MEDS ORDERED: SCOP1PAT TD (09:33)
[2016-08-11] MEDS ORDERED: Morphine Sulfate SL (09:33)
[2016-08-11] MEDS ORDERED: Lorazepam SL (09:33)
[2016-08-11] MEDS ORDERED: SCOPOLAMINE 1.5MG PATCH. TD SCH (10:00)
--- NOTE | 2016-08-11 10:02 | PDOC ---
PULMONARY PROGRESS NOTES Subjective on palliative care Vitals Vital Signs Date Time Temp Pulse Resp B/P Pulse Ox O2 Delivery O2 Flow Rate FiO2 08/11/16 09:44 95 Nasal Cannula 4.0 08/11/16 07:00 97.4 124 25 155/94 97.4 HEENT: Other Lungs: Other (decrease bs) Cardiovascular: S1, S2 Abdomen: Soft, Non-tender, Other Extremities: Other (1+edema) Labs Laboratory Tests Test 08/09/16 17:50 08/09/16 18:40 08/09/16 20:40 08/09/16 21:15 White Blood Count 8.5x10^3/uL (4.0-11.0) Red Blood Count 4.00x10^6/uL (3.50-5.40) Hemoglobin 10.2g/dL (12.0-15.5) Hematocrit 34.3% (36.0-47.0) Mean Corpuscular Volume 86fL (79-100) Mean Corpuscular Hemoglobin 26pg (25-35) Mean Corpuscular Hemoglobin Concent 30g/dL (31-37) Red Cell Distribution Width 18.8% (11.5-14.5) Platelet Count 77x10^3/uL (140-400) Neutrophils (%) (Auto) 77% (31-73) Lymphocytes (%) (Auto) 6% (24-48) Monocytes (%) (Auto) 15% (0-9) Eosinophils (%) (Auto) 2% (0-3) Basophils (%) (Auto) 0% (0-3) Neutrophils # (Auto) 6.5x10^3uL (1.8-7.7) Lymphocytes # (Auto) 0.5x10^3/uL (1.0-4.8) Monocytes # (Auto) 1.2x10^3/uL (0.0-1.1) Eosinophils # (Auto) 0.2x10^3/uL (0.0-0.7) Basophils # (Auto) 0.0x10^3/uL (0.0-0.2) Sodium Level 142mmol/L (136-145) Potassium Level 4.7mmol/L (3.5-5.1) Chloride Level 107mmol/L (98-107) Carbon Dioxide Level 25mmol/L (21-32) Anion Gap 10 (6-14) Blood Urea Nitrogen 28mg/dL (7-20) Creatinine 1.3mg/dL (0.6-1.0) Estimated GFR (Cockcroft-Gault) 41.2 Glucose Level 173mg/dL (70-99) Calcium Level 8.6mg/dL (8.5-10.1) Magnesium Level 2.2mg/dL (1.8-2.4) O2 Saturation 96% (92-99) 96% (92-99) Arterial Blood pH 7.17 (7.35-7.45) 7.21 (7.35-7.45) Arterial Blood pCO2 at Patient Temp 70mmHg (35-46) 57mmHg (35-46) Arterial Blood pO2 at Patient Temp 97mmHg (65-108) 88mmHg (65-108) Arterial Blood HCO3 25mmol/L (21-28) 22mmol/L (21-28) Arterial Blood Base Excess -5mmol/L (-3-3) -6mmol/L (-3-3) FiO2 28.0 30.0 Lactic Acid Level 0.6mmol/L (0.4-2.0) Ammonia 81mcmol/L (11-34) Test 08/10/16 04:45 08/10/16 05:56 08/10/16 08:00 08/10/16 08:03 Urine Collection Type Unknown Urine Color Stefanie Urine Clarity Cloudy Urine pH 6.0 Urine Specific [place] 1.015 Urine Protein 100mg/dL (NEG-TRACE) Urine Glucose (UA) Negativemg/dL (NEG) Urine Ketones (Stick) Negativemg/dL (NEG) Urine Blood Negative (NEG) Urine Nitrite Negative (NEG) Urine Bilirubin Negative (NEG) Urine Urobilinogen Dipstick 1.0mg/dL (0.2 mg/dL) Urine Leukocyte Esterase Moderate (NEG) Urine RBC 0/HPF (0-2) Urine WBC Tntc/HPF (0-4) Urine Squamous Epithelial Cells Many/LPF Urine Bacteria Many/HPF (0-FEW) Glucose (Fingerstick) 104mg/dL (70-99) 116mg/dL (70-99) O2 Saturation 93% (92-99) Arterial Blood pH 7.20 (7.35-7.45) Arterial Blood pCO2 at Patient Temp 64mmHg (35-46) Arterial Blood pO2 at Patient Temp 77mmHg (65-108) Arterial Blood HCO3 25mmol/L (21-28) Arterial Blood Base Excess -4mmol/L (-3-3) Test 08/10/16 09:10 08/10/16 12:11 08/10/16 17:20 08/10/16 20:21 O2 Saturation 98% (92-99) Arterial Blood pH 7.38 (7.35-7.45) Arterial Blood pCO2 at Patient Temp 39mmHg (35-46) Arterial Blood pO2 at Patient Temp 114mmHg (65-108) Arterial Blood HCO3 23mmol/L (21-28) Arterial Blood Base Excess -2mmol/L (-3-3) FiO2 35 Glucose (Fingerstick) 123mg/dL (70-99) 194mg/dL (70-99) 199mg/dL (70-99) Test 08/11/16 08:12 Glucose (Fingerstick) 168mg/dL (70-99) Laboratory Tests Test 08/10/16 12:11 08/10/16 17:20 08/10/16 20:21 08/11/16 08:12 Glucose (Fingerstick) 123mg/dL (70-99) 194mg/dL (70-99) 199mg/dL (70-99) 168mg/dL (70-99) Medications Active Scripts Medications Dose Route/Sig Days Date Category Transderm-Scop (Scopolamine) 1 Each Patch.td72 1 Patch TD Q3DAYS 5 08/11/16 Rx [Morphine Sulfate] 20 MG/1 ML Solution 20 Mg SL PRN Q3HRS PRN 5 08/11/16 Rx [Lorazepam] 2 MG/1 ML Oral.conc 2 Mg SL PRN Q6HRS PRN 5 08/11/16 Rx Acetazolamide 250 Mg Tablet 250 Mg PO BID 08/07/16 Rx Topamax (Topiramate) 25 Mg Tablet 125 Mg PO BID 08/07/16 Rx Topamax (Topiramate) 100 Mg Tablet 1 Tab PO BID 08/03/[address] 10,000 Units Capsule (Lipase/Protease/Amylase) 1 Each Capsule.dr 1 Each PO BID 08/03/16 Reported Omeprazole 40 Mg Capsule.dr 1 Cap PO BID 08/03/16 Reported Welchol (Colesevelam Hcl) 625 Mg Tablet 625 Mg PO BID 08/03/16 Reported Humalog (Insulin Lispro) 100 Unit/1 Ml Cartridge 20 Unit SQ BIDAC 06/11/16 Reported Mirapex (Pramipexole Di-Hcl) 0.25 Mg Tablet 1 Mg PO HS 04/05/16 Reported Levothyroxine Sodium 100 Mcg Tablet 1 Tab PO DAILY 04/05/16 Reported Levemir (Insulin Detemir) 100 Unit/1 Ml Vial 30 Unit SQ BID-AM AND HS 04/05/16 Reported Demadex (Torsemide) 20 Mg Tablet 20 Mg PO DAILY 03/31/16 Rx Carbidopa-Levo Er 25-100 Tab (Carbidopa/Levodopa) 1 Each Tablet.er 1 Each PO BID 01/09/14 Reported Propranolol Hcl 60 Mg Tablet 60 Mg PO HS 01/09/14 Reported Bethanechol Chloride 25 Mg Tablet 25 Mg PO BID 01/09/14 Reported Klor-Con 10 (Potassium Chloride) 10 Meq Tablet.er 20 Meq PO BID 01/09/14 Reported Glipizide 10 Mg Tablet 10 Mg PO BID 01/09/14 Reported Lovastatin 40 Mg Tablet 40 Mg PO HS 01/09/14 Reported Impression . 1. Acute respiratory failure. Arterial blood gasses showed a mixed picture of combined respiratory and metabolic acidosis. She has been on BiPAP, the respiratory component did improve, but then CO2 was slightly increased as well and I suspect we are dealing with a metabolic component as well. I have given her 2 amps of bicarbonate and another blood gases are pending. 2. Obtain chest x-ray to rule out any congestive heart failure. 3. History of breast cancer, status post radiation. 4. Underlying morbid obesity with generalized anasarca. 5. Renal insufficiency. Plan . Long d/w patient and family. Per patient wishes, comfort care only home with HH today ELLEN LAKE MD Aug 11, 2016 10:02
[2016-08-11 11:38] VITALS: BP 132/61
--- NOTE | 2016-08-11 11:58 | PDOC2 ---
PALLIATIVE CARE Palliative Care Note Palliative Care Patient with increased HR and increased respiratory rate and respiratory effort. Unresponsive to verbal stimuli. mottling noted. Discharge cancelled. Message on son Timur phone regarding changes. Patient's , EMS, and [facility] have been notified. BORIS ESTRADA Aug 11, 2016 11:58
--- NOTE | 2016-08-11 12:08 | PDOC2 ---
PALLIATIVE CARE Palliative Care Note Palliative Care Patient without spontaneous respirations or heart beat at 1158. Family is enroute. BORIS ESTRADA Aug 11, 2016 12:08
--- NOTE | 2016-08-11 12:31 | PDOC3 ---
Discharge Summary [facility] Date of Admission: Aug 09, 2016 Discharge Date: Aug 11, 2016 Admitting Diagnosis 1. acute on chronic hypoxic and hypercapnic resp failure 2. severe COPD 3. dm2 4.morbid obesity 5.non compliance 6.hypothyroidism 7. gerd 8. parkinson dz 9. h/o Bca, psuedo tumor cerebri 10. chronic anemia 11. ckd3 12. HTN urgency Problems: Final Diagnosis CONSULTS pulm Brief Hospital Course Patient is a 66 year old female with complex PMH who presents with for altered mental status. pt was here last month. She has severe copd, however, she REFUSED bipap ALWAYS. ABG SHOWED resp acidosis and pco2 RETention. pt was on bipap overnight in the ER, but kept saying no BIPAP AND "WANTS DNR and go to [facility]". PAT consulted, will do comfort care, plan to dc home today with home hospice. pt got more sob, tachycardia, likely will here today. GEN.: awake, cannot answer questions well. tachycardia, sob HEENT: Head is normocephalic, atraumatic NECK: Supple. LUNGS: bl coarse bs HEART: RRR, S1, S2 present. Peripheral pulses intact ABDOMEN: Soft, nontender. Positive bowel sounds. EXTREMITIES: Without any cyanosis. bl leg 2+ edema NEUROLOGIC: Normal speech, normal tone PSYCHIATRIC: Normal affect, normal mood. SKIN: No ulcerations Patient History: Benign neoplasm of cervix uteri G8 SISTER FH: COPD (chronic obstructive pulmonary disease) 33 FATHER Family history: Breast disease (situation) G8 SISTER Family history: Cardiovascular disease (situation) G8 BROTHER 33 FATHER Family history: Diabetes mellitus (situation) 33 FATHER 32 MOTHER G8 SISTER Family history: Hypertension (situation) G8 BROTHER Graves' disease G8 BROTHER Hepatitis C 32 MOTHER Problems: CONDITION AT DISCHARGE: Comment (dying) Scheduled Acetazolamide (Acetazolamide) 250 MG PO BID Bethanechol Chloride (Bethanechol Chloride) 25 MG PO BID (Reported) Carbidopa/Levodopa (Carbidopa-Levo Er 25-100 Tab) 1 EACH PO BID (Reported) Colesevelam Hcl (Welchol) 625 MG PO BID (Reported) Glipizide (Glipizide) 10 MG PO BID (Reported) Insulin Detemir (Levemir) 30 UNIT SQ BID-AM and HS (Reported) Insulin Lispro (Humalog) 20 UNIT SQ BIDAC (Reported) Levothyroxine Sodium (Levothyroxine Sodium) 1 TAB PO DAILY (Reported) Lipase/Protease/Amylase (Zenpep Dr 10,000 Units Capsule) 1 EACH PO BID (Reported ) Lovastatin (Lovastatin) 40 MG PO HS (Reported) Omeprazole (Omeprazole) 1 CAP PO BID (Reported) Potassium Chloride (Klor-Con 10) 20 MEQ PO BID (Reported) Pramipexole Di-Hcl (Mirapex) 1 MG PO HS (Reported) Propranolol Hcl (Propranolol Hcl) 60 MG PO HS (Reported) Scopolamine (Transderm-Scop) 1 PATCH TD Q3DAYS Topiramate (Topamax) 1 TAB PO BID (Reported) Topiramate (Topamax) 125 MG PO BID Torsemide (Demadex) 20 MG PO DAILY Scheduled PRN ([Lorazepam]) 2 MG SL PRN Q6HRS PRN PRN ANXIETY / AGITATION ([Morphine Sulfate]) 20 MG SL PRN Q3HRS PRN PRN PAIN HILARIO LIANG MD Aug 11, 2016 12:31
== END 2016-08-11 14:00 | disposition expired | DRG 189 ==
LOC: ER 17:10 → 2 SOUTH 20:00
PROVIDERS: ADMIT Internal Medicine; ATTEND Internal Medicine
PROC: 5A09457 Assistance with Respiratory Ventilation, 24-96 Consecutive Hours, Continuous Positive Airway Pressure (ICD-10-PCS; principal; 2016-08-09)
DX: J96.21 Acute and chronic respiratory failure with hypoxia (principal); G93.41 Metabolic encephalopathy; E87.4 Mixed disorder of acid-base balance; Z68.43 Body mass index [BMI] 50.0-59.9, adult; E87.2 Acidosis; I12.9 Hypertensive chronic kidney disease with stage 1 through stage 4 chronic kidney disease, or unspecified chronic kidney disease; J96.22 Acute and chronic respiratory failure with hypercapnia; D64.9 Anemia, unspecified; E03.9 Hypothyroidism, unspecified; E11.22 Type 2 diabetes mellitus with diabetic chronic kidney disease; E66.01 Morbid (severe) obesity due to excess calories; E78.5 Hyperlipidemia, unspecified; Z66 Do not resuscitate; Z51.5 Encounter for palliative care; G20 Parkinson's disease; I16.0 Hypertensive urgency; J44.9 Chronic obstructive pulmonary disease, unspecified; K21.9 Gastro-esophageal reflux disease without esophagitis; N18.3 Chronic kidney disease, stage 3 (moderate); Z82.49 Family history of ischemic heart disease and other diseases of the circulatory system; Z83.3 Family history of diabetes mellitus; Z85.3 Personal history of malignant neoplasm of breast; Z90.710 Acquired absence of both cervix and uterus; Z90.49 Acquired absence of other specified parts of digestive tract; Z90.10 Acquired absence of unspecified breast and nipple; Z87.11 Personal history of peptic ulcer disease; Z91.19 Patient's noncompliance with other medical treatment and regimen; Z92.3 Personal history of irradiation; Z88.2 Allergy status to sulfonamides; Z88.8 Allergy status to other drugs, medicaments and biological substances; Z79.899 Other long term (current) drug therapy
CPT/HCPCS: 36415; 36600; 71010; 80048; 81001; 82140; 82805; 82947; 83605; 83735; 85027; 87086; 87186; 93005; 94640; 94660; 94760; J0360; J1815; J2270; J3490; J7620; 99285-25